=== PATIENT | male | born 1950 | race Caucasian/White ===

== ENCOUNTER 2017-11-07 15:02 | Emergency (ER) | payer OTHER ==
[~2017-11-07] VITALS: Ht 175.3 cm; Wt 87.0 kg
[2017-11-07 16:03] VITALS: BP 103/64; PULSE 94; RESP 18; TEMP 97.7; O2SAT 99
[2017-11-07 17:47] LABS: BASOPHIL % 0.5 % (0.0-2.0); EOSINOPHIL # 0.1 TH/MM3 (0-0.4); EOSINOPHIL % 0.9 % (0.0-4.0); HEMATOCRIT 49.5 % (39.0-51.0); LYMPH % 19.8 % (9.0-44.0); LYMPHOCYTE # 1.7 TH/MM3 (1.0-4.8); MEAN CELL VOLUME 89.6 FL (80.0-100.0); MEAN CORPUSCULAR HEMOGLOBIN 30.7 PG (27.0-34.0); MEAN CORPUSCULAR HGB CONC 34.3 % (32.0-36.0); MONO % 7.2 % (0.0-8.0); MONOCYTE # 0.6 TH/MM3 (0-0.9); NEUT % 71.6 % (16.0-70.0); PLATELET COUNT 227 TH/MM3 (150-450); RED BLOOD COUNT 5.52 MIL/MM3 (4.50-5.90); RED CELL DISTRIBUTION WIDTH 13.1 % (11.6-17.2); WHITE BLOOD COUNT 8.4 TH/MM3 (4.0-11.0)
[2017-11-07 18:10] LABS: ALBUMIN 4.5 GM/DL (3.4-5.0); AST (GOT) 25 U/L (15-37); BICARBONATE 27.5 MEQ/L (21.0-32.0); BLOOD UREA NITROGEN 28 MG/DL (7-18); CALCIUM 10.2 MG/DL (8.5-10.1); CHLORIDE 94 MEQ/L (98-107); CREATININE 1.18 MG/DL (0.60-1.30); GLOMERULAR FILTRATION RATE 62 ML/MIN (>89); GLUCOSE,RANDOM 430 MG/DL (74-106); SODIUM (NA) 132 MEQ/L (136-145)
[2017-11-07 18:15] LABS: ALKALINE PHOSPHATASE 164 U/L (45-117); ALT (GPT) 76 U/L (12-78); TOTAL BILIRUBIN ADULT 0.5 MG/DL (0.2-1.0); TOTAL PROTEIN 8.9 GM/DL (6.4-8.2)
[2017-11-07 20:35] VITALS: BP 132/76; PULSE 80; RESP 15
[2017-11-07] MEDS ORDERED: SODIUM CHLOR 0.9% 1000 ML INJ 1,000 ML IV SCH (20:42)
--- NOTE | 2017-11-07 20:43 | PD ---
HPI Chief Complaint: Diabetic Time Seen by Provider: 20:28 Travel History International Travel<30 days: No Contact w/Intl Traveler<30days: No Traveled to known affect area: No History of Present Illness HPI Patient is a 67-year-old male who was sent over by the [facility] for evaluation of elevated hemoglobin A1c. Patient had routine blood work drawn today for his checkup and was found to have his blood sugar in the 500s and elevated A1c. Patient has no complaints. He denies any chest pain shortness breath abdominal pain nausea vomiting diarrhea constipation. Patient states he only has some mild numbness and tingling his fingers from his chronic neuropathy. Denies any fevers. Symptoms are moderate, associated signs symptoms and context as above, duration unknown. PFSH Past Medical History Cardiovascular Problems: Yes ("HEART VALVE") Diabetes: Yes Patient Takes Glucophage: No Diminished Hearing: Yes Hiatal Hernia: Yes Tetanus Vaccination: Unknown Social History Alcohol Use: No Tobacco Use: No Substance Use: No Allergies-Medications (Allergen,Severity, Reaction): Coded Allergies: Iodinated Contrast- Oral and IV Dye (Verified Allergy, Intermediate, ) SNEEZING Review of Systems Except as stated in HPI: all other systems reviewed are Neg Physical Exam Narrative GENERAL: Well-developed well-nourished no obvious distress SKIN: Focused skin assessment warm/dry. HEAD: Atraumatic. Normocephalic. EYES: Pupils equal and round. No scleral icterus. No injection or drainage. ENT: No nasal bleeding or discharge. Mucous membranes pink and moist. NECK: Trachea midline. No JVD. CARDIOVASCULAR: Regular rate and rhythm. No murmur appreciated. RESPIRATORY: No accessory muscle use. Clear to auscultation. Breath sounds equal bilaterally. GASTROINTESTINAL: Abdomen soft, non-tender, nondistended. Hepatic and splenic margins not palpable. MUSCULOSKELETAL: No obvious deformities. No clubbing. No cyanosis. No edema. NEUROLOGICAL: Awake and alert. No obvious cranial nerve deficits. Motor grossly within normal limits. Normal speech. 5 out of 5 strength in all 4 extrema PSYCHIATRIC: Appropriate mood and affect; insight and judgment normal. Data Data Last Documented VS Vital Signs Date Time Temp Pulse Resp B/P (MAP) Pulse Ox O2 Delivery O2 Flow Rate FiO2 11/07/17 23:42 11/07/17 20:49 16 98 Room Air 11/07/17 20:35 80 98 3/16/18 16:03 97.7 Orders Orders Complete Blood Count With Diff (11/07/17 16:06) Blood Glucose (11/07/17 16:06) Comprehensive Metabolic Panel (11/07/17 16:06) Basic Metabolic Panel (Bmp) (11/07/17 20:42) Complete Blood Count With Diff (11/07/17 20:42) Iv Access Insert/Monitor (11/07/17 20:42) Ecg Monitoring (11/07/17 20:42) Oximetry (11/07/17 20:42) Sodium Chlor 0.9% 1000 Ml Inj (Ns 1000 M (11/07/17 20:42) Sodium Chloride 0.9% Flush (Ns Flush) (11/07/17 20:45) Electrocardiogram (11/07/17 20:42) Insulin Human Regular Inj (Novolin R Inj (11/07/17 20:45) Blood Glucose (11/07/17 22:22) Ed Discharge Order (11/07/17 23:03) Labs Laboratory Tests Test 11/07/17 16:45 11/07/17 20:55 White Blood Count 8.4 TH/MM3 9.6 TH/MM3 Red Blood Count 5.52 MIL/MM3 5.40 MIL/MM3 Hemoglobin 17.0 GM/DL 16.4 GM/DL Hematocrit 49.5 % 48.0 % Mean Corpuscular Volume 89.6 FL 88.8 FL Mean Corpuscular Hemoglobin 30.7 PG 30.3 PG Mean Corpuscular Hemoglobin Concent 34.3 % 34.2 % Red Cell Distribution Width 13.1 % 13.2 % Platelet Count 227 TH/MM3 237 TH/MM3 Mean Platelet Volume 10.0 FL 9.7 FL Neutrophils (%) (Auto) 71.6 % 71.6 % Lymphocytes (%) (Auto) 19.8 % 20.0 % Monocytes (%) (Auto) 7.2 % 7.0 % Eosinophils (%) (Auto) 0.9 % 0.9 % Basophils (%) (Auto) 0.5 % 0.5 % Neutrophils # (Auto) 6.0 TH/MM3 6.8 TH/MM3 Lymphocytes # (Auto) 1.7 TH/MM3 1.9 TH/MM3 Monocytes # (Auto) 0.6 TH/MM3 0.7 TH/MM3 Eosinophils # (Auto) 0.1 TH/MM3 0.1 TH/MM3 Basophils # (Auto) 0.0 TH/MM3 0.0 TH/MM3 CBC Comment DIFF FINAL DIFF FINAL Differential Comment Blood Urea Nitrogen 28 MG/DL 27 MG/DL Creatinine 1.18 MG/DL 1.13 MG/DL Random Glucose 430 MG/DL 381 MG/DL Total Protein 8.9 GM/DL Albumin 4.5 GM/DL Calcium Level 10.2 MG/DL 9.6 MG/DL Alkaline Phosphatase 164 U/L Aspartate Amino Transf (AST/SGOT) 25 U/L Alanine Aminotransferase (ALT/SGPT) 76 U/L Total Bilirubin 0.5 MG/DL Sodium Level 132 MEQ/L 137 MEQ/L Potassium Level 4.6 MEQ/L 4.6 MEQ/L Chloride Level 94 MEQ/L 97 MEQ/L Carbon Dioxide Level 27.5 MEQ/L 29.2 MEQ/L Anion Gap 11 MEQ/L 11 MEQ/L Estimat Glomerular Filtration Rate 62 ML/MIN 65 ML/MIN [facility] Medical Decision Making Medical Screen Exam Complete: Yes Emergency Medical Condition: Yes Differential Diagnosis DKA unlikely, asymptomatic hyperglycemia, uncontrolled diabetes. Narrative Course Patient room to the emergency department, given normal saline and insulin, labs are reassuring, repeat sugar within discharge parameters. 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 Diagnosis Primary Impression: Hyperglycemia due to type 1 diabetes mellitus Additional Instructions: Follow-up with your stationary plant operators on Friday, take your insulin as prescribed, avoid carbohydrates and sugar. Disposition: 01 DISCHARGE HOME Condition: Stable Roscoe Eden MD Nov 07, 2017 20:43
[2017-11-07] MEDS ORDERED: INSULIN HUMAN REGULAR 1,000 UNITS/10 ML VIAL IV PUSH ONE (20:45)
[2017-11-07] MEDS ORDERED: SODIUM CHLORIDE 0.9% FLUSH 10 ML FLUSH IV FLUSH PRN (20:45)
[2017-11-07 20:49] VITALS: RESP 16; O2SAT 98
[2017-11-07 21:24] LABS: AUTOMATED NEUTROPHIL # 6.8 TH/MM3 (1.8-7.7); BASOPHIL % 0.5 % (0.0-2.0); EOSINOPHIL # 0.1 TH/MM3 (0-0.4); EOSINOPHIL % 0.9 % (0.0-4.0); HEMOGLOBIN 16.4 GM/DL (13.0-17.0); LYMPHOCYTE # 1.9 TH/MM3 (1.0-4.8); MEAN CELL VOLUME 88.8 FL (80.0-100.0); MEAN CORPUSCULAR HEMOGLOBIN 30.3 PG (27.0-34.0); MEAN CORPUSCULAR HGB CONC 34.2 % (32.0-36.0); MEAN PLATELET VOLUME 9.7 FL (7.0-11.0); MONOCYTE # 0.7 TH/MM3 (0-0.9); NEUT % 71.6 % (16.0-70.0); PLATELET COUNT 237 TH/MM3 (150-450); RED CELL DISTRIBUTION WIDTH 13.2 % (11.6-17.2); WHITE BLOOD COUNT 9.6 TH/MM3 (4.0-11.0)
[2017-11-07 21:53] LABS: BICARBONATE 29.2 MEQ/L (21.0-32.0); CALCIUM 9.6 MG/DL (8.5-10.1); CREATININE 1.13 MG/DL (0.60-1.30)
--- NOTE | 2017-11-08 16:49 | EKG ---
Date Performed: 11/07/2017 Time Performed: 20:58:55 PTAGE: 67 years EKG: Sinus rhythm POSSIBLE LEFT ATRIAL ENLARGEMENT RIGHT BUNDLE BRANCH BLOCK LEFT ANTERIOR FASCICULAR BLOCK SEPTAL JOHNNIE CARDIAL INFARCTION ABNORMAL ECG NO PREVIOUS TRACING DOCTOR: Josiah Ashraf Interpretating Date/Time 11/08/2017 16:47:56
== END 2017-11-07 23:54 | disposition home or self-care (01) ==
LOC: NEPE 15:02
DX: E10.65 Type 1 diabetes mellitus with hyperglycemia (principal); R94.31 Abnormal electrocardiogram [ECG] [EKG]
CPT/HCPCS: 80053; 85025; 93005; 96374; 99284; J1815; J7030; 80048

== ENCOUNTER 2018-03-05 11:45 | Inpatient (IN) ==
[2018-03-05] MEDS ORDERED: Piperacil/Tazo 4.5 GM Premix 4.5 GM/100 ML BAG IV.SIG ONE (12:00)
[2018-03-05] MEDS ORDERED: Lidocaine PF 1% Inj 5 ML Syringe INFILTRATN ONE (12:00)
[2018-03-05] MEDS ORDERED: Neostigmine Inj 5 MG/5 ML Syringe IV.PUSH ONE (12:00)
[2018-03-05] MEDS ORDERED: Glycopyrrolate Inj 1 MG/5 ML Syringe IV.PUSH ONE (12:00)
[2018-03-05] MEDS ORDERED: Vancomycin Inj 1 GM/200 ML PIGGYBACK IV.SIG ONE (12:00)
--- NOTE | 2018-03-05 12:25 | ED ---
HPI General Chief Complaint: Extremity Injury, Lower Stated Complaint: confusion/Evac Time Seen by Provider: 03/05/18 12:00 Source: patient, family and EMS Mode of arrival: EMS Limitations: altered mental status History of Present Illness HPI Narrative: 67 yo male here for evaluation of possible altered mental status and left foot necrosis. Unclear lenght of time as patient is somewhat confused. Patient has a bruise to his head and allegedly per EVAC and estranged he did not had a bruise on head on friday when his home health nurse saw him. Patient denies any pain at this time. Cannot tell me if he lost consciousness or not. No blood thinners. Cannot tell me how long his toes have been black. He does tell me he has chronic neuropathy and diabetes with insulin. No cardiac history per patient. No chest pain or SOB. No back pain. EVAC called today as apparently and home health nurse saw him today with a bruise to his head an black toes. Again history is limited. Apparently does not live with and cannot give much information about how long this has been going on other than patient did not had a bruise to his head on friday afternoon. Related Data Allergies Allergy/AdvReac Type Severity Reaction Status Date / Time Iodinated Contrast- Oral and Allergy Intermediate Verified 11/07/17 20:25 IV Dye Review of Systems ROS Unobtainable All other systems reviewed negative except as stated in HPI PMFSH History History Provided By: Patient, Family Member and Airborne Electronics Analyst / EMT Social History Social History Second Hand Smoke Exposure: No Smoking Status: Former smoker Tobacco Type: Cigarettes How Often Do You Have a Drink Containing Alcohol: Never Recent Travel in [facility] within the Last 8 Weeks: No Recent Out of Country Travel within the Last 8 Weeks: No Exam Narrative Exam Narrative: GENERAL: Anorexic and not well groomed SKIN: Focused skin assessment warm/dry. HEAD: Atraumatic. Normocephalic. Has a bruise and hematoma noted to the right side of the face. EYES: Pupils equal and round 4 mm reactive to light and accommodation.. No scleral icterus. No injection or drainage. ENT: No nasal bleeding or discharge. Mucous membranes pink and moist. Tongue is midline. No uvula deviation. NECK: Trachea midline. No JVD. CARDIOVASCULAR: Regular rate and rhythm. No murmur appreciated. RESPIRATORY: No accessory muscle use. Clear to auscultation. Breath sounds equal bilaterally. GASTROINTESTINAL: Abdomen soft, non-tender, nondistended. Hepatic and splenic margins not palpable. MUSCULOSKELETAL: No obvious deformities. No clubbing. No cyanosis. No edema. Full range of motion of the upper and lower extremities bilaterally. Patient has normal sensation on the feet bilaterally which appears to be chronic for him. Patient does have significant blackening of the second and third toes are more noticeable on the second toe of the left foot. Blackening of the skin does appear to be more significant especially on the plantar aspect of the foot and goes about one third of the foot. Foul-smelling. Some erythema noted especially on all the other toes and the dorsal aspect of the foot with swelling. Very hard to assess pulses but with Doppler we were able to find pulses very slightly on the dorsalis pedis and in the posterior tibialis (this was done by me and attending Dr Zambrano). NEUROLOGICAL: Awake and alert. No obvious cranial nerve deficits. Motor grossly within normal limits. Normal speech. PSYCHIATRIC: Appropriate mood and affect; insight and judgment normal. Course Initial Documented Vital Signs Pulse Oximetry 98 03/05/18 12:23 Last Documented Vital Signs Pulse Oximetry 98 03/05/18 12:23 Medical Decision Making HUA Attestation HUA supervised visit: Yes Attestation: I, Dr. zambrano, have reviewed the advance practice practitioner's documentation and am in agreement, met with the patient face to face, made the diagnosis, and the medical decision making was done by me. *My assessment and Findings: 67-year-old male with severe infection to left foot. There is dopplerable and palpable posterior tibialis pulses, x-ray shows gas. Given broad-spectrum antibiotics. Discuss with podiatry and will admit to the hospital for further care MDM Narrative Medical decision making narrative: 67-year-old male the presents to the ED for evaluation of altered mental status and foot infection. Patient was properly examined and was found to have signs and symptoms very concerning for necrotic toe. We were able to find something pulses on the foot. Patient apparently has an IV contrast allergy and cannot have CTA. At this time labs and imaging were ordered. Patient does have a bruise to his head and there is some alteration to the patient upon he appears to answer most questions appropriately at time questions. At this time labs and imaging order. Patient will start IV antibiotics including vancomycin and Zosyn. Given fluids. Patient and family were told that patient will require admission for further evaluation and likely amputation of the left foot but this will be at the discretion of the copper plater and surgeon who will take care of him. Labs and imaging showed significant infection with elevated WBCs, ESR, CRP, xray of foot showed subcutaneus air. Likely gangrene. Spoke with Dr Aguirre for podiatry who wants patient NPO and surgery likely this afternoon, admit to medicine. Case discussed with Dr Li from [facility] who agrees to admission to his service. Dr Zambrano my attending was made aware of all findings and evaluated the patient with me and agrees with plan. Family and patient made aware of findings as well and agree to proceed. Differential Diagnosis Differential Diagnosis: Necrotic toe versus peripheral artery disease versus altered mental status versus head injury versus sepsis versus osteomyelitis Medical Records Medical records reviewed: Yes I reviewed the patient's medical records. Lab Data Lab results reviewed: Yes I reviewed the patient's lab results. Lab results narrative: CRP and ESR Elevated CK and troponin negative Result diagrams: 03/05/18 12:15 03/05/18 12:15 Lab Results 03/05/18 03/05/18 03/05/18 Range/Units 12:15 12:15 12:15 WBC 26.6 H (4.0-11.0) th/mm3 RBC 4.72 (4.50-5.90) mil/mm3 Hgb 13.8 (13.0-17.0) gm/dL Hct 41.7 (39.0-51.0) % MCV 88.3 (80.0-100.0) fL MCH 29.3 (27.0-34.0) pg MCHC 33.2 (32.0-36.0) % RDW 12.8 (11.6-17.2) % Plt Count 374 (150-450) th/mm3 MPV 9.2 (7.0-11.0) fL Prelim Diff (Auto) Slide review pending Neut % (Auto) 87.1 H (16.0-70.0) % Lymph % (Auto) 5.5 L (9.0-44.0) % [place] % (Auto) 6.9 (0.0-8.0) % Eos % (Auto) 0.0 (0.0-4.0) % Baso % (Auto) 0.5 (0.0-2.0) % Neut # (Auto) 23.2 H (1.8-7.7) th/mm3 Lymph # (Auto) 1.5 (1.0-4.8) th/mm3 [place] # (Auto) 1.8 H (0.0-0.9) th/mm3 Eos # (Auto) 0.0 (0.0-0.4) th/mm3 Baso # (Auto) 0.1 (0.0-0.2) th/mm3 WBC Differential Manual diff final Seg Neuts % (Manual) 82 H (16-70) % Band Neuts % (Manual) 9 H (0-6) % Lymphocytes % (Manual) 4 L (9-44) % Monocytes % (Manual) 4 (0-8) % Myelocytes % (Man) 1 H (0-0) % Abs Neuts (Manual) 24.5 H (1.8-7.7) th/mm3 Differential Comment . Toxic Granulation 1+ H (None) Toxic Vacuolation Present H (None) Platelet Estimate Normal (Normal) Platelet Morphology Normal (Normal) ESR (0-20) mm/hr PT 12.8 H (9.8-11.6) sec INR 1.3 Ratio APTT 23.8 L (24.3-30.1) sec Sodium 132 L (136-145) meq/L Potassium 4.5 (3.5-5.1) meq/L Chloride 97 L (98-107) meq/L Carbon Dioxide 20.4 L (21.0-32.0) meq/L Anion Gap 15 (5-15) meq/L BUN 51 H (7-18) mg/dL Creatinine 1.32 H (0.60-1.30) mg/dL Estimated GFR 54 L (>89) mL/min Random Glucose 331 H (74-106) mg/dL Lactic Acid (0.4-2.0) mmol/L Calcium 9.1 (8.5-10.1) mg/dL Prot Corrected Calcium Magnesium 1.7 (1.5-2.5) mg/dL Total Bilirubin 0.6 (0.2-1.0) mg/dL AST 9 L (15-37) U/L ALT 22 (12-78) U/L Alkaline Phosphatase 107 (45-117) U/L Total Creatine Kinase 88 (39-308) U/L Troponin I Less than 0.02 L (0.02-0.05) ng/mL C-Reactive Protein 16.00 H (0.00-0.30) mg/dL Total Protein 7.3 (6.4-8.2) g/dL Albumin 2.1 L (3.4-5.0) g/dL 03/05/18 03/05/18 03/05/18 Range/Units 12:15 12:15 12:15 WBC (4.0-11.0) th/mm3 RBC (4.50-5.90) mil/mm3 Hgb (13.0-17.0) gm/dL Hct (39.0-51.0) % MCV (80.0-100.0) fL MCH (27.0-34.0) pg MCHC (32.0-36.0) % RDW (11.6-17.2) % Plt Count (150-450) th/mm3 MPV (7.0-11.0) fL Prelim Diff (Auto) Neut % (Auto) (16.0-70.0) % Lymph % (Auto) (9.0-44.0) % [place] % (Auto) (0.0-8.0) % Eos % (Auto) (0.0-4.0) % Baso % (Auto) (0.0-2.0) % Neut # (Auto) (1.8-7.7) th/mm3 Lymph # (Auto) (1.0-4.8) th/mm3 [place] # (Auto) (0.0-0.9) th/mm3 Eos # (Auto) (0.0-0.4) th/mm3 Baso # (Auto) (0.0-0.2) th/mm3 WBC Differential Seg Neuts % (Manual) (16-70) % Band Neuts % (Manual) (0-6) % Lymphocytes % (Manual) (9-44) % Monocytes % (Manual) (0-8) % Myelocytes % (Man) (0-0) % Abs Neuts (Manual) (1.8-7.7) th/mm3 Differential Comment Toxic Granulation (None) Toxic Vacuolation (None) Platelet Estimate (Normal) Platelet Morphology (Normal) ESR (0-20) mm/hr PT (9.8-11.6) sec INR Ratio APTT (24.3-30.1) sec Sodium Cancelled (136-145) meq/L Potassium Cancelled (3.5-5.1) meq/L Chloride Cancelled (98-107) meq/L Carbon Dioxide Cancelled (21.0-32.0) meq/L Anion Gap Cancelled (5-15) meq/L BUN Cancelled (7-18) mg/dL Creatinine Cancelled (0.60-1.30) mg/dL Estimated GFR Cancelled (>89) mL/min Random Glucose Cancelled (74-106) mg/dL Lactic Acid 1.8 (0.4-2.0) mmol/L Calcium Cancelled (8.5-10.1) mg/dL Prot Corrected Calcium Cancelled Magnesium (1.5-2.5) mg/dL Total Bilirubin Cancelled (0.2-1.0) mg/dL AST Cancelled (15-37) U/L ALT Cancelled (12-78) U/L Alkaline Phosphatase Cancelled (45-117) U/L Total Creatine Kinase (39-308) U/L Troponin I (0.02-0.05) ng/mL C-Reactive Protein Cancelled (0.00-0.30) mg/dL Total Protein Cancelled (6.4-8.2) g/dL Albumin Cancelled (3.4-5.0) g/dL 03/05/18 Range/Units 12:15 WBC (4.0-11.0) th/mm3 RBC (4.50-5.90) mil/mm3 Hgb (13.0-17.0) gm/dL Hct (39.0-51.0) % MCV (80.0-100.0) fL MCH (27.0-34.0) pg MCHC (32.0-36.0) % RDW (11.6-17.2) % Plt Count (150-450) th/mm3 MPV (7.0-11.0) fL Prelim Diff (Auto) Neut % (Auto) (16.0-70.0) % Lymph % (Auto) (9.0-44.0) % [place] % (Auto) (0.0-8.0) % Eos % (Auto) (0.0-4.0) % Baso % (Auto) (0.0-2.0) % Neut # (Auto) (1.8-7.7) th/mm3 Lymph # (Auto) (1.0-4.8) th/mm3 [place] # (Auto) (0.0-0.9) th/mm3 Eos # (Auto) (0.0-0.4) th/mm3 Baso # (Auto) (0.0-0.2) th/mm3 WBC Differential Seg Neuts % (Manual) (16-70) % Band Neuts % (Manual) (0-6) % Lymphocytes % (Manual) (9-44) % Monocytes % (Manual) (0-8) % Myelocytes % (Man) (0-0) % Abs Neuts (Manual) (1.8-7.7) th/mm3 Differential Comment Toxic Granulation (None) Toxic Vacuolation (None) Platelet Estimate (Normal) Platelet Morphology (Normal) ESR 81 H (0-20) mm/hr PT (9.8-11.6) sec INR Ratio APTT (24.3-30.1) sec Sodium (136-145) meq/L Potassium (3.5-5.1) meq/L Chloride (98-107) meq/L Carbon Dioxide (21.0-32.0) meq/L Anion Gap (5-15) meq/L BUN (7-18) mg/dL Creatinine (0.60-1.30) mg/dL Estimated GFR (>89) mL/min Random Glucose (74-106) mg/dL Lactic Acid (0.4-2.0) mmol/L Calcium (8.5-10.1) mg/dL Prot Corrected Calcium Magnesium (1.5-2.5) mg/dL Total Bilirubin (0.2-1.0) mg/dL AST (15-37) U/L ALT (12-78) U/L Alkaline Phosphatase (45-117) U/L Total Creatine Kinase (39-308) U/L Troponin I (0.02-0.05) ng/mL C-Reactive Protein (0.00-0.30) mg/dL Total Protein (6.4-8.2) g/dL Albumin (3.4-5.0) g/dL Imaging Data Attestation: I personally reviewed and interpreted this imaging study as follows : Radiologist's impression: ITS Impressions Foot X-Ray 03/05/18 12:00 CONCLUSION: 1. Abnormal subcutaneous emphysema is seen in the soft tissues along the ball of foot, between the first, second and third toes and along the plantar fascia. This suggests some degree of infection/inflammatory process. 2. No evidence of any bony erosion or bony destruction to suggest osteomyelitis at this time. Head CT 03/05/18 12:00 CONCLUSION: 1. No focal or acute intracranial hemorrhage. 2. Subcutaneous Soft tissue swelling along the right forehead region. 3. Chronic appearing white matter changes bilaterally slightly greater on the right than the left. Recommend MRI of the brain for further evaluation if clinically indicated. Chest X-Ray 03/05/18 12:01 CONCLUSION: No acute intrathoracic disease. ECG Data EKG Prior to Arrival: No Discharge Plan Discharge Disposition Patient Disposition: 30 Still Patient Discharge Condition Condition: Fair Discharge Details Diagnosis: Gangrene of left foot, Altered mental status, Acute kidney injury, Diabetes, Head injury, acute Physicians Team ED Provider: Mary Grace Zambrano ED Midlevel Provider: Smith Hernández Primary Care Provider: Primary Care Gloria Schroeder Attending Provider: Monica Li Status ED Status: Admitted Patient
[2018-03-05] MEDS ORDERED: Vancomycin Inj 1,000 MG in Sodium Chlor 0.9% Inj 250 ML IV.SIG ONE (12:30)
[2018-03-05 12:33] LABS: Baso # (Auto) 0.1 th/mm3 (0.0-0.2); Baso % (Auto) 0.5 % (0.0-2.0); Hematocrit 41.7 % (39.0-51.0); Hemoglobin 13.8 gm/dL (13.0-17.0); Lymph # (Auto) 1.5 th/mm3 (1.0-4.8); Lymph % (Auto) 5.5 % (9.0-44.0); Mean Corpuscular HGB Conc 33.2 % (32.0-36.0); Mean Corpuscular Hemoglobin 29.3 pg (27.0-34.0); Mean Corpuscular Volume 88.3 fL (80.0-100.0); Mean Platelet Volume 9.2 fL (7.0-11.0); Mono # (Auto) 1.8 th/mm3 (0.0-0.9); Mono % (Auto) 6.9 % (0.0-8.0); Neut # (Auto) 23.2 th/mm3 (1.8-7.7); Neut % (Auto) 87.1 % (16.0-70.0); Platelet Count 374 th/mm3 (150-450); Red Blood Count 4.72 mil/mm3 (4.50-5.90); Red Cell Distribution Width 12.8 % (11.6-17.2); White Blood Count 26.6 th/mm3 (4.0-11.0)
--- NOTE | 2018-03-05 12:38 | XR ---
EXAM DATE: 03/05/2018 12:35 PM EDT AGE/SEX: 67 years / Male INDICATIONS: Fever, infection in left foot. CLINICAL DATA: This is the patient's initial encounter. Patient reports that signs and symptoms have been present for 1 week and indicates a pain score of 2/10. MEDICAL/SURGICAL HISTORY: None. None. COMPARISON: No prior exams available for comparison. FINDINGS: A single AP view of the chest demonstrates the lungs to be symmetrically aerated without evidence of mass, infiltrate or effusion. The cardiomediastinal contours are unremarkable. Osseous structures a re intact. CONCLUSION: No acute intrathoracic disease. Electronically signed by: Robert Valente MD 03/05/2018 12:37 PM EDT
--- NOTE | 2018-03-05 12:41 | CT ---
EXAM DATE: 03/05/2018 12:37 PM EDT AGE/SEX: 67 years / Male INDICATIONS: Trauma, fall a few days ago. Altered mental status. CLINICAL DATA: This is the patient's initial encounter. Patient reports that signs and symptoms have been present for 3 days and indicates a pain score of 4/10. MEDICAL/SURGICAL HISTORY: None. None. RADIATION DOSE: 35.79 CTDI (mGy) COMPARISON: No prior exams available for comparison. TECHNIQUE: CT of the head without contrast. Using automated exposure control and adjustment of the mA and/or kV according to patient size, radiation dose was kept as low as reasonably achievable to ob tain optimal diagnostic quality images. DICOM format image data is available electronically for revi ew and comparison. FINDINGS: Cerebrum: The ventricles are normal for age. No evidence of midline shift, mass lesion, hemorrhage or acute infarction. There is chronic appearing white matter changes bilaterally slightly greater on the right than the left. There are no prior studies for comparison. No extraaxial fluid collections are seen. Posterior Fossa: The cerebellum and brainstem are intact. The 4th ventricle is midline. The cerebe llopontine angle is unremarkable. Extracranial: The visualized portion of the orbits is intact. There is subcutaneous soft tissue swel ling of the scalp along the right forehead. Skull: The calvaria is intact. No evidence of skull fracture. CONCLUSION: 1. No focal or acute intracranial hemorrhage. 2. Subcutaneous Soft tissue swelling along the right forehead region. 3. Chronic appearing white matter changes bilaterally slightly greater on the right than the left. R ecommend MRI of the brain for further evaluation if clinically indicated. Electronically signed by: Robert Valente MD 03/05/2018 12:40 PM EDT
--- NOTE | 2018-03-05 12:45 | XR ---
EXAM DATE: 03/05/2018 12:38 PM EDT AGE/SEX: 67 years / Male INDICATIONS: Fever, infection left foot. Second digit is black, bottom of foot is black in the firs t digit area. Complains of pain. CLINICAL DATA: This is the patient's initial encounter. Patient reports that signs and symptoms have been present for 1 week and indicates a pain score of 8/10. MEDICAL/SURGICAL HISTORY: None. None. COMPARISON: No prior exams available for comparison. FINDINGS: The bony structures are grossly intact. No acute fracture or joint dislocation is demonstrated. There are some degenerative changes involving the first metatarsal-phalangeal joint with hallux valgus ang ulation. There is no evidence of any cortical erosion or bony destruction. No definite foreign bodies are demonstrated. However, there is abnormal subcutaneous emphysema in the soft tissues along the ba ll of the foot as well as along the plantar fascia. The subcutaneous emphysema is also seen between t he first, second and third toes. CONCLUSION: 1. Abnormal subcutaneous emphysema is seen in the soft tissues along the ball of foot, between the f irst, second and third toes and along the plantar fascia. This suggests some degree of infection/infl ammatory process. 2. No evidence of any bony erosion or bony destruction to suggest osteomyelitis at this time. Electronically signed by: Robert Valente MD 03/05/2018 12:44 PM EDT
[2018-03-05] MEDS: Sod Chloride 0.9% Inj 1,000 ML IV.SIG SCH ×3 (12:47→13:57)
[2018-03-05] MEDS ORDERED: Clindamycin 600 mg/NS Premix 600 MG/50 ML PIGGYBACK IV.SIG ONE (12:48)
[2018-03-05 12:53] LABS: Activated Partial Thrombo Time 23.8 sec (24.3-30.1); INR 1.3 Ratio; Prothrombin Time 12.8 sec (9.8-11.6)
[2018-03-05 12:55] LABS: Albumin 2.1 g/dL (3.4-5.0); Anion Gap 15 meq/L (5-15); Blood Urea Nitrogen 51 mg/dL (7-18); Calcium 9.1 mg/dL (8.5-10.1); Carbon Dioxide 20.4 meq/L (21.0-32.0); Chloride 97 meq/L (98-107); Glucose,Random 331 mg/dL (74-106); Magnesium 1.7 mg/dL (1.5-2.5); Potassium 4.5 meq/L (3.5-5.1); Sodium 132 meq/L (136-145)
[2018-03-05 12:56] LABS: Aspartate Aminotransferase 9 U/L (15-37); Glomerular Filtration Rate 54 mL/min (>89)
[2018-03-05 12:58] LABS: Alanine Aminotransferase 22 U/L (12-78); Alkaline Phosphatase 107 U/L (45-117); Total Protein 7.3 g/dL (6.4-8.2)
[2018-03-05 13:02] LABS: Creatine Kinase 88 U/L (39-308)
[2018-03-05 13:19] LABS: Lymphocytes 4 % (9-44); Monocytes 4 % (0-8); Myelocytes 1 % (0-0)
[2018-03-05 13:20] LABS: Platelet Estimate Normal (Normal); Platelet Morphology Normal (Normal); Toxic Granulation 1+; Toxic Vacuolation Present
[2018-03-05] MEDS ORDERED: Acetaminophen 325 MG Tablet PO PRN (13:46)
[2018-03-05] MEDS ORDERED: Bisacodyl 10 MG Supp RECTAL PRN (13:46)
[2018-03-05] MEDS: Sod Chloride 0.9% Inj 1,000 ML IV.CONT SCH (15:00)
[2018-03-05] MEDS ORDERED: Dextrose 50% in Water 50 ML Vial IV.PUSH PRN (15:33)
--- NOTE | 2018-03-05 15:34 | P.HP ---
History of Present Illness Primary Care Physician: No Primary Care Physician Chief Complaint: confusion, left foot gangrenous lesion. History of Present Illness: Mr. Coelho is a 67-year-old with a history of habitus mellitus who was brought to the hospital due to confusion as well as left foot necrotic lesion. Patient lives by himself and usually gets a nurses aide visit 3 times a week. Home health nurse noted a bump on the right side of his head. Patient was also found to be confused. When patient's and home health nurse tried to get him out of bed, they noticed necrotic lesion on his left foot. Patient did not have any fever, chills. His diabetes is not well controlled. At the time of this interview, patient denies any chest pain, shortness of breath, fever or chills. He does not feel much pain from his left foot. He appears to be coherent at this point. Inpatient Certification: I certify that the inpatient services were ordered in accordance with Medicare regulations governing the order. This includes certification that hospital inpatient services are reasonable and necessary and in the case of services not specified as inpatient-only under 42 CFR 419.22(n), that they are appropriately provided as inpatient services in accordance to with the 2-midnight benchmark under 43 CFR 412.3(e) Estimated Total Length of Stay (Days): 3 Plans for Post Hospital Care: SNF Review of Systems All other systems reviewed negative except as stated in HPI Constitutional: Reports lack of energy PMFSH - History History Provided By: Patient, Family Member, Restaurant Area Manager / EMT - Tobacco History Second Hand Smoke Exposure: No Tobacco Use In Past 30 Days: No Smoking Status: Former smoker Tobacco Type: Cigarettes - Alcohol History How Often Do You Have a Drink Containing Alcohol: Never - Travel History Recent Travel in the [place] Within the Last 8 Weeks: No Recent Travel Out of the Country Within the Last 8 Weeks: No - Immunization History Tetanus Immunization: >5 Years Medications and Allergies Active Medications: Active Medications Acetaminophen (Tylenol) 650 mg PO Q4H PRN PRN Reason: Temp > 100.4 Al Hydroxide/Mg Hydroxide (Milk Of Magnesia Liq) 30 ml PO Q12H PRN PRN Reason: Mild Constipation Bisacodyl (Dulcolax Supp) 10 mg RECTAL DAILY PRN PRN Reason: SEVERE CONSITIPATION Sodium Chloride (Ns Inj) 1,000 mls @ 0 mls/hr IV.SIG .Q0M [facility] Last Admin: 03/05/18 13:50 Dose: 1,000 mls/hr Sodium Chloride (Ns Inj) 1,000 mls @ 0 mls/hr IV.SIG .Q0M [facility] Last Admin: 03/05/18 13:57 Dose: 1,000 mls/hr Sodium Chloride (Ns Inj) 1,000 mls @ 100 mls/hr IV.CONT .Q10H [facility] Last Admin: 03/05/18 15:00 Dose: 100 mls/hr Lactulose (Lactulose Liq) 30 ml PO DAILY PRN PRN Reason: SEVERE CONSITIPATION Sennosides (Senokot) 17.2 mg PO Q12H PRN PRN Reason: Moderate Constipation Temazepam (Restoril) 15 mg PO HS PRN PRN Reason: INSOMNIA Allergies Allergy/AdvReac Type Severity Reaction Status Date / Time Iodinated Contrast- Oral and Allergy Intermediate Verified 11/07/17 20:25 IV Dye Home Medications Medication Instructions Recorded Confirmed Type aspirin 81 mg PO DAILY 03/05/18 03/05/18 History atorvastatin 80 mg PO HS 03/05/18 03/05/18 History cholecalciferol (vitamin D3) 2,000 unit PO DAILY 03/05/18 03/05/18 History folic acid 1 mg PO DAILY 03/05/18 03/05/18 History gabapentin 600 mg PO TID 03/05/18 03/05/18 History insulin regular hum U-500 conc 85 unit SUB-Q TID 03/05/18 03/05/18 History lisinopril 2.5 mg PO DAILY 03/05/18 03/05/18 History metformin 1,000 mg PO BID 03/05/18 03/05/18 History sertraline 50 mg PO DAILY 03/05/18 03/05/18 History vitamin B complex 1,000 units PO DAILY 03/05/18 03/05/18 History Exam Vital signs: Vital Signs 03/05/18 12:23 03/05/18 13:59 Pulse Rate 94 H Respiratory Rate 18 Blood Pressure 184/88 H Pulse Oximetry 98 96 Intake & Output 03/04/18 03/05/18 03/05/18 18:59 06:59 18:59 Intake Total 1000 / 1000 Balance 1000 / 1000 Weight 68.039 kg Intake: IV 1000 / 1000 NS Inj 1,000 ML @ Wide Open IV. 1000 / 1000 SIG .Q0M [facility] Rx#:[id number] Narrative: GENERAL: This is a well-nourished, well-developed patient, in no apparent distress. SKIN: No rashes, ecchymoses or lesions. Warm and dry. HEAD: Atraumatic. Normocephalic. No temporal or scalp tenderness. EYES: Pupils equal round and reactive. No injection or drainage. ENT: Nose without bleeding, purulent drainage or septal hematoma. Airway patent. NECK: Trachea midline. No lymphadenopathy. Supple, nontender, no meningeal signs. CARDIOVASCULAR: Regular rate and rhythm without murmurs, gallops, or rubs. No JVD. RESPIRATORY: Clear to auscultation. Breath sounds equal bilaterally. No wheezes , rales, or rhonchi. GASTROINTESTINAL: Abdomen soft, non-tender, nondistended. No guarding. MUSCULOSKELETAL: Extremities without clubbing, cyanosis, or edema. Left foot has necrotic lesion surrounding digits 2 and 3. NEUROLOGICAL: Awake and alert. Cranial nerves II through XII intact. No focal neurological deficits. Normal speech. Results - Labs CBC & Chem 7: 03/05/18 12:15 03/05/18 12:15 Labs: Laboratory Results - last 24 hr 03/05/18 03/05/18 03/05/18 12:15 12:15 12:15 WBC 26.6 H RBC 4.72 Hgb 13.8 Hct 41.7 MCV 88.3 MCH 29.3 MCHC 33.2 RDW 12.8 Plt Count 374 MPV 9.2 Prelim Diff (Auto) Slide review pending Neut % (Auto) 87.1 H Lymph % (Auto) 5.5 L [place] % (Auto) 6.9 Eos % (Auto) 0.0 Baso % (Auto) 0.5 Neut # (Auto) 23.2 H Lymph # (Auto) 1.5 [place] # (Auto) 1.8 H Eos # (Auto) 0.0 Baso # (Auto) 0.1 WBC Differential Manual diff final Seg Neuts % (Manual) 82 H Band Neuts % (Manual) 9 H Lymphocytes % (Manual) 4 L Monocytes % (Manual) 4 Myelocytes % (Man) 1 H Abs Neuts (Manual) 24.5 H Differential Comment . Toxic Granulation 1+ H Toxic Vacuolation Present H Platelet Estimate Normal Platelet Morphology Normal ESR PT 12.8 H INR 1.3 APTT 23.8 L Sodium 132 L Potassium 4.5 Chloride 97 L Carbon Dioxide 20.4 L Anion Gap 15 BUN 51 H Creatinine 1.32 H Estimated GFR 54 L Random Glucose 331 H Lactic Acid Calcium 9.1 Prot Corrected Calcium Magnesium 1.7 Total Bilirubin 0.6 AST 9 L ALT 22 Alkaline Phosphatase 107 Total Creatine Kinase 88 Troponin I Less than 0.02 L C-Reactive Protein 16.00 H Total Protein 7.3 Albumin 2.1 L 03/05/18 03/05/18 03/05/18 12:15 12:15 12:15 WBC RBC Hgb Hct MCV MCH MCHC RDW Plt Count MPV Prelim Diff (Auto) Neut % (Auto) Lymph % (Auto) [place] % (Auto) Eos % (Auto) Baso % (Auto) Neut # (Auto) Lymph # (Auto) [place] # (Auto) Eos # (Auto) Baso # (Auto) WBC Differential Seg Neuts % (Manual) Band Neuts % (Manual) Lymphocytes % (Manual) Monocytes % (Manual) Myelocytes % (Man) Abs Neuts (Manual) Differential Comment Toxic Granulation Toxic Vacuolation Platelet Estimate Platelet Morphology ESR PT INR APTT Sodium Cancelled Potassium Cancelled Chloride Cancelled Carbon Dioxide Cancelled Anion Gap Cancelled BUN Cancelled Creatinine Cancelled Estimated GFR Cancelled Random Glucose Cancelled Lactic Acid 1.8 Calcium Cancelled Prot Corrected Calcium Cancelled Magnesium Total Bilirubin Cancelled AST Cancelled ALT Cancelled Alkaline Phosphatase Cancelled Total Creatine Kinase Troponin I C-Reactive Protein Cancelled Total Protein Cancelled Albumin Cancelled 03/05/18 12:15 WBC RBC Hgb Hct MCV MCH MCHC RDW Plt Count MPV Prelim Diff (Auto) Neut % (Auto) Lymph % (Auto) [place] % (Auto) Eos % (Auto) Baso % (Auto) Neut # (Auto) Lymph # (Auto) [place] # (Auto) Eos # (Auto) Baso # (Auto) WBC Differential Seg Neuts % (Manual) Band Neuts % (Manual) Lymphocytes % (Manual) Monocytes % (Manual) Myelocytes % (Man) Abs Neuts (Manual) Differential Comment Toxic Granulation Toxic Vacuolation Platelet Estimate Platelet Morphology ESR 81 H PT INR APTT Sodium Potassium Chloride Carbon Dioxide Anion Gap BUN Creatinine Estimated GFR Random Glucose Lactic Acid Calcium Prot Corrected Calcium Magnesium Total Bilirubin AST ALT Alkaline Phosphatase Total Creatine Kinase Troponin I C-Reactive Protein Total Protein Albumin - Imaging Impressions Foot X-Ray 03/05/18 12:00 CONCLUSION: 1. Abnormal subcutaneous emphysema is seen in the soft tissues along the ball of foot, between the first, second and third toes and along the plantar fascia. This suggests some degree of infection/inflammatory process. 2. No evidence of any bony erosion or bony destruction to suggest osteomyelitis at this time. Head CT 03/05/18 12:00 CONCLUSION: 1. No focal or acute intracranial hemorrhage. 2. Subcutaneous Soft tissue swelling along the right forehead region. 3. Chronic appearing white matter changes bilaterally slightly greater on the right than the left. Recommend MRI of the brain for further evaluation if clinically indicated. Chest X-Ray 03/05/18 12:01 CONCLUSION: No acute intrathoracic disease. Caprini VTE Risk Assessment Caprini VTE Risk Assessment: Moderate/High Risk (score >= 2) Caprini Risk Assessment Model: Point Value = 1 Point Value = 2 Point Value = 3 Point Value = 5 Age 41-60 Minor surgery BMI > 25 kg/m2 Swollen legs Varicose veins or History of unexplained or recurrent spontaneous Oral contraceptives or hormone replacement Sepsis (< 1 month) Serious lung disease, including pneumonia (< 1 month) Abnormal pulmonary function Acute myocardial infarction Congestive heart failure (< 1 month) History of inflammatory bowel disease Medical patient at bed rest Age 61-74 Arthroscopic surgery Major open surgery (> 45 min) Laparoscopic surgery (> 45 min) Malignancy Confined to bed (> 72 hours) Immobilizing plaster cast Central venous access Age >= 75 History of VTE Family history of VTE Factor V Leiden Prothrombin [id number] Lupus anticoagulant Anticardiolipin antibodies Elevated serum homocysteine Heparin-induced thrombocytopenia Other congenital or acquired thrombophilia Stroke (< 1 month) Elective arthroplasty Hip, pelvis, or leg fracture Acute spinal cord injury (< 1 month) Prophylaxis Regimen: Total Risk Factor Score Risk Level Prophylaxis Regimen 0-1 Low Early ambulation 2 Moderate Order ONE of the following: *Sequential Compression Device (SCD) *Heparin 5000 units SQ BID 3-4 Higher Order ONE of the following medications: *Heparin 5000 units SQ TID *Enoxaparin/Lovenox 40 mg SQ daily (WT < 150 kg, CrCl > 30 mL/min) *Enoxaparin/Lovenox 30 mg SQ daily (WT < 150 kg, CrCl > 10-29 mL/min) *Enoxaparin/Lovenox 30 mg SQ BID (WT < 150 kg, CrCl > 30 mL/min) AND/OR *Sequential Compression Device (SCD) 5 or more Highest Order ONE of the following medications: *Heparin 5000 units SQ TID (Preferred with Epidurals) *Enoxaparin/Lovenox 40 mg SQ daily (WT < 150 kg, CrCl > 30 mL/min) *Enoxaparin/Lovenox 30 mg SQ daily (WT < 150 kg, CrCl > 10-29 mL/min) *Enoxaparin/Lovenox 30 mg SQ BID (WT < 150 kg, CrCl > 30 mL/min) AND *Sequential Compression Device (SCD) Assessment and Plan - Plan Mr. Coelho is a 67-year-old with a history of diabetes mellitus who presents to the emergency department due to left foot necrotic lesion as well as confusion. Left foot necrotic diabetic ulcer -Podiatry consulted. Podiatry plans to perform surgery today. -Per podiatry recommendations, will consult vascular surgery. -Patient would likely need SNF placement postsurgery. Diabetes mellitus -Uncontrolled at home on metformin and regular insulin. -We will start patient on Levemir 12 units nightly as well as medium scale corrective scale insulin -Continue Lipitor. Hypertension - Start Nifedipine 30mg Qday. Will hold using Lisinopril due to MALIKA. - Clonidine PRN. MALIKA - Creatinine baseline around 1.1. On admission, Cr was 1.32. Will continue to monitor. Continue NS @100cc/hour. Full code. SCDs for now.
[2018-03-05 16:14] LABS: Bacteria,Urine Moderate /hpf; Bilirubin,Urine Negative (Negative); Clarity,Urine Cloudy (Clear); Color,Urine Yellow (Yellw/Straw); Glucose,Urine (UA) 500 or Greater mg/dL (Negative); Leukocyte Esterase,Urine Negative (Negative); Mucus,Urine Few /lpf (Occasional); Nitrite,Urine Negative (Negative); Squamous Epithelial Cell,Urine 2 /hpf (0-5); Uric Acid Crystals,Urine Rare /hpf
--- NOTE | 2018-03-05 16:42 | P.CONVS ---
History of Present Illness Service: Vascular surgery Consult date: 03/05/18 Reason for Consult: PAD, L LE foot infection Primary Care Provider: No Primary Care Physician Chief Complaint: confusion, left foot gangrenous lesion History of Present Illness: 67 yo male who is overall poor historian but notes that his LEFT foot has been infected/feeling bad for some time. Denies malaise and fevers. Did have a fall a few days ago with cephalohematoma. According to him, he does ambulate. Review of Systems unobtainable due to mental condition PMFSH - History History Provided By: Patient, Family Member, Sqe / EMT - Tobacco History Second Hand Smoke Exposure: No Tobacco Use In Past 30 Days: No Smoking Status: Former smoker Tobacco Type: Cigarettes - Alcohol History How Often Do You Have a Drink Containing Alcohol: Never - Travel History Recent Travel in the [facility] Within the Last 8 Weeks: No Recent Travel Out of the Country Within the Last 8 Weeks: No - Immunization History Tetanus Immunization: >5 Years Medications and Allergies Active Medications: Active Medications Acetaminophen (Tylenol) 650 mg PO Q4H PRN PRN Reason: Temp > 100.4 Al Hydroxide/Mg Hydroxide (Milk Of Eduin Liq) 30 ml PO Q12H PRN PRN Reason: Mild Constipation Atorvastatin Calcium (Lipitor) 80 mg PO HS [facility] Bisacodyl (Dulcolax Supp) 10 mg RECTAL DAILY PRN PRN Reason: SEVERE CONSITIPATION Dextrose (D50w Vial) 50 ml IV.PUSH UNSCH PRN PRN Reason: PER HYPOGLYCEMIA PROTOCOL Folic Acid (Folic Acid) 1 mg PO DAILY [facility] Gabapentin (Neurontin) 600 mg PO TID [facility] Glucagon (Glucagon Inj) 1 mg OTHER PRN PRN PRN Reason: for Hypoglycemia Protocol Sodium Chloride (Ns Inj) 1,000 mls @ 0 mls/hr IV.SIG .Q0M [facility] Last Admin: 03/05/18 13:50 Dose: 1,000 mls/hr Sodium Chloride (Ns Inj) 1,000 mls @ 0 mls/hr IV.SIG .Q0M [facility] Last Admin: 03/05/18 13:57 Dose: 1,000 mls/hr Sodium Chloride (Ns Inj) 1,000 mls @ 100 mls/hr IV.CONT .Q10H [facility] Last Admin: 03/05/18 15:00 Dose: 100 mls/hr Insulin Aspart (Novolog Insulin Suppl Scale Inj) 0 unit SQ ACHS [facility]; Protocol Insulin Aspart (Novolog Inj) 5 units SQ TIDAC [facility] Insulin Detemir (Levemir Inj) 12 unit SQ HS [facility] Lactulose (Lactulose Liq) 30 ml PO DAILY PRN PRN Reason: SEVERE CONSITIPATION Sennosides (Senokot) 17.2 mg PO Q12H PRN PRN Reason: Moderate Constipation Sertraline HCl (Zoloft) 50 mg PO DAILY [facility] Temazepam (Restoril) 15 mg PO HS PRN PRN Reason: INSOMNIA Allergies Allergy/AdvReac Type Severity Reaction Status Date / Time Iodinated Contrast- Oral and Allergy Intermediate Verified 11/07/17 20:25 IV Dye Home Medications Medication Instructions Recorded Confirmed Type aspirin 81 mg PO DAILY 03/05/18 03/05/18 History atorvastatin 80 mg PO HS 03/05/18 03/05/18 History cholecalciferol (vitamin D3) 2,000 unit PO DAILY 03/05/18 03/05/18 History folic acid 1 mg PO DAILY 03/05/18 03/05/18 History gabapentin 600 mg PO TID 03/05/18 03/05/18 History insulin regular hum U-500 conc 85 unit SUB-Q TID 03/05/18 03/05/18 History lisinopril 2.5 mg PO DAILY 03/05/18 03/05/18 History metformin 1,000 mg PO BID 03/05/18 03/05/18 History sertraline 50 mg PO DAILY 03/05/18 03/05/18 History vitamin B complex 1,000 units PO DAILY 03/05/18 03/05/18 History Physical Exam Vital Signs / I&O: Vital Signs 03/05/18 12:23 03/05/18 13:59 03/05/18 15:48 Pulse Rate 94 H 88 Respiratory Rate 18 Blood Pressure 184/88 H 173/79 H Pulse Oximetry 98 96 96 Intake & Output 03/04/18 03/05/18 03/05/18 18:59 06:59 18:59 Intake Total 1000 / 1000 Balance 1000 / 1000 Weight 68.039 kg Intake: IV 1000 / 1000 NS Inj 1,000 ML @ Wide Open IV. 1000 / 1000 SIG .Q0M [facility] Rx#:[id number] Neuro: conversant, HAG[place] HEENT: R supraorbital cephalohematoma anicteric sclera Neck: no JVD Heart: reg rate Lungs: clear B Vascular: LLE with palpable femoral and popliteal pulses no pedal pulses appreciated Extremities: significant gangrene with odor and erythema 2nd and 3rd toes Laboratory Results - last 24 hr 03/05/18 03/05/18 03/05/18 12:15 12:15 12:15 WBC 26.6 H RBC 4.72 Hgb 13.8 Hct 41.7 MCV 88.3 MCH 29.3 MCHC 33.2 RDW 12.8 Plt Count 374 MPV 9.2 Prelim Diff (Auto) Slide review pending Neut % (Auto) 87.1 H Lymph % (Auto) 5.5 L [place] % (Auto) 6.9 Eos % (Auto) 0.0 Baso % (Auto) 0.5 Neut # (Auto) 23.2 H Lymph # (Auto) 1.5 [place] # (Auto) 1.8 H Eos # (Auto) 0.0 Baso # (Auto) 0.1 WBC Differential Manual diff final Seg Neuts % (Manual) 82 H Band Neuts % (Manual) 9 H Lymphocytes % (Manual) 4 L Monocytes % (Manual) 4 Myelocytes % (Man) 1 H Abs Neuts (Manual) 24.5 H Differential Comment . Toxic Granulation 1+ H Toxic Vacuolation Present H Platelet Estimate Normal Platelet Morphology Normal ESR PT 12.8 H INR 1.3 APTT 23.8 L Sodium 132 L Potassium 4.5 Chloride 97 L Carbon Dioxide 20.4 L Anion Gap 15 BUN 51 H Creatinine 1.32 H Estimated GFR 54 L Random Glucose 331 H Lactic Acid Calcium 9.1 Prot Corrected Calcium Magnesium 1.7 Total Bilirubin 0.6 AST 9 L ALT 22 Alkaline Phosphatase 107 Total Creatine Kinase 88 Troponin I Less than 0.02 L C-Reactive Protein 16.00 H Total Protein 7.3 Albumin 2.1 L Urine Color Urine Clarity Urine pH Ur Specific [place] Urine Protein Urine Glucose (UA) Urine Ketones Urine Occult Blood Urine Nitrate Urine Bilirubin Urine Urobilinogen Ur Leukocyte Esterase Urine RBC Urine WBC Ur Squamous Epith Cells Uric Acid Crystals Urine Bacteria Urine Mucus Micro UA Comment Urine Culture Comments 03/05/18 03/05/18 03/05/18 12:15 12:15 12:15 WBC RBC Hgb Hct MCV MCH MCHC RDW Plt Count MPV Prelim Diff (Auto) Neut % (Auto) Lymph % (Auto) [place] % (Auto) Eos % (Auto) Baso % (Auto) Neut # (Auto) Lymph # (Auto) [place] # (Auto) Eos # (Auto) Baso # (Auto) WBC Differential Seg Neuts % (Manual) Band Neuts % (Manual) Lymphocytes % (Manual) Monocytes % (Manual) Myelocytes % (Man) Abs Neuts (Manual) Differential Comment Toxic Granulation Toxic Vacuolation Platelet Estimate Platelet Morphology ESR PT INR APTT Sodium Cancelled Potassium Cancelled Chloride Cancelled Carbon Dioxide Cancelled Anion Gap Cancelled BUN Cancelled Creatinine Cancelled Estimated GFR Cancelled Random Glucose Cancelled Lactic Acid 1.8 Calcium Cancelled Prot Corrected Calcium Cancelled Magnesium Total Bilirubin Cancelled AST Cancelled ALT Cancelled Alkaline Phosphatase Cancelled Total Creatine Kinase Troponin I C-Reactive Protein Cancelled Total Protein Cancelled Albumin Cancelled Urine Color Urine Clarity Urine pH Ur Specific [place] Urine Protein Urine Glucose (UA) Urine Ketones Urine Occult Blood Urine Nitrate Urine Bilirubin Urine Urobilinogen Ur Leukocyte Esterase Urine RBC Urine WBC Ur Squamous Epith Cells Uric Acid Crystals Urine Bacteria Urine Mucus Micro UA Comment Urine Culture Comments 03/05/18 03/05/18 12:15 15:15 WBC RBC Hgb Hct MCV MCH MCHC RDW Plt Count MPV Prelim Diff (Auto) Neut % (Auto) Lymph % (Auto) [place] % (Auto) Eos % (Auto) Baso % (Auto) Neut # (Auto) Lymph # (Auto) [place] # (Auto) Eos # (Auto) Baso # (Auto) WBC Differential Seg Neuts % (Manual) Band Neuts % (Manual) Lymphocytes % (Manual) Monocytes % (Manual) Myelocytes % (Man) Abs Neuts (Manual) Differential Comment Toxic Granulation Toxic Vacuolation Platelet Estimate Platelet Morphology ESR 81 H PT INR APTT Sodium Potassium Chloride Carbon Dioxide Anion Gap BUN Creatinine Estimated GFR Random Glucose Lactic Acid Calcium Prot Corrected Calcium Magnesium Total Bilirubin AST ALT Alkaline Phosphatase Total Creatine Kinase Troponin I C-Reactive Protein Total Protein Albumin Urine Color Yellow Urine Clarity Cloudy H Urine pH 5.0 Ur Specific [place] 1.020 Urine Protein Negative Urine Glucose (UA) 500 or greater Urine Ketones 20 Urine Occult Blood Small H Urine Nitrate Negative Urine Bilirubin Negative Urine Urobilinogen 2.0 H Ur Leukocyte Esterase Negative Urine RBC 1 Urine WBC 3 Ur Squamous Epith Cells 2 Uric Acid Crystals Rare H Urine Bacteria Moderate H Urine Mucus Few H Micro UA Comment Culture indicated Urine Culture Comments Culture indicated Impressions Foot X-Ray 03/05/18 12:00 CONCLUSION: 1. Abnormal subcutaneous emphysema is seen in the soft tissues along the ball of foot, between the first, second and third toes and along the plantar fascia. This suggests some degree of infection/inflammatory process. 2. No evidence of any bony erosion or bony destruction to suggest osteomyelitis at this time. Head CT 03/05/18 12:00 CONCLUSION: 1. No focal or acute intracranial hemorrhage. 2. Subcutaneous Soft tissue swelling along the right forehead region. 3. Chronic appearing white matter changes bilaterally slightly greater on the right than the left. Recommend MRI of the brain for further evaluation if clinically indicated. Chest X-Ray 03/05/18 12:01 CONCLUSION: No acute intrathoracic disease. Assessment and Plan - Assessment (1) Diabetes Code(s): E11.9 - Type 2 diabetes mellitus without complications Status: Acute - Plan 67 yo male with diabetic foot infection 1. To OR with podiatry for amputation/debridement/drainage 2. Needs ABIs post-operatively - by exam, likely infrageniculate disease, but likely to need more perfusion to heal wound 3. aggressive broad spectrum antibiotics 4. Check A1c Will follow closely Roscoe Tobias MD FACS RPVI supervisor alteration workroom [facility] [phone]
[2018-03-05] MEDS ORDERED: Insulin NovoLOG Aspart Correctional Sugar Inj SQ SCH (17:00)
[2018-03-05] MEDS: Insulin NovoLOG Aspart Correctional Sugar Inj SQ SCH ×3 (17:52→23:28)
[2018-03-05] MEDS: Gabapentin 300 MG Capsule PO SCH (18:19)
[2018-03-05] MEDS ORDERED: Bupivacaine PF 0.25% Inj 30 ML Vial ONE (18:29)
[2018-03-05] MEDS ORDERED: fentaNYL Citrate Inj 250 MCG/5 ML Ampul ONE (19:32)
--- NOTE | 2018-03-05 20:42 | P.BOP ---
- Preoperative Diagnosis (1) Gangrene of left foot - Postoperative Diagnosis (1) Gangrene of left foot Date of procedure: 03/05/18 Procedure: Left foot incision drainage debridement amputation 2 3 digits Anesthesia: GETA Surgeon: Jose Enrique Woodson DPM Estimated blood loss (mL): 30 (mL) Tourniquet time (min): 0 Pathology: none sent (deep cx and digits) Condition: stable Disposition: floor
--- NOTE | 2018-03-05 20:57 | MB ---
cc: Jose Enrique Aguirre DPMEvelioJose Enriquewinter Martinez DPM DATE: 03/05/2018 REASON FOR CONSULTATION: Left foot gangrenous changes. HISTORY OF PRESENT ILLNESS: This is a 67-year-old male who was brought to the emergency room due to confusion and a necrotic foot. The patient lives by himself. He has a nurse that visits a few times a week. The home health nurse noticed that he had a bump on his head and also found him to be confused and they noticed a necrotic foot. Currently I am seeing the patient bedside. He is a poor historian. He is alert. He is pleasant, but not really giving us much information. Apparently, the does not live with the . The patient denies any obvious incident or injury. He is not having significant pain. PAST MEDICAL HISTORY: Positive former smoker, diabetes. ALLERGIES: NONE LISTED INPATIENT MEDICATIONS: He is receiving clindamycin, Zosyn and vancomycin. Please see complete med list in chart. PHYSICAL EXAMINATION: This is an alert and oriented male seen at bedside exhibiting nonlabored respirations. He has poor recall. Left lower extremity is examined. There is a necrotic second and third digit along with the plantar aspect of the forefoot extending to the plantar aspect of the hallux. There is putrid odor. There is ischemic rubor presentation mainly at the distal forefoot. Pulses are not palpable. The extremity appears warm proximal to the ankle. Right lower extremity has superficial abrasions; however, no significant ulcer or infection. Sensation is decreased to light touch, but intact to deep pressure. The patient has mild muscle wasting below the knee. There is no instability upon range of motion of digits, forefoot, hindfoot or ankle. Palpable soft tissue emphysema is noted. LABORATORY DATA: White blood cell 26, hemoglobin and hematocrit 13 and 41, platelet count 374. Coagulation profile: PT 12.8, INR 1.3. Chem-7: Sodium 132, potassium 4.5, chloride 97, CO2 of 20.4, BUN is 51, creatinine 1.32, estimated GFR is 54. Random glucose 331. Lactic acid 1.8. C-reactive protein 16. IMAGING STUDIES: Foot x-ray: Abnormal subcutaneous emphysema seen in the soft tissue along the ball of the foot between the first, second and third digits suggest infection. No evidence of bony erosive process at this time. ASSESSMENT AND PLAN: Left foot gas gangrene, peripheral vascular disease, emergent partial amputation and debridement of the foot is indicated at this point. Overall, there is a poor prognosis. Requesting vascular evaluation and hopeful intervention to salvage the limb; however, the severity of the infection may warrant [id number] amputation in the near future. We will attempt limb salvage. No guarantee is given or implied regarding the outcome. Risks and benefits explained in great detail to the patient and the patient's and we left for surgery. ISAURA Del Rio/ , 08:36 PM , 08:56 PM
--- NOTE | 2018-03-05 21:01 | MP ---
cc: Jose Enrique Aguirre DPM Jose Enrique Aguirre DPM DATE OF OPERATION: 03/05/2018 PREOPERATIVE DIAGNOSIS: Gangrene, gas, left foot with deep abscess. POSTOPERATIVE DIAGNOSIS: Gangrene, gas, left foot with deep abscess. PROCEDURE PERFORMED: Left foot incision, drainage, debridement with amputation of digits 2 and 3. COMPLICATIONS: None. TOURNIQUET: None. PATHOLOGY: Deep culture and digit sent for pathological analysis. INTRAOPERATIVE FINDINGS: Minimal bleeding at the surgery site. Foul putrid odor. DISPOSITION: Return to floor. Await vascular evaluation. High likelihood of needing partial foot amputation versus [id number] amputation given the extent of the infection. INJECTABLES: None. IMPLANTABLES: None. JUSTIFICATION OF PROCEDURE: A 67-year-old male evaluated by the ED. There was gas gangrene, early signs of sepsis. We will move forward with an emergent incision, drainage, debridement and amputation of all nonviable black necrotic digits. Risks and benefits explained. No guarantee is given or implied. High likelihood of need for more surgery if not [id number] amputation. PROCEDURE IN DETAIL: Under mild sedation, the patient was brought into the operating room, placed on the operating table in supine position. Following the induction of general anesthesia, the left lower extremity was then scrubbed, prepped and draped in the usual aseptic fashion. The foot was elevated and examined. There was noted to be a necrotic black fluctuant gas gangrenous type findings of the second and third digit and the plantar aspect of the foot coursing up to just below the second metatarsal heads. Sharp excisional debridement took place of the necrotic bulla of the dorsum foot and plantar foot. There were noted to be gas bubbles within the tissue. This was incised down to the level of the extensor and flexor tendons, in which there was some tracking proximally plantarly and dorsally. This was explored. A pulse lavage then took place. Sharp disarticulation of the digits took place. The wound was then packed open. Bulky bandage applied. The patient tolerated the procedure, questionable capillary fill time remained at the right hallux with now intact capillary fill time to the fourth and fifth digit. The patient was transferred from the operating room to the post anesthesia care unit with all vital signs stable. We will monitor the wound closely over the next few days. Await vascular recommendations. ISAURA Del Rio , 08:42 PM , 09:00 PM
[2018-03-05] MEDS: Insulin Detemir Inj 1,000 UNIT/10 ML Vial SQ SCH (23:28)
[2018-03-06] MEDS: Insulin NovoLOG Aspart Correctional Sugar Inj SQ SCH ×3 (06:17→17:55)
[2018-03-06] MEDS: Folic Acid 1 MG Tablet PO SCH (08:30)
[2018-03-06] MEDS: Gabapentin 300 MG Capsule PO SCH ×4 (08:30→17:54)
[2018-03-06] MEDS: Sertraline 50 MG Tablet PO SCH (08:30)
[2018-03-06] MEDS: Sod Chloride 0.9% Inj 1,000 ML IV.SIG SCH (08:31)
--- NOTE | 2018-03-06 11:47 | ECHRPT ---
EXAM DATE: 03/06/2018 11:40 AM EDT AGE/SEX: 67 years / Male INDICATIONS: foot infection CLINICAL DATA: This is the patient's initial encounter. Patient reports that signs and symptoms have been present for 1 week and indicates a pain score of 9/10. MEDICAL/SURGICAL HISTORY: . diabetes mellitus, hypertension, left foot diabetic ulcer . COMPARISON: No prior exams available for comparison. TECHNIQUE: Four-cuff ankle and brachial pressures were obtained. Pulse cuff waveform tracings of the ankles were recorded, and ankle-brachial indices were calculated. PRESSURES (mmHg): Brachial (arm) : RIGHT: 136, LEFT: IV SITE Ankle : RIGHT: 125, LEFT: 122 CAROLINE : RIGHT: 0.92, LEFT: 0.90 RIGHT: , LEFT: FINDINGS: Pulsed-Cuff Waveform: Pulse wave tracings report. CAROLINE compared to the right brachial is 0.9 on the r ight and 0.9 on the left. TBI cannot be obtained. CONCLUSION: 1. Normal TBI. Tracings would suggest worse pressures were calculated. Electronically signed by: Donn Quevedo MD 03/06/2018 11:46 AM EDT
--- NOTE | 2018-03-06 14:33 | P.PN ---
Subjective Interval history: "hungry" patient awake and alert known diabetic on in[place] states good hypoglycemica awareness by hsitory Physical Exam Vital signs: Vital Signs 03/05/18 15:48 03/05/18 21:00 03/05/18 21:15 Temperature Pulse Rate 88 73 79 Respiratory Rate 14 16 Blood Pressure 173/79 H 121/66 156/74 H Pulse Oximetry 96 97 94 L 03/05/18 21:30 03/05/18 21:45 03/05/18 22:00 Temperature 97.9 F Pulse Rate 76 77 79 Respiratory Rate 16 16 16 Blood Pressure 172/84 H 178/87 H 179/89 H Pulse Oximetry 92 L 94 L 95 03/05/18 22:30 03/05/18 23:00 03/06/18 00:00 Temperature 97.5 F L Pulse Rate 83 81 88 Respiratory Rate 16 Blood Pressure 164/96 H Pulse Oximetry 95 03/06/18 04:00 03/06/18 08:00 03/06/18 12:00 Temperature 97.5 F L 98.8 F 98.6 F Pulse Rate 88 85 73 Respiratory Rate 16 17 18 Blood Pressure 160/79 H 156/71 H 147/70 H Pulse Oximetry 93 L 93 L 94 L Intake & Output 03/05/18 03/06/18 03/06/18 18:59 06:59 18:59 Intake Total 1999 1090 / 1090 Output Total 1000 / 1000 Balance 1999 90 / 90 Weight 68.039 kg 78.4 kg Intake: IV 1999 NS Inj 1,000 ML @ Wide Open IV. 1999 SIG .Q0M [facility] Rx#:[id number] Oral 240 / 240 Anesthesia Amount 850 / 850 Output: Urine 950 / 950 Estimated Blood Loss 50 / 50 Other: Date of Last Bowel Movement 03/05/18 # Bowel Movements 2 Weight On Admission 76.1 kg Narrative: awake and alert faint/fading bruis on the right temporal area and slight right supraorbirtal bluish discoloration (per patient fell about 2 weeks ago) anciteric pupils equally reactive to light regular rhythm abdomen soft, nontender LE- left foot- post op dressing in place no bilateral calf tenderness gait deferred- per patient baseline uses a walker Results - Labs CBC & Chem 7: 03/05/18 12:15 03/06/18 14:40 Laboratory Results - last 24 hr 03/05/18 03/05/18 03/05/18 15:15 17:02 20:39 POC Glucose 286 H 136 H Urine Color Yellow Urine Clarity Cloudy H Urine pH 5.0 Ur Specific Alden 1.020 Urine Protein Negative Urine Glucose (UA) 500 or greater Urine Ketones 20 Urine Occult Blood Small H Urine Nitrate Negative Urine Bilirubin Negative Urine Urobilinogen 2.0 H Ur Leukocyte Esterase Negative Urine RBC 1 Urine WBC 3 Ur Squamous Epith Cells 2 Uric Acid Crystals Rare H Urine Bacteria Moderate H Urine Mucus Few H Micro UA Comment Culture indicated Urine Culture Comments Culture indicated 03/05/18 03/06/18 03/06/18 23:24 06:06 11:56 POC Glucose 188 H 243 H 89 Urine Color Urine Clarity Urine pH Ur Specific Alden Urine Protein Urine Glucose (UA) Urine Ketones Urine Occult Blood Urine Nitrate Urine Bilirubin Urine Urobilinogen Ur Leukocyte Esterase Urine RBC Urine WBC Ur Squamous Epith Cells Uric Acid Crystals Urine Bacteria Urine Mucus Micro UA Comment Urine Culture Comments Microbiology 03/05/18 12:15 Blood - Peripheral Aerobic Blood Culture - Preliminary No growth in 1 day 03/05/18 12:15 Blood - Peripheral Anaerobic Blood Culture - Preliminary gram positive cocci 03/05/18 12:20 Blood - Peripheral Aerobic Blood Culture - Preliminary No growth in 1 day 03/05/18 12:20 Blood - Peripheral Anaerobic Blood Culture - Preliminary gram positive cocci 03/05/18 20:10 Abscess - Foot Fungal Smear - Final No fungal elements seen 03/05/18 20:10 Abscess - Foot Gram Stain - Final - Imaging Impressions Extremity Arterial Study 03/05/18 00:00 CONCLUSION: 1. Normal TBI. Tracings would suggest worse pressures were calculated. - Procedures 03/05 Left foot incision drainage debridement amputation 2 3 digits Assessment and Plan - Plan Mr. Coelho is a 67-year-old with a history of diabetes mellitus who presents to the emergency department due to left foot necrotic lesion as well as confusion. Gram Positive Sepsis secondary to DFI - Left foot necrotic diabetic ulcer S/P I and D S/P amputation of 2nd,3rd digits 03/05 r/o underlying OM - podiatry ff, CRP elevated - start IV Vancomycin now- consult pharmacy - ff c and S and biopsy - will get ID service involve early, may need longer treatment- possible OM - CRP elevated - will ff operative c and S and pathology Diabetes mellitus uncontrolled Neuropathy ff blood sugars. check A1C- pending start ADA diet started on Levemir 12 units nightly as well as medium scale corrective scale insulin continue on Gabapentin HYperlipidemia -Continue Lipitor. Hypertension - Started on Nifedipine 30mg Qday. Will hold using Lisinopril due to MALIKA. - Clonidine PRN. MALIKA - Creatinine baseline around 1.1. On admission, Cr was 1.32. Will continue to monitor. Continue NS @100cc/hour. ff BMP Lovenox 30 mg SQ daily
[2018-03-06 15:33] LABS: Alanine Aminotransferase 22 U/L (12-78); Alkaline Phosphatase 116 U/L (45-117); Anion Gap 8 meq/L (5-15); Aspartate Aminotransferase 11 U/L (15-37); Blood Urea Nitrogen 23 mg/dL (7-18); Calcium 7.9 mg/dL (8.5-10.1); Carbon Dioxide 24.8 meq/L (21.0-32.0); Chloride 107 meq/L (98-107); Glomerular Filtration Rate Greater Than 89 mL/min (>89); Glucose,Random 92 mg/dL (74-106); Potassium 3.6 meq/L (3.5-5.1); Sodium 140 meq/L (136-145); Total Protein 6.8 g/dL (6.4-8.2)
[2018-03-06] MEDS ORDERED: Vancomycin Inj 1 GM/200 ML PIGGYBACK IV.SIG SCH (16:00)
[2018-03-06] MEDS ORDERED: Vancomycin Consult Pharmacy 1 EACH OTHER SCH (16:00)
[2018-03-06] MEDS: Vancomycin Inj 1,250 MG in Sodium Chlor 0.9% Inj 250 ML IV.SIG SCH (16:44)
--- NOTE | 2018-03-06 17:12 | P.PNPOD ---
Subjective Interval history: No events overnight seen bedside with patient appears to have some confusion and poor mentation but this appears to be his baseline over the last couple months Physical Exam Vital signs: Vital Signs 03/05/18 21:00 03/05/18 21:15 03/05/18 21:30 Temperature Pulse Rate 73 79 76 Respiratory Rate 14 16 16 Blood Pressure 121/66 156/74 H 172/84 H Pulse Oximetry 97 94 L 92 L 03/05/18 21:45 03/05/18 22:00 03/05/18 22:30 Temperature 97.9 F 97.5 F L Pulse Rate 77 79 83 Respiratory Rate 16 16 16 Blood Pressure 178/87 H 179/89 H 164/96 H Pulse Oximetry 94 L 95 95 03/05/18 23:00 03/06/18 00:00 03/06/18 04:00 Temperature 97.5 F L Pulse Rate 81 88 88 Respiratory Rate 16 Blood Pressure 160/79 H Pulse Oximetry 93 L 03/06/18 08:00 03/06/18 12:00 03/06/18 16:00 Temperature 98.8 F 98.6 F 97.4 F L Pulse Rate 85 73 72 Respiratory Rate 17 18 17 Blood Pressure 156/71 H 147/70 H 150/69 H Pulse Oximetry 93 L 94 L 93 L Intake & Output 03/05/18 03/06/18 03/06/18 18:59 06:59 18:59 Intake Total 1999 1090 / 1090 Output Total 1000 / 1000 Balance 1999 90 / 90 Weight 68.039 kg 78.4 kg Intake: IV 1999 NS Inj 1,000 ML @ Wide Open IV. 1999 SIG .Q0M [facility] Rx#:[id number] Oral 240 / 240 Anesthesia Amount 850 / 850 Output: Urine 950 / 950 Estimated Blood Loss 50 / 50 Other: Date of Last Bowel Movement 03/05/18 # Bowel Movements 2 Weight On Admission 76.1 kg Narrative: Left lower extremity examined-minimal strikethrough minimal bleeding noted on bandage, exposed second third metatarsal down to tendons and deep muscle and fascia of the dorsum and plantar foot, mild odor noted, no further progression of ischemia however amputation margins have a dusky purple hue, foot has decreased sensation and decreased temperature. Medications and Allergies Active Medications: Active Medications Acetaminophen (Tylenol) 650 mg PO Q4H PRN PRN Reason: Temp > 100.4 Al Hydroxide/Mg Hydroxide (Milk Of Magnesia Liq) 30 ml PO Q12H PRN PRN Reason: Mild Constipation Atorvastatin Calcium (Lipitor) 80 mg PO [facility] Last Admin: 03/05/18 23:24 Dose: 80 mg Bisacodyl (Dulcolax Supp) 10 mg RECTAL DAILY PRN PRN Reason: SEVERE CONSITIPATION Dextrose (D50w Vial) 50 ml IV.PUSH UNSCH PRN PRN Reason: PER HYPOGLYCEMIA PROTOCOL Enoxaparin Sodium (Lovenox Inj) 30 mg SQ DAILY [facility] Folic Acid (Folic Acid) 1 mg PO DAILY [facility] Last Admin: 03/06/18 08:30 Dose: 1 mg Gabapentin (Neurontin) 600 mg PO TID [facility] Last Admin: 03/06/18 13:01 Dose: 600 mg Glucagon (Glucagon Inj) 1 mg OTHER PRN PRN PRN Reason: for Hypoglycemia Protocol Sodium Chloride (Ns Inj) 1,000 mls @ 0 mls/hr IV.SIG .Q0M [facility] Last Admin: 03/06/18 08:31 Dose: 1,000 mls/hr Sodium Chloride (Ns Inj) 1,000 mls @ 0 mls/hr IV.SIG .Q0M [facility] Last Admin: 03/05/18 13:57 Dose: 1,000 mls/hr Sodium Chloride (Ns Inj) 1,000 mls @ 100 mls/hr IV.CONT .Q10H [facility] Last Admin: 03/05/18 15:00 Dose: 100 mls/hr Pharmacy Profile Note (Vancomycin Consult Pharmacy) mls @ 0 mls/hr OTHER UNSCH [facility] Vancomycin HCl 1,250 mg/ (Sodium Chloride) 262.5 mls @ 250 mls/hr IV.SIG Q18H [facility] Last Admin: 03/06/18 16:44 Dose: 250 mls/hr Insulin Aspart (Novolog Inj) 5 units SQ TIDAC [facility] Last Admin: 03/06/18 16:45 Dose: 5 units Insulin Aspart (Novolog Insulin Suppl Scale Inj) 0 unit SQ Q6HR [facility]; Protocol Last Admin: 03/06/18 12:07 Dose: Not Given Insulin Detemir (Levemir Inj) 12 unit SQ [facility] Last Admin: 03/05/18 23:28 Dose: 12 unit Lactulose (Lactulose Liq) 30 ml PO DAILY PRN PRN Reason: SEVERE CONSITIPATION Miscellaneous Information ([facility]) 1 each OTHER UNSCH PRN PRN Reason: SEE LABEL COMMENTS Stop: 03/06/18 20:34 Miscellaneous Information ([facility] [place] [facility] Ordered Lab Info) 0 each OTHER ONCE ONE Stop: 03/09/18 16:01 Sennosides (Senokot) 17.2 mg PO Q12H PRN PRN Reason: Moderate Constipation Sertraline HCl (Zoloft) 50 mg PO DAILY [facility] Last Admin: 03/06/18 08:30 Dose: 50 mg Temazepam (Restoril) 15 mg PO HS PRN PRN Reason: INSOMNIA Allergies Allergy/AdvReac Type Severity Reaction Status Date / Time Iodinated Contrast- Oral and Allergy Intermediate Verified 11/07/17 20:25 IV Dye Home Medications Medication Instructions Recorded Confirmed Type aspirin 81 mg PO DAILY 03/05/18 03/05/18 History atorvastatin 80 mg PO HS 03/05/18 03/05/18 History cholecalciferol (vitamin D3) 2,000 unit PO DAILY 03/05/18 03/05/18 History folic acid 1 mg PO DAILY 03/05/18 03/05/18 History gabapentin 600 mg PO TID 03/05/18 03/05/18 History insulin regular hum U-500 conc 85 unit SUB-Q TID 03/05/18 03/05/18 History lisinopril 2.5 mg PO DAILY 03/05/18 03/05/18 History metformin 1,000 mg PO BID 03/05/18 03/05/18 History sertraline 50 mg PO DAILY 03/05/18 03/05/18 History vitamin B complex 1,000 units PO DAILY 03/05/18 03/05/18 History Results - Labs CBC & Chem 7: 03/05/18 12:15 03/06/18 14:40 Laboratory Results - last 24 hr 03/05/18 03/05/18 03/06/18 20:39 23:24 06:06 Sodium Potassium Chloride Carbon Dioxide Anion Gap BUN Creatinine Estimated GFR POC Glucose 136 H 188 H 243 H Random Glucose Calcium Total Bilirubin AST ALT Alkaline Phosphatase Total Protein Albumin 03/06/18 03/06/18 03/06/18 11:56 14:40 16:08 Sodium 140 Potassium 3.6 D Chloride 107 D Carbon Dioxide 24.8 Anion Gap 8 BUN 23 H Creatinine 0.73 Estimated GFR Greater than 89 POC Glucose 89 167 H Random Glucose 92 D Calcium 7.9 L D Total Bilirubin 0.6 AST 11 L ALT 22 Alkaline Phosphatase 116 Total Protein 6.8 Albumin 2.0 L Microbiology 03/05/18 20:10 Abscess - Foot Acid Fast Bacilli Smear - Final No acid fast bacilli seen 03/05/18 12:15 Blood - Peripheral Aerobic Blood Culture - Preliminary No growth in 1 day 03/05/18 12:15 Blood - Peripheral Anaerobic Blood Culture - Preliminary gram positive cocci 03/05/18 12:20 Blood - Peripheral Aerobic Blood Culture - Preliminary No growth in 1 day 03/05/18 12:20 Blood - Peripheral Anaerobic Blood Culture - Preliminary gram positive cocci 03/05/18 20:10 Abscess - Foot Fungal Smear - Final No fungal elements seen 03/05/18 20:10 Abscess - Foot Gram Stain - Final - Imaging Impressions Extremity Arterial Study 03/05/18 00:00 CONCLUSION: 1. Normal TBI. Tracings would suggest worse pressures were calculated. - Procedures 03/05 Left foot incision drainage debridement amputation 2 3 digits Assessment and Plan - Assessment (1) Gangrene of left foot Code(s): I96 - Gangrene, not elsewhere classified Status: Acute - Plan Bandage changed, limb is stable at this point in time however given the poor circulation low chance of healing. Spoke with vascular, may try to intervene before attempting a proximal transmetatarsal amputation. High chance of patient eventually needing below the knee amputation, continue antibiotics, will advise and continue to follow. No further surgery planned at this point on my and until blood flow improves. Procedures: Status post left foot incision drainage debridement amputation of second and third digit March 05 Dr. Aguirre
--- NOTE | 2018-03-06 17:58 | ECG ---
Date Performed: 03/05/2018 Time Performed: 13:47:49 PTAGE: 67 years EKG: Sinus rhythm RIGHT BUNDLE BRANCH BLOCK LEFT ANTERIOR FASCICULAR BLOCK ABNORMAL ECG PREVIOUS TRACING : 11/07/2017 20.58 DOCTOR: Nabor Haas Interpretating Date/Time 03/06/2018 17:57:47
--- NOTE | 2018-03-06 19:05 | MB ---
cc: Jacobo Burgos MD, Franklyn F MD DATE: 03/06/2018 REQUESTING PHYSICIAN: Dr. Thapa REASON FOR CONSULTATION: Gram-positive sepsis, diabetic foot infection with gangrene. Left foot is status post amputation. HISTORY OF PRESENT ILLNESS: This is a 67-year-old white male who presented to the Emergency Department with altered mental status. He was also noted to have left foot necrosis. The patient is cared for at home by home visiting nurses who noticed that his foot was appearing black at the toes. He has a history of neuropathy. The patient is post-surgical resection of toes 2 and 3 on the left foot. The patient has a bruise on the left side of the forehead. He tells me that he fell from his commode and hit his head. He is confused. He does not know exactly what day it is today and he thinks he is in [facility], but tells me he is in [place]. He is, however, calm. I cannot get any meaningful information from him otherwise. The patient was taken to surgery and underwent amputation of digits 2 and 3 and debridement of the wound. He still has some purpuric change at the left great toe. The wound culture is pending. Blood culture has gram-positive cocci in both sets. His white blood cell count yesterday was 26.6. He has been afebrile. PAST MEDICAL HISTORY: Hypercholesterolemia, diabetes mellitus, neuropathy. ALLERGIES: NO KNOWN DRUG ALLERGIES. MEDICATIONS: 1. Lipitor. 2. Folic acid. 3. Neurontin. 4. Insulin. 5. Zoloft. 6. Restoril. 7. Vancomycin. SOCIAL HISTORY: Former smoker. No current tobacco use. No alcohol use. No illicit drugs. FAMILY HISTORY: Noncontributory. REVIEW OF SYSTEMS: Difficult to obtain. All systems reviewed with the patient are negative. However, he is confused. PHYSICAL EXAMINATION: GENERAL: This is a well-developed male who is in no acute distress. VITAL SIGNS: Temperature 97.4, BP 150/69, respirations 18, heart rate 72. HEENT: The head has a bruise at the right forehead with ecchymotic changes. There is also mild ecchymosis at the corner of the right eyelid at the temporal aspect. Pupils reactive to light. No icterus. Oropharynx moist mucosa without lesions. NECK: Supple without adenopathy. LUNGS: Clear breath sounds. HEART: Regular S1, S2. No murmurs heard. ABDOMEN: Bowel sounds present. Soft, decreased bowel sounds. RECTAL: Not performed. EXTREMITIES: Left foot is post-surgical debridement. There is a crater from the surgery at the base of the foot beyond where toes 2 and 3 were resected and it wraps onto the dorsal aspect between toes 4 and 1. There is purpuric discoloration at the dorsal aspect of the great toe. Mild dusky purpuric change is located at the base of the toes in that location where 2 and 3 were resected. The remaining extremities have no clubbing, cyanosis or edema. NEUROLOGIC: Unable to fully assess, but grossly nonfocal. PSYCHIATRIC: The patient is calm and cooperative. LABORATORY DATA: WBC 26.6, platelets 374, hemoglobin 13.8, creatinine 0.73, BUN 23, sodium 140. AST 11, ALT 22. Blood culture gram-positive cocci. Wound culture from the left foot is pending. The Gram stain shows rare gram negative himanshu. IMPRESSION: 1. Gangrene of the left foot. The patient is status post incision and debridement and resection of toes 2 and 3. Gram stain of the wound has gram-negative himanshu. Culture pending. 2. Bacteremia. Positive blood cultures due to gram-positive cocci. 3. Altered mental status, likely secondary to infection. 4. Leukocytosis. 5. Diabetes mellitus. RECOMMENDATIONS: 1. Continue the vancomycin. 2. Add piperacillin/tazobactam to cover gram-negative rods. 3. Follow the wound culture 4. Follow identity of the positive bacteria in the blood. 5. Monitor clinical response. Thank you for this consultation. The patient's progress will be monitored and further recommendations will be given upon followup. MD LIZZIE Zamudio/ , 06:32 PM , 07:04 PM TOMASA
[2018-03-06 19:13] LABS: Hemoglobin A1c 8.8 % (4.3-6.0)
[2018-03-06] MEDS: Piperacil/Tazo 4.5 GM Premix 4.5 GM/100 ML BAG IV.SIG SCH (19:33)
[2018-03-06] MEDS: Sod Chloride 0.9% Inj 1,000 ML IV.CONT SCH ×2 (21:55→21:56)
[2018-03-06] MEDS: Insulin Detemir Inj 1,000 UNIT/10 ML Vial SQ SCH (21:59)
[2018-03-07] MEDS: Insulin NovoLOG Aspart Correctional Sugar Inj SQ SCH ×5 (00:09→21:26)
[2018-03-07] MEDS: Sod Chloride 0.9% Inj 1,000 ML IV.CONT SCH ×3 (00:10→21:27)
[2018-03-07] MEDS: Piperacil/Tazo 4.5 GM Premix 4.5 GM/100 ML BAG IV.SIG SCH ×4 (02:22→21:23)
[2018-03-07 07:15] LABS: Baso % (Auto) 0.2 % (0.0-2.0); Eos # (Auto) 0.1 th/mm3 (0.0-0.4); Eos % (Auto) 0.4 % (0.0-4.0); Hematocrit 39.2 % (39.0-51.0); Hemoglobin 13.2 gm/dL (13.0-17.0); Lymph # (Auto) 1.7 th/mm3 (1.0-4.8); Mean Corpuscular HGB Conc 33.6 % (32.0-36.0); Mean Corpuscular Volume 89.3 fL (80.0-100.0); Mean Platelet Volume 8.8 fL (7.0-11.0); Mono # (Auto) 1.4 th/mm3 (0.0-0.9); Mono % (Auto) 7.9 % (0.0-8.0); Neut # (Auto) 14.2 th/mm3 (1.8-7.7); Neut % (Auto) 81.5 % (16.0-70.0); Platelet Count 343 th/mm3 (150-450); Red Blood Count 4.39 mil/mm3 (4.50-5.90); Red Cell Distribution Width 13.2 % (11.6-17.2); White Blood Count 17.5 th/mm3 (4.0-11.0)
[2018-03-07 07:52] LABS: Chol/HDL Ratio 5.86 Ratio; HDL Cholesterol 21.5 mg/dL (40.0-60.0)
[2018-03-07] MEDS: Gabapentin 300 MG Capsule PO SCH ×3 (09:16→18:21)
[2018-03-07] MEDS: Sertraline 50 MG Tablet PO SCH (09:16)
[2018-03-07] MEDS: Folic Acid 1 MG Tablet PO SCH (09:16)
[2018-03-07] MEDS: Enoxaparin Inj 30 MG/0.3 ML Syringe SQ SCH (09:17)
--- NOTE | 2018-03-07 10:32 | P.PNVS ---
Subjective Subjective/Hospital Course: Pt s/p foot debridement with little bleeding according to Dr. Aguirre. Although marginal limb salvage candidate, I think he needs revascularization to allow any chance of avoiding a BKA Objective Vital Signs / I&O: Vital Signs 03/06/18 12:00 03/06/18 16:00 03/06/18 17:50 Temperature 98.6 F 97.4 F L Pulse Rate 73 72 Respiratory Rate 18 17 Blood Pressure 147/70 H 150/69 H Pulse Oximetry 94 L 93 L 93 L 03/06/18 20:00 03/06/18 21:11 03/06/18 23:45 Temperature 98.4 F Pulse Rate 97 H 79 81 Respiratory Rate 18 Blood Pressure 178/84 H Pulse Oximetry 93 L 03/07/18 00:00 03/07/18 04:00 03/07/18 04:04 Temperature 98.4 F 98.4 F Pulse Rate 87 73 72 Respiratory Rate 18 18 Blood Pressure 181/84 H 140/77 Pulse Oximetry 94 L 96 03/07/18 08:00 Temperature 98.5 F Pulse Rate 78 Respiratory Rate 20 Blood Pressure 199/91 H Pulse Oximetry 93 L Intake & Output 03/06/18 03/07/18 03/07/18 18:59 06:59 18:59 Intake Total 360 / 360 200 / 200 Output Total 800 / 800 300 / 300 Balance -440 / -440 -100 / -100 Weight 77.9 kg Intake: IV 200 / 200 Zosyn 4.5 GM Premix 4.5 gm In 200 / 200 100 ml @ 200 mls/hr IV.SIG Q6H [facility] Rx#:[id number] Oral 360 / 360 0 / 0 Output: Urine 800 / 800 300 / 300 Other: # Voids 3 # Bowel Movements 0 0 Physical Exam: palpable popliteal pulse, slightly diminished Foor wrapped per podiatry no odor Laboratory Results - last 24 hr 03/05/18 03/06/18 03/06/18 12:15 11:56 14:40 WBC RBC Hgb Hct MCV MCH MCHC RDW Plt Count MPV Neut % (Auto) Lymph % (Auto) [place] % (Auto) Eos % (Auto) Baso % (Auto) Neut # (Auto) Lymph # (Auto) [place] # (Auto) Eos # (Auto) Baso # (Auto) WBC Differential Differential Comment Sodium 140 Potassium 3.6 D Chloride 107 D Carbon Dioxide 24.8 Anion Gap 8 BUN 23 H Creatinine 0.73 Estimated GFR Greater than 89 POC Glucose 89 Random Glucose 92 D Hemoglobin A1c 8.8 H Calcium 7.9 L D Total Bilirubin 0.6 AST 11 L ALT 22 Alkaline Phosphatase 116 Total Protein 6.8 Albumin 2.0 L Triglycerides Cholesterol LDL Cholesterol, Calc HDL Cholesterol Cholesterol/HDL Ratio 03/06/18 03/06/18 03/07/18 16:08 21:57 00:07 WBC RBC Hgb Hct MCV MCH MCHC RDW Plt Count MPV Neut % (Auto) Lymph % (Auto) [place] % (Auto) Eos % (Auto) Baso % (Auto) Neut # (Auto) Lymph # (Auto) [place] # (Auto) Eos # (Auto) Baso # (Auto) WBC Differential Differential Comment Sodium Potassium Chloride Carbon Dioxide Anion Gap BUN Creatinine Estimated GFR POC Glucose 167 H 222 H 195 H Random Glucose Hemoglobin A1c Calcium Total Bilirubin AST ALT Alkaline Phosphatase Total Protein Albumin Triglycerides Cholesterol LDL Cholesterol, Calc HDL Cholesterol Cholesterol/HDL Ratio 03/07/18 03/07/18 03/07/18 06:20 06:20 09:14 WBC 17.5 H RBC 4.39 L Hgb 13.2 Hct 39.2 MCV 89.3 MCH 30.0 MCHC 33.6 RDW 13.2 Plt Count 343 MPV 8.8 Neut % (Auto) 81.5 H Lymph % (Auto) 10.0 [place] % (Auto) 7.9 Eos % (Auto) 0.4 Baso % (Auto) 0.2 Neut # (Auto) 14.2 H Lymph # (Auto) 1.7 [place] # (Auto) 1.4 H Eos # (Auto) 0.1 Baso # (Auto) 0.0 WBC Differential . Differential Comment Auto diff final Sodium Potassium Chloride Carbon Dioxide Anion Gap BUN Creatinine Estimated GFR POC Glucose 103 Random Glucose Hemoglobin A1c Calcium Total Bilirubin AST ALT Alkaline Phosphatase Total Protein Albumin Triglycerides 89 Cholesterol 126 LDL Cholesterol, Calc 87 HDL Cholesterol 21.5 L Cholesterol/HDL Ratio 5.86 Microbiology 03/05/18 12:20 Aerobic Blood Culture - Final Blood - Peripheral Staphylococcus coag negative Anaerobic Blood Culture - Final Staphylococcus coag negative 03/05/18 12:15 Aerobic Blood Culture - Final Blood - Peripheral Staphylococcus coag negative Anaerobic Blood Culture - Final Staphylococcus coag negative 03/05/18 20:10 Acid Fast Bacilli Smear - Final Abscess - Foot No acid fast bacilli seen 03/05/18 20:10 Fungal Smear - Final Abscess - Foot No fungal elements seen 03/05/18 20:10 Gram Stain - Final Abscess - Foot Impressions Extremity Arterial Study 03/05/18 00:00 CONCLUSION: 1. Normal TBI. Tracings would suggest worse pressures were calculated. Foot X-Ray 03/05/18 12:00 CONCLUSION: 1. Abnormal subcutaneous emphysema is seen in the soft tissues along the ball of foot, between the first, second and third toes and along the plantar fascia. This suggests some degree of infection/inflammatory process. 2. No evidence of any bony erosion or bony destruction to suggest osteomyelitis at this time. Head CT 03/05/18 12:00 CONCLUSION: 1. No focal or acute intracranial hemorrhage. 2. Subcutaneous Soft tissue swelling along the right forehead region. 3. Chronic appearing white matter changes bilaterally slightly greater on the right than the left. Recommend MRI of the brain for further evaluation if clinically indicated. Chest X-Ray 03/05/18 12:01 CONCLUSION: No acute intrathoracic disease. Assessment and Plan - Assessment (1) Diabetes Code(s): E11.9 - Type 2 diabetes mellitus without complications Status: Acute - Plan 67 yo male with diabetic foot infection s/p debridement and drainage 1. Will schedule angiogram Fri/ 2. Discussed with the patient the clinical need for more perfusion; even if angio successful at improving perfusion to foot, he may end up with BKA 3. Medical management of comorbidities per primary service Roscoe Tobias MD FACS RPVI head filter tank tender helper [facility] - Heart and Vascular Surgery at [facility] [phone]
--- NOTE | 2018-03-07 10:44 | P.PN ---
Subjective Interval history: T max 98.4 minimal pain taking po well, no nausea or vomiting Physical Exam Vital signs: Vital Signs 03/06/18 12:00 03/06/18 16:00 03/06/18 17:50 Temperature 98.6 F 97.4 F L Pulse Rate 73 72 Respiratory Rate 18 17 Blood Pressure 147/70 H 150/69 H Pulse Oximetry 94 L 93 L 93 L 03/06/18 20:00 03/06/18 21:11 03/06/18 23:45 Temperature 98.4 F Pulse Rate 97 H 79 81 Respiratory Rate 18 Blood Pressure 178/84 H Pulse Oximetry 93 L 03/07/18 00:00 03/07/18 04:00 03/07/18 04:04 Temperature 98.4 F 98.4 F Pulse Rate 87 73 72 Respiratory Rate 18 18 Blood Pressure 181/84 H 140/77 Pulse Oximetry 94 L 96 03/07/18 08:00 Temperature 98.5 F Pulse Rate 78 Respiratory Rate 20 Blood Pressure 199/91 H Pulse Oximetry 93 L Intake & Output 03/06/18 03/07/18 03/07/18 18:59 06:59 18:59 Intake Total 360 / 360 200 / 200 Output Total 800 / 800 300 / 300 Balance -440 / -440 -100 / -100 Weight 77.9 kg Intake: IV 200 / 200 Zosyn 4.5 GM Premix 4.5 gm In 200 / 200 100 ml @ 200 mls/hr IV.SIG Q6H [facility] Rx#:[id number] Oral 360 / 360 0 / 0 Output: Urine 800 / 800 300 / 300 Other: # Voids 3 # Bowel Movements 0 0 Narrative: awake and alert faint/fading bruis on the right temporal area and slight right supraorbirtal bluish discoloration (per patient fell about 2 weeks ago) anicteric pupils equally reactive to light regular rhythm abdomen soft, nontender LE- s/p amputation 2,3 digit, bone exposed some foul odor, some pus from site , slightly tender no bilateral calf tenderness gait deferred- per patient baseline uses a walker Results - Labs CBC & Chem 7: 03/07/18 06:20 03/06/18 14:40 Laboratory Results - last 24 hr 03/05/18 03/06/18 03/06/18 12:15 11:56 14:40 WBC RBC Hgb Hct MCV MCH MCHC RDW Plt Count MPV Neut % (Auto) Lymph % (Auto) [place] % (Auto) Eos % (Auto) Baso % (Auto) Neut # (Auto) Lymph # (Auto) [place] # (Auto) Eos # (Auto) Baso # (Auto) WBC Differential Differential Comment Sodium 140 Potassium 3.6 D Chloride 107 D Carbon Dioxide 24.8 Anion Gap 8 BUN 23 H Creatinine 0.73 Estimated GFR Greater than 89 POC Glucose 89 Random Glucose 92 D Hemoglobin A1c 8.8 H Calcium 7.9 L D Total Bilirubin 0.6 AST 11 L ALT 22 Alkaline Phosphatase 116 Total Protein 6.8 Albumin 2.0 L Triglycerides Cholesterol LDL Cholesterol, Calc HDL Cholesterol Cholesterol/HDL Ratio 03/06/18 03/06/18 03/07/18 16:08 21:57 00:07 WBC RBC Hgb Hct MCV MCH MCHC RDW Plt Count MPV Neut % (Auto) Lymph % (Auto) [place] % (Auto) Eos % (Auto) Baso % (Auto) Neut # (Auto) Lymph # (Auto) [place] # (Auto) Eos # (Auto) Baso # (Auto) WBC Differential Differential Comment Sodium Potassium Chloride Carbon Dioxide Anion Gap BUN Creatinine Estimated GFR POC Glucose 167 H 222 H 195 H Random Glucose Hemoglobin A1c Calcium Total Bilirubin AST ALT Alkaline Phosphatase Total Protein Albumin Triglycerides Cholesterol LDL Cholesterol, Calc HDL Cholesterol Cholesterol/HDL Ratio 03/07/18 03/07/18 03/07/18 06:20 06:20 09:14 WBC 17.5 H RBC 4.39 L Hgb 13.2 Hct 39.2 MCV 89.3 MCH 30.0 MCHC 33.6 RDW 13.2 Plt Count 343 MPV 8.8 Neut % (Auto) 81.5 H Lymph % (Auto) 10.0 [place] % (Auto) 7.9 Eos % (Auto) 0.4 Baso % (Auto) 0.2 Neut # (Auto) 14.2 H Lymph # (Auto) 1.7 [place] # (Auto) 1.4 H Eos # (Auto) 0.1 Baso # (Auto) 0.0 WBC Differential . Differential Comment Auto diff final Sodium Potassium Chloride Carbon Dioxide Anion Gap BUN Creatinine Estimated GFR POC Glucose 103 Random Glucose Hemoglobin A1c Calcium Total Bilirubin AST ALT Alkaline Phosphatase Total Protein Albumin Triglycerides 89 Cholesterol 126 LDL Cholesterol, Calc 87 HDL Cholesterol 21.5 L Cholesterol/HDL Ratio 5.86 Microbiology 03/05/18 12:20 Blood - Peripheral Aerobic Blood Culture - Final Staphylococcus coag negative 03/05/18 12:20 Blood - Peripheral Anaerobic Blood Culture - Final Staphylococcus coag negative 03/05/18 12:15 Blood - Peripheral Aerobic Blood Culture - Final Staphylococcus coag negative 03/05/18 12:15 Blood - Peripheral Anaerobic Blood Culture - Final Staphylococcus coag negative 03/05/18 20:10 Abscess - Foot Acid Fast Bacilli Smear - Final No acid fast bacilli seen 03/05/18 20:10 Abscess - Foot Fungal Smear - Final No fungal elements seen 03/05/18 20:10 Abscess - Foot Gram Stain - Final - Imaging Impressions Extremity Arterial Study 03/05/18 00:00 CONCLUSION: 1. Normal TBI. Tracings would suggest worse pressures were calculated. - Procedures 03/05 Left foot incision drainage debridement amputation 2 3 digits Assessment and Plan - Plan Mr. Coelho is a 67-year-old with a history of diabetes mellitus who presents to the emergency department due to left foot necrotic lesion as well as confusion. 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 WBC trednding down - ff cultures and final biopsy on IV Vanco and zosyn - ff c and S and biopsy - Vascular surgery consulted and ff- plan for angiogram next week - will likely need amputation- TMA vs BKA depending on angio results Diabetes mellitus uncontrolled Neuropathy ff blood sugars. check A1C- 8.8 start ADA diet started on Levemir 12 units nightly as well as medium scale corrective scale insulin continue on Gabapentin HYperlipidemia -Continue Lipitor. Hypertension - Started on Nifedipine 30mg Qday. Will hold using Lisinopril due to MALIKA. - Clonidine PRN. MALIKA - Improved Creatinine baseline around 1.1. On admission, Cr was 1.32. creatinine down Will continue to monitor. urine microalbumin negative decrease IVF rate ff BMP Lovenox 30 mg SQ daily
[2018-03-07] MEDS: Vancomycin Inj 1,250 MG in Sodium Chlor 0.9% Inj 250 ML IV.SIG SCH (10:46)
--- NOTE | 2018-03-07 10:56 | P.PNPOD ---
Subjective Interval history: No events overnight, the patient understands severity the infection, he wishes for limb salvage efforts. Physical Exam Vital signs: Vital Signs 03/06/18 12:00 03/06/18 16:00 03/06/18 17:50 Temperature 98.6 F 97.4 F L Pulse Rate 73 72 Respiratory Rate 18 17 Blood Pressure 147/70 H 150/69 H Pulse Oximetry 94 L 93 L 93 L 03/06/18 20:00 03/06/18 21:11 03/06/18 23:45 Temperature 98.4 F Pulse Rate 97 H 79 81 Respiratory Rate 18 Blood Pressure 178/84 H Pulse Oximetry 93 L 03/07/18 00:00 03/07/18 04:00 03/07/18 04:04 Temperature 98.4 F 98.4 F Pulse Rate 87 73 72 Respiratory Rate 18 18 Blood Pressure 181/84 H 140/77 Pulse Oximetry 94 L 96 03/07/18 08:00 Temperature 98.5 F Pulse Rate 78 Respiratory Rate 20 Blood Pressure 199/91 H Pulse Oximetry 93 L Intake & Output 03/06/18 03/07/18 03/07/18 18:59 06:59 18:59 Intake Total 622.5 / 622.5 200 / 200 1100 / 1100 Output Total 800 / 800 300 / 300 Balance -177.5 / -177.5 -100 / -100 1100 / 1100 Weight 77.9 kg Intake: IV 262.5 / 262.5 200 / 200 1100 / 1100 NS Inj 1,000 ML @ 100 mls/hr IV 1000 / 1000 .CONT .Q10H [facility] Rx#:[id number] Zosyn 4.5 GM Premix 4.5 gm In 200 / 200 100 / 100 100 ml @ 200 mls/hr IV.SIG Q6H [facility] Rx#:[id number] Vancomycin Inj 1,250 MG In NS 262.5 / 262.5 Inj 250 ML @ 250 mls/hr IV.SIG Q18H [facility] Rx#:[id number] Oral 360 / 360 0 / 0 Output: Urine 800 / 800 300 / 300 Other: # Voids 3 # Bowel Movements 0 0 Narrative: Left lower extremity examined-minimal strikethrough minimal bleeding noted on bandage, exposed second third metatarsal down to tendons and deep muscle and fascia of the dorsum and plantar foot, mild odor noted, now mild progression of ischemia dorsum foot however amputation margins have a dusky purple hue, foot has decreased sensation and decreased temperature. Medications and Allergies Active Medications: Active Medications Acetaminophen (Tylenol) 650 mg PO Q4H PRN PRN Reason: Temp > 100.4 Al Hydroxide/Mg Hydroxide (Milk Of [place] Liq) 30 ml PO Q12H PRN PRN Reason: Mild Constipation Atorvastatin Calcium (Lipitor) 80 mg PO HS [facility] Last Admin: 03/06/18 22:00 Dose: 80 mg Bisacodyl (Dulcolax Supp) 10 mg RECTAL DAILY PRN PRN Reason: SEVERE CONSITIPATION Dextrose (D50w Vial) 50 ml IV.PUSH UNSCH PRN PRN Reason: PER HYPOGLYCEMIA PROTOCOL Enoxaparin Sodium (Lovenox Inj) 30 mg SQ DAILY [facility] Last Admin: 03/07/18 09:17 Dose: 30 mg Folic Acid (Folic Acid) 1 mg PO DAILY [facility] Last Admin: 03/07/18 09:16 Dose: 1 mg Gabapentin (Neurontin) 600 mg PO TID [facility] Last Admin: 03/07/18 09:16 Dose: 600 mg Glucagon (Glucagon Inj) 1 mg OTHER PRN PRN PRN Reason: for Hypoglycemia Protocol Sodium Chloride (Ns Inj) 1,000 mls @ 0 mls/hr IV.SIG .Q0M [facility] Last Admin: 03/05/18 13:57 Dose: 1,000 mls/hr Sodium Chloride (Ns Inj) 1,000 mls @ 50 mls/hr IV.CONT .Q20H [facility] Last Admin: 03/07/18 10:46 Dose: 100 mls/hr Pharmacy Profile Note (Vancomycin Consult Pharmacy) mls @ 0 mls/hr OTHER [facility] Vancomycin HCl 1,250 mg/ (Sodium Chloride) 262.5 mls @ 250 mls/hr IV.SIG Q18H [facility] Last Admin: 03/07/18 10:46 Dose: 250 mls/hr Piperacillin/Tazobactam/Dextrose (Zosyn 4.5 Gm Premix) 4.5 gm in 100 mls @ 200 mls/hr IV.SIG Q6H [facility] Last Infusion: 03/07/18 09:45 Dose: Infused Insulin Aspart (Novolog Inj) 5 units SQ TIDAC [facility] Last Admin: 03/07/18 09:14 Dose: Not Given Insulin Aspart (Novolog Insulin Suppl Scale Inj) 0 unit SQ [facility]; Protocol Last Admin: 03/07/18 09:15 Dose: Not Given Insulin Detemir (Levemir Inj) 12 unit SQ [facility] Last Admin: 03/06/18 21:59 Dose: 12 unit Lactulose (Lactulose Liq) 30 ml PO DAILY PRN PRN Reason: SEVERE CONSITIPATION Miscellaneous Information ([facility] Ordered Lab Info) 0 each OTHER ONCE ONE Stop: 03/09/18 16:01 Potassium Chloride (K-Dur) 20 meq PO ONCE ONE Stop: 03/07/18 10:50 Sennosides (Senokot) 17.2 mg PO Q12H PRN PRN Reason: Moderate Constipation Sertraline HCl (Zoloft) 50 mg PO DAILY [facility] Last Admin: 03/07/18 09:16 Dose: 50 mg Temazepam (Restoril) 15 mg PO HS PRN PRN Reason: INSOMNIA Allergies Allergy/AdvReac Type Severity Reaction Status Date / Time Iodinated Contrast- Oral and Allergy Intermediate Verified 11/07/17 20:25 IV Dye Home Medications Medication Instructions Recorded Confirmed Type aspirin 81 mg PO DAILY 03/05/18 03/05/18 History atorvastatin 80 mg PO HS 03/05/18 03/05/18 History cholecalciferol (vitamin D3) 2,000 unit PO DAILY 03/05/18 03/05/18 History folic acid 1 mg PO DAILY 03/05/18 03/05/18 History gabapentin 600 mg PO TID 03/05/18 03/05/18 History insulin regular hum U-500 conc 85 unit SUB-Q TID 03/05/18 03/05/18 History lisinopril 2.5 mg PO DAILY 03/05/18 03/05/18 History metformin 1,000 mg PO BID 03/05/18 03/05/18 History sertraline 50 mg PO DAILY 03/05/18 03/05/18 History vitamin B complex 1,000 units PO DAILY 03/05/18 03/05/18 History Results - Labs CBC & Chem 7: 03/07/18 06:20 03/06/18 14:40 Laboratory Results - last 24 hr 03/05/18 03/06/18 03/06/18 12:15 11:56 14:40 WBC RBC Hgb Hct MCV MCH MCHC RDW Plt Count MPV Neut % (Auto) Lymph % (Auto) [place] % (Auto) Eos % (Auto) Baso % (Auto) Neut # (Auto) Lymph # (Auto) [place] # (Auto) Eos # (Auto) Baso # (Auto) WBC Differential Differential Comment Sodium 140 Potassium 3.6 D Chloride 107 D Carbon Dioxide 24.8 Anion Gap 8 BUN 23 H Creatinine 0.73 Estimated GFR Greater than 89 POC Glucose 89 Random Glucose 92 D Hemoglobin A1c 8.8 H Calcium 7.9 L D Total Bilirubin 0.6 AST 11 L ALT 22 Alkaline Phosphatase 116 Total Protein 6.8 Albumin 2.0 L Triglycerides Cholesterol LDL Cholesterol, Calc HDL Cholesterol Cholesterol/HDL Ratio 03/06/18 03/06/18 03/07/18 16:08 21:57 00:07 WBC RBC Hgb Hct MCV MCH MCHC RDW Plt Count MPV Neut % (Auto) Lymph % (Auto) [place] % (Auto) Eos % (Auto) Baso % (Auto) Neut # (Auto) Lymph # (Auto) [place] # (Auto) Eos # (Auto) Baso # (Auto) WBC Differential Differential Comment Sodium Potassium Chloride Carbon Dioxide Anion Gap BUN Creatinine Estimated GFR POC Glucose 167 H 222 H 195 H Random Glucose Hemoglobin A1c Calcium Total Bilirubin AST ALT Alkaline Phosphatase Total Protein Albumin Triglycerides Cholesterol LDL Cholesterol, Calc HDL Cholesterol Cholesterol/HDL Ratio 03/07/18 03/07/18 03/07/18 06:20 06:20 09:14 WBC 17.5 H RBC 4.39 L Hgb 13.2 Hct 39.2 MCV 89.3 MCH 30.0 MCHC 33.6 RDW 13.2 Plt Count 343 MPV 8.8 Neut % (Auto) 81.5 H Lymph % (Auto) 10.0 [place] % (Auto) 7.9 Eos % (Auto) 0.4 Baso % (Auto) 0.2 Neut # (Auto) 14.2 H Lymph # (Auto) 1.7 [place] # (Auto) 1.4 H Eos # (Auto) 0.1 Baso # (Auto) 0.0 WBC Differential . Differential Comment Auto diff final Sodium Potassium Chloride Carbon Dioxide Anion Gap BUN Creatinine Estimated GFR POC Glucose 103 Random Glucose Hemoglobin A1c Calcium Total Bilirubin AST ALT Alkaline Phosphatase Total Protein Albumin Triglycerides 89 Cholesterol 126 LDL Cholesterol, Calc 87 HDL Cholesterol 21.5 L Cholesterol/HDL Ratio 5.86 Microbiology 03/05/18 12:20 Blood - Peripheral Aerobic Blood Culture - Final Staphylococcus coag negative 03/05/18 12:20 Blood - Peripheral Anaerobic Blood Culture - Final Staphylococcus coag negative 03/05/18 12:15 Blood - Peripheral Aerobic Blood Culture - Final Staphylococcus coag negative 03/05/18 12:15 Blood - Peripheral Anaerobic Blood Culture - Final Staphylococcus coag negative 03/05/18 20:10 Abscess - Foot Acid Fast Bacilli Smear - Final No acid fast bacilli seen 03/05/18 20:10 Abscess - Foot Fungal Smear - Final No fungal elements seen 03/05/18 20:10 Abscess - Foot Gram Stain - Final - Imaging Impressions Extremity Arterial Study 03/05/18 00:00 CONCLUSION: 1. Normal TBI. Tracings would suggest worse pressures were calculated. - Procedures 03/05 Left foot incision drainage debridement amputation 2 3 digits Assessment and Plan - Assessment (1) Gangrene of left foot Code(s): I96 - Gangrene, not elsewhere classified Status: Acute - Plan Unchanged plan from previous, await vascular intervention before attempt at proximal amputation of foot versus below the knee amputation. Nursing orders to change bandage will follow-up in 2-3 days Procedures: Status post left foot incision drainage debridement amputation of second and third digit March 05 Dr. Aguirre
[2018-03-07] MEDS: Insulin Detemir Inj 1,000 UNIT/10 ML Vial SQ SCH (21:25)
[2018-03-08] MEDS: Piperacil/Tazo 4.5 GM Premix 4.5 GM/100 ML BAG IV.SIG SCH ×4 (02:42→20:50)
[2018-03-08] MEDS: Vancomycin Inj 1,250 MG in Sodium Chlor 0.9% Inj 250 ML IV.SIG SCH ×2 (04:53→22:17)
[2018-03-08 07:06] LABS: Baso # (Auto) 0.1 th/mm3 (0.0-0.2); Baso % (Auto) 0.5 % (0.0-2.0); Eos # (Auto) 0.1 th/mm3 (0.0-0.4); Eos % (Auto) 0.8 % (0.0-4.0); Hematocrit 41.2 % (39.0-51.0); Hemoglobin 13.5 gm/dL (13.0-17.0); Lymph # (Auto) 1.7 th/mm3 (1.0-4.8); Lymph % (Auto) 10.7 % (9.0-44.0); Mean Corpuscular HGB Conc 32.7 % (32.0-36.0); Mean Corpuscular Hemoglobin 29.1 pg (27.0-34.0); Mean Platelet Volume 8.9 fL (7.0-11.0); Mono # (Auto) 1.3 th/mm3 (0.0-0.9); Mono % (Auto) 8.2 % (0.0-8.0); Neut # (Auto) 12.3 th/mm3 (1.8-7.7); Neut % (Auto) 79.8 % (16.0-70.0); Platelet Count 323 th/mm3 (150-450); Red Blood Count 4.64 mil/mm3 (4.50-5.90); White Blood Count 15.4 th/mm3 (4.0-11.0)
[2018-03-08 07:25] LABS: Anion Gap 9 meq/L (5-15); Blood Urea Nitrogen 13 mg/dL (7-18); Carbon Dioxide 25.6 meq/L (21.0-32.0); Chloride 101 meq/L (98-107); Glomerular Filtration Rate Greater Than 89 mL/min (>89); Glucose,Random 170 mg/dL (74-106); Potassium 3.6 meq/L (3.5-5.1); Sodium 136 meq/L (136-145)
[2018-03-08] MEDS: Folic Acid 1 MG Tablet PO SCH (08:32)
[2018-03-08] MEDS: Sertraline 50 MG Tablet PO SCH (08:32)
[2018-03-08] MEDS: Gabapentin 300 MG Capsule PO SCH ×3 (08:32→17:14)
[2018-03-08] MEDS: Insulin NovoLOG Aspart Correctional Sugar Inj SQ SCH ×4 (08:32→22:18)
[2018-03-08] MEDS: Enoxaparin Inj 30 MG/0.3 ML Syringe SQ SCH (08:32)
[2018-03-08] MEDS ORDERED: Sod Chloride 0.9% Inj 1,000 ML IV.SIG ONE (11:08)
--- NOTE | 2018-03-08 11:25 | P.PN ---
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 after a BM- soft stools, no blood patient became weak and unable to bear weight fully and slowly lowered down to the floor- no syncope patient compalins of generalized weakness on exam-soft stool, browmn, non blood check orthostatic- supine was- 179/89 sitting up- 135/79 standing- patient unable to bear weight long,enough- states very weakness even with us 3 of us holding him up Physical Exam Vital signs: Vital Signs 03/07/18 12:00 03/07/18 16:00 03/07/18 20:00 Temperature 98.4 F 98.6 F 98.7 F Pulse Rate 92 H 68 85 Respiratory Rate 20 20 18 Blood Pressure 168/75 H 178/74 H 158/76 H Pulse Oximetry 95 96 95 03/07/18 22:45 03/08/18 00:00 03/08/18 02:54 Temperature 99.2 F Pulse Rate 75 80 77 Respiratory Rate 18 Blood Pressure 179/91 H Pulse Oximetry 95 03/08/18 03:45 03/08/18 04:00 03/08/18 08:00 Temperature 98.4 F Pulse Rate 77 78 69 Respiratory Rate 18 Blood Pressure 175/87 H Pulse Oximetry 95 Intake & Output 03/07/18 03/08/18 03/08/18 18:59 06:59 18:59 Intake Total 2182.5 / 2182.5 1440 / 1440 100 / 100 Output Total 0 / 0 300 / 300 Balance 2182.5 / 2182.5 1140 / 1140 100 / 100 Weight 76.3 kg Intake: IV 1462.5 / 1462.5 1200 / 1200 100 / 100 NS Inj 1,000 ML @ 50 mls/hr IV. 1000 / 1000 1000 / 1000 CONT .Q20H [facility] Rx#:[id number] Zosyn 4.5 GM Premix 4.5 gm In 200 / 200 200 / 200 100 / 100 100 ml @ 200 mls/hr IV.SIG Q6H [facility] Rx#:[id number] Vancomycin Inj 1,250 MG In NS 262.5 / 262.5 Inj 250 ML @ 250 mls/hr IV.SIG Q18H [facility] Rx#:[id number] Oral 720 / 720 240 / 240 Output: Urine 300 / 300 Stool 0 / 0 Other: # Voids 1 1 # Incontinent Bowel Movements 0 Narrative: awake and alert, geenralized weakness, + orthostatics BP supine 176/79 sitiing 139/76 faint/fading bruis on the right temporal area and slight right supraorbirtal bluish discoloration (per patient fell about 2 weeks ago) anicteric pupils equally reactive to light regular rhythm abdomen soft, nontender LE- s/p amputation - post op dressing in place no bilateral calf tenderness gait deferred- per patient baseline uses a walker Results - Labs CBC & Chem 7: 03/08/18 06:24 03/08/18 06:24 Laboratory Results - last 24 hr 03/07/18 03/07/18 03/07/18 13:47 18:22 20:27 WBC RBC Hgb Hct MCV MCH MCHC RDW Plt Count MPV Neut % (Auto) Lymph % (Auto) [place] % (Auto) Eos % (Auto) Baso % (Auto) Neut # (Auto) Lymph # (Auto) [place] # (Auto) Eos # (Auto) Baso # (Auto) WBC Differential Differential Comment Sodium Potassium Chloride Carbon Dioxide Anion Gap BUN Creatinine Estimated GFR POC Glucose 156 H 174 H 200 H Random Glucose Calcium 03/08/18 03/08/18 03/08/18 06:24 06:24 08:32 WBC 15.4 H RBC 4.64 Hgb 13.5 Hct 41.2 MCV 89.0 MCH 29.1 MCHC 32.7 RDW 13.0 Plt Count 323 MPV 8.9 Neut % (Auto) 79.8 H Lymph % (Auto) 10.7 [place] % (Auto) 8.2 H Eos % (Auto) 0.8 Baso % (Auto) 0.5 Neut # (Auto) 12.3 H Lymph # (Auto) 1.7 [place] # (Auto) 1.3 H Eos # (Auto) 0.1 Baso # (Auto) 0.1 WBC Differential . Differential Comment Auto diff final Sodium 136 Potassium 3.6 Chloride 101 Carbon Dioxide 25.6 Anion Gap 9 BUN 13 Creatinine 0.76 Estimated GFR Greater than 89 POC Glucose 150 H Random Glucose 170 H Calcium 8.0 L 03/08/18 11:00 WBC RBC Hgb Hct MCV MCH MCHC RDW Plt Count MPV Neut % (Auto) Lymph % (Auto) [place] % (Auto) Eos % (Auto) Baso % (Auto) Neut # (Auto) Lymph # (Auto) [place] # (Auto) Eos # (Auto) Baso # (Auto) WBC Differential Differential Comment Sodium Potassium Chloride Carbon Dioxide Anion Gap BUN Creatinine Estimated GFR POC Glucose 132 H Random Glucose Calcium Microbiology 03/06/18 14:40 Blood - Peripheral Aerobic Blood Culture - Preliminary No growth in 2 days 03/06/18 14:40 Blood - Peripheral Anaerobic Blood Culture - Preliminary No growth in 2 days 03/06/18 14:35 Blood - Peripheral Aerobic Blood Culture - Preliminary No growth in 2 days 03/06/18 14:35 Blood - Peripheral Anaerobic Blood Culture - Preliminary No growth in 2 days 03/05/18 20:10 Abscess - Foot Gram Stain - Final 03/05/18 20:10 Abscess - Foot Wound Culture - Preliminary Escherichia coli Beta Strep not A,B or D 03/05/18 12:20 Blood - Peripheral Aerobic Blood Culture - Final Staphylococcus coag negative 03/05/18 12:20 Blood - Peripheral Anaerobic Blood Culture - Final Staphylococcus coag negative 03/05/18 12:15 Blood - Peripheral Aerobic Blood Culture - Final Staphylococcus coag negative 03/05/18 12:15 Blood - Peripheral Anaerobic Blood Culture - Final Staphylococcus coag negative - Procedures 03/05 Left foot incision drainage debridement amputation 2 3 digits Assessment and Plan - Plan Mr. Coelho is a 67-year-old with a history of diabetes mellitus who presents to the emergency department due to left foot necrotic lesion as well as confusion. 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 WBC trednding down - ff cultures and final biopsy on IV Vanco and zosyn - ff c and S and biopsy - Vascular surgery consulted and ff- plan for angiogram next week - will likely need amputation- TMA vs BKA depending on angio results Diabetes mellitus uncontrolled A1C 8.8 Neuropathy ff blood sugars. check A1C- 8.8. BS now 139 start ADA diet started on Levemir 12 units nightly as well as medium scale corrective scale insulin continue on Gabapentin HYperlipidemia -Continue Lipitor. History of Hypertension Near syncopal episode - with orthostatic hypotension likely from DM autonomic dysfucntion - -DC Nifedipine 30mg Qday. - Lisinopril was held due to MALIKA. - nursing instructions to check vuital signs on a sitting up position stat BS 132 MALIKA - Improved renal inidces Orthostatic hypotension 03/08- likely with autonomic dysfunction start IVF- 1 L bolus now then start 70 cc/hr Creatinine baseline around 1.1. On admission, Cr was 1.32. creatinine down Will continue to monitor. urine microalbumin negative ff BMP Out of bed with supervision- discussed with patient Instruct nurse to check BP- sitting up not supine PT consult - caution with autonomic dysfunction PT- in bed today then reevaluate in am- out of bed Lovenox 30 mg SQ daily
--- NOTE | 2018-03-08 12:31 | P.PNPOD ---
Subjective Interval history: Patient admits some dizziness upon standing no acute distress understands plan and progress regarding left foot Physical Exam Vital signs: Vital Signs 03/07/18 16:00 03/07/18 20:00 03/07/18 22:45 Temperature 98.6 F 98.7 F Pulse Rate 68 85 75 Respiratory Rate 20 18 Blood Pressure 178/74 H 158/76 H Pulse Oximetry 96 95 03/08/18 00:00 03/08/18 02:54 03/08/18 03:45 Temperature 99.2 F Pulse Rate 80 77 77 Respiratory Rate 18 Blood Pressure 179/91 H Pulse Oximetry 95 03/08/18 04:00 03/08/18 08:00 Temperature 98.4 F 97.7 F Pulse Rate 78 91 H Respiratory Rate 18 20 Blood Pressure 175/87 H 165/75 H Pulse Oximetry 95 91 L Intake & Output 03/07/18 03/08/18 03/08/18 18:59 06:59 18:59 Intake Total 2182.5 / 2182.5 1440 / 1440 1000 / 1000 Output Total 0 / 0 300 / 300 Balance 2182.5 / 2182.5 1140 / 1140 1000 / 1000 Weight 76.3 kg Intake: IV 1462.5 / 1462.5 1200 / 1200 1000 / 1000 NS Inj 1,000 ML @ 50 mls/hr IV. 1000 / 1000 1000 / 1000 900 / 900 CONT .Q20H [facility] Rx#:[id number] Zosyn 4.5 GM Premix 4.5 gm In 200 / 200 200 / 200 100 / 100 100 ml @ 200 mls/hr IV.SIG Q6H [facility] Rx#:[id number] Vancomycin Inj 1,250 MG In NS 262.5 / 262.5 Inj 250 ML @ 250 mls/hr IV.SIG Q18H [facility] Rx#:[id number] Oral 720 / 720 240 / 240 Output: Urine 300 / 300 Stool 0 / 0 Other: # Voids 1 1 # Incontinent Bowel Movements 0 Narrative: Left lower extremity examined-minimal strikethrough minimal bleeding noted on bandage, exposed second third metatarsal down to tendons and deep muscle and fascia of the dorsum and plantar foot, mild odor noted, now mild progression of ischemia dorsum foot however amputation margins have a dusky purple hue, foot has decreased sensation and decreased temperature. Unchanged Medications and Allergies Active Medications: Active Medications Acetaminophen (Tylenol) 650 mg PO Q4H PRN PRN Reason: Temp > 100.4 Al Hydroxide/Mg Hydroxide (Milk Of [place]man[place] Liq) 30 ml PO Q12H PRN PRN Reason: Mild Constipation Atorvastatin Calcium (Lipitor) 80 mg PO HS [facility] Last Admin: 03/07/18 21:23 Dose: 80 mg Bisacodyl (Dulcolax Supp) 10 mg RECTAL DAILY PRN PRN Reason: SEVERE CONSITIPATION Dextrose (D50w Vial) 50 ml IV.PUSH UNSCH PRN PRN Reason: PER HYPOGLYCEMIA PROTOCOL Enoxaparin Sodium (Lovenox Inj) 30 mg SQ DAILY [facility] Last Admin: 03/08/18 08:32 Dose: 30 mg Folic Acid (Folic Acid) 1 mg PO DAILY [facility] Last Admin: 03/08/18 08:32 Dose: 1 mg Gabapentin (Neurontin) 600 mg PO TID [facility] Last Admin: 03/08/18 12:10 Dose: 600 mg Glucagon (Glucagon Inj) 1 mg OTHER PRN PRN PRN Reason: for Hypoglycemia Protocol Sodium Chloride (Ns Inj) 1,000 mls @ 0 mls/hr IV.SIG .Q0M [facility] Last Admin: 03/05/18 13:57 Dose: 1,000 mls/hr Sodium Chloride (Ns Inj) 1,000 mls @ 50 mls/hr IV.CONT .Q20H [facility] Last Infusion: 03/08/18 12:15 Dose: Infused Pharmacy Profile Note (Vancomycin Consult Pharmacy) mls @ 0 mls/hr OTHER UNSCH [facility] Vancomycin HCl 1,250 mg/ (Sodium Chloride) 262.5 mls @ 250 mls/hr IV.SIG Q18H [facility] Last Admin: 03/08/18 04:53 Dose: 250 mls/hr Piperacillin/Tazobactam/Dextrose (Zosyn 4.5 Gm Premix) 4.5 gm in 100 mls @ 200 mls/hr IV.SIG Q6H [facility] Last Infusion: 03/08/18 09:16 Dose: Infused Insulin Aspart (Novolog Inj) 5 units SQ TIDAC [facility] Last Admin: 03/08/18 12:11 Dose: 5 units Insulin Aspart (Novolog Insulin Suppl Scale Inj) 0 unit SQ ACHS [facility]; Protocol Last Admin: 03/08/18 11:01 Dose: Not Given Insulin Detemir (Levemir Inj) 12 unit SQ HS [facility] Last Admin: 03/07/18 21:25 Dose: 12 unit Lactulose (Lactulose Liq) 30 ml PO DAILY PRN PRN Reason: SEVERE CONSITIPATION Miscellaneous Information ([facility] Ordered Lab Info) 0 each OTHER ONCE ONE Stop: 03/09/18 00:46 Sennosides (Senokot) 17.2 mg PO Q12H PRN PRN Reason: Moderate Constipation Sertraline HCl (Zoloft) 50 mg PO DAILY [facility] Last Admin: 03/08/18 08:32 Dose: 50 mg Temazepam (Restoril) 15 mg PO HS PRN PRN Reason: INSOMNIA Allergies Allergy/AdvReac Type Severity Reaction Status Date / Time Iodinated Contrast- Oral and Allergy Intermediate Verified 11/07/17 20:25 IV Dye Home Medications Medication Instructions Recorded Confirmed Type aspirin 81 mg PO DAILY 03/05/18 03/05/18 History atorvastatin 80 mg PO HS 03/05/18 03/05/18 History cholecalciferol (vitamin D3) 2,000 unit PO DAILY 03/05/18 03/05/18 History folic acid 1 mg PO DAILY 03/05/18 03/05/18 History gabapentin 600 mg PO TID 03/05/18 03/05/18 History insulin regular hum U-500 conc 85 unit SUB-Q TID 03/05/18 03/05/18 History lisinopril 2.5 mg PO DAILY 03/05/18 03/05/18 History metformin 1,000 mg PO BID 03/05/18 03/05/18 History sertraline 50 mg PO DAILY 03/05/18 03/05/18 History vitamin B complex 1,000 units PO DAILY 03/05/18 03/05/18 History Results - Labs CBC & Chem 7: 03/08/18 06:24 03/08/18 06:24 Laboratory Results - last 24 hr 03/07/18 03/07/18 03/07/18 13:47 18:22 20:27 WBC RBC Hgb Hct MCV MCH MCHC RDW Plt Count MPV Neut % (Auto) Lymph % (Auto) [place] % (Auto) Eos % (Auto) Baso % (Auto) Neut # (Auto) Lymph # (Auto) [place] # (Auto) Eos # (Auto) Baso # (Auto) WBC Differential Differential Comment Sodium Potassium Chloride Carbon Dioxide Anion Gap BUN Creatinine Estimated GFR POC Glucose 156 H 174 H 200 H Random Glucose Calcium 03/08/18 03/08/18 03/08/18 06:24 06:24 08:32 WBC 15.4 H RBC 4.64 Hgb 13.5 Hct 41.2 MCV 89.0 MCH 29.1 MCHC 32.7 RDW 13.0 Plt Count 323 MPV 8.9 Neut % (Auto) 79.8 H Lymph % (Auto) 10.7 [place] % (Auto) 8.2 H Eos % (Auto) 0.8 Baso % (Auto) 0.5 Neut # (Auto) 12.3 H Lymph # (Auto) 1.7 [place] # (Auto) 1.3 H Eos # (Auto) 0.1 Baso # (Auto) 0.1 WBC Differential . Differential Comment Auto diff final Sodium 136 Potassium 3.6 Chloride 101 Carbon Dioxide 25.6 Anion Gap 9 BUN 13 Creatinine 0.76 Estimated GFR Greater than 89 POC Glucose 150 H Random Glucose 170 H Calcium 8.0 L 03/08/18 11:00 WBC RBC Hgb Hct MCV MCH MCHC RDW Plt Count MPV Neut % (Auto) Lymph % (Auto) [place] % (Auto) Eos % (Auto) Baso % (Auto) Neut # (Auto) Lymph # (Auto) [place] # (Auto) Eos # (Auto) Baso # (Auto) WBC Differential Differential Comment Sodium Potassium Chloride Carbon Dioxide Anion Gap BUN Creatinine Estimated GFR POC Glucose 132 H Random Glucose Calcium Microbiology 03/06/18 14:40 Blood - Peripheral Aerobic Blood Culture - Preliminary No growth in 2 days 03/06/18 14:40 Blood - Peripheral Anaerobic Blood Culture - Preliminary No growth in 2 days 03/06/18 14:35 Blood - Peripheral Aerobic Blood Culture - Preliminary No growth in 2 days 03/06/18 14:35 Blood - Peripheral Anaerobic Blood Culture - Preliminary No growth in 2 days 03/05/18 20:10 Abscess - Foot Gram Stain - Final 03/05/18 20:10 Abscess - Foot Wound Culture - Preliminary Escherichia coli Beta Strep not A,B or D 03/05/18 12:20 Blood - Peripheral Aerobic Blood Culture - Final Staphylococcus coag negative 03/05/18 12:20 Blood - Peripheral Anaerobic Blood Culture - Final Staphylococcus coag negative 03/05/18 12:15 Blood - Peripheral Aerobic Blood Culture - Final Staphylococcus coag negative 03/05/18 12:15 Blood - Peripheral Anaerobic Blood Culture - Final Staphylococcus coag negative - Procedures 03/05 Left foot incision drainage debridement amputation 2 3 digits Assessment and Plan - Assessment (1) Gangrene of left foot Code(s): I96 - Gangrene, not elsewhere classified Status: Acute - Plan Unchanged plan from previous, await vascular intervention before attempt at proximal amputation of foot versus below the knee amputation. Nursing orders to change bandage will follow-up in 2-3 days Procedures: Status post left foot incision drainage debridement amputation of second and third digit March 05 Dr. Aguirre
[2018-03-08] MEDS: Sod Chloride 0.9% Inj 1,000 ML IV.CONT SCH (17:16)
[2018-03-08] MEDS: Insulin Detemir Inj 1,000 UNIT/10 ML Vial SQ SCH (20:50)
[2018-03-09] MEDS ORDERED: Pharmacy Ordered Lab Info OTHER ONE ×2 (00:45→16:45)
[2018-03-09] MEDS: Piperacil/Tazo 4.5 GM Premix 4.5 GM/100 ML BAG IV.SIG SCH ×4 (01:53→21:39)
[2018-03-09] MEDS: Folic Acid 1 MG Tablet PO SCH (09:19)
[2018-03-09] MEDS: Sertraline 50 MG Tablet PO SCH (09:19)
[2018-03-09] MEDS: Enoxaparin Inj 30 MG/0.3 ML Syringe SQ SCH (09:19)
[2018-03-09] MEDS: Gabapentin 300 MG Capsule PO SCH ×3 (09:19→18:30)
[2018-03-09] MEDS: Insulin NovoLOG Aspart Correctional Sugar Inj SQ SCH ×4 (09:20→21:45)
--- NOTE | 2018-03-09 12:14 | P.PNIM ---
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 after a BM- soft stools, no blood patient became weak and unable to bear weight fully and slowly lowered down to the floor- no syncope patient compalins of generalized weakness on exam-soft stool, browmn, non blood check orthostatic- supine was- 179/89 sitting up- 135/79 standing- patient unable to bear weight long,enough- states very weakness even with us 3 of us holding him up 03-09 PATIENT IS SCHEDULED FOR ANGIOGRAM TOMORROW DW RN AND PT CONTINUE CURRENT TREATMENTS AND ANTIBIOTICS WAS SEEN BY VASCULAR AND PODIATRY TEAMS Physical Exam Vital signs: Vital Signs 03/08/18 16:00 03/08/18 20:00 03/09/18 00:00 Temperature 98.1 F 99.2 F 98.7 F Pulse Rate 88 78 86 Respiratory Rate 20 18 18 Blood Pressure 186/88 H 188/88 H 188/95 H Pulse Oximetry 94 L 94 L 94 L 03/09/18 03:55 03/09/18 04:00 03/09/18 08:00 Temperature 99.1 F 98.3 F Pulse Rate 71 74 65 Respiratory Rate 18 19 Blood Pressure 165/79 H 179/80 H Pulse Oximetry 94 L 94 L Intake & Output 03/08/18 03/09/18 03/09/18 18:59 06:59 18:59 Intake Total 2842.5 / 2842.5 440 / 440 Output Total 300 / 300 Balance 2842.5 / 2842.5 140 / 140 Weight 75.2 kg Intake: IV 2362.5 / 2362.5 200 / 200 NS Inj 1,000 ML @ 50 mls/hr IV. 900 / 900 CONT .Q20H [facility] Rx#:[id number] Zosyn 4.5 GM Premix 4.5 gm In 200 / 200 200 / 200 100 ml @ 200 mls/hr IV.SIG Q6H [facility] Rx#:[id number] NS Inj 1,000 ML @ Wide Open IV. 1000 / 1000 SIG BOLUS ONE Rx#:[id number] Vancomycin Inj 1,250 MG In NS 262.5 / 262.5 Inj 250 ML @ 250 mls/hr IV.SIG Q18H [facility] Rx#:[id number] Oral 480 / 480 240 / 240 Output: Urine 300 / 300 Other: # Voids 1 3 # Bowel Movements 3 # Incontinent Bowel Movements 4 Narrative: GENERAL: AWAKE AND ALERT AND ORIENTED X3 TALKATIVE AND COOPERATIVE SKIN: Warm and dry. BL LE DRESSED HEAD: Atraumatic. Normocephalic. EYES: Pupils equal and round. No scleral icterus. No injection or drainage. ENT: No nasal bleeding or discharge. Mucous membranes pink and moist. NECK: Trachea midline. No JVD. CARDIOVASCULAR: Regular rate and rhythm. S1, S2 NO S3 OR S4 RESPIRATORY: No accessory muscle use. Clear to auscultation. Breath sounds equal bilaterally. GASTROINTESTINAL: Abdomen soft, non-tender, nondistended. Hepatic and splenic margins not palpable. MUSCULOSKELETAL: Extremities without clubbing, cyanosis, or edema. No obvious deformities. NEUROLOGICAL: Awake and alert. No obvious cranial nerve deficits. Motor grossly within normal limits. 4 out of 5 muscle strength in the arms and legs. Normal speech. PSYCHIATRIC: Appropriate mood and affect; insight and judgment normal. Results - Labs CBC & Chem 7: 03/08/18 06:24 03/08/18 06:24 Laboratory Results - last 24 hr 03/08/18 03/08/18 03/09/18 17:14 21:32 08:15 POC Glucose 152 H 124 H 116 H 03/09/18 11:16 POC Glucose 115 H Microbiology 03/06/18 14:40 Blood - Peripheral Aerobic Blood Culture - Preliminary No growth in 3 days 03/06/18 14:40 Blood - Peripheral Anaerobic Blood Culture - Preliminary No growth in 3 days 03/06/18 14:35 Blood - Peripheral Aerobic Blood Culture - Preliminary No growth in 3 days 03/06/18 14:35 Blood - Peripheral Anaerobic Blood Culture - Preliminary No growth in 3 days 03/05/18 20:10 Abscess - Foot Gram Stain - Final 03/05/18 20:10 Abscess - Foot Wound Culture - Preliminary Escherichia coli Beta Strep not A,B or D 03/05/18 12:20 Blood - Peripheral Aerobic Blood Culture - Final Staphylococcus coag negative 03/05/18 12:20 Blood - Peripheral Anaerobic Blood Culture - Final Staphylococcus coag negative 03/05/18 12:15 Blood - Peripheral Aerobic Blood Culture - Final Staphylococcus coag negative 03/05/18 12:15 Blood - Peripheral Anaerobic Blood Culture - Final Staphylococcus coag negative - Procedures 03/05 Left foot incision drainage debridement amputation 2 3 digits Assessment and Plan - Plan Mr. Coelho is a 67-year-old with a history of diabetes mellitus who presents to the emergency department due to left foot necrotic lesion as well as confusion. 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 WBC trending down - ff cultures and final biopsy on IV Vanco and Zosyn - ff c and S and biopsy - Vascular surgery consulted and ff- plan for angiogram next week - will likely need amputation- TMA vs BKA depending on angio results Diabetes mellitus uncontrolled A1C 8.8 Neuropathy ff blood sugars. check A1C- 8.8. BS now 139 start ADA diet started on Levemir 12 units nightly as well as medium scale corrective scale insulin continue on Gabapentin HYperlipidemia -Continue Lipitor. History of Hypertension Near syncopal episode - with orthostatic hypotension likely from DM autonomic dysfunction - -DC Nifedipine 30mg Qday. - Lisinopril was held due to MALIKA. - nursing instructions to check vital signs on a sitting up position stat BS 132 MALIKA - Improved renal indices Orthostatic hypotension 03/08- likely with autonomic dysfunction start IVF- 1 L bolus now then start 70 cc/hr Creatinine baseline around 1.1. On admission, Cr was 1.32. creatinine down Will continue to monitor. urine microalbumin negative ff BMP Out of bed with supervision- discussed with patient Instruct nurse to check BP- sitting up not supine PT consult - caution with autonomic dysfunction PT- in bed today then reevaluate in am- out of bed FOR ANGIOGRAM OF LE TOMORROW DW RN AND PT Lovenox 30 mg SQ daily Code Status: FULL CODE Discussed Condition With: RN AND PT AND CM Discharge Planning: CLEARANCE FROM PODIATRY AND VASCULAR
--- NOTE | 2018-03-09 12:15 | P.PNVS ---
- Pre-operative Note Planned Procedure: LEFT lower extremity angiogram Interval History: 67/M with a hx of LEFT foot wound w/ tissue loss for an unknown duration of time Pt denied fever or chills Labs: WBC 15.4 th/mm3 (4.0-11.0) H 03/08/18 06:24 RBC 4.64 mil/mm3 (4.50-5.90) 03/08/18 06:24 Hgb 13.5 gm/dL (13.0-17.0) 03/08/18 06:24 Hct 41.2 % (39.0-51.0) 03/08/18 06:24 MCV 89.0 fL (80.0-100.0) 03/08/18 06:24 MCH 29.1 pg (27.0-34.0) 03/08/18 06:24 MCHC 32.7 % (32.0-36.0) 03/08/18 06:24 RDW 13.0 % (11.6-17.2) 03/08/18 06:24 Plt Count 323 th/mm3 (150-450) 03/08/18 06:24 MPV 8.9 fL (7.0-11.0) 03/08/18 06:24 INR 1.3 Ratio 03/05/18 12:15 Sodium 136 meq/L (136-145) 03/08/18 06:24 Potassium 3.6 meq/L (3.5-5.1) 03/08/18 06:24 Chloride 101 meq/L (98-107) 03/08/18 06:24 Carbon Dioxide 25.6 meq/L (21.0-32.0) 03/08/18 06:24 Anion Gap 9 meq/L (5-15) 03/08/18 06:24 BUN 13 mg/dL (7-18) 03/08/18 06:24 Random Glucose 170 mg/dL (74-106) H 03/08/18 06:24 Calcium 8.0 mg/dL (8.5-10.1) L 03/08/18 06:24 Imaging: ITS Impressions Extremity Arterial Study 03/05/18 00:00 CONCLUSION: 1. Normal TBI. Tracings would suggest worse pressures were calculated. Foot X-Ray 03/05/18 12:00 CONCLUSION: 1. Abnormal subcutaneous emphysema is seen in the soft tissues along the ball of foot, between the first, second and third toes and along the plantar fascia. This suggests some degree of infection/inflammatory process. 2. No evidence of any bony erosion or bony destruction to suggest osteomyelitis at this time. Head CT 03/05/18 12:00 CONCLUSION: 1. No focal or acute intracranial hemorrhage. 2. Subcutaneous Soft tissue swelling along the right forehead region. 3. Chronic appearing white matter changes bilaterally slightly greater on the right than the left. Recommend MRI of the brain for further evaluation if clinically indicated. Chest X-Ray 03/05/18 12:01 CONCLUSION: No acute intrathoracic disease. Orders: NPO after midnight Post-operative Destination: Pt admitted and may return to prior location Operative site marked: Yes Consent: Informed consent has been obtained from Paresh Coelho. I have explained the procedure in detail and discussed the risks, benefits, and potential complications. All questions have been answered.
[2018-03-09] MEDS: Vancomycin Inj 1,250 MG in Sodium Chlor 0.9% Inj 250 ML IV.SIG SCH (18:27)
[2018-03-09] MEDS: Insulin Detemir Inj 1,000 UNIT/10 ML Vial SQ SCH (21:42)
[2018-03-09] MEDS: Sod Chloride 0.9% Inj 1,000 ML IV.CONT SCH (21:44)
[2018-03-10] MEDS: Piperacil/Tazo 4.5 GM Premix 4.5 GM/100 ML BAG IV.SIG SCH ×4 (04:32→20:21)
[2018-03-10] MEDS: Sod Chloride 0.9% Inj 1,000 ML IV.CONT SCH (04:34)
[2018-03-10] MEDS: Vancomycin Inj 1,250 MG in Sodium Chlor 0.9% Inj 250 ML IV.SIG SCH ×2 (05:10→18:46)
[2018-03-10] MEDS ORDERED: Metoprolol Tartrate 25 MG Tablet PO SCH (07:30)
[2018-03-10] MEDS ORDERED: Chlorhexidine Gluconate 2% 1 Pack (2 Cloths) TOPICAL SCH (07:30)
[2018-03-10] MEDS ORDERED: Sodium Chlor 0.9% Inj 500 ML IV.SIG SCH (08:00)
[2018-03-10 08:30] LABS: Baso # (Auto) 0.1 th/mm3 (0.0-0.2); Baso % (Auto) 0.6 % (0.0-2.0); Eos # (Auto) 0.1 th/mm3 (0.0-0.4); Hematocrit 42.2 % (39.0-51.0); Hemoglobin 13.8 gm/dL (13.0-17.0); Lymph # (Auto) 1.4 th/mm3 (1.0-4.8); Mean Corpuscular HGB Conc 32.7 % (32.0-36.0); Mean Corpuscular Hemoglobin 29.2 pg (27.0-34.0); Mean Corpuscular Volume 89.4 fL (80.0-100.0); Mean Platelet Volume 8.8 fL (7.0-11.0); Mono # (Auto) 1.1 th/mm3 (0.0-0.9); Mono % (Auto) 8.4 % (0.0-8.0); Neut # (Auto) 10.2 th/mm3 (1.8-7.7); Platelet Count 367 th/mm3 (150-450); Red Blood Count 4.72 mil/mm3 (4.50-5.90); White Blood Count 12.9 th/mm3 (4.0-11.0)
[2018-03-10 08:34] LABS: INR 1.3 Ratio; Prothrombin Time 12.7 sec (9.8-11.6)
[2018-03-10 08:50] LABS: Albumin 1.6 g/dL (3.4-5.0); Anion Gap 10 meq/L (5-15); Aspartate Aminotransferase 21 U/L (15-37); Blood Urea Nitrogen 14 mg/dL (7-18); Calcium 8.4 mg/dL (8.5-10.1); Carbon Dioxide 26.9 meq/L (21.0-32.0); Chloride 103 meq/L (98-107); Glomerular Filtration Rate 81 mL/min (>89); Glucose,Random 215 mg/dL (74-106); Magnesium 1.6 mg/dL (1.5-2.5); Potassium 3.6 meq/L (3.5-5.1); Sodium 140 meq/L (136-145)
[2018-03-10 08:51] LABS: Alanine Aminotransferase 27 U/L (12-78)
[2018-03-10 08:52] LABS: Chol/HDL Ratio 5.15 Ratio; Free T4 (Free Thyroxine) 1.29 ng/dL (0.76-1.46)
[2018-03-10 09:02] LABS: Alkaline Phosphatase 106 U/L (45-117); Phosphorus 2.5 mg/dL (2.5-4.9); Thyroid Stimulating Hormone 0.622 uIU/mL (0.358-3.740); Total Protein 6.6 g/dL (6.4-8.2)
[2018-03-10] MEDS: Lisinopril 5 MG Tablet PO SCH (09:34)
[2018-03-10] MEDS: Gabapentin 300 MG Capsule PO SCH ×3 (09:34→18:46)
[2018-03-10] MEDS: Folic Acid 1 MG Tablet PO SCH (09:34)
[2018-03-10] MEDS: Sertraline 50 MG Tablet PO SCH (09:34)
[2018-03-10] MEDS: Enoxaparin Inj 30 MG/0.3 ML Syringe SQ SCH (09:35)
[2018-03-10] MEDS: Insulin NovoLOG Aspart Correctional Sugar Inj SQ SCH ×4 (09:36→22:50)
[2018-03-10] MEDS ORDERED: Iohexol 300 MG/ML 50 ML Vial (for Rad Diag) IVCONTRAST ONE ×2 (12:00→17:37)
--- NOTE | 2018-03-10 12:12 | P.PNIM ---
Subjective Interval history: 03-08 RESEARCH ARCHAEOLOGIST got patient up to shower to clean him up after a BM- soft stools, no blood patient became weak and unable to bear weight fully and slowly lowered down to the floor- no syncope patient compalins of generalized weakness on exam-soft stool, browmn, non blood check orthostatic- supine was- 179/89 sitting up- 135/79 standing- patient unable to bear weight long,enough- states very weakness even with us 3 of us holding him up 03-09 PATIENT IS SCHEDULED FOR ANGIOGRAM TOMORROW NOHEMI RN AND PT CONTINUE CURRENT TREATMENTS AND ANTIBIOTICS WAS SEEN BY VASCULAR AND PODIATRY TEAMS 03-10 TO HAVE ANGIOGRAM TODAY DEPENDING ON RESULTS DETERMINES WHAT SURGERIES WILL NEED TO BE DONE NOHEMI RN AND PT AND FAMILY AND AM LABS Physical Exam Vital signs: Vital Signs 03/09/18 15:53 03/09/18 16:00 03/09/18 20:00 Temperature 97.9 F 98.2 F Pulse Rate 82 72 86 Respiratory Rate 20 18 Blood Pressure 178/84 H 146/68 H Pulse Oximetry 96 93 L 03/10/18 00:00 03/10/18 04:00 03/10/18 07:56 Temperature 98.0 F 99.2 F Pulse Rate 88 82 67 Respiratory Rate 20 Blood Pressure 103/74 165/85 H Pulse Oximetry 20 L 94 L 03/10/18 08:00 03/10/18 11:14 Temperature 98.4 F Pulse Rate 66 68 Respiratory Rate 16 Blood Pressure 183/93 H 197/88 H Pulse Oximetry 94 L Intake & Output 03/09/18 03/10/18 03/10/18 18:59 06:59 18:59 Intake Total 1580 / 1580 1582.5 / 1582.5 Output Total 1000 / 1000 Balance 580 / 580 1582.5 / 1582.5 Intake: IV 1200 / 1200 1462.5 / 1462.5 NS Inj 1,000 ML @ 50 mls/hr IV. 1000 / 1000 1000 / 1000 CONT .Q20H [facility] Rx#:[id number] Zosyn 4.5 GM Premix 4.5 gm In 200 / 200 200 / 200 100 ml @ 200 mls/hr IV.SIG Q6H [facility] Rx#:[id number] Vancomycin Inj 1,250 MG In NS 262.5 / 262.5 Inj 250 ML @ 250 mls/hr IV.SIG Q18H [facility] Rx#:[id number] Oral 380 / 380 120 / 120 Output: Urine 1000 / 1000 Other: # Incontinent Voids 1 # Urine Diapers 1 Date of Last Bowel Movement 03/09/18 # Bowel Movements 3 Narrative: GENERAL: AWAKE AND ALERT AND ORIENTED X3 TALKATIVE AND COOPERATIVE SKIN: Warm and dry. BL LE DRESSED HEAD: Atraumatic. Normocephalic. EYES: Pupils equal and round. No scleral icterus. No injection or drainage. ENT: No nasal bleeding or discharge. Mucous membranes pink and moist. NECK: Trachea midline. No JVD. CARDIOVASCULAR: Regular rate and rhythm. S1, S2 NO S3 OR S4 RESPIRATORY: No accessory muscle use. Clear to auscultation. Breath sounds equal bilaterally. GASTROINTESTINAL: Abdomen soft, non-tender, nondistended. Hepatic and splenic margins not palpable. MUSCULOSKELETAL: Extremities without clubbing, cyanosis, or edema. No obvious deformities. NEUROLOGICAL: Awake and alert. No obvious cranial nerve deficits. Motor grossly within normal limits. 4 out of 5 muscle strength in the arms and legs. Normal speech. PSYCHIATRIC: Appropriate mood and affect; insight and judgment normal. Results - Labs CBC & Chem 7: 03/10/18 07:33 03/10/18 07:33 Laboratory Results - last 24 hr 03/09/18 03/09/18 03/09/18 17:10 17:17 20:43 WBC RBC Hgb Hct MCV MCH MCHC RDW Plt Count MPV Neut % (Auto) Lymph % (Auto) [place] % (Auto) Eos % (Auto) Baso % (Auto) Neut # (Auto) Lymph # (Auto) [place] # (Auto) Eos # (Auto) Baso # (Auto) WBC Differential Differential Comment PT INR Sodium Potassium Chloride Carbon Dioxide Anion Gap BUN Creatinine Estimated GFR POC Glucose 162 H 171 H Random Glucose Calcium Phosphorus Magnesium Total Bilirubin AST ALT Alkaline Phosphatase Total Protein Albumin Triglycerides Cholesterol LDL Cholesterol, Calc HDL Cholesterol Cholesterol/HDL Ratio TSH Free T4 Vancomycin Trough 8.4 03/10/18 03/10/18 03/10/18 07:33 07:33 07:33 WBC 12.9 H RBC 4.72 Hgb 13.8 Hct 42.2 MCV 89.4 MCH 29.2 MCHC 32.7 RDW 13.0 Plt Count 367 MPV 8.8 Neut % (Auto) 79.0 H Lymph % (Auto) 11.0 [place] % (Auto) 8.4 H Eos % (Auto) 1.0 Baso % (Auto) 0.6 Neut # (Auto) 10.2 H Lymph # (Auto) 1.4 [place] # (Auto) 1.1 H Eos # (Auto) 0.1 Baso # (Auto) 0.1 WBC Differential . Differential Comment Auto diff final PT 12.7 H INR 1.3 Sodium Potassium Chloride Carbon Dioxide Anion Gap BUN Creatinine Estimated GFR POC Glucose Random Glucose Calcium Phosphorus Magnesium Total Bilirubin AST ALT Alkaline Phosphatase Total Protein Albumin Triglycerides 110 Cholesterol 98 L LDL Cholesterol, Calc 57 HDL Cholesterol 19.0 L Cholesterol/HDL Ratio 5.15 TSH Free T4 1.29 Vancomycin Trough 03/10/18 03/10/18 03/10/18 07:33 07:36 11:30 WBC RBC Hgb Hct MCV MCH MCHC RDW Plt Count MPV Neut % (Auto) Lymph % (Auto) [place] % (Auto) Eos % (Auto) Baso % (Auto) Neut # (Auto) Lymph # (Auto) [place] # (Auto) Eos # (Auto) Baso # (Auto) WBC Differential Differential Comment PT INR Sodium 140 Potassium 3.6 Chloride 103 Carbon Dioxide 26.9 Anion Gap 10 BUN 14 Creatinine 0.93 Estimated GFR 81 L POC Glucose 197 H 220 H Random Glucose 215 H Calcium 8.4 L Phosphorus 2.5 Magnesium 1.6 Total Bilirubin 0.4 AST 21 ALT 27 Alkaline Phosphatase 106 Total Protein 6.6 Albumin 1.6 L Triglycerides Cholesterol LDL Cholesterol, Calc HDL Cholesterol Cholesterol/HDL Ratio TSH 0.622 Free T4 Vancomycin Trough Microbiology 03/05/18 20:10 Abscess - Foot Gram Stain - Final 03/05/18 20:10 Abscess - Foot Wound Culture - Final Escherichia coli Beta Strep not A,B or D Stenotrophomonas maltophilia 03/06/18 14:40 Blood - Peripheral Aerobic Blood Culture - Preliminary No growth in 4 days 03/06/18 14:40 Blood - Peripheral Anaerobic Blood Culture - Preliminary No growth in 4 days 03/06/18 14:35 Blood - Peripheral Aerobic Blood Culture - Preliminary No growth in 4 days 03/06/18 14:35 Blood - Peripheral Anaerobic Blood Culture - Preliminary No growth in 4 days - Procedures 03/05 Left foot incision drainage debridement amputation 2 3 digits Assessment and Plan - Plan Mr. Coelho is a 67-year-old with a history of diabetes mellitus who presents to the emergency department due to left foot necrotic lesion as well as confusion. 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 WBC trending down - ff cultures and final biopsy on IV Vanco and Zosyn - ff c and S and biopsy - Vascular surgery consulted and ff- plan for angiogram next week - will likely need amputation- TMA vs BKA depending on angio results Diabetes mellitus uncontrolled A1C 8.8 Neuropathy ff blood sugars. check A1C- 8.8. BS now 139 start ADA diet started on Levemir 12 units nightly as well as medium scale corrective scale insulin continue on Gabapentin HYperlipidemia -Continue Lipitor. History of Hypertension Near syncopal episode - with orthostatic hypotension likely from DM autonomic dysfunction - -DC Nifedipine 30mg Qday. - Lisinopril was held due to MALIKA. - nursing instructions to check vital signs on a sitting up position stat BS 132 MALIKA - Improved renal indices Orthostatic hypotension 03/08- likely with autonomic dysfunction start IVF- 1 L bolus now then start 70 cc/hr Creatinine baseline around 1.1. On admission, Cr was 1.32. creatinine down Will continue to monitor. urine microalbumin negative ff BMP Out of bed with supervision- discussed with patient Instruct nurse to check BP- sitting up not supine PT consult - caution with autonomic dysfunction PT- in bed today then reevaluate in am- out of bed FOR ANGIOGRAM OF LE TODAY 7-17 DW RN AND PT Lovenox 30 mg SQ daily Code Status: FULL CODE Discussed Condition With: RN AND PT AND FAMILY AND CM Discharge Planning: CLEARANCE FROM PODIATRY AND VASCULAR
[2018-03-10 13:25] LABS: Hemoglobin A1c 8.2 % (4.3-6.0)
[2018-03-10] MEDS ORDERED: Heparin 10,000 UNITS/10 ML Vial (for IV use) ONE (15:44)
[2018-03-10] MEDS ORDERED: Heparin/NS PF Inj 500 ML ONE (15:45)
--- NOTE | 2018-03-10 16:39 | OTSOAPIP ---
TIME SESSION COMPLETED: 1430 TREATMENT TIME: 0 MINS. CHART REVIEWED. PATIENT NOT AVAILABLE DUE TO HAVING A SURGICAL PROCEDURE PLAN: WILL SEE NEXT TREATMENT DAY Therapist: Andrew Spain Signature on file
--- NOTE | 2018-03-10 17:23 | P.OP ---
Date of procedure: 03/10/18 Procedure: Aortogram w/ L LE angiogram R TOOL ROOM LATHE OPERATOR angioseal Surgeon: Roscoe Tobias MD Estimated blood loss (mL): 5 IV fluids (mL): 800 Pathology: none sent Operation and Findings: Patent vessels to L popliteal artery Occluded trifurcation and reconstitution of distal PT and dorsal AT Needs either SFA-PT or BKA. Will review foot wound with pt/family and decide likely tomorrow when pt alert and recovered from procedure today.
[2018-03-10] MEDS ORDERED: *Enalaprilat Inj 1.25 MG/ML Vial IV.PUSH ONE ×2 (17:49→18:11)
--- NOTE | 2018-03-10 18:07 | MP ---
cc: Roscoe Tobias MD DATE OF OPERATION: 03/10/2018 PREOPERATIVE DIAGNOSIS: Left lower extremity tissue loss and peripheral vascular disease. POSTOPERATIVE DIAGNOSIS: Left lower extremity tissue loss and peripheral vascular disease. PROCEDURE PERFORMED: 1. Aortogram with left lower extremity angiogram. 2. Right common femoral artery Angio-Seal. ATTENDING SURGEON: Roscoe Tobias MD ANESTHESIA: LMA. INDICATIONS FOR PROCEDURE: Mr. Coelho is a 67-year-old gentleman with extensive left lower extremity tissue loss. He is a marginal limb salvage candidate from a defunctional orthopedic and bariatric procedure. He also has no palpable pulses. Taken to the operating room for angiographic evaluation treatment. DESCRIPTION OF PROCEDURE: After informed consent was obtained from the patient, he was taken to the operating room and placed supine on the operating table. An appropriate timeout was taken to ensure the patient's identity, the operative site and planned procedure. The administration of antibiotics was not necessary, as the patient is on systemic and therapeutic antibiotics and these will be continued postoperatively for ongoing therapy for his diabetic foot infection. Everyone in the room agreed with time out and we proceeded. Of note, no prior catheterization available for my review. He was placed under LMA anesthesia and the bilateral groins were prepped and draped. A 21-gauge micropuncture needle was used to access the right common femoral artery. This was exchanged using Seldinger technique for micropuncture sheath, through which a 0.35 Glidewire was introduced and the micropuncture sheath were exchanged for a 5-[place] sheath. A VCF catheter was placed over the wire and through the sheath and the aortogram and pelvic arteriogram was obtained. The Glidewire was reintroduced and navigated down to the left common femoral artery. The VCF catheter was advanced over this. A left lower extremity arteriogram was obtained. The patient was systemically heparinized with 3000 units of IV heparin. A 0.035 Adam wire was advanced down to the popliteal artery and the VCF catheter and a 5-[place] sheath were removed, and a 6-[place] 55 cm Jonny sheath was then introduced. A CXI catheter was placed over the wire and the wire was exchanged for a RECRUITING MANAGER wire. Multiple attempts were made to recanalize the distal popliteal artery and the wire traversed down the anterior tibial artery, but we could not reenter the anterior tibial artery and the lumen at the level of dorsalis pedis. The wire, catheter and sheath were removed and the groin was closed with Angio-Seal. There were no complications. I was present and scrubbed for the entire procedure. INTERPRETATION OF IMAGES: The patient has a patent infrarenal aorta, common iliac arteries, hypogastric arteries and external iliac arteries bilaterally. The left common femoral and profunda are patent. The SFA is patent. The popliteal artery occludes in the P2 mid popliteal segment. The tibial trifurcation is occluded. Perigeniculate collaterals give rise to the posterior tibial artery in the distal calf, which is a dominant vessel to the foot. The anterior tibial artery is patent very distally. MD CARLA Olivas/DEMETRIO , 05:26 PM , 06:06 PM
[2018-03-10] MEDS ORDERED: *Labetalol HCl Inj 100 MG/20 ML Vial PERIprocedural Use ONLY IV.PUSH ONE (18:17)
[2018-03-10] MEDS: Vitamin B Complex/Vitamin C Tablet PO SCH (18:57)
[2018-03-10] MEDS: Insulin Detemir Inj 1,000 UNIT/10 ML Vial SQ SCH (22:49)
[2018-03-11] MEDS: Piperacil/Tazo 4.5 GM Premix 4.5 GM/100 ML BAG IV.SIG SCH ×4 (01:08→21:20)
[2018-03-11] MEDS: Sod Chloride 0.9% Inj 1,000 ML IV.CONT SCH ×2 (01:08→21:23)
[2018-03-11] MEDS ORDERED: Pharmacy Ordered Lab Info OTHER ONE (05:45)
[2018-03-11] MEDS: Vancomycin Inj 1,250 MG in Sodium Chlor 0.9% Inj 250 ML IV.SIG SCH (06:15)
[2018-03-11 07:05] LABS: Baso % (Auto) 0.2 % (0.0-2.0); Hemoglobin 13.2 gm/dL (13.0-17.0); Lymph # (Auto) 1.2 th/mm3 (1.0-4.8); Lymph % (Auto) 7.8 % (9.0-44.0); Mean Corpuscular Hemoglobin 29.4 pg (27.0-34.0); Mean Corpuscular Volume 89.3 fL (80.0-100.0); Mean Platelet Volume 9.1 fL (7.0-11.0); Mono # (Auto) 1.1 th/mm3 (0.0-0.9); Mono % (Auto) 7.3 % (0.0-8.0); Neut # (Auto) 12.7 th/mm3 (1.8-7.7); Neut % (Auto) 84.7 % (16.0-70.0); Platelet Count 386 th/mm3 (150-450); Red Blood Count 4.48 mil/mm3 (4.50-5.90); Red Cell Distribution Width 12.9 % (11.6-17.2)
[2018-03-11 07:32] LABS: Albumin 1.7 g/dL (3.4-5.0); Anion Gap 13 meq/L (5-15); Aspartate Aminotransferase 15 U/L (15-37); Blood Urea Nitrogen 16 mg/dL (7-18); Calcium 8.7 mg/dL (8.5-10.1); Chloride 104 meq/L (98-107); Glomerular Filtration Rate 74 mL/min (>89); Glucose,Random 280 mg/dL (74-106); Magnesium 1.6 mg/dL (1.5-2.5); Potassium 3.5 meq/L (3.5-5.1); Sodium 141 meq/L (136-145)
[2018-03-11 07:34] LABS: Alanine Aminotransferase 24 U/L (12-78)
[2018-03-11 07:36] LABS: Alkaline Phosphatase 96 U/L (45-117); Phosphorus 2.3 mg/dL (2.5-4.9); Total Protein 6.6 g/dL (6.4-8.2)
[2018-03-11] MEDS: Gabapentin 300 MG Capsule PO SCH ×3 (08:39→18:36)
[2018-03-11] MEDS: Vitamin B Complex/Vitamin C Tablet PO SCH (08:39)
[2018-03-11] MEDS: Folic Acid 1 MG Tablet PO SCH (08:40)
[2018-03-11] MEDS: Lisinopril 5 MG Tablet PO SCH (08:40)
[2018-03-11] MEDS: Sertraline 50 MG Tablet PO SCH (08:40)
[2018-03-11] MEDS: Enoxaparin Inj 30 MG/0.3 ML Syringe SQ SCH (08:40)
[2018-03-11] MEDS: Insulin NovoLOG Aspart Correctional Sugar Inj SQ SCH ×4 (08:41→21:21)
--- NOTE | 2018-03-11 12:12 | P.PNVS ---
Subjective Subjective/Hospital Course: Pt s/p foot debridement with little bleeding according to Dr. Aguirre. Angio yest with poor revasc options discussed with pt and his today Objective Vital Signs / I&O: Vital Signs 03/10/18 15:46 03/10/18 17:28 03/10/18 17:45 Temperature 97.4 F L Pulse Rate 74 66 66 Respiratory Rate 15 15 Blood Pressure 160/76 H 181/83 H Pulse Oximetry 94 L 95 03/10/18 18:00 03/10/18 18:15 03/10/18 18:26 Temperature Pulse Rate 67 71 82 Respiratory Rate 15 15 15 Blood Pressure 196/107 H 190/98 H 175/81 H Pulse Oximetry 95 95 95 03/10/18 18:29 03/10/18 20:00 03/11/18 00:00 Temperature 97.5 F L 97.9 F Pulse Rate 72 92 H 97 H Respiratory Rate 18 18 Blood Pressure 137/68 146/72 H Pulse Oximetry 94 L 98 97 03/11/18 04:00 03/11/18 08:00 Temperature 97.7 F 98.3 F Pulse Rate 88 75 Respiratory Rate 18 16 Blood Pressure 154/61 H 189/86 H Pulse Oximetry 95 95 Intake & Output 03/10/18 03/11/18 03/11/18 18:59 06:59 18:59 Intake Total 700 / 700 1942.5 / 1942.5 Output Total 1480 / 1480 1200 / 1200 Balance -780 / -780 742.5 / 742.5 Weight 76.2 kg Intake: IV 400 / 400 1462.5 / 1462.5 NS Inj 1,000 ML @ 50 mls/hr IV. 1000 / 1000 CONT .Q20H [facility] Rx#:[id number] LR 1000 mL Inj 1,000 ML @ 30 300 / 300 mls/hr IV.SIG .Q24H [facility] Rx#: [id number] Zosyn 4.5 GM Premix 4.5 gm In 100 / 100 200 / 200 100 ml @ 200 mls/hr IV.SIG Q6H [facility] Rx#:[id number] Vancomycin Inj 1,250 MG In NS 262.5 / 262.5 Inj 250 ML @ 250 mls/hr IV.SIG Q12H [facility] Rx#:[id number] Oral 0 / 0 480 / 480 Anesthesia Amount 300 / 300 Output: Urine 1475 / 1475 1200 / 1200 Estimated Blood Loss 5 / 5 Other: # Bowel Movements 3 # Incontinent Bowel Movements 2 Physical Exam: L foot profoundly ischemic no pulses Laboratory Results - last 24 hr 03/10/18 03/10/18 03/10/18 07:33 18:45 21:34 WBC RBC Hgb Hct MCV MCH MCHC RDW Plt Count MPV Neut % (Auto) Lymph % (Auto) [place] % (Auto) Eos % (Auto) Baso % (Auto) Neut # (Auto) Lymph # (Auto) [place] # (Auto) Eos # (Auto) Baso # (Auto) WBC Differential Differential Comment Sodium Potassium Chloride Carbon Dioxide Anion Gap BUN Creatinine Estimated GFR POC Glucose 214 H 335 H Random Glucose Hemoglobin A1c 8.2 H Calcium Phosphorus Magnesium Total Bilirubin AST ALT Alkaline Phosphatase Total Protein Albumin Vancomycin Trough 03/11/18 03/11/18 03/11/18 05:53 05:53 05:53 WBC 15.0 H RBC 4.48 L Hgb 13.2 Hct 40.0 MCV 89.3 MCH 29.4 MCHC 33.0 RDW 12.9 Plt Count 386 MPV 9.1 Neut % (Auto) 84.7 H Lymph % (Auto) 7.8 L [place] % (Auto) 7.3 Eos % (Auto) 0.0 Baso % (Auto) 0.2 Neut # (Auto) 12.7 H Lymph # (Auto) 1.2 [place] # (Auto) 1.1 H Eos # (Auto) 0.0 Baso # (Auto) 0.0 WBC Differential . Differential Comment Auto diff final Sodium 141 Potassium 3.5 Chloride 104 Carbon Dioxide 24.0 Anion Gap 13 BUN 16 Creatinine 1.01 Estimated GFR 74 L POC Glucose Random Glucose 280 H Hemoglobin A1c Calcium 8.7 Phosphorus 2.3 L Magnesium 1.6 Total Bilirubin 0.3 AST 15 ALT 24 Alkaline Phosphatase 96 Total Protein 6.6 Albumin 1.7 L Vancomycin Trough 17.6 H 03/11/18 08:31 WBC RBC Hgb Hct MCV MCH MCHC RDW Plt Count MPV Neut % (Auto) Lymph % (Auto) [place] % (Auto) Eos % (Auto) Baso % (Auto) Neut # (Auto) Lymph # (Auto) [place] # (Auto) Eos # (Auto) Baso # (Auto) WBC Differential Differential Comment Sodium Potassium Chloride Carbon Dioxide Anion Gap BUN Creatinine Estimated GFR POC Glucose 263 H Random Glucose Hemoglobin A1c Calcium Phosphorus Magnesium Total Bilirubin AST ALT Alkaline Phosphatase Total Protein Albumin Vancomycin Trough Microbiology 03/06/18 14:40 Aerobic Blood Culture - Final Blood - Peripheral No growth in 5 days Anaerobic Blood Culture - Final No growth in 5 days 03/06/18 14:35 Aerobic Blood Culture - Final Blood - Peripheral No growth in 5 days Anaerobic Blood Culture - Final No growth in 5 days 03/05/18 20:10 Gram Stain - Final Abscess - Foot Wound Culture - Final Escherichia coli Beta Strep not A,B or D Stenotrophomonas maltophilia Assessment and Plan - Assessment (1) Diabetes Code(s): E11.9 - Type 2 diabetes mellitus without complications Status: Acute - Plan 67 yo male with diabetic foot infection s/p debridement and drainage Profound ischemia. I think even with a successful tibial bypass, the foot has little chance of salvage. I recommended BKA. Pt and his agree as does Dr. gAuirre. Consulted and discussed with Dr. Ansari for 2nd opinion and to perform surgery as I will be out of town March 11. Roscoe Tobias MD FACS [employer] storage administrator [facility] - Heart and Vascular Surgery at [facility] [phone]
[2018-03-11] MEDS: Sod Chloride 0.9% Inj 1,000 ML IV.SIG SCH (13:02)
--- NOTE | 2018-03-11 14:15 | P.PNIM ---
Subjective Interval history: 03-08 GUEST SERVICES ASSISTANT got patient up to shower to clean him up after a BM- soft stools, no blood patient became weak and unable to bear weight fully and slowly lowered down to the floor- no syncope patient compalins of generalized weakness on exam-soft stool, browmn, non blood check orthostatic- supine was- 179/89 sitting up- 135/79 standing- patient unable to bear weight long,enough- states very weakness even with us 3 of us holding him up 03-09 PATIENT IS SCHEDULED FOR ANGIOGRAM TOMORROW NOHEMI RN AND PT CONTINUE CURRENT TREATMENTS AND ANTIBIOTICS WAS SEEN BY VASCULAR AND PODIATRY TEAMS 03-10 TO HAVE ANGIOGRAM TODAY DEPENDING ON RESULTS DETERMINES WHAT SURGERIES WILL NEED TO BE DONE NOHEMI RN AND PT AND FAMILY AND CM AM LABS 03-11 HAD ANGIOGRAM SHOW LEFT FOOT POOR CIRCULATION NEEDS LEFT BKA NOHEMI RN AND PT AND CM AND FAMILY AM LABS Physical Exam Vital signs: Vital Signs 03/10/18 15:46 03/10/18 17:28 03/10/18 17:45 Temperature 97.4 F L Pulse Rate 74 66 66 Respiratory Rate 15 15 Blood Pressure 160/76 H 181/83 H Pulse Oximetry 94 L 95 03/10/18 18:00 03/10/18 18:15 03/10/18 18:26 Temperature Pulse Rate 67 71 82 Respiratory Rate 15 15 15 Blood Pressure 196/107 H 190/98 H 175/81 H Pulse Oximetry 95 95 95 03/10/18 18:29 03/10/18 20:00 03/11/18 00:00 Temperature 97.5 F L 97.9 F Pulse Rate 72 92 H 97 H Respiratory Rate 18 18 Blood Pressure 137/68 146/72 H Pulse Oximetry 94 L 98 97 03/11/18 04:00 03/11/18 08:00 03/11/18 12:00 Temperature 97.7 F 98.3 F 97.6 F Pulse Rate 88 75 74 Respiratory Rate 18 16 14 Blood Pressure 154/61 H 189/86 H 161/81 H Pulse Oximetry 95 95 94 L Intake & Output 03/10/18 03/11/18 03/11/18 18:59 06:59 18:59 Intake Total 700 / 700 1942.5 / 1942.5 100 / 100 Output Total 1480 / 1480 1200 / 1200 Balance -780 / -780 742.5 / 742.5 100 / 100 Weight 76.2 kg Intake: IV 400 / 400 1462.5 / 1462.5 100 / 100 NS Inj 1,000 ML @ 50 mls/hr IV. 1000 / 1000 CONT .Q20H [facility] Rx#:[id number] LR 1000 mL Inj 1,000 ML @ 30 300 / 300 mls/hr IV.SIG .Q24H [facility] Rx#: [id number] Zosyn 4.5 GM Premix 4.5 gm In 100 / 100 200 / 200 100 / 100 100 ml @ 200 mls/hr IV.SIG Q6H [facility] Rx#:[id number] Vancomycin Inj 1,250 MG In NS 262.5 / 262.5 Inj 250 ML @ 250 mls/hr IV.SIG Q12H [facility] Rx#:[id number] Oral 0 / 0 480 / 480 Anesthesia Amount 300 / 300 Output: Urine 1475 / 1475 1200 / 1200 Estimated Blood Loss 5 / 5 Other: # Bowel Movements 3 # Incontinent Bowel Movements 2 Narrative: GENERAL: AWAKE AND ALERT AND ORIENTED X3 TALKATIVE AND COOPERATIVE SKIN: Warm and dry. BL LE DRESSED HEAD: Atraumatic. Normocephalic. EYES: Pupils equal and round. No scleral icterus. No injection or drainage. ENT: No nasal bleeding or discharge. Mucous membranes pink and moist. NECK: Trachea midline. No JVD. CARDIOVASCULAR: Regular rate and rhythm. S1, S2 NO S3 OR S4 RESPIRATORY: No accessory muscle use. Clear to auscultation. Breath sounds equal bilaterally. GASTROINTESTINAL: Abdomen soft, non-tender, nondistended. Hepatic and splenic margins not palpable. MUSCULOSKELETAL: Extremities without clubbing, cyanosis, or edema. No obvious deformities. NEUROLOGICAL: Awake and alert. No obvious cranial nerve deficits. Motor grossly within normal limits. 4 out of 5 muscle strength in the arms and legs. Normal speech. PSYCHIATRIC: Appropriate mood and affect; insight and judgment normal. Results - Labs CBC & Chem 7: 03/11/18 05:53 03/11/18 05:53 Laboratory Results - last 24 hr 03/10/18 03/10/18 03/11/18 18:45 21:34 05:53 WBC RBC Hgb Hct MCV MCH MCHC RDW Plt Count MPV Neut % (Auto) Lymph % (Auto) [place] % (Auto) Eos % (Auto) Baso % (Auto) Neut # (Auto) Lymph # (Auto) [place] # (Auto) Eos # (Auto) Baso # (Auto) WBC Differential Differential Comment Sodium Potassium Chloride Carbon Dioxide Anion Gap BUN Creatinine Estimated GFR POC Glucose 214 H 335 H Random Glucose Calcium Phosphorus Magnesium Total Bilirubin AST ALT Alkaline Phosphatase Total Protein Albumin Vancomycin Trough 17.6 H 03/11/18 03/11/18 03/11/18 05:53 05:53 08:31 WBC 15.0 H RBC 4.48 L Hgb 13.2 Hct 40.0 MCV 89.3 MCH 29.4 MCHC 33.0 RDW 12.9 Plt Count 386 MPV 9.1 Neut % (Auto) 84.7 H Lymph % (Auto) 7.8 L [place] % (Auto) 7.3 Eos % (Auto) 0.0 Baso % (Auto) 0.2 Neut # (Auto) 12.7 H Lymph # (Auto) 1.2 [place] # (Auto) 1.1 H Eos # (Auto) 0.0 Baso # (Auto) 0.0 WBC Differential . Differential Comment Auto diff final Sodium 141 Potassium 3.5 Chloride 104 Carbon Dioxide 24.0 Anion Gap 13 BUN 16 Creatinine 1.01 Estimated GFR 74 L POC Glucose 263 H Random Glucose 280 H Calcium 8.7 Phosphorus 2.3 L Magnesium 1.6 Total Bilirubin 0.3 AST 15 ALT 24 Alkaline Phosphatase 96 Total Protein 6.6 Albumin 1.7 L Vancomycin Trough 03/11/18 12:25 WBC RBC Hgb Hct MCV MCH MCHC RDW Plt Count MPV Neut % (Auto) Lymph % (Auto) [place] % (Auto) Eos % (Auto) Baso % (Auto) Neut # (Auto) Lymph # (Auto) [place] # (Auto) Eos # (Auto) Baso # (Auto) WBC Differential Differential Comment Sodium Potassium Chloride Carbon Dioxide Anion Gap BUN Creatinine Estimated GFR POC Glucose 209 H Random Glucose Calcium Phosphorus Magnesium Total Bilirubin AST ALT Alkaline Phosphatase Total Protein Albumin Vancomycin Trough Microbiology 03/06/18 14:40 Blood - Peripheral Aerobic Blood Culture - Final No growth in 5 days 03/06/18 14:40 Blood - Peripheral Anaerobic Blood Culture - Final No growth in 5 days 03/06/18 14:35 Blood - Peripheral Aerobic Blood Culture - Final No growth in 5 days 03/06/18 14:35 Blood - Peripheral Anaerobic Blood Culture - Final No growth in 5 days 03/05/18 20:10 Abscess - Foot Gram Stain - Final 03/05/18 20:10 Abscess - Foot Wound Culture - Final Escherichia coli Beta Strep not A,B or D Stenotrophomonas maltophilia - Imaging Extremity Arterial Study 03/05/18 00:00 CONCLUSION: 1. Normal TBI. Tracings would suggest worse pressures were calculated. Foot X-Ray 03/05/18 12:00 CONCLUSION: 1. Abnormal subcutaneous emphysema is seen in the soft tissues along the ball of foot, between the first, second and third toes and along the plantar fascia. This suggests some degree of infection/inflammatory process. 2. No evidence of any bony erosion or bony destruction to suggest osteomyelitis at this time. Head CT 03/05/18 12:00 CONCLUSION: 1. No focal or acute intracranial hemorrhage. 2. Subcutaneous Soft tissue swelling along the right forehead region. 3. Chronic appearing white matter changes bilaterally slightly greater on the right than the left. Recommend MRI of the brain for further evaluation if clinically indicated. Chest X-Ray 03/05/18 12:01 CONCLUSION: No acute intrathoracic disease. - Procedures 03/05 Left foot incision drainage debridement amputation 2 3 digits ---03/10/2018 PREOPERATIVE DIAGNOSIS: Left lower extremity tissue loss and peripheral vascular disease. POSTOPERATIVE DIAGNOSIS: Left lower extremity tissue loss and peripheral vascular disease. PROCEDURE PERFORMED: 1. Aortogram with left lower extremity angiogram. 2. Right common femoral artery Angio-Seal. ATTENDING SURGEON: Roscoe Tobias MD ANESTHESIA: LMA. INDICATIONS FOR PROCEDURE: Mr. Coelho is a 67-year-old gentleman with extensive left lower extremity tissue loss. He is a marginal limb salvage candidate from a defunctional orthopedic and bariatric procedure. He also has no palpable pulses. Taken to the operating room for angiographic evaluation treatment. DESCRIPTION OF PROCEDURE: After informed consent was obtained from the patient, he was taken to the operating room and placed supine on the operating table. An appropriate timeout was taken to ensure the patient's identity, the operative site and planned procedure. The administration of antibiotics was not necessary, as the patient is on systemic and therapeutic antibiotics and these will be continued postoperatively for ongoing therapy for his diabetic foot infection. Everyone in the room agreed with time out and we proceeded. Of note, no prior catheterization available for my review. He was placed under LMA anesthesia and the bilateral groins were prepped and draped. A 21-gauge micropuncture needle was used to access the right common femoral artery. This was exchanged using Seldinger technique for micropuncture sheath, through which a 0.35 Glidewire was introduced and the micropuncture sheath were exchanged for a 5-T[place] sheath. A VCF catheter was placed over the wire and through the sheath and the aortogram and pelvic arteriogram was obtained. The Glidewire was reintroduced and navigated down to the left common femoral artery. The VCF catheter was advanced over this. A left lower extremity arteriogram was obtained. The patient was systemically heparinized with 3000 units of IV heparin. A 0.035 Adam wire was advanced down to the popliteal artery and the VCF catheter and a 5-Tanzanian sheath were removed, and a 6-Tanzanian 55 cm Jonny sheath was then introduced. A CXI catheter was placed over the wire and the wire was exchanged for a [employer] HE[employer] TECHNICIAN wire. Multiple attempts were made to recanalize the distal popliteal artery and the wire traversed down the anterior tibial artery, but we could not reenter the anterior tibial artery and the lumen at the level of dorsalis pedis. The wire, catheter and sheath were removed and the groin was closed with Angio-Seal. There were no complications. I was present and scrubbed for the entire procedure. INTERPRETATION OF IMAGES: The patient has a patent infrarenal aorta, common iliac arteries, hypogastric arteries and external iliac arteries bilaterally. The left common femoral and profunda are patent. The SFA is patent. The popliteal artery occludes in the P2 mid popliteal segment. The tibial trifurcation is occluded. Perigeniculate collaterals give rise to the posterior tibial artery in the distal calf, which is a dominant vessel to the foot. The anterior tibial artery is patent very distally. Roscoe Tobias MD Assessment and Plan - Plan Mr. Coelho is a 67-year-old with a history of diabetes mellitus who presents to the emergency department due to left foot necrotic lesion as well as confusion. 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 WBC trending down - ff cultures and final biopsy on IV Vanco and Zosyn - ff c and S and biopsy - Vascular surgery consulted and ff- plan for angiogram next week - will likely need amputation- TMA vs BKA depending on angio results -VASCULAR THINKS NEEDS LEFT BKA DUE TO VERY POOR FLOW Diabetes mellitus uncontrolled A1C 8.8 Neuropathy ff blood sugars. check A1C- 8.8. BS now 139 start ADA diet started on Levemir 12 units nightly as well as medium scale corrective scale insulin continue on Gabapentin HYperlipidemia -Continue Lipitor. History of Hypertension Near syncopal episode - with orthostatic hypotension likely from DM autonomic dysfunction - -DC Nifedipine 30mg Qday. - Lisinopril was held due to MALIKA. - nursing instructions to check vital signs on a sitting up position stat BS 132 MALIKA - Improved renal indices Orthostatic hypotension 03/08- likely with autonomic dysfunction start IVF- 1 L bolus now then start 70 cc/hr Creatinine baseline around 1.1. On admission, Cr was 1.32. creatinine down Will continue to monitor. urine microalbumin negative ff BMP Out of bed with supervision- discussed with patient Instruct nurse to check BP- sitting up not supine PT consult - caution with autonomic dysfunction PT- in bed today then reevaluate in am- out of bed FOR ANGIOGRAM OF LE TODAY 7-17 POOR FLOW TO LEFT LE- NEEDS LEFT BKA DW RN AND PT Lovenox 30 mg SQ daily Code Status: FULL CODE Discussed Condition With: RN AND PT AND CM AND FAMILY Discharge Planning: CLEARANCE FROM PODIATRY AND VASCULAR
--- NOTE | 2018-03-11 16:34 | P.PNID ---
Subjective Remarks: Patient is in no acute distress. He appears lethargic. No fever. Denies chills. Consult requested for gram-positive sepsis, diabetic left foot infection with gangrene. This is a 67-year-old white male who presented to the Emergency Department with altered mental status. He was also noted to have left foot necrosis. The patient is cared for at home by home visiting nurses who noticed that his foot was appearing black at the toes. He has a history of neuropathy. The patient is post-surgical resection of toes 2 and 3 on the left foot. Past Medical History: Hypercholesterolemia, diabetes mellitus, neuropathy. Allergies/Adverse Reactions: Allergies Iodinated Contrast- Oral and IV Dye Allergy (Intermediate, Verified 11/07/17 20: 25) SNEEZING Objective Vital Signs 03/10/18 17:28 03/10/18 17:45 03/10/18 18:00 Temperature 97.4 F L Pulse Rate 66 66 67 Respiratory Rate 15 15 15 Blood Pressure 160/76 H 181/83 H 196/107 H Pulse Oximetry 94 L 95 95 03/10/18 18:15 03/10/18 18:26 03/10/18 18:29 Temperature Pulse Rate 71 82 72 Respiratory Rate 15 15 Blood Pressure 190/98 H 175/81 H Pulse Oximetry 95 95 94 L 03/10/18 20:00 03/11/18 00:00 03/11/18 04:00 Temperature 97.5 F L 97.9 F 97.7 F Pulse Rate 92 H 97 H 88 Respiratory Rate 18 18 18 Blood Pressure 137/68 146/72 H 154/61 H Pulse Oximetry 98 97 95 03/11/18 08:00 03/11/18 12:00 Temperature 98.3 F 97.6 F Pulse Rate 75 74 Respiratory Rate 16 14 Blood Pressure 189/86 H 161/81 H Pulse Oximetry 95 94 L Intake & Output 03/10/18 03/11/18 03/11/18 18:59 06:59 18:59 Intake Total 700 / 700 1942.5 / 1942.5 100 / 100 Output Total 1480 / 1480 1200 / 1200 Balance -780 / -780 742.5 / 742.5 100 / 100 Weight 76.2 kg Intake: IV 400 / 400 1462.5 / 1462.5 100 / 100 NS Inj 1,000 ML @ 50 mls/hr IV. 1000 / 1000 CONT .Q20H [facility] Rx#:[id number] LR 1000 mL Inj 1,000 ML @ 30 300 / 300 mls/hr IV.SIG .Q24H [facility] Rx#: [id number] Zosyn 4.5 GM Premix 4.5 gm In 100 / 100 200 / 200 100 / 100 100 ml @ 200 mls/hr IV.SIG Q6H [facility] Rx#:[id number] Vancomycin Inj 1,250 MG In NS 262.5 / 262.5 Inj 250 ML @ 250 mls/hr IV.SIG Q12H [facility] Rx#:[id number] Oral 0 / 0 480 / 480 Anesthesia Amount 300 / 300 Output: Urine 1475 / 1475 1200 / 1200 Estimated Blood Loss Other: # Bowel Movements 3 # Incontinent Bowel Movements 2 03/06/18 14:40 Blood - Peripheral Aerobic Blood Culture - Final No growth in 5 days 03/06/18 14:40 Blood - Peripheral Anaerobic Blood Culture - Final No growth in 5 days 03/06/18 14:35 Blood - Peripheral Aerobic Blood Culture - Final No growth in 5 days 03/06/18 14:35 Blood - Peripheral Anaerobic Blood Culture - Final No growth in 5 days 03/05/18 20:10 Abscess - Foot Gram Stain - Final 03/05/18 20:10 Abscess - Foot Wound Culture - Final Escherichia coli Beta Strep not A,B or D Stenotrophomonas maltophilia 03/05/18 12:20 Blood - Peripheral Aerobic Blood Culture - Final Staphylococcus coag negative 03/05/18 12:20 Blood - Peripheral Anaerobic Blood Culture - Final Staphylococcus coag negative 03/05/18 12:15 Blood - Peripheral Aerobic Blood Culture - Final Staphylococcus coag negative 03/05/18 12:15 Blood - Peripheral Anaerobic Blood Culture - Final Staphylococcus coag negative Lab - Hematology Results 03/10/18 03/11/18 07:33 05:53 WBC 12.9 H 15.0 H RBC 4.72 4.48 L Hgb 13.8 13.2 Hct 42.2 40.0 MCV 89.4 89.3 MCH 29.2 29.4 MCHC 32.7 33.0 RDW 13.0 12.9 Plt Count 367 386 MPV 8.8 9.1 Neut % (Auto) 79.0 H 84.7 H Lymph % (Auto) 11.0 7.8 L [place] % (Auto) 8.4 H 7.3 Eos % (Auto) 1.0 0.0 Baso % (Auto) 0.6 0.2 Neut # (Auto) 10.2 H 12.7 H Lymph # (Auto) 1.4 1.2 [place] # (Auto) 1.1 H 1.1 H Eos # (Auto) 0.1 0.0 Baso # (Auto) 0.1 0.0 WBC Differential . . Differential Comment Auto diff final Auto diff final Lab - Chemistry Results 03/09/18 03/09/18 03/10/18 17:17 20:43 07:33 Sodium Potassium Chloride Carbon Dioxide Anion Gap BUN Creatinine Estimated GFR POC Glucose 162 H 171 H Random Glucose Hemoglobin A1c 8.2 H Calcium Phosphorus Magnesium Total Bilirubin AST ALT Alkaline Phosphatase Total Protein Albumin Triglycerides Cholesterol LDL Cholesterol, Calc HDL Cholesterol Cholesterol/HDL Ratio TSH Free T4 03/10/18 03/10/18 03/10/18 07:33 07:33 07:36 Sodium 140 Potassium 3.6 Chloride 103 Carbon Dioxide 26.9 Anion Gap 10 BUN 14 Creatinine 0.93 Estimated GFR 81 L POC Glucose 197 H Random Glucose 215 H Hemoglobin A1c Calcium 8.4 L Phosphorus 2.5 Magnesium 1.6 Total Bilirubin 0.4 AST 21 ALT 27 Alkaline Phosphatase 106 Total Protein 6.6 Albumin 1.6 L Triglycerides 110 Cholesterol 98 L LDL Cholesterol, Calc 57 HDL Cholesterol 19.0 L Cholesterol/HDL Ratio 5.15 TSH 0.622 Free T4 1.29 03/10/18 03/10/18 03/10/18 11:30 18:45 21:34 Sodium Potassium Chloride Carbon Dioxide Anion Gap BUN Creatinine Estimated GFR POC Glucose 220 H 214 H 335 H Random Glucose Hemoglobin A1c Calcium Phosphorus Magnesium Total Bilirubin AST ALT Alkaline Phosphatase Total Protein Albumin Triglycerides Cholesterol LDL Cholesterol, Calc HDL Cholesterol Cholesterol/HDL Ratio TSH Free T4 03/11/18 03/11/18 03/11/18 05:53 08:31 12:25 Sodium 141 Potassium 3.5 Chloride 104 Carbon Dioxide 24.0 Anion Gap 13 BUN 16 Creatinine 1.01 Estimated GFR 74 L POC Glucose 263 H 209 H Random Glucose 280 H Hemoglobin A1c Calcium 8.7 Phosphorus 2.3 L Magnesium 1.6 Total Bilirubin 0.3 AST 15 ALT 24 Alkaline Phosphatase 96 Total Protein 6.6 Albumin 1.7 L Triglycerides Cholesterol LDL Cholesterol, Calc HDL Cholesterol Cholesterol/HDL Ratio TSH Free T4 Imaging: ITS Impressions Extremity Arterial Study 03/05/18 00:00 CONCLUSION: 1. Normal TBI. Tracings would suggest worse pressures were calculated. Foot X-Ray 03/05/18 12:00 CONCLUSION: 1. Abnormal subcutaneous emphysema is seen in the soft tissues along the ball of foot, between the first, second and third toes and along the plantar fascia. This suggests some degree of infection/inflammatory process. 2. No evidence of any bony erosion or bony destruction to suggest osteomyelitis at this time. Head CT 03/05/18 12:00 CONCLUSION: 1. No focal or acute intracranial hemorrhage. 2. Subcutaneous Soft tissue swelling along the right forehead region. 3. Chronic appearing white matter changes bilaterally slightly greater on the right than the left. Recommend MRI of the brain for further evaluation if clinically indicated. Chest X-Ray 03/05/18 12:01 CONCLUSION: No acute intrathoracic disease. Physical Exam: GENERAL: Lethargic. No acute distress. HEENT: The head has a bruise at the right forehead with ecchymotic changes. There is also mild ecchymosis at the corner of the right eyelid at the temporal aspect. Pupils reactive to light. No icterus. Oropharynx moist mucosa without lesions. NECK: Supple without adenopathy. LUNGS: Clear decreased breath sounds. HEART: Regular S1, S2. No murmurs heard. ABDOMEN: Bowel sounds present. Soft, decreased bowel sounds. EXTREMITIES: Left foot is post-surgical debridement. There is a crater from the surgery at the base of the foot beyond where toes 2 and 3 were resected and it wraps onto the dorsal aspect between toes 4 and 1. There is purpuric discoloration at the dorsal aspect of the great toe. The great toe is cold. The remaining extremities have no clubbing, cyanosis or edema. NEUROLOGIC: No gross focal finding.. PSYCHIATRIC: calm and cooperative. Assessment and Plan - Plan IMPRESSION: 1. Gangrene of the left foot. The patient is status post incision and debridement and resection of toes 2 and 3. Wound culture has E. coli, stenotrophomonas and beta strep. 2. Bacteremia. Staph coagulase-negative 3. Altered mental status, likely secondary to infection. 4. Leukocytosis. WBC still elevated. Likely related to foot infection. 5. Diabetes mellitus. RECOMMENDATIONS: 1. Continue the vancomycin. 2. Continue piperacillin/tazobactam to cover gram-negative rods. 3. Add Levaquin to cover the stenotrophomonas. 4. Monitor clinical status. 5. Patient we will need some form of amputation at the left lower extremity. Antibiotics alone will not lead to resolution.
[2018-03-11] MEDS: levoFLOXacin 500 MG Tablet PO SCH (18:40)
--- NOTE | 2018-03-11 19:25 | P.PNCA ---
- Note Subjective/Hospital Course: 67-year-old male with gangrene of the left forefoot and no unreconstructable vascular disease from the knee down Patient at this point needs left below-knee amputation and I fully agree with Dr. Tobias We will proceed with amputation tomorrow Thanks J Objective: Vital Signs - 24 hr 03/10/18 20:00 03/11/18 00:00 03/11/18 04:00 Temperature 97.5 F L 97.9 F 97.7 F Pulse Rate 92 H 97 H 88 Respiratory Rate 18 18 18 Blood Pressure 137/68 146/72 H 154/61 H Pulse Oximetry 98 97 95 03/11/18 08:00 03/11/18 12:00 03/11/18 16:00 Temperature 98.3 F 97.6 F 98.3 F Pulse Rate 75 74 79 Respiratory Rate 16 14 12 Blood Pressure 189/86 H 161/81 H 158/90 H Pulse Oximetry 95 94 L 95 Labs: Laboratory Results - last 12 hr 03/11/18 03/11/18 03/11/18 05:53 05:53 08:31 Sodium 141 Potassium 3.5 Chloride 104 Carbon Dioxide 24.0 Anion Gap 13 BUN 16 Creatinine 1.01 Estimated GFR 74 L POC Glucose 263 H Random Glucose 280 H Calcium 8.7 Phosphorus 2.3 L Magnesium 1.6 Total Bilirubin 0.3 AST 15 ALT 24 Alkaline Phosphatase 96 Total Protein 6.6 Albumin 1.7 L Vancomycin Trough 17.6 H 03/11/18 03/11/18 12:25 18:29 Sodium Potassium Chloride Carbon Dioxide Anion Gap BUN Creatinine Estimated GFR POC Glucose 209 H 241 H Random Glucose Calcium Phosphorus Magnesium Total Bilirubin AST ALT Alkaline Phosphatase Total Protein Albumin Vancomycin Trough Result Diagrams: 03/11/18 05:53 03/11/18 05:53
--- NOTE | 2018-03-11 19:40 | MB ---
cc: Amanda Ansari MD, Slobodan MD DATE: 03/11/2018 REASON FOR CONSULTATION: Peripheral vascular disease, nonreconstructable disease of the left leg, gangrene of the foot. HISTORY OF PRESENT ILLNESS: This 67-year-old male who is a poor historian has a noted infection of the left foot and feeling weak. Several days ago he had a fall where he sustained some bruising around the eye. He has been worked up now extensively for his peripheral vascular disease and there are few options left. PAST MEDICAL HISTORY: The patient says that he has hypertension, but does not know much other things. PAST SURGICAL HISTORY: He denies. MEDICATIONS: On the chart. SOCIAL HISTORY: The patient smoked in the past in the 90s, but then stopped. He is diabetic. PHYSICAL EXAMINATION: GENERAL: Reveals a 67-year-old male. HEENT: Normocephalic, trauma to the head consisting of right periorbital hematoma. Pupils equal, reactive. Extraocular muscles are intact. NECK: Bilateral carotid pulses. No bruits. CHEST: Clear, bilateral breath sounds. HEART: Regular rhythm. ABDOMEN: Soft. Active bowel sounds. No rebound, no guarding, no masses. EXTREMITIES: The patient has palpable femoral and popliteal pulses and no distal pulses. On palpation, he has a weak dorsalis pedis on the right. On the left, he has gangrene of the toes and no distal pulses that I can palpate, a very weak posterior tibial on Doppler. NEUROLOGIC: He is grossly intact. IMPRESSION AND RECOMMENDATIONS:: I agree with Dr. Tobias that all the options of reconstruction at this point have been exhausted and there is no other viable option to get this patient back in active life than [id number] amputation. The patient needs left below-knee amputation and prosthesis. Otherwise, he will continue to linger in bed. These things will get worse. Gangrene will eventually envelop the foot and spread as an infection to distant organs. Before this happens, the patient needs to have surgery. I explained to this patient in detail and I fully agree with Dr. Tobias on the same. The patient will be taken to the operating room for knee amputation when he is ready. MD MATTHEW Larson/ , 07:23 PM , 07:38 PM
[2018-03-11] MEDS: Insulin Detemir Inj 1,000 UNIT/10 ML Vial SQ SCH (21:22)
[2018-03-11] MEDS: Vancomycin Inj 1,500 MG in Sodium Chlor 0.9% Inj 500 ML IV.SIG SCH (23:59)
[2018-03-12] MEDS: Piperacil/Tazo 4.5 GM Premix 4.5 GM/100 ML BAG IV.SIG SCH ×4 (01:52→20:45)
[2018-03-12 07:54] LABS: Baso # (Auto) 0.1 th/mm3 (0.0-0.2); Baso % (Auto) 0.8 % (0.0-2.0); Eos # (Auto) 0.1 th/mm3 (0.0-0.4); Eos % (Auto) 1.2 % (0.0-4.0); Hematocrit 40.8 % (39.0-51.0); Hemoglobin 13.4 gm/dL (13.0-17.0); Lymph # (Auto) 1.5 th/mm3 (1.0-4.8); Lymph % (Auto) 12.3 % (9.0-44.0); Mean Corpuscular Hemoglobin 29.5 pg (27.0-34.0); Mean Corpuscular Volume 89.3 fL (80.0-100.0); Mean Platelet Volume 8.6 fL (7.0-11.0); Mono % (Auto) 8.3 % (0.0-8.0); Neut # (Auto) 9.5 th/mm3 (1.8-7.7); Neut % (Auto) 77.4 % (16.0-70.0); Platelet Count 375 th/mm3 (150-450); Red Blood Count 4.57 mil/mm3 (4.50-5.90); Red Cell Distribution Width 13.2 % (11.6-17.2); White Blood Count 12.3 th/mm3 (4.0-11.0)
[2018-03-12 08:21] LABS: Albumin 1.8 g/dL (3.4-5.0); Anion Gap 11 meq/L (5-15); Aspartate Aminotransferase 21 U/L (15-37); Blood Urea Nitrogen 16 mg/dL (7-18); Calcium 8.7 mg/dL (8.5-10.1); Carbon Dioxide 26.3 meq/L (21.0-32.0); Chloride 106 meq/L (98-107); Glomerular Filtration Rate 74 mL/min (>89); Glucose,Random 241 mg/dL (74-106); Magnesium 1.6 mg/dL (1.5-2.5); Potassium 3.6 meq/L (3.5-5.1); Sodium 143 meq/L (136-145)
[2018-03-12 08:22] LABS: Alanine Aminotransferase 34 U/L (12-78); Phosphorus 2.2 mg/dL (2.5-4.9)
[2018-03-12 08:24] LABS: Alkaline Phosphatase 108 U/L (45-117); Total Protein 6.6 g/dL (6.4-8.2)
[2018-03-12] MEDS: Folic Acid 1 MG Tablet PO SCH (09:28)
[2018-03-12] MEDS: Vitamin B Complex/Vitamin C Tablet PO SCH (09:28)
[2018-03-12] MEDS: levoFLOXacin 500 MG Tablet PO SCH (09:28)
[2018-03-12] MEDS: Lisinopril 5 MG Tablet PO SCH (09:28)
[2018-03-12] MEDS: Sertraline 50 MG Tablet PO SCH (09:28)
[2018-03-12] MEDS: Gabapentin 300 MG Capsule PO SCH ×3 (09:29→18:00)
[2018-03-12] MEDS: Insulin NovoLOG Aspart Correctional Sugar Inj SQ SCH ×4 (09:37→20:44)
[2018-03-12] MEDS: Enoxaparin Inj 30 MG/0.3 ML Syringe SQ SCH (09:37)
[2018-03-12] MEDS ORDERED: Bupivacaine PF 0.5% Inj 30 ML Vial ONE (11:03)
[2018-03-12] MEDS ORDERED: Dexamethasone PF Inj 10 MG/ML Vial ONE (11:04)
--- NOTE | 2018-03-12 11:51 | P.PNIM ---
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 up to shower to clean him up after a BM- soft stools, no blood patient became weak and unable to bear weight fully and slowly lowered down to the floor- no syncope patient compalins of generalized weakness on exam-soft stool, browmn, non blood check orthostatic- supine was- 179/89 sitting up- 135/79 standing- patient unable to bear weight long,enough- states very weakness even with us 3 of us holding him up 03-09 PATIENT IS SCHEDULED FOR ANGIOGRAM TOMORROW DW RN AND PT CONTINUE CURRENT TREATMENTS AND ANTIBIOTICS WAS SEEN BY VASCULAR AND PODIATRY TEAMS 03-10 TO HAVE ANGIOGRAM TODAY DEPENDING ON RESULTS DETERMINES WHAT SURGERIES WILL NEED TO BE DONE DW RN AND PT AND FAMILY AND CM AM LABS 03-11 HAD ANGIOGRAM SHOW LEFT FOOT POOR CIRCULATION NEEDS LEFT BKA NOHEMI RN AND PT AND CM AND FAMILY AM LABS 03-12 TO HAVE LEFT BKA TODAY WITH Dr. Ansari We will get a.m. labs We will continue to follow him throughout the admission Discussed with patient and RN and case management Physical Exam Vital signs: Vital Signs 03/11/18 12:00 03/11/18 16:00 03/11/18 20:00 Temperature 97.6 F 98.3 F 98.7 F Pulse Rate 74 79 82 Respiratory Rate 14 12 20 Blood Pressure 161/81 H 158/90 H 152/79 H Pulse Oximetry 94 L 95 03/11/18 20:35 03/12/18 00:00 03/12/18 04:00 Temperature 98.5 F 98.1 F Pulse Rate 75 79 87 Respiratory Rate 16 18 Blood Pressure 195/94 H 160/84 H Pulse Oximetry 93 L 95 03/12/18 08:00 03/12/18 11:21 Temperature 98.5 F Pulse Rate 82 72 Respiratory Rate 20 Blood Pressure 207/94 H Pulse Oximetry 94 L 95 Intake & Output 03/11/18 03/12/18 03/12/18 18:59 06:59 18:59 Intake Total 200 / 200 1440 / 1440 Output Total 450 / 450 500 / 500 Balance -250 / -250 940 / 940 Weight 76.6 kg Intake: IV 200 / 200 1200 / 1200 NS Inj 1,000 ML @ 50 mls/hr IV. 1000 / 1000 CONT .Q20H [facility] Rx#:[id number] Zosyn 4.5 GM Premix 4.5 gm In 200 / 200 200 / 200 100 ml @ 200 mls/hr IV.SIG Q6H [facility] Rx#:[id number] Oral 240 / 240 Output: Urine 450 / 450 500 / 500 Other: Date of Last Bowel Movement 03/12/18 # Bowel Movements 1 Narrative: GENERAL: AWAKE AND ALERT AND ORIENTED X3 TALKATIVE AND COOPERATIVE SKIN: Warm and dry. BL LE DRESSED HEAD: Atraumatic. Normocephalic. EYES: Pupils equal and round. No scleral icterus. No injection or drainage. ENT: No nasal bleeding or discharge. Mucous membranes pink and moist. NECK: Trachea midline. No JVD. CARDIOVASCULAR: Regular rate and rhythm. S1, S2 NO S3 OR S4 RESPIRATORY: No accessory muscle use. Clear to auscultation. Breath sounds equal bilaterally. GASTROINTESTINAL: Abdomen soft, non-tender, nondistended. Hepatic and splenic margins not palpable. MUSCULOSKELETAL: Extremities without clubbing, cyanosis, or edema. No obvious deformities. NEUROLOGICAL: Awake and alert. No obvious cranial nerve deficits. Motor grossly within normal limits. 4 out of 5 muscle strength in the arms and legs. Normal speech. PSYCHIATRIC: Appropriate mood and affect; insight and judgment normal. Results - Labs CBC & Chem 7: 03/12/18 07:03 03/12/18 07:03 Laboratory Results - last 24 hr 03/11/18 03/11/18 03/11/18 12:25 18:29 20:24 WBC RBC Hgb Hct MCV MCH MCHC RDW Plt Count MPV Neut % (Auto) Lymph % (Auto) [place] % (Auto) Eos % (Auto) Baso % (Auto) Neut # (Auto) Lymph # (Auto) [place] # (Auto) Eos # (Auto) Baso # (Auto) WBC Differential Differential Comment Sodium Potassium Chloride Carbon Dioxide Anion Gap BUN Creatinine Estimated GFR POC Glucose 209 H 241 H 249 H Random Glucose Calcium Phosphorus Magnesium Total Bilirubin AST ALT Alkaline Phosphatase Total Protein Albumin 03/12/18 03/12/18 03/12/18 07:03 07:03 08:02 WBC 12.3 H RBC 4.57 Hgb 13.4 Hct 40.8 MCV 89.3 MCH 29.5 MCHC 33.0 RDW 13.2 Plt Count 375 MPV 8.6 Neut % (Auto) 77.4 H Lymph % (Auto) 12.3 [place] % (Auto) 8.3 H Eos % (Auto) 1.2 Baso % (Auto) 0.8 Neut # (Auto) 9.5 H Lymph # (Auto) 1.5 [place] # (Auto) 1.0 H Eos # (Auto) 0.1 Baso # (Auto) 0.1 WBC Differential . Differential Comment Auto diff final Sodium 143 Potassium 3.6 Chloride 106 Carbon Dioxide 26.3 Anion Gap 11 BUN 16 Creatinine 1.01 Estimated GFR 74 L POC Glucose 199 H Random Glucose 241 H Calcium 8.7 Phosphorus 2.2 L Magnesium 1.6 Total Bilirubin 0.3 AST 21 ALT 34 Alkaline Phosphatase 108 Total Protein 6.6 Albumin 1.8 L Microbiology 03/06/18 14:40 Blood - Peripheral Aerobic Blood Culture - Final No growth in 5 days 03/06/18 14:40 Blood - Peripheral Anaerobic Blood Culture - Final No growth in 5 days 03/06/18 14:35 Blood - Peripheral Aerobic Blood Culture - Final No growth in 5 days 03/06/18 14:35 Blood - Peripheral Anaerobic Blood Culture - Final No growth in 5 days - Imaging Extremity Arterial Study 03/05/18 00:00 CONCLUSION: 1. Normal TBI. Tracings would suggest worse pressures were calculated. Foot X-Ray 03/05/18 12:00 CONCLUSION: 1. Abnormal subcutaneous emphysema is seen in the soft tissues along the ball of foot, between the first, second and third toes and along the plantar fascia. This suggests some degree of infection/inflammatory process. 2. No evidence of any bony erosion or bony destruction to suggest osteomyelitis at this time. Head CT 03/05/18 12:00 CONCLUSION: 1. No focal or acute intracranial hemorrhage. 2. Subcutaneous Soft tissue swelling along the right forehead region. 3. Chronic appearing white matter changes bilaterally slightly greater on the right than the left. Recommend MRI of the brain for further evaluation if clinically indicated. Chest X-Ray 03/05/18 12:01 CONCLUSION: No acute intrathoracic disease. - Procedures 03/05 Left foot incision drainage debridement amputation 2 3 digits ---03/10/2018 PREOPERATIVE DIAGNOSIS: Left lower extremity tissue loss and peripheral vascular disease. POSTOPERATIVE DIAGNOSIS: Left lower extremity tissue loss and peripheral vascular disease. PROCEDURE PERFORMED: 1. Aortogram with left lower extremity angiogram. 2. Right common femoral artery Angio-Seal. ATTENDING SURGEON: Roscoe Tobias MD ANESTHESIA: LMA. INDICATIONS FOR PROCEDURE: Mr. Coelho is a 67-year-old gentleman with extensive left lower extremity tissue loss. He is a marginal limb salvage candidate from a defunctional orthopedic and bariatric procedure. He also has no palpable pulses. Taken to the operating room for angiographic evaluation treatment. DESCRIPTION OF PROCEDURE: After informed consent was obtained from the patient, he was taken to the operating room and placed supine on the operating table. An appropriate timeout was taken to ensure the patient's identity, the operative site and planned procedure. The administration of antibiotics was not necessary, as the patient is on systemic and therapeutic antibiotics and these will be continued postoperatively for ongoing therapy for his diabetic foot infection. Everyone in the room agreed with time out and we proceeded. Of note, no prior catheterization available for my review. He was placed under LMA anesthesia and the bilateral groins were prepped and draped. A 21-gauge micropuncture needle was used to access the right common femoral artery. This was exchanged using Seldinger technique for micropuncture sheath, through which a 0.35 Glidewire was introduced and the micropuncture sheath were exchanged for a 5-German sheath. A VCF catheter was placed over the wire and through the sheath and the aortogram and pelvic arteriogram was obtained. The Glidewire was reintroduced and navigated down to the left common femoral artery. The VCF catheter was advanced over this. A left lower extremity arteriogram was obtained. The patient was systemically heparinized with 3000 units of IV heparin. A 0.035 Adam wire was advanced down to the popliteal artery and the VCF catheter and a 5-German sheath were removed, and a 6-German 55 cm Jonny sheath was then introduced. A CXI catheter was placed over the wire and the wire was exchanged for a ROAST MASTER wire. Multiple attempts were made to recanalize the distal popliteal artery and the wire traversed down the anterior tibial artery, but we could not reenter the anterior tibial artery and the lumen at the level of dorsalis pedis. The wire, catheter and sheath were removed and the groin was closed with Angio-Seal. There were no complications. I was present and scrubbed for the entire procedure. INTERPRETATION OF IMAGES: The patient has a patent infrarenal aorta, common iliac arteries, hypogastric arteries and external iliac arteries bilaterally. The left common femoral and profunda are patent. The SFA is patent. The popliteal artery occludes in the P2 mid popliteal segment. The tibial trifurcation is occluded. Perigeniculate collaterals give rise to the posterior tibial artery in the distal calf, which is a dominant vessel to the foot. The anterior tibial artery is patent very distally. Roscoe Tobias MD Assessment and Plan - Plan Mr. Coelho is a 67-year-old with a history of diabetes mellitus who presents to the emergency department due to left foot necrotic lesion as well as confusion. 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 WBC trending down - ff cultures and final biopsy on IV Vanco and Zosyn - ff c and S and biopsy - Vascular surgery consulted and ff- plan for angiogram next week - will likely need amputation- TMA vs BKA depending on angio results -VASCULAR THINKS NEEDS LEFT BKA DUE TO VERY POOR FLOW -Patient is scheduled to have left below the knee amputation with Dr. Ansari today Diabetes mellitus uncontrolled A1C 8.8 Neuropathy ff blood sugars. check A1C- 8.8. BS now 139 start ADA diet started on Levemir 12 units nightly as well as medium scale corrective scale insulin continue on Gabapentin HYperlipidemia -Continue Lipitor. History of Hypertension Near syncopal episode - with orthostatic hypotension likely from DM autonomic dysfunction - -DC Nifedipine 30mg Qday. - Lisinopril was held due to MALIKA. - nursing instructions to check vital signs on a sitting up position stat BS 132 MALIKA - Improved renal indices Orthostatic hypotension 03/08- likely with autonomic dysfunction start IVF- 1 L bolus now then start 70 cc/hr Creatinine baseline around 1.1. On admission, Cr was 1.32. creatinine down Will continue to monitor. urine microalbumin negative ff BMP Out of bed with supervision- discussed with patient Instruct nurse to check BP- sitting up not supine PT consult - caution with autonomic dysfunction PT- in bed today then reevaluate in am- out of bed ANGIOGRAM OF LE -17 POOR FLOW TO LEFT LE- NEEDS LEFT BKA Patient is scheduled to have left below-knee amputation with Dr. Coty SONG RN AND PT Lovenox 30 mg SQ daily Code Status: Full code Discussed Condition With: RN and patient and case management Discharge Planning: CLEARANCE FROM PODIATRY AND VASCULAR Patient is scheduled to have left below the knee amputation with Dr. Ansari today March 12
[2018-03-12] MEDS ORDERED: fentaNYL Citrate Inj 100 MCG/2 ML Ampul ONE (13:33)
[2018-03-12] MEDS ORDERED: Lidocaine PF 1% Inj 5 ML Syringe INFILTRATN ONE (14:49)
[2018-03-12] MEDS ORDERED: Phenylephrine/NS 1000 MCG/10ML Syringe IV.PUSH ONE (14:49)
--- NOTE | 2018-03-12 16:09 | MP ---
cc: Amanda Ansari MD DATE OF OPERATION: 03/12/2018 DATE OF SURGERY: 03/12/2018. PREOPERATIVE DIAGNOSES: Gangrene of the left foot, nonreconstructable peripheral vascular disease of the left leg. POSTOPERATIVE DIAGNOSES: Gangrene of the left foot, nonreconstructable peripheral vascular disease of the left leg. PROCEDURE PERFORMED: Left below-knee amputation. SURGEON: Amanda Ansari MD ANESTHESIA: General. ESTIMATED BLOOD LOSS: 50 mL. DESCRIPTION OF PROCEDURE: The patient was prepped and draped in the usual fashion. An incision made over the tibia, carried down laterally to create a posterior flap. The incision was deepened with cautery. Anterior tibial artery and veins were clamped, divided, and ligated with 2-0 Vicryl. The periosteal elevator was used to elevate the periosteum from the tibia and fibula about an inch and a half above the level of the original skin incision and then both bones were transected with the oscillating saw. A posterior flap was created with a large Raghav amputation knife and specimen removed. Meticulous hemostasis obtained with several [id number] 0 Vicryl for the trifurcation vessels and little tributaries. The tourniquet is released after 2-1/2 minutes. The area irrigated with copious amounts of saline. The posterior flap rotated anteriorly and then the incision closed and stump created by deep fascia to deep fascia with 0 Vicryl, superficial fascia to superficial fascia with 2-0 Vicryl and skin was closed with 2-0 Prolene. Dressing applied. Patient tolerated the procedure well. MD MATTHEW Larson/BENJAMIN , 03:06 PM , 04:08 PM
[2018-03-12] MEDS: Vancomycin Inj 1,500 MG in Sodium Chlor 0.9% Inj 500 ML IV.SIG SCH (18:00)
[2018-03-12] MEDS: Sod Chloride 0.9% Inj 1,000 ML IV.CONT SCH (19:58)
[2018-03-12] MEDS: Insulin Detemir Inj 1,000 UNIT/10 ML Vial SQ SCH (20:42)
[2018-03-13] MEDS: Temazepam 15 MG Capsule PO PRN (00:43)
[2018-03-13] MEDS: Piperacil/Tazo 4.5 GM Premix 4.5 GM/100 ML BAG IV.SIG SCH ×4 (02:35→20:42)
[2018-03-13 08:54] LABS: Baso # (Auto) 0.1 th/mm3 (0.0-0.2); Baso % (Auto) 0.6 % (0.0-2.0); Eos # (Auto) 0.1 th/mm3 (0.0-0.4); Eos % (Auto) 0.5 % (0.0-4.0); Hematocrit 38.8 % (39.0-51.0); Hemoglobin 12.6 gm/dL (13.0-17.0); Lymph # (Auto) 2.4 th/mm3 (1.0-4.8); Lymph % (Auto) 17.9 % (9.0-44.0); Mean Corpuscular HGB Conc 32.6 % (32.0-36.0); Mean Corpuscular Hemoglobin 28.9 pg (27.0-34.0); Mean Corpuscular Volume 88.7 fL (80.0-100.0); Mean Platelet Volume 8.6 fL (7.0-11.0); Mono # (Auto) 1.2 th/mm3 (0.0-0.9); Mono % (Auto) 8.8 % (0.0-8.0); Neut # (Auto) 9.7 th/mm3 (1.8-7.7); Neut % (Auto) 72.2 % (16.0-70.0); Platelet Count 334 th/mm3 (150-450); Red Blood Count 4.37 mil/mm3 (4.50-5.90); Red Cell Distribution Width 13.3 % (11.6-17.2); White Blood Count 13.4 th/mm3 (4.0-11.0)
[2018-03-13 09:07] LABS: Alanine Aminotransferase 30 U/L (12-78)
[2018-03-13 09:10] LABS: Alkaline Phosphatase 95 U/L (45-117); Phosphorus 2.6 mg/dL (2.5-4.9)
[2018-03-13 09:11] LABS: Albumin 1.7 g/dL (3.4-5.0); Anion Gap 11 meq/L (5-15); Aspartate Aminotransferase 29 U/L (15-37); Blood Urea Nitrogen 18 mg/dL (7-18); Calcium 8.5 mg/dL (8.5-10.1); Carbon Dioxide 26.4 meq/L (21.0-32.0); Chloride 103 meq/L (98-107); Glomerular Filtration Rate 75 mL/min (>89); Glucose,Random 230 mg/dL (74-106); Magnesium 1.6 mg/dL (1.5-2.5); Potassium 3.9 meq/L (3.5-5.1); Sodium 140 meq/L (136-145)
[2018-03-13] MEDS: levoFLOXacin 500 MG Tablet PO SCH (09:29)
[2018-03-13] MEDS: Enoxaparin Inj 30 MG/0.3 ML Syringe SQ SCH (09:29)
[2018-03-13] MEDS: Lisinopril 5 MG Tablet PO SCH (09:29)
[2018-03-13] MEDS: Folic Acid 1 MG Tablet PO SCH (09:29)
[2018-03-13] MEDS: Gabapentin 300 MG Capsule PO SCH ×3 (09:29→18:26)
[2018-03-13] MEDS: Sertraline 50 MG Tablet PO SCH (09:29)
[2018-03-13] MEDS: Vitamin B Complex/Vitamin C Tablet PO SCH (09:29)
[2018-03-13] MEDS: Insulin NovoLOG Aspart Correctional Sugar Inj SQ SCH ×4 (09:39→20:13)
--- NOTE | 2018-03-13 10:30 | P.PNIM ---
Subjective Interval history: f/u; left foot infection resting fairly comfortably with no distress. says that pain is fairly controlled at this time. no fever. no new complaints. Physical Exam Vital signs: Vital Signs 03/12/18 11:21 03/12/18 12:00 03/12/18 13:26 Temperature 97.6 F 98.4 F Pulse Rate 72 73 71 Respiratory Rate 20 20 Blood Pressure 197/91 H 162/79 H Pulse Oximetry 95 99 99 03/12/18 13:45 03/12/18 14:00 03/12/18 16:00 Temperature 98.4 F 97.7 F Pulse Rate 71 74 87 Respiratory Rate 20 20 20 Blood Pressure 169/83 H 164/77 H 154/87 H Pulse Oximetry 95 95 99 03/12/18 20:00 03/12/18 20:25 03/13/18 00:00 Temperature 97.9 F 98.7 F Pulse Rate 94 H 91 H 96 H Respiratory Rate 18 18 Blood Pressure 163/74 H 158/76 H Pulse Oximetry 97 96 03/13/18 04:00 Temperature 98.1 F Pulse Rate 80 Respiratory Rate 18 Blood Pressure 176/81 H Pulse Oximetry 95 Intake & Output 03/12/18 03/13/18 03/13/18 18:59 06:59 18:59 Intake Total 1100 / 1100 735 / 735 100 / 100 Output Total 800 / 800 250 / 250 Balance 300 / 300 485 / 485 100 / 100 Intake: IV 1100 / 1100 615 / 615 100 / 100 NS Inj 1,000 ML @ 50 mls/hr IV. 1000 / 1000 CONT .Q20H [facility] Rx#:[id number] Zosyn 4.5 GM Premix 4.5 gm In 100 / 100 100 / 100 100 / 100 100 ml @ 200 mls/hr IV.SIG Q6H [facility] Rx#:[id number] Vancomycin Inj 1,500 MG In NS 515 / 515 Inj 500 ML @ 257.5 mls/hr IV. SIG Q18H [facility] Rx#:[id number] Oral 0 / 0 120 / 120 Output: Urine 800 / 800 250 / 250 Other: # Voids 1 # Bowel Movements 0 1 - Constitutional no acute distress - Routine Respiratory Exam Present: CTA bilaterally - Routine Cardiovascular Exam Present: RRR - Routine Abdominal Exam Present: soft - Routine Extremities Exam Comments: s/p left BKA - Routine Neurological Exam Present: alert, oriented X3 Results - Labs CBC & Chem 7: 03/13/18 08:19 03/13/18 08:19 Laboratory Results - last 24 hr 03/12/18 03/12/18 03/13/18 17:38 20:40 07:22 WBC RBC Hgb Hct MCV MCH MCHC RDW Plt Count MPV Neut % (Auto) Lymph % (Auto) [place] % (Auto) Eos % (Auto) Baso % (Auto) Neut # (Auto) Lymph # (Auto) [place] # (Auto) Eos # (Auto) Baso # (Auto) WBC Differential Differential Comment Sodium Potassium Chloride Carbon Dioxide Anion Gap BUN Creatinine Estimated GFR POC Glucose 291 H 309 H 255 H Random Glucose Calcium Phosphorus Magnesium Total Bilirubin AST ALT Alkaline Phosphatase Total Protein Albumin 03/13/18 03/13/18 08:19 08:19 WBC 13.4 H RBC 4.37 L Hgb 12.6 L Hct 38.8 L MCV 88.7 MCH 28.9 MCHC 32.6 RDW 13.3 Plt Count 334 MPV 8.6 Neut % (Auto) 72.2 H Lymph % (Auto) 17.9 [place] % (Auto) 8.8 H Eos % (Auto) 0.5 Baso % (Auto) 0.6 Neut # (Auto) 9.7 H Lymph # (Auto) 2.4 [place] # (Auto) 1.2 H Eos # (Auto) 0.1 Baso # (Auto) 0.1 WBC Differential . Differential Comment Auto diff final Sodium 140 Potassium 3.9 Chloride 103 Carbon Dioxide 26.4 Anion Gap 11 BUN 18 Creatinine 0.99 Estimated GFR 75 L POC Glucose Random Glucose 230 H Calcium 8.5 Phosphorus 2.6 Magnesium 1.6 Total Bilirubin 0.3 AST 29 ALT 30 Alkaline Phosphatase 95 Total Protein 6.0 L D Albumin 1.7 L - Procedures 03/05 Left foot incision drainage debridement amputation 2 3 digits ---03/10/2018 PREOPERATIVE DIAGNOSIS: Left lower extremity tissue loss and peripheral vascular disease. POSTOPERATIVE DIAGNOSIS: Left lower extremity tissue loss and peripheral vascular disease. PROCEDURE PERFORMED: 1. Aortogram with left lower extremity angiogram. 2. Right common femoral artery Angio-Seal. - left BKA Assessment and Plan - Plan Staph coag sepsis /Left foot necrotic diabetic ulcer S/P I and D S/P amputation of 2nd,3rd digits 03/05 - podiatry ff, CRP elevated . WBC trending down -initially started on antibiotics per ID -s/p angiogram by vascular surgery with poor flow to left lower extremity - s/p left BKA -management per Diabetes mellitus uncontrolled A1C 8.8 Neuropathy ff blood sugars. check A1C- 8.8. BS now 139 started ADA diet started on Levemir 12 units nightly as well as medium scale corrective scale insulin continue on Gabapentin Hyperlipidemia -Continue Lipitor. History of Hypertension Near syncopal episode - with orthostatic hypotension likely from DM autonomic dysfunction - -DC'ed Nifedipine 30mg Qday. - Lisinopril was held due to MALIKA. MALIKA - Improved renal indices Orthostatic hypotension 03/08- likely with autonomic dysfunction Will continue to monitor. PT consult - caution with autonomic dysfunction PT- in bed today then reevaluate in am- out of bed Discharge Planning: when cleared by vascular surgery.
--- NOTE | 2018-03-13 12:30 | P.PNCA ---
- Note Subjective/Hospital Course: 67-year-old male with gangrene of the left forefoot and no unreconstructable vascular disease from the knee down Patient at this point needs left below-knee amputation and I fully agree with Dr. Tobias We will proceed with amputation tomorrow Thanks J 03/13/2018 Patient status post left below-knee amputation Dressing intact and dry We will leave the original dressing on until Friday Pain management adequate and patient tolerating the care well Objective: Vital Signs - 24 hr 03/12/18 13:26 03/12/18 13:45 03/12/18 14:00 Temperature 98.4 F 98.4 F Pulse Rate 71 71 74 Respiratory Rate 20 20 20 Blood Pressure 162/79 H 169/83 H 164/77 H Pulse Oximetry 99 95 95 03/12/18 16:00 03/12/18 20:00 03/12/18 20:25 Temperature 97.7 F 97.9 F Pulse Rate 87 94 H 91 H Respiratory Rate 20 18 Blood Pressure 154/87 H 163/74 H Pulse Oximetry 99 97 03/13/18 00:00 03/13/18 04:00 03/13/18 08:00 Temperature 98.7 F 98.1 F 98.1 F Pulse Rate 96 H 80 72 Respiratory Rate 18 18 20 Blood Pressure 158/76 H 176/81 H 171/85 H Pulse Oximetry 96 95 94 L Labs: Laboratory Results - last 12 hr 03/13/18 03/13/18 03/13/18 07:22 08:19 08:19 WBC 13.4 H RBC 4.37 L Hgb 12.6 L Hct 38.8 L MCV 88.7 MCH 28.9 MCHC 32.6 RDW 13.3 Plt Count 334 MPV 8.6 Neut % (Auto) 72.2 H Lymph % (Auto) 17.9 [place] % (Auto) 8.8 H Eos % (Auto) 0.5 Baso % (Auto) 0.6 Neut # (Auto) 9.7 H Lymph # (Auto) 2.4 [place] # (Auto) 1.2 H Eos # (Auto) 0.1 Baso # (Auto) 0.1 WBC Differential . Differential Comment Auto diff final Sodium 140 Potassium 3.9 Chloride 103 Carbon Dioxide 26.4 Anion Gap 11 BUN 18 Creatinine 0.99 Estimated GFR 75 L POC Glucose 255 H Random Glucose 230 H Calcium 8.5 Phosphorus 2.6 Magnesium 1.6 Total Bilirubin 0.3 AST 29 ALT 30 Alkaline Phosphatase 95 Total Protein 6.0 L D Albumin 1.7 L Result Diagrams: 03/13/18 08:19 03/13/18 08:19
[2018-03-13] MEDS: Vancomycin Inj 1,500 MG in Sodium Chlor 0.9% Inj 500 ML IV.SIG SCH (13:58)
[2018-03-13] MEDS: Sod Chloride 0.9% Inj 1,000 ML IV.SIG SCH (13:58)
[2018-03-13] MEDS: Sod Chloride 0.9% Inj 1,000 ML IV.CONT SCH (14:02)
--- NOTE | 2018-03-13 17:25 | P.PNID ---
Subjective Remarks: Patient is in no acute distress. Awake. Notes that he did not get much sleep last night. No fever. Denies chills. Consult requested for gram-positive sepsis, diabetic left foot infection with gangrene. This is a 67-year-old white male who presented to the Emergency Department with altered mental status. He was also noted to have left foot necrosis. The patient is cared for at home by home visiting nurses who noticed that his foot was appearing black at the toes. Past Medical History: Hypercholesterolemia, diabetes mellitus, neuropathy. Allergies/Adverse Reactions: Allergies Iodinated Contrast- Oral and IV Dye Allergy (Intermediate, Verified 11/07/17 20: 25) SNEEZING Objective Vital Signs 03/12/18 20:00 03/12/18 20:25 03/13/18 00:00 Temperature 97.9 F 98.7 F Pulse Rate 94 H 91 H 96 H Respiratory Rate 18 18 Blood Pressure 163/74 H 158/76 H Pulse Oximetry 97 96 03/13/18 04:00 03/13/18 08:00 03/13/18 12:00 Temperature 98.1 F 98.1 F 98.5 F Pulse Rate 80 72 79 Respiratory Rate 18 20 20 Blood Pressure 176/81 H 171/85 H 171/81 H Pulse Oximetry 95 94 L 91 L Intake & Output 03/12/18 03/13/18 03/13/18 18:59 06:59 18:59 Intake Total 1100 / 1100 735 / 735 1815 / 1815 Output Total 800 / 800 250 / 250 Balance 300 / 300 485 / 485 1815 / 1815 Intake: IV 1100 / 1100 615 / 615 1815 / 1815 NS Inj 1,000 ML @ 50 mls/hr IV. 1000 / 1000 1000 / 1000 CONT .Q20H [facility] Rx#:[id number] Zosyn 4.5 GM Premix 4.5 gm In 100 / 100 100 / 100 300 / 300 100 ml @ 200 mls/hr IV.SIG Q6H [facility] Rx#:[id number] Vancomycin Inj 1,500 MG In NS 515 / 515 515 / 515 Inj 500 ML @ 257.5 mls/hr IV. SIG Q18H [facility] Rx#:[id number] Oral 0 / 0 120 / 120 Output: Urine 800 / 800 250 / 250 Other: # Voids 1 Date of Last Bowel Movement 03/12/18 # Bowel Movements 0 1 03/05/18 20:10 Abscess - Foot Acid Fast Bacilli Smear - Final No acid fast bacilli seen 03/05/18 20:10 Abscess - Foot Mycobacterial Culture - Preliminary No growth in 1 week 03/05/18 20:10 Abscess - Foot Fungal Smear - Final No fungal elements seen 03/05/18 20:10 Abscess - Foot Fungal Culture - Preliminary No growth in 1 week 03/06/18 14:40 Blood - Peripheral Aerobic Blood Culture - Final No growth in 5 days 03/06/18 14:40 Blood - Peripheral Anaerobic Blood Culture - Final No growth in 5 days 03/06/18 14:35 Blood - Peripheral Aerobic Blood Culture - Final No growth in 5 days 03/06/18 14:35 Blood - Peripheral Anaerobic Blood Culture - Final No growth in 5 days Lab - Hematology Results 03/12/18 03/13/18 07:03 08:19 WBC 12.3 H 13.4 H RBC 4.57 4.37 L Hgb 13.4 12.6 L Hct 40.8 38.8 L MCV 89.3 88.7 MCH 29.5 28.9 MCHC 33.0 32.6 RDW 13.2 13.3 Plt Count 375 334 MPV 8.6 8.6 Neut % (Auto) 77.4 H 72.2 H Lymph % (Auto) 12.3 17.9 [place] % (Auto) 8.3 H 8.8 H Eos % (Auto) 1.2 0.5 Baso % (Auto) 0.8 0.6 Neut # (Auto) 9.5 H 9.7 H Lymph # (Auto) 1.5 2.4 [place] # (Auto) 1.0 H 1.2 H Eos # (Auto) 0.1 0.1 Baso # (Auto) 0.1 0.1 WBC Differential . . Differential Comment Auto diff final Auto diff final Lab - Chemistry Results 03/11/18 03/11/18 03/12/18 18:29 20:24 07:03 Sodium 143 Potassium 3.6 Chloride 106 Carbon Dioxide 26.3 Anion Gap 11 BUN 16 Creatinine 1.01 Estimated GFR 74 L POC Glucose 241 H 249 H Random Glucose 241 H Calcium 8.7 Phosphorus 2.2 L Magnesium 1.6 Total Bilirubin 0.3 AST 21 ALT 34 Alkaline Phosphatase 108 Total Protein 6.6 Albumin 1.8 L 03/12/18 03/12/18 03/12/18 08:02 17:38 20:40 Sodium Potassium Chloride Carbon Dioxide Anion Gap BUN Creatinine Estimated GFR POC Glucose 199 H 291 H 309 H Random Glucose Calcium Phosphorus Magnesium Total Bilirubin AST ALT Alkaline Phosphatase Total Protein Albumin 03/13/18 03/13/18 03/13/18 07:22 08:19 12:40 Sodium 140 Potassium 3.9 Chloride 103 Carbon Dioxide 26.4 Anion Gap 11 BUN 18 Creatinine 0.99 Estimated GFR 75 L POC Glucose 255 H 253 H Random Glucose 230 H Calcium 8.5 Phosphorus 2.6 Magnesium 1.6 Total Bilirubin 0.3 AST 29 ALT 30 Alkaline Phosphatase 95 Total Protein 6.0 L D Albumin 1.7 L Imaging: ITS Impressions Extremity Arterial Study 03/05/18 00:00 CONCLUSION: 1. Normal TBI. Tracings would suggest worse pressures were calculated. Foot X-Ray 03/05/18 12:00 CONCLUSION: 1. Abnormal subcutaneous emphysema is seen in the soft tissues along the ball of foot, between the first, second and third toes and along the plantar fascia. This suggests some degree of infection/inflammatory process. 2. No evidence of any bony erosion or bony destruction to suggest osteomyelitis at this time. Head CT 03/05/18 12:00 CONCLUSION: 1. No focal or acute intracranial hemorrhage. 2. Subcutaneous Soft tissue swelling along the right forehead region. 3. Chronic appearing white matter changes bilaterally slightly greater on the right than the left. Recommend MRI of the brain for further evaluation if clinically indicated. Chest X-Ray 03/05/18 12:01 CONCLUSION: No acute intrathoracic disease. Physical Exam: GENERAL: Awake. No acute distress. HEENT: The head has a bruise at the right forehead with ecchymotic changes. There is also mild ecchymosis at the corner of the right eyelid at the temporal aspect. Pupils reactive to light. No icterus. Oropharynx moist mucosa without lesions. NECK: Supple without adenopathy. LUNGS: Clear decreased breath sounds. HEART: Regular S1, S2. No murmurs heard. ABDOMEN: Bowel sounds present. Soft, decreased bowel sounds. EXTREMITIES: Left AKA wound. NEUROLOGIC: No gross focal finding. PSYCHIATRIC: calm and cooperative. Assessment and Plan - Plan IMPRESSION: 1. Gangrene of the left foot. The patient is status post incision and debridement and resection of toes 2 and 3. Wound culture has E. coli, stenotrophomonas and beta strep. 2. Bacteremia. Staph coagulase-negative 3. Altered mental status, likely secondary to infection. 4. Leukocytosis. related to foot infection. 5. Diabetes mellitus. RECOMMENDATIONS: 1. Continue the vancomycin until 03/16 stop order placed. . 2. Continue piperacillin/tazobactam until 03/14 stop order placed. 3. Continue Levaquin until 03/14 stop order placed. Please call if further ID input is needed.
[2018-03-13] MEDS: Insulin Detemir Inj 1,000 UNIT/10 ML Vial SQ SCH (20:42)
[2018-03-14] MEDS: Piperacil/Tazo 4.5 GM Premix 4.5 GM/100 ML BAG IV.SIG SCH ×2 (01:22→08:21)
[2018-03-14] MEDS: Temazepam 15 MG Capsule PO PRN (01:26)
[2018-03-14] MEDS: Vancomycin Inj 1,500 MG in Sodium Chlor 0.9% Inj 500 ML IV.SIG SCH ×2 (05:43→23:38)
[2018-03-14] MEDS ORDERED: Pharmacy Ordered Lab Info OTHER ONE (05:45)
[2018-03-14] MEDS: Gabapentin 300 MG Capsule PO SCH ×3 (09:36→18:41)
[2018-03-14] MEDS: Lisinopril 5 MG Tablet PO SCH (09:36)
[2018-03-14] MEDS: Folic Acid 1 MG Tablet PO SCH (09:36)
[2018-03-14] MEDS: levoFLOXacin 500 MG Tablet PO SCH (09:37)
[2018-03-14] MEDS: Vitamin B Complex/Vitamin C Tablet PO SCH (09:37)
[2018-03-14] MEDS: Sertraline 50 MG Tablet PO SCH (09:37)
[2018-03-14] MEDS: Enoxaparin Inj 30 MG/0.3 ML Syringe SQ SCH (09:39)
[2018-03-14] MEDS: Insulin NovoLOG Aspart Correctional Sugar Inj SQ SCH ×4 (09:39→21:01)
--- NOTE | 2018-03-14 10:48 | P.PNIM ---
Subjective Interval history: f/u; s/p left BKA in no acute distress. but uncomfortable with pain to the left lower extremity. BP trend noted. no fever. d/w the RN. Physical Exam Vital signs: Vital Signs 03/13/18 12:00 03/13/18 16:00 03/13/18 20:00 Temperature 98.5 F 99.3 F 98.6 F Pulse Rate 79 76 90 Respiratory Rate 20 20 20 Blood Pressure 171/81 H 148/78 H 149/71 H Pulse Oximetry 91 L 95 95 03/14/18 00:00 03/14/18 03:43 03/14/18 04:00 Temperature 99.1 F 99.2 F Pulse Rate 78 84 74 Respiratory Rate 19 20 Blood Pressure 161/68 H 174/76 H Pulse Oximetry 93 L 92 L 03/14/18 08:00 Temperature 98.2 F Pulse Rate 62 Respiratory Rate 20 Blood Pressure 201/86 H Pulse Oximetry 92 L Intake & Output 03/13/18 03/14/18 03/14/18 18:59 06:59 18:59 Intake Total 2775 / 2775 422 / 422 100 / 100 Output Total 525 / 525 250 / 250 Balance 2250 / 2250 172 / 172 100 / 100 Weight 78.4 kg Intake: IV 1815 / 1815 200 / 200 100 / 100 NS Inj 1,000 ML @ 50 mls/hr IV. 1000 / 1000 CONT .Q20H [facility] Rx#:[id number] Zosyn 4.5 GM Premix 4.5 gm In 300 / 300 200 / 200 100 ml @ 200 mls/hr IV.SIG Q6H [facility] Rx#:[id number] Vancomycin Inj 1,500 MG In NS 515 / 515 100 / 100 Inj 500 ML @ 257.5 mls/hr IV. SIG Q18H [facility] Rx#:[id number] Oral 960 / 960 222 / 222 Output: Urine 525 / 525 250 / 250 Other: # Voids 1 Date of Last Bowel Movement 03/12/18 # Bowel Movements 1 1 - Constitutional no acute distress - Routine Respiratory Exam Present: CTA bilaterally - Routine Cardiovascular Exam Present: RRR - Routine Abdominal Exam Present: soft - Routine Extremities Exam Comments: s/p left BKA. - Routine Neurological Exam Present: alert, oriented X3 Results - Labs CBC & Chem 7: 03/13/18 08:19 03/14/18 05:30 Laboratory Results - last 24 hr 03/13/18 03/13/18 03/13/18 12:40 18:02 20:05 Creatinine Estimated GFR POC Glucose 253 H 159 H 143 H Vancomycin Trough 03/14/18 03/14/18 05:30 08:26 Creatinine 0.98 Estimated GFR 76 L POC Glucose 211 H Vancomycin Trough 14.0 H Microbiology 03/05/18 20:10 Abscess - Foot Acid Fast Bacilli Smear - Final No acid fast bacilli seen 03/05/18 20:10 Abscess - Foot Mycobacterial Culture - Preliminary No growth in 1 week 03/05/18 20:10 Abscess - Foot Fungal Smear - Final No fungal elements seen 03/05/18 20:10 Abscess - Foot Fungal Culture - Preliminary No growth in 1 week - Procedures 03/05 Left foot incision drainage debridement amputation 2 3 digits ---03/10/2018 PREOPERATIVE DIAGNOSIS: Left lower extremity tissue loss and peripheral vascular disease. POSTOPERATIVE DIAGNOSIS: Left lower extremity tissue loss and peripheral vascular disease. PROCEDURE PERFORMED: 1. Aortogram with left lower extremity angiogram. 2. Right common femoral artery Angio-Seal. - left BKA Assessment and Plan - Plan Staph coag sepsis /Left foot necrotic diabetic ulcer S/P I and D S/P amputation of 2nd,3rd digits 03/05 - evaluated by podiatry. -initially started on antibiotics per ID- Vanco will be continued till 03/16 per ID. -s/p angiogram by vascular surgery with poor flow to left lower extremity - s/p left BKA -management per Diabetes mellitus uncontrolled A1C 8.8 Neuropathy ff blood sugars. check A1C- 8.8. started ADA diet started on Levemir 12 units nightly as well as medium scale corrective scale insulin continue on Gabapentin Hyperlipidemia -Continue Lipitor. History of Hypertension - not well controlled- partly due to the pain. Near syncopal episode - with orthostatic hypotension likely from DM autonomic dysfunction - - extra dose of lisinopril today- continue to monitor and adjust the regimen as needed. MALIKA - Improved renal indices Orthostatic hypotension 03/08- likely with autonomic dysfunction Will continue to monitor. PT consult - caution with autonomic dysfunction Discharge Planning: hopefully early this week-when cleared by vascular surgery.
[2018-03-14] MEDS ORDERED: Lisinopril 5 MG Tablet PO ONE (12:00)
[2018-03-14] MEDS: Sod Chloride 0.9% Inj 1,000 ML IV.CONT SCH (20:59)
[2018-03-14] MEDS: Insulin Detemir Inj 1,000 UNIT/10 ML Vial SQ SCH (21:02)
[2018-03-14] MEDS: Zolpidem Tartrate 5 MG Tablet PO PRN (21:49)
[2018-03-15] MEDS: Folic Acid 1 MG Tablet PO SCH (09:06)
[2018-03-15] MEDS: Gabapentin 300 MG Capsule PO SCH ×3 (09:06→18:40)
[2018-03-15] MEDS: Vitamin B Complex/Vitamin C Tablet PO SCH (09:06)
[2018-03-15] MEDS: Enoxaparin Inj 30 MG/0.3 ML Syringe SQ SCH (09:07)
[2018-03-15] MEDS: Lisinopril 5 MG Tablet PO SCH (09:07)
--- NOTE | 2018-03-15 10:26 | P.PNIM ---
Subjective Interval history: f/u; left BKA in no acute distress. pain is better controlled. no fever. no new complaints. Physical Exam Vital signs: Vital Signs 03/14/18 12:00 03/14/18 16:00 03/14/18 20:00 Temperature 97.5 F L 97.8 F 98.5 F Pulse Rate 74 80 75 Respiratory Rate 20 20 18 Blood Pressure 163/78 H 167/79 H 162/83 H Pulse Oximetry 90 L 95 94 L 03/15/18 00:00 03/15/18 04:00 03/15/18 08:00 Temperature 97.4 F L 99 F 98.2 F Pulse Rate 78 68 69 Respiratory Rate 16 18 20 Blood Pressure 161/87 H 141/87 H 155/72 H Pulse Oximetry 97 93 L 97 Intake & Output 03/14/18 03/15/18 03/15/18 18:59 06:59 18:59 Intake Total 1100 / 1100 1270 / 1270 Output Total 750 / 750 Balance 1100 / 1100 520 / 520 Weight 77.3 kg Intake: IV 1100 / 1100 1030 / 1030 NS Inj 1,000 ML @ 50 mls/hr IV. 1000 / 1000 CONT .Q20H [facility] Rx#:[id number] Zosyn 4.5 GM Premix 4.5 gm In 100 / 100 100 ml @ 200 mls/hr IV.SIG Q6H [facility] Rx#:[id number] Vancomycin Inj 1,500 MG In NS 100 / 100 930 / 930 Inj 500 ML @ 257.5 mls/hr IV. SIG Q18H [facility] Rx#:[id number] Oral 240 / 240 Output: Urine 750 / 750 Other: # Incontinent Voids 2 # Incontinent Bowel Movements 1 - Constitutional no acute distress - Routine Respiratory Exam Present: CTA bilaterally - Routine Cardiovascular Exam Present: RRR - Routine Abdominal Exam Present: soft - Routine Extremities Exam Comments: s/p left BKA. - Routine Neurological Exam Present: alert, oriented X3 Results - Labs CBC & Chem 7: 03/13/18 08:19 03/14/18 05:30 Laboratory Results - last 24 hr 03/14/18 03/14/18 03/14/18 12:29 16:47 19:52 POC Glucose 212 H 136 H 181 H 03/15/18 09:13 POC Glucose 135 H - Procedures 7/12 Left foot incision drainage debridement amputation 2 3 digits ---03/10/2018 PREOPERATIVE DIAGNOSIS: Left lower extremity tissue loss and peripheral vascular disease. POSTOPERATIVE DIAGNOSIS: Left lower extremity tissue loss and peripheral vascular disease. PROCEDURE PERFORMED: 1. Aortogram with left lower extremity angiogram. 2. Right common femoral artery Angio-Seal. - left BKA Assessment and Plan - Plan Staph coag sepsis /Left foot necrotic diabetic ulcer S/P I and D S/P amputation of 2nd,3rd digits 03/05 - evaluated by podiatry. -initially started on antibiotics per ID- Vanco will be continued till 03/16 per ID. -s/p angiogram by vascular surgery with poor flow to left lower extremity - s/p left BKA - continue with pain control. -management per Diabetes mellitus uncontrolled A1C 8.8 Neuropathy ff blood sugars. check A1C- 8.8. started ADA diet started on Levemir 12 units nightly as well as medium scale corrective scale insulin continue on Gabapentin Hyperlipidemia -Continue Lipitor. History of Hypertension - overall bettr today- partly due to the pain. Near syncopal episode - with orthostatic hypotension likely from DM autonomic dysfunction - - extra dose of lisinopril today- continue to monitor and adjust the regimen as needed. MALIKA - Improved renal indices Orthostatic hypotension 03/08- likely with autonomic dysfunction Will continue to monitor. PT consulted - caution with autonomic dysfunction Discharge Planning: hopefully early this week-when cleared by vascular surgery.
[2018-03-15] MEDS ORDERED: Lisinopril 5 MG Tablet PO ONE (11:00)
[2018-03-15] MEDS: Insulin NovoLOG Aspart Correctional Sugar Inj SQ SCH ×4 (11:11→21:48)
[2018-03-15] MEDS: Sertraline 50 MG Tablet PO SCH (11:11)
--- NOTE | 2018-03-15 13:01 | P.PNCA ---
- Note Subjective/Hospital Course: 67-year-old male with gangrene of the left forefoot and no unreconstructable vascular disease from the knee down Patient at this point needs left below-knee amputation and I fully agree with Dr. Tobias We will proceed with amputation tomorrow Thanks Bradley 03/13/2018 Patient status post left below-knee amputation Dressing intact and dry We will leave the original dressing on until Friday Pain management adequate and patient tolerating the care well 03/15/2018 Incision clean and dry Change dressings daily Patient can be discharged from my point any time with follow-up in my office in about 3 weeks Objective: Vital Signs - 24 hr 03/14/18 16:00 03/14/18 20:00 03/15/18 00:00 Temperature 97.8 F 98.5 F 97.4 F L Pulse Rate 80 75 78 Respiratory Rate 20 18 16 Blood Pressure 167/79 H 162/83 H 161/87 H Pulse Oximetry 95 94 L 97 03/15/18 04:00 03/15/18 08:00 03/15/18 12:00 Temperature 99 F 98.2 F 98 F Pulse Rate 68 69 71 Respiratory Rate 18 20 20 Blood Pressure 141/87 H 155/72 H 172/78 H Pulse Oximetry 93 L 97 95 Labs: Laboratory Results - last 12 hr 03/15/18 03/15/18 03/15/18 08:52 09:13 11:13 POC Glucose 109 135 H 153 H Result Diagrams: 03/13/18 08:19 03/14/18 05:30
[2018-03-15] MEDS: Vancomycin Inj 1,500 MG in Sodium Chlor 0.9% Inj 500 ML IV.SIG SCH (17:07)
[2018-03-15] MEDS: Insulin Detemir Inj 1,000 UNIT/10 ML Vial SQ SCH (20:13)
[2018-03-15] MEDS: Zolpidem Tartrate 5 MG Tablet PO PRN (20:13)
[2018-03-15] MEDS: Sod Chloride 0.9% Inj 1,000 ML IV.CONT SCH (21:50)
[2018-03-16 05:57] LABS: Glomerular Filtration Rate Greater Than 89 mL/min (>89)
[2018-03-16] MEDS: Lisinopril 5 MG Tablet PO SCH (09:29)
[2018-03-16] MEDS: Folic Acid 1 MG Tablet PO SCH (09:29)
[2018-03-16] MEDS: Gabapentin 300 MG Capsule PO SCH ×3 (09:29→17:32)
[2018-03-16] MEDS: Enoxaparin Inj 30 MG/0.3 ML Syringe SQ SCH (09:29)
[2018-03-16] MEDS: Vitamin B Complex/Vitamin C Tablet PO SCH (09:30)
[2018-03-16] MEDS: Sertraline 50 MG Tablet PO SCH (09:31)
[2018-03-16] MEDS: Insulin NovoLOG Aspart Correctional Sugar Inj SQ SCH ×4 (09:37→20:12)
--- NOTE | 2018-03-16 10:27 | P.PNCA ---
- Note Subjective/Hospital Course: 67-year-old male with gangrene of the left forefoot and no unreconstructable vascular disease from the knee down Patient at this point needs left below-knee amputation and I fully agree with Dr. Tobias We will proceed with amputation tomorrow Thanks Bradley 03/13/2018 Patient status post left below-knee amputation Dressing intact and dry We will leave the original dressing on until Friday Pain management adequate and patient tolerating the care well 03/15/2018 Incision clean and dry Change dressings daily Patient can be discharged from my point any time with follow-up in my office in about 3 weeks 03/16/2018 Incision is clean and dry would leave open to air Patient can be discharged from my point any time Follow-up with my office in 2-3 weeks Objective: Vital Signs - 24 hr 03/15/18 12:00 03/15/18 16:00 03/15/18 20:00 Temperature 98 F 98.3 F 98.0 F Pulse Rate 68 70 68 Respiratory Rate 20 20 18 Blood Pressure 172/78 H 141/81 H 188/86 H Pulse Oximetry 95 90 L 90 L 03/15/18 20:42 03/16/18 00:00 03/16/18 04:00 Temperature 98.4 F 98.7 F Pulse Rate 63 66 Respiratory Rate 18 16 16 Blood Pressure 176/78 H 130/72 Pulse Oximetry 92 L 95 03/16/18 08:57 Temperature 97.4 F L Pulse Rate 104 H Respiratory Rate 16 Blood Pressure 155/96 H Pulse Oximetry 100 Labs: Laboratory Results - last 12 hr 03/16/18 03/16/18 05:25 08:31 Creatinine 0.65 Estimated GFR Greater than 89 POC Glucose 81 Result Diagrams: 03/13/18 08:19 03/16/18 05:25
--- NOTE | 2018-03-16 10:46 | P.PNIM ---
Subjective Interval history: in no acute distress. but complaining of pain to the left lower extremity. no fever. no other new complaints. Physical Exam Vital signs: Vital Signs 03/15/18 12:00 03/15/18 16:00 03/15/18 20:00 Temperature 98 F 98.3 F 98.0 F Pulse Rate 68 70 68 Respiratory Rate 20 20 18 Blood Pressure 172/78 H 141/81 H 188/86 H Pulse Oximetry 95 90 L 90 L 03/15/18 20:42 03/16/18 00:00 03/16/18 04:00 Temperature 98.4 F 98.7 F Pulse Rate 63 66 Respiratory Rate 18 16 16 Blood Pressure 176/78 H 130/72 Pulse Oximetry 92 L 95 03/16/18 08:57 Temperature 97.4 F L Pulse Rate 104 H Respiratory Rate 16 Blood Pressure 155/96 H Pulse Oximetry 100 Intake & Output 03/15/18 03/16/18 03/16/18 18:59 06:59 18:59 Intake Total 1600 / 1600 875 / 875 Output Total 2 / 2 Balance 1598 / 1598 875 / 875 Weight 79.1 kg Intake: IV 1000 / 1000 515 / 515 NS Inj 1,000 ML @ 50 mls/hr IV. 1000 / 1000 CONT .Q20H [facility] Rx#:[id number] Vancomycin Inj 1,500 MG In NS 515 / 515 Inj 500 ML @ 257.5 mls/hr IV. SIG Q18H [facility] Rx#:[id number] Oral 600 / 600 360 / 360 Output: Urine 2 / 2 Other: # Incontinent Voids 1 - Constitutional no acute distress - Routine Respiratory Exam Present: CTA bilaterally - Routine Cardiovascular Exam Present: RRR - Routine Abdominal Exam Present: soft - Routine Extremities Exam Comments: s/p left BKA. - Routine Neurological Exam Present: alert, oriented X3 Results - Labs CBC & Chem 7: 03/13/18 08:19 03/16/18 05:25 Laboratory Results - last 24 hr 03/15/18 03/15/18 03/15/18 08:52 11:13 17:12 Creatinine Estimated GFR POC Glucose 109 153 H 204 H 03/15/18 03/16/18 03/16/18 19:46 05:25 08:31 Creatinine 0.65 Estimated GFR Greater than 89 POC Glucose 185 H 81 - Procedures 03/05 Left foot incision drainage debridement amputation 2 3 digits ---03/10/2018 PREOPERATIVE DIAGNOSIS: Left lower extremity tissue loss and peripheral vascular disease. POSTOPERATIVE DIAGNOSIS: Left lower extremity tissue loss and peripheral vascular disease. PROCEDURE PERFORMED: 1. Aortogram with left lower extremity angiogram. 2. Right common femoral artery Angio-Seal. - left BKA Assessment and Plan - Plan Staph coag sepsis /Left foot necrotic diabetic ulcer S/P I and D S/P amputation of 2nd,3rd digits 03/05 - evaluated by podiatry. -initially started on antibiotics per ID- Vanco will be continued till 03/16 per ID. -s/p angiogram by vascular surgery with poor flow to left lower extremity - s/p left BKA - continue with pain control. -cleared by vascular surgery for discharge. Diabetes mellitus uncontrolled A1C 8.8 Neuropathy ff blood sugars. check A1C- 8.8. started ADA diet started on Levemir 12 units nightly as well as medium scale corrective scale insulin continue on Gabapentin Hyperlipidemia -Continue Lipitor. History of Hypertension - overall better today- partly due to the pain. Near syncopal episode - with orthostatic hypotension likely from DM autonomic dysfunction - - continue to monitor and adjust the regimen as needed. MALIKA - Improved renal indices Orthostatic hypotension 03/08- likely with autonomic dysfunction Will continue to monitor. PT consulted - caution with autonomic dysfunction Discharge Planning: dc today. home vs rehab. left a message for case management. see med list. f/u; pcp and vascular surgery. d/w the patient.
--- NOTE | 2018-03-16 10:55 | P.DS ---
Date of admission: 03/05/18 13:50 Primary care physician: No Primary Care Physician Brief History from admission: Mr. Coelho is a 67-year-old with a history of habitus mellitus who was brought to the hospital due to confusion as well as left foot necrotic lesion. Patient lives by himself and usually gets a nurses aide visit 3 times a week. Home health nurse noted a bump on the right side of his head. Patient was also found to be confused. When patient's and home health nurse tried to get him out of bed, they noticed necrotic lesion on his left foot. Patient did not have any fever, chills. His diabetes is not well controlled. At the time of this interview, patient denies any chest pain, shortness of breath, fever or chills. He does not feel much pain from his left foot. He appears to be coherent at this point. DS: Medications - Discharge Medications Prescriptions: hydrocodone-acetaminophen [Stoddard] 1 tab PO Q4H PRN #10 tab PRN Reason: Acute Pain insulin aspart U-100 [Novolog U-100 Insulin aspart] 5 units SUB-Q TIDAC 30 Days ml insulin detemir U-100 [Levemir U-100 Insulin] 12 unit SUB-Q HS 30 Days #3.6 ml DS: Summary Hospital Course: patient was admitted with Staph coag sepsis /Left foot necrotic diabetic ulcer - he underwent I and D and amputation of 2nd,3rd digits. he had angiogram which showed poor flow to left lower extremity. therefore he underwent left BKA. he was initially treated with IV antibiotics and completed the course of antibiotic during this hospitalization. he will have a f/u by vascular surgery as outpatient. - Time Spent with Patient Total time spent providing and/or coordinating discharge services: - Quality: VTE Deep Vein Thrombosis/Pulmonary Embolism Present on Admission: No Exam Vital signs: Vital Signs 03/15/18 12:00 03/15/18 16:00 03/15/18 20:00 Temperature 98 F 98.3 F 98.0 F Pulse Rate 68 70 68 Respiratory Rate 20 20 18 Blood Pressure 172/78 H 141/81 H 188/86 H Pulse Oximetry 95 90 L 90 L 03/15/18 20:42 03/16/18 00:00 03/16/18 04:00 Temperature 98.4 F 98.7 F Pulse Rate 63 66 Respiratory Rate 18 16 16 Blood Pressure 176/78 H 130/72 Pulse Oximetry 92 L 95 03/16/18 08:57 Temperature 97.4 F L Pulse Rate 104 H Respiratory Rate 16 Blood Pressure 155/96 H Pulse Oximetry 100 Intake & Output 03/15/18 03/16/18 03/16/18 18:59 06:59 18:59 Intake Total 1600 / 1600 875 / 875 Output Total 2 / 2 Balance 1598 / 1598 875 / 875 Weight 79.1 kg Intake: IV 1000 / 1000 515 / 515 NS Inj 1,000 ML @ 50 mls/hr IV. 1000 / 1000 CONT .Q20H [facility] Rx#:[id number] Vancomycin Inj 1,500 MG In NS 515 / 515 Inj 500 ML @ 257.5 mls/hr IV. SIG Q18H [facility] Rx#:[id number] Oral 600 / 600 360 / 360 Output: Urine 2 / 2 Other: # Incontinent Voids 1 Results Procedures completed during hospitalization: 03/05 Left foot incision drainage debridement amputation 2 3 digits ---03/10/2018 PREOPERATIVE DIAGNOSIS: Left lower extremity tissue loss and peripheral vascular disease. POSTOPERATIVE DIAGNOSIS: Left lower extremity tissue loss and peripheral vascular disease. PROCEDURE PERFORMED: 1. Aortogram with left lower extremity angiogram. 2. Right common femoral artery Angio-Seal. - left BKA Completed studies during hospitalization: Pending at discharge 03/05/18 08:19 Surgical [PTH] Routine Labs on day of discharge: Labs from last 24 hours 03/16/18 03/16/18 03/15/18 08:31 05:25 19:46 Creatinine 0.65 Estimated GFR Greater than 89 POC Glucose 81 185 H 03/15/18 03/15/18 03/15/18 17:12 11:13 08:52 Creatinine Estimated GFR POC Glucose 204 H 153 H 109 Preliminary micro results at discharge 03/05/18 20:10 Mycobacterial Culture - Preliminary Abscess - Foot No growth in 1 week 03/05/18 20:10 Fungal Culture - Preliminary Abscess - Foot No growth in 1 week - Impressions ITS Impressions Extremity Arterial Study 03/05/18 00:00 CONCLUSION: 1. Normal TBI. Tracings would suggest worse pressures were calculated. Foot X-Ray 03/05/18 12:00 CONCLUSION: 1. Abnormal subcutaneous emphysema is seen in the soft tissues along the ball of foot, between the first, second and third toes and along the plantar fascia. This suggests some degree of infection/inflammatory process. 2. No evidence of any bony erosion or bony destruction to suggest osteomyelitis at this time. Head CT 03/05/18 12:00 CONCLUSION: 1. No focal or acute intracranial hemorrhage. 2. Subcutaneous Soft tissue swelling along the right forehead region. 3. Chronic appearing white matter changes bilaterally slightly greater on the right than the left. Recommend MRI of the brain for further evaluation if clinically indicated. Chest X-Ray 03/05/18 12:01 CONCLUSION: No acute intrathoracic disease. Discharge Plan - Discharge Condition Condition: Fair - Physicians Team Primary Care Provider: Primary Care Elda,Gloria Attending Provider: Richie West Other Providers: Jose Enrique Woodson DPM ; Roscoe Tobias MD ; Jacobo Burgos MD ; Amanda Ansari MD
[2018-03-16] MEDS ORDERED: HYDROmorphone PF Inj 2 MG/ML Vial IV.PUSH ONE (12:15)
[2018-03-16] MEDS: Sod Chloride 0.9% Inj 1,000 ML IV.SIG SCH (20:10)
[2018-03-16] MEDS: Insulin Detemir Inj 1,000 UNIT/10 ML Vial SQ SCH (20:13)
[2018-03-16] MEDS: Sod Chloride 0.9% Inj 1,000 ML IV.CONT SCH (20:16)
[2018-03-17] MEDS: Insulin NovoLOG Aspart Correctional Sugar Inj SQ SCH ×4 (08:41→21:22)
--- NOTE | 2018-03-17 09:33 | P.PNIM ---
Subjective Interval history: in no acute distress. pain seems to be better controlled. no new complaints. Physical Exam Vital signs: Vital Signs 03/16/18 12:00 03/16/18 12:28 03/16/18 16:00 Temperature 99.6 F Pulse Rate 80 87 77 Respiratory Rate 20 Blood Pressure 113/59 L Pulse Oximetry 94 L 94 L 93 L 03/16/18 16:12 03/16/18 20:00 03/16/18 23:50 Temperature 98.9 F 98.2 F Pulse Rate 86 81 78 Respiratory Rate 18 18 Blood Pressure 138/66 149/71 H Pulse Oximetry 93 L 93 L 03/17/18 00:00 03/17/18 04:00 Temperature 99.3 F 98.3 F Pulse Rate 81 75 Respiratory Rate 18 18 Blood Pressure 166/79 H 168/77 H Pulse Oximetry 92 L 94 L Intake & Output 03/16/18 03/17/18 03/17/18 18:59 06:59 18:59 Intake Total 1480 / 1480 120 / 120 Output Total 125 / 125 Balance 1480 / 1480 -5 / -5 Weight 78.7 kg Intake: IV 1000 / 1000 NS Inj 1,000 ML @ 50 mls/hr IV. 1000 / 1000 CONT .Q20H MARIBEL Rx#:[id number] Oral 480 / 480 120 / 120 Output: Urine 125 / 125 Other: # Voids 1 2 # Bowel Movements 1 - Routine Respiratory Exam Present: CTA bilaterally - Routine Cardiovascular Exam Present: RRR - Routine Abdominal Exam Present: soft - Routine Extremities Exam Comments: s/p left BKA - Routine Neurological Exam Present: alert, oriented X3 Results - Labs CBC & Chem 7: 03/13/18 08:19 03/16/18 05:25 Laboratory Results - last 24 hr 03/16/18 03/16/18 03/16/18 11:57 16:45 19:29 POC Glucose 127 H 158 H 159 H 03/17/18 08:39 POC Glucose 128 H - Procedures 03/05 Left foot incision drainage debridement amputation 2 3 digits ---03/10/2018 PREOPERATIVE DIAGNOSIS: Left lower extremity tissue loss and peripheral vascular disease. POSTOPERATIVE DIAGNOSIS: Left lower extremity tissue loss and peripheral vascular disease. PROCEDURE PERFORMED: 1. Aortogram with left lower extremity angiogram. 2. Right common femoral artery Angio-Seal. - left BKA Assessment and Plan - Plan Staph coag sepsis /Left foot necrotic diabetic ulcer S/P I and D S/P amputation of 2nd,3rd digits 03/05 - evaluated by podiatry. -completed the course of IV antibiotics-per ID. -s/p angiogram by vascular surgery with poor flow to left lower extremity and later on left BKA - continue with pain control. -cleared by vascular surgery for discharge. Diabetes mellitus uncontrolled A1C 8.8 Neuropathy ff blood sugars. check A1C- 8.8. started ADA diet started on Levemir 12 units nightly as well as medium scale corrective scale insulin continue on Gabapentin Hyperlipidemia -Continue Lipitor. History of Hypertension - overall better today- partly due to the pain. Near syncopal episode - with orthostatic hypotension likely from DM autonomic dysfunction - - continue to monitor and adjust the regimen as needed. MALIKA - Improved renal indices Orthostatic hypotension 03/08- likely with autonomic dysfunction Will continue to monitor. PT consulted - caution with autonomic dysfunction Discharge Planning: awaiting dc planning to rehab. d/w the case management again today. see med list. f/u; pcp and vascular surgery. d/w the patient.
[2018-03-17] MEDS: Gabapentin 300 MG Capsule PO SCH ×3 (10:03→18:28)
[2018-03-17] MEDS: Vitamin B Complex/Vitamin C Tablet PO SCH (10:04)
[2018-03-17] MEDS: Folic Acid 1 MG Tablet PO SCH (10:04)
[2018-03-17] MEDS: Sertraline 50 MG Tablet PO SCH (10:04)
[2018-03-17] MEDS: Lisinopril 5 MG Tablet PO SCH (10:04)
[2018-03-17] MEDS: Enoxaparin Inj 30 MG/0.3 ML Syringe SQ SCH (10:05)
[2018-03-17] MEDS: Sod Chloride 0.9% Inj 1,000 ML IV.SIG SCH (15:33)
[2018-03-17] MEDS: Insulin Detemir Inj 1,000 UNIT/10 ML Vial SQ SCH (21:21)
[2018-03-18] MEDS: Insulin NovoLOG Aspart Correctional Sugar Inj SQ SCH ×4 (08:02→20:53)
[2018-03-18] MEDS: Enoxaparin Inj 30 MG/0.3 ML Syringe SQ SCH (08:15)
[2018-03-18] MEDS: Folic Acid 1 MG Tablet PO SCH (08:15)
[2018-03-18] MEDS: Lisinopril 5 MG Tablet PO SCH (08:15)
[2018-03-18] MEDS: Vitamin B Complex/Vitamin C Tablet PO SCH (08:15)
[2018-03-18] MEDS: Gabapentin 300 MG Capsule PO SCH ×3 (08:16→17:18)
[2018-03-18] MEDS: Sertraline 50 MG Tablet PO SCH (08:16)
--- NOTE | 2018-03-18 09:44 | P.PNIM ---
Subjective Interval history: in no acute distress. pain is better controlled. no new complaints. BP trend noted. Physical Exam Vital signs: Vital Signs 03/17/18 12:00 03/17/18 16:00 03/17/18 19:50 Temperature 98.1 F 97.8 F Pulse Rate 76 76 81 Respiratory Rate 16 16 Blood Pressure 173/90 H 181/84 H Pulse Oximetry 93 L 94 L 03/17/18 20:00 03/18/18 00:00 03/18/18 03:44 Temperature 98.9 F 98.6 F Pulse Rate 73 79 70 Respiratory Rate 18 18 Blood Pressure 166/82 H 186/89 H Pulse Oximetry 92 L 93 L 03/18/18 04:00 03/18/18 08:00 Temperature 98.2 F 98.3 F Pulse Rate 75 62 Respiratory Rate 18 17 Blood Pressure 182/85 H 199/83 H Pulse Oximetry 93 L 93 L Intake & Output 03/17/18 03/18/18 03/18/18 18:59 06:59 18:59 Intake Total 720 / 720 222 / 222 Output Total 1200 / 1200 200 / 200 Balance -480 / -480 Weight 78.5 kg Intake: Oral 720 / 720 222 / 222 Output: Urine 1200 / 1200 200 / 200 Other: # Voids 2 Date of Last Bowel Movement 03/12/18 03/17/18 # Bowel Movements 0 2 - Constitutional no acute distress - Routine Respiratory Exam Present: CTA bilaterally - Routine Cardiovascular Exam Present: RRR - Routine Abdominal Exam Present: soft - Routine Extremities Exam Comments: s/p left BKA Results - Labs CBC & Chem 7: 03/13/18 08:19 03/16/18 05:25 Laboratory Results - last 24 hr 03/17/18 03/17/18 03/17/18 12:42 16:45 20:40 POC Glucose 103 162 H 185 H 03/18/18 07:52 POC Glucose 131 H - Procedures 03/05 Left foot incision drainage debridement amputation 2 3 digits ---03/10/2018 PREOPERATIVE DIAGNOSIS: Left lower extremity tissue loss and peripheral vascular disease. POSTOPERATIVE DIAGNOSIS: Left lower extremity tissue loss and peripheral vascular disease. PROCEDURE PERFORMED: 1. Aortogram with left lower extremity angiogram. 2. Right common femoral artery Angio-Seal. - left BKA Assessment and Plan - Plan Staph coag sepsis /Left foot necrotic diabetic ulcer S/P I and D S/P amputation of 2nd,3rd digits 03/05 - evaluated by podiatry. -completed the course of IV antibiotics-per ID. -s/p angiogram by vascular surgery with poor flow to left lower extremity and later on left BKA - continue with pain control. -cleared by vascular surgery for discharge. Diabetes mellitus uncontrolled A1C 8.8 Neuropathy ff blood sugars. check A1C- 8.8. started ADA diet started on Levemir 12 units nightly as well as medium scale corrective scale insulin continue on Gabapentin Hyperlipidemia -Continue Lipitor. Hypertension- not well controlled- increase lisinopril to 10 mg daily- continue to monitor. Near syncopal episode - with orthostatic hypotension likely from DM autonomic dysfunction - MALIKA - Improved renal indices Orthostatic hypotension 03/08- likely with autonomic dysfunction Will continue to monitor. PT consulted - caution with autonomic dysfunction Discharge Planning: dc to rehab this afternoon- when arrangements made and if BP stable. d/w the case management again today. see med list. f/u; pcp and vascular surgery. d/w the patient.
[2018-03-18] MEDS ORDERED: Lisinopril 5 MG Tablet PO ONE (10:30)
[2018-03-18 10:54] LABS: Glomerular Filtration Rate Greater Than 89 mL/min (>89)
[2018-03-18] MEDS: Sod Chloride 0.9% Inj 1,000 ML IV.SIG SCH (12:30)
--- NOTE | 2018-03-18 17:03 | P.PNCV ---
- Note Subjective/Hospital Course: 67-year-old male with gangrene of the left forefoot and no unreconstructable vascular disease from the knee down Patient at this point needs left below-knee amputation and I fully agree with Dr. Tobias We will proceed with amputation tomorrow Thanks Bradley 03/13/2018 Patient status post left below-knee amputation Dressing intact and dry We will leave the original dressing on until Friday Pain management adequate and patient tolerating the care well 03/15/2018 Incision clean and dry Change dressings daily Patient can be discharged from my point any time with follow-up in my office in about 3 weeks 03/16/2018 Incision is clean and dry would leave open to air Patient can be discharged from my point any time Follow-up with my office in 2-3 weeks 03/18/2018 Patient doing well Stump is clean and dry well-perfused Patient can be transferred from my point as noted to [facility] any time Objective: Vital Signs - 24 hr 03/17/18 19:50 03/17/18 20:00 03/18/18 00:00 Temperature 98.9 F 98.6 F Pulse Rate 81 73 79 Respiratory Rate 18 18 Blood Pressure 166/82 H 186/89 H Pulse Oximetry 92 L 93 L 03/18/18 03:44 03/18/18 04:00 03/18/18 08:00 Temperature 98.2 F 98.3 F Pulse Rate 70 75 59 L Respiratory Rate 18 17 Blood Pressure 182/85 H 199/83 H Pulse Oximetry 93 L 93 L 03/18/18 12:00 03/18/18 16:00 Temperature 98.4 F Pulse Rate 66 70 Respiratory Rate 17 Blood Pressure 195/81 H Pulse Oximetry 93 L 93 L Labs: Laboratory Results - last 12 hr 03/18/18 03/18/18 03/18/18 07:52 09:28 12:15 Creatinine 0.63 Estimated GFR Greater than 89 POC Glucose 131 H 140 H Result Diagrams: 03/13/18 08:19 03/18/18 09:28
[2018-03-18] MEDS: Insulin Detemir Inj 1,000 UNIT/10 ML Vial SQ SCH (20:49)
[2018-03-19] MEDS: Sod Chloride 0.9% Inj 1,000 ML IV.CONT SCH (08:02)
[2018-03-19] MEDS ORDERED: Lisinopril 10 MG Tablet PO SCH (09:00)
--- NOTE | 2018-03-19 09:45 | P.PNIM ---
Subjective Interval history: in no acute distress. looks comfortable. pain is controlled. BP is better. Physical Exam Vital signs: Vital Signs 03/18/18 12:00 03/18/18 16:00 03/18/18 20:00 Temperature 98.4 F 98.1 F 98.9 F Pulse Rate 66 69 89 Respiratory Rate 17 17 18 Blood Pressure 195/81 H 179/82 H 167/74 H Pulse Oximetry 93 L 93 L 92 L 03/19/18 00:00 03/19/18 04:00 03/19/18 07:24 Temperature 98.8 F 98.3 F Pulse Rate 86 73 Respiratory Rate 18 18 Blood Pressure 109/68 167/72 H 157/88 H Pulse Oximetry 92 L 92 L Intake & Output 03/18/18 03/19/18 03/19/18 18:59 06:59 18:59 Intake Total 420 / 420 480 / 480 Output Total 700 / 700 600 / 600 Balance -280 / -280 -120 / -120 Weight 78.7 kg Intake: Oral 420 / 420 480 / 480 Output: Urine 700 / 700 600 / 600 Other: # Bowel Movements 0 0 - Constitutional no acute distress - Routine Respiratory Exam Present: CTA bilaterally - Routine Cardiovascular Exam Present: RRR - Routine Abdominal Exam Present: soft - Routine Extremities Exam Comments: s/p left BKA. - Routine Neurological Exam Present: alert, oriented X3 Results - Labs CBC & Chem 7: 03/13/18 08:19 03/18/18 09:28 Laboratory Results - last 24 hr 03/18/18 03/18/18 03/18/18 09:28 12:15 17:03 Creatinine 0.63 Estimated GFR Greater than 89 POC Glucose 140 H 174 H 03/18/18 03/19/18 20:48 08:11 Creatinine Estimated GFR POC Glucose 187 H 119 H - Procedures 03/05 Left foot incision drainage debridement amputation 2 3 digits ---03/10/2018 PREOPERATIVE DIAGNOSIS: Left lower extremity tissue loss and peripheral vascular disease. POSTOPERATIVE DIAGNOSIS: Left lower extremity tissue loss and peripheral vascular disease. PROCEDURE PERFORMED: 1. Aortogram with left lower extremity angiogram. 2. Right common femoral artery Angio-Seal. - left BKA Assessment and Plan - Plan Staph coag sepsis /Left foot necrotic diabetic ulcer S/P I and D S/P amputation of 2nd,3rd digits 03/05 - evaluated by podiatry. -completed the course of IV antibiotics-per ID. -s/p angiogram by vascular surgery with poor flow to left lower extremity and later on left BKA - continue with pain control. -cleared by vascular surgery for discharge. Diabetes mellitus uncontrolled A1C 8.8 Neuropathy ff blood sugars. check A1C- 8.8. started ADA diet started on Levemir 12 units nightly as well as medium scale corrective scale insulin continue on Gabapentin Hyperlipidemia -Continue Lipitor. Hypertension- better controlled- continue lisinopril- will add norvasc. MALIKA - Improved renal indices Discharge Planning: dc to rehab today. see med list. f/u; pcp and vascular surgery. d/w the patient. Evicki was reviewed.
[2018-03-19] MEDS: Vitamin B Complex/Vitamin C Tablet PO SCH (09:53)
[2018-03-19] MEDS: Enoxaparin Inj 30 MG/0.3 ML Syringe SQ SCH (09:53)
[2018-03-19] MEDS: Folic Acid 1 MG Tablet PO SCH (09:55)
[2018-03-19] MEDS: Gabapentin 300 MG Capsule PO SCH (09:55)
[2018-03-19] MEDS: Sertraline 50 MG Tablet PO SCH (09:55)
[2018-03-19] MEDS: Insulin NovoLOG Aspart Correctional Sugar Inj SQ SCH (10:01)
== END 2018-03-19 12:16 ==
LOC: NEPE 11:45 → NEDA 13:50 → HPAC 21:39 → N04 22:26
PROVIDERS: ADMIT Internal Medicine; ATTEND Internal Medicine
PROC: ANGIOLE (2018-03-10 15:54)

== ENCOUNTER 2018-03-30 12:04 | Observation (INO) ==
[2018-03-30] MEDS ORDERED: Naloxone Inj 0.4 MG/ML Vial ONE (12:06)
[2018-03-30] MEDS ORDERED: Naloxone Inj 2 MG/2 ML Vial ONE (12:07)
[2018-03-30] MEDS ORDERED: Naloxone Inj 2 MG/2 ML Vial IV.PUSH ONE (12:11)
[2018-03-30] MEDS ORDERED: Sod Chloride 0.9% Inj 1,000 ML IV.SIG ONE (12:11)
--- NOTE | 2018-03-30 12:17 | ED ---
HPI General Chief Complaint: Altered Mental Status Stated Complaint: Medical Time Seen by Provider: 03/30/18 12:11 Source: patient and EMS Mode of arrival: EMS Limitations: altered mental status History of Present Illness HPI narrative: 67-year-old male patient from nursing care facility presents to the ER today brought in by EMS because apparently he was looking more disoriented, lethargic. Patient had heart rates in the 30s and low blood pressure initially according to EMS, they had tried giving him some doses of atropine, did not improve heart rate a whole lot, did not improve his mental status, GCS 8 according to them. He is not able to give any further history. Related Data Home Medications Medication Instructions Recorded Confirmed aspirin 81 mg PO DAILY 03/05/18 03/30/18 atorvastatin 80 mg PO HS 03/05/18 03/30/18 cholecalciferol (vitamin D3) 2,000 unit PO DAILY 03/05/18 03/30/18 folic acid 1 mg PO DAILY 03/05/18 03/30/18 gabapentin 600 mg PO TID 03/05/18 03/30/18 sertraline 50 mg PO DAILY 03/05/18 03/30/18 vitamin B complex 1,000 units PO DAILY 03/05/18 03/30/18 difluprednate [Durezol] 1 drp OPHTHALMIC (EYE) QID 03/30/18 03/30/18 Previous Rx's Medication Instructions Recorded hydrocodone-acetaminophen [Delmita] 1 tab PO Q4H PRN #10 tab 03/16/18 insulin aspart U-100 [Novolog 5 units SUB-Q TIDAC 30 Days ml 03/16/18 U-100 Insulin aspart] insulin detemir U-100 [Levemir 12 unit SUB-Q HS 30 Days #3.6 ml 03/16/18 U-100 Insulin] lisinopril 10 mg PO DAILY 30 Days #30 tab 03/18/18 amlodipine [Norvasc] 2.5 mg PO DAILY #30 tab 03/19/18 Allergies Allergy/AdvReac Type Severity Reaction Status Date / Time Iodinated Contrast- Oral and Allergy Intermediate Swelling Verified 03/30/18 12: 12 IV Dye Review of Systems ROS Unobtainable unobtainable due to mental status PMFSH History History Provided By: Estate Tax Examiner / EMT Medical History Medical History ACS (acute coronary syndrome) (Acute) Anxiety (Acute) Diabetes (Acute) HBP (high blood pressure) (Acute) Hypercholesterolemia (Acute) Neuropathy (Acute) Surgical History Surgical History Amputation of left lower extremity below knee (Acute) Social History Social History Substance History: No History of Abuse Second Hand Smoke Exposure: No Smoking Status: Never smoker Tobacco Type: Cigarettes How Often Do You Have a Drink Containing Alcohol: Never Recent Travel in [facility] within the Last 8 Weeks: No Recent Out of Country Travel within the Last 8 Weeks: No Exam Narrative Exam Narrative: GENERAL: Well-developed elderly male patient status post left BKA, currently in moderate distress, lethargic, disoriented. SKIN: Focused skin assessment warm/dry. HEAD: Atraumatic. Normocephalic. EYES: Pupils small, round, equal and round. No scleral icterus. No injection or drainage. ENT: No nasal bleeding or discharge. Mucous membranes pink and moist. NECK: Trachea midline. No JVD. CARDIOVASCULAR: Regular rate and rhythm. No murmur appreciated. RESPIRATORY: No accessory muscle use. Clear to auscultation. Breath sounds equal bilaterally. GASTROINTESTINAL: Abdomen soft, non-tender, nondistended. Hepatic and splenic margins not palpable. MUSCULOSKELETAL: No obvious deformities. No clubbing. No cyanosis. No edema. Status post left BKA. NEUROLOGICAL: Lethargic. Not following commands. Slurred speech. PSYCHIATRIC: Lethargic and disoriented, not able to assess Course Initial Documented Vital Signs Temperature 98.5 F 03/30/18 12:10 Pulse Rate 66 03/30/18 12:10 Respiratory Rate 14 03/30/18 12:10 Blood Pressure 108/86 03/30/18 12:10 Pulse Oximetry 95 03/30/18 12:10 Last Documented Vital Signs Temperature 97.8 F 03/30/18 16:00 Pulse Rate 71 03/30/18 16:00 Respiratory Rate 18 03/30/18 16:00 Blood Pressure 130/71 03/30/18 16:00 Pulse Oximetry 98 03/30/18 16:00 Medical Decision Making MDM Narrative Medical decision making narrative: Patient was initially given Narcan in the ER , with some improvement in mentation. However, he is not following commands very well, a CAT scan was done and shows no signs of acute intracranial processes. Family arrives after that and states that the patient is having some weakness in the left arm, and patient does have some weakness on reevaluation at 3:30 PM. His speech is slurred. At this point, I have called Dr. Ayala of neurology and will consult him on the case. However, considering that he had a BKA just 2 weeks ago, I did not believe he would be a TPA candidate in this case. Case was then discussed with Dr. Horton for admission. Differential Diagnosis Differential Diagnosis: Opiate overdose versus overmedication versus sepsis versus dysrhythmias versus acute intracranial processes versus electrolyte abnormalities Lab Data Result diagrams: 03/30/18 12:20 03/30/18 12:20 Lab Results 03/30/18 03/30/18 03/30/18 Range/Units 12:10 12:13 12:20 WBC 7.8 (4.0-11.0) th/mm3 RBC 4.19 L (4.50-5.90) mil/mm3 Hgb 12.1 L (13.0-17.0) gm/dL Hct 37.2 L (39.0-51.0) % MCV 88.9 (80.0-100.0) fL MCH 28.8 (27.0-34.0) pg MCHC 32.4 (32.0-36.0) % RDW 13.7 (11.6-17.2) % Plt Count 303 (150-450) th/mm3 MPV 9.0 (7.0-11.0) fL Neut % (Auto) 62.3 (16.0-70.0) % Lymph % (Auto) 22.9 (9.0-44.0) % Tillman % (Auto) 9.5 H (0.0-8.0) % Eos % (Auto) 4.5 H (0.0-4.0) % Baso % (Auto) 0.8 (0.0-2.0) % Neut # (Auto) 4.8 (1.8-7.7) th/mm3 Lymph # (Auto) 1.8 (1.0-4.8) th/mm3 Tillman # (Auto) 0.7 (0.0-0.9) th/mm3 Eos # (Auto) 0.3 (0.0-0.4) th/mm3 Baso # (Auto) 0.1 (0.0-0.2) th/mm3 WBC Differential . Differential Comment Auto diff final Sodium (136-145) meq/L Potassium (3.5-5.1) meq/L Chloride (98-107) meq/L Carbon Dioxide (21.0-32.0) meq/L Anion Gap (5-15) meq/L BUN (7-18) mg/dL Creatinine (0.60-1.30) mg/dL Estimated GFR (>89) mL/min POC Glucose 186 H (68-110) mg/dl Random Glucose (74-106) mg/dL Calcium (8.5-10.1) mg/dL Total Bilirubin (0.2-1.0) mg/dL AST (15-37) U/L ALT (12-78) U/L Alkaline Phosphatase (45-117) U/L Ammonia 20 (11-32) mcmol/L Troponin I (0.02-0.05) ng/mL Total Protein (6.4-8.2) g/dL Albumin (3.4-5.0) g/dL Urine Color (Yellw/Straw) Urine Clarity (Clear) Urine pH (5.0-8.5) Ur Specific Barre (1.002-1.035) Urine Protein (Neg-Trace) mg/dL Urine Glucose (UA) (Negative) mg/dL Urine Ketones (Negative) mg/dL Urine Occult Blood (Negative) Urine Nitrate (Negative) Urine Bilirubin (Negative) Urine Urobilinogen (Less than 2) mg/dL Ur Leukocyte Esterase (Negative) Urine RBC (0-3) /hpf Urine WBC (0-5) /hpf Amorphous Sediment (None) /hpf Micro UA Comment Urine Culture Comments Urine Opiates Screen (Neg) Ur Barbiturates Screen (Neg) Ur Amphetamines Screen (Neg) U Benzodiazepines Scrn (Neg) Urine Cocaine Screen (Neg) U Cannabinoids Screen (Neg) 03/30/18 03/30/18 03/30/18 Range/Units 12:20 12:30 12:30 WBC (4.0-11.0) th/mm3 RBC (4.50-5.90) mil/mm3 Hgb (13.0-17.0) gm/dL Hct (39.0-51.0) % MCV (80.0-100.0) fL MCH (27.0-34.0) pg MCHC (32.0-36.0) % RDW (11.6-17.2) % Plt Count (150-450) th/mm3 MPV (7.0-11.0) fL Neut % (Auto) (16.0-70.0) % Lymph % (Auto) (9.0-44.0) % Tillman % (Auto) (0.0-8.0) % Eos % (Auto) (0.0-4.0) % Baso % (Auto) (0.0-2.0) % Neut # (Auto) (1.8-7.7) th/mm3 Lymph # (Auto) (1.0-4.8) th/mm3 Tillman # (Auto) (0.0-0.9) th/mm3 Eos # (Auto) (0.0-0.4) th/mm3 Baso # (Auto) (0.0-0.2) th/mm3 WBC Differential Differential Comment Sodium 139 (136-145) meq/L Potassium 4.5 (3.5-5.1) meq/L Chloride 104 (98-107) meq/L Carbon Dioxide 31.0 (21.0-32.0) meq/L Anion Gap 4 L (5-15) meq/L BUN 21 H (7-18) mg/dL Creatinine 1.28 (0.60-1.30) mg/dL Estimated GFR 56 L (>89) mL/min POC Glucose (68-110) mg/dl Random Glucose 192 H (74-106) mg/dL Calcium 8.2 L (8.5-10.1) mg/dL Total Bilirubin 0.2 (0.2-1.0) mg/dL AST 31 (15-37) U/L ALT 59 (12-78) U/L Alkaline Phosphatase 115 (45-117) U/L Ammonia (11-32) mcmol/L Troponin I Less than 0.02 L (0.02-0.05) ng/mL Total Protein 6.2 L (6.4-8.2) g/dL Albumin 2.5 L (3.4-5.0) g/dL Urine Color Yellow (Yellw/Straw) Urine Clarity Clear (Clear) Urine pH 6.0 (5.0-8.5) Ur Specific Barre 1.016 (1.002-1.035) Urine Protein Negative (Neg-Trace) mg/dL Urine Glucose (UA) 100 H (Negative) mg/dL Urine Ketones Negative (Negative) mg/dL Urine Occult Blood Trace (Negative) Urine Nitrate Negative (Negative) Urine Bilirubin Negative (Negative) Urine Urobilinogen 0.2 (Less than 2) mg/dL Ur Leukocyte Esterase Negative (Negative) Urine RBC 0-3 (0-3) /hpf Urine WBC 0-5 (0-5) /hpf Amorphous Sediment Rare H (None) /hpf Micro UA Comment Cath-culture not ind Urine Culture Comments Cath-cult not ind Urine Opiates Screen Neg (Neg) Ur Barbiturates Screen Neg (Neg) Ur Amphetamines Screen Neg (Neg) U Benzodiazepines Scrn Neg (Neg) Urine Cocaine Screen Neg (Neg) U Cannabinoids Screen Neg (Neg) 03/30/18 Range/Units 15:58 WBC (4.0-11.0) th/mm3 RBC (4.50-5.90) mil/mm3 Hgb (13.0-17.0) gm/dL Hct (39.0-51.0) % MCV (80.0-100.0) fL MCH (27.0-34.0) pg MCHC (32.0-36.0) % RDW (11.6-17.2) % Plt Count (150-450) th/mm3 MPV (7.0-11.0) fL Neut % (Auto) (16.0-70.0) % Lymph % (Auto) (9.0-44.0) % Tillman % (Auto) (0.0-8.0) % Eos % (Auto) (0.0-4.0) % Baso % (Auto) (0.0-2.0) % Neut # (Auto) (1.8-7.7) th/mm3 Lymph # (Auto) (1.0-4.8) th/mm3 Tillman # (Auto) (0.0-0.9) th/mm3 Eos # (Auto) (0.0-0.4) th/mm3 Baso # (Auto) (0.0-0.2) th/mm3 WBC Differential Differential Comment Sodium (136-145) meq/L Potassium (3.5-5.1) meq/L Chloride (98-107) meq/L Carbon Dioxide (21.0-32.0) meq/L Anion Gap (5-15) meq/L BUN (7-18) mg/dL Creatinine (0.60-1.30) mg/dL Estimated GFR (>89) mL/min POC Glucose 194 H (68-110) mg/dl Random Glucose (74-106) mg/dL Calcium (8.5-10.1) mg/dL Total Bilirubin (0.2-1.0) mg/dL AST (15-37) U/L ALT (12-78) U/L Alkaline Phosphatase (45-117) U/L Ammonia (11-32) mcmol/L Troponin I (0.02-0.05) ng/mL Total Protein (6.4-8.2) g/dL Albumin (3.4-5.0) g/dL Urine Color (Yellw/Straw) Urine Clarity (Clear) Urine pH (5.0-8.5) Ur Specific Barre (1.002-1.035) Urine Protein (Neg-Trace) mg/dL Urine Glucose (UA) (Negative) mg/dL Urine Ketones (Negative) mg/dL Urine Occult Blood (Negative) Urine Nitrate (Negative) Urine Bilirubin (Negative) Urine Urobilinogen (Less than 2) mg/dL Ur Leukocyte Esterase (Negative) Urine RBC (0-3) /hpf Urine WBC (0-5) /hpf Amorphous Sediment (None) /hpf Micro UA Comment Urine Culture Comments Urine Opiates Screen (Neg) Ur Barbiturates Screen (Neg) Ur Amphetamines Screen (Neg) U Benzodiazepines Scrn (Neg) Urine Cocaine Screen (Neg) U Cannabinoids Screen (Neg) Imaging Data Radiologist's impression: Chest X-Ray 03/30/18 12:11 CONCLUSION: Commentated cardiomegaly with minimal bibasilar parental changes worse in the left. Findings have progressed in the interval Head CT 03/30/18 12:11 CONCLUSION: 1. Moderate motion artifact otherwise negative . Discharge Plan Discharge Disposition Patient Disposition: 30 Still Patient Discharge Condition Condition: Stable Discharge Details Anticipated Discharge Date: 03/30/18 Diagnosis: Acute alteration in mental status, Bradycardia, Weakness Physicians Team ED Provider: Puhong Caraballo Primary Care Provider: Primary Care Gloria Schroeder Attending Provider: Prince Horton Status ED Status: Admitted Patient
--- NOTE | 2018-03-30 12:51 | XR ---
EXAM DATE: 03/30/2018 12:29 PM EDT AGE/SEX: 67 years / Male INDICATIONS: Heart palpitations. CLINICAL DATA: This is the patient's initial encounter. Patient reports that signs and symptoms have been present for 2 days and indicates a pain score of Nonresponsive. MEDICAL/SURGICAL HISTORY: Non-responsive. . Left below the knee amputations. COMPARISON: C, CHEST 1V SINGLE AP, 03/05/2018. . FINDINGS: The lungs are under aerated. Minimal bibasilar parenchymal changes evident worse in the left base. Mi ld compensated cardiomegaly. The portion of the bony skeleton visualized is unremarkable. CONCLUSION: Commentated cardiomegaly with minimal bibasilar parental changes worse in the left. Findings have progressed in the interval Electronically signed by: Donn Quevedo MD 03/30/2018 12:50 PM EDT
[2018-03-30 13:03] LABS: Baso # (Auto) 0.1 th/mm3 (0.0-0.2); Baso % (Auto) 0.8 % (0.0-2.0); Eos # (Auto) 0.3 th/mm3 (0.0-0.4); Eos % (Auto) 4.5 % (0.0-4.0); Hematocrit 37.2 % (39.0-51.0); Hemoglobin 12.1 gm/dL (13.0-17.0); Lymph # (Auto) 1.8 th/mm3 (1.0-4.8); Lymph % (Auto) 22.9 % (9.0-44.0); Mean Corpuscular HGB Conc 32.4 % (32.0-36.0); Mean Corpuscular Hemoglobin 28.8 pg (27.0-34.0); Mean Corpuscular Volume 88.9 fL (80.0-100.0); Mono # (Auto) 0.7 th/mm3 (0.0-0.9); Mono % (Auto) 9.5 % (0.0-8.0); Neut # (Auto) 4.8 th/mm3 (1.8-7.7); Neut % (Auto) 62.3 % (16.0-70.0); Platelet Count 303 th/mm3 (150-450); Red Blood Count 4.19 mil/mm3 (4.50-5.90); Red Cell Distribution Width 13.7 % (11.6-17.2); White Blood Count 7.8 th/mm3 (4.0-11.0)
--- NOTE | 2018-03-30 13:03 | CT ---
EXAM DATE: 03/30/2018 1:00 PM EDT AGE/SEX: 67 years / Male INDICATIONS: Altered mental status. CLINICAL DATA: This is the patient's initial encounter. Patient reports that signs and symptoms have been present for 1 day and indicates a pain score of Nonresponsive. MEDICAL/SURGICAL HISTORY: Diabetes. None. RADIATION DOSE: 36.75 CTDI (mGy) COMPARISON: No prior exams available for comparison. TECHNIQUE: CT of the head without contrast. Using automated exposure control and adjustment of the mA and/or kV according to patient size, radiation dose was kept as low as reasonably achievable to ob tain optimal diagnostic quality images. DICOM format image data is available electronically for revi ew and comparison. Moderate motion artifact FINDINGS: Cerebrum: The ventricles are normal for age. No evidence of midline shift, mass lesion, hemorrhage or acute infarction. No extraaxial fluid collections are seen. Moderate periventricular white matter changes. Posterior Fossa: The cerebellum and brainstem are intact. The 4th ventricle is midline. The cerebe llopontine angle is unremarkable. Extracranial: The visualized portion of the orbits is intact. Skull: The calvaria is intact. No evidence of skull fracture. CONCLUSION: 1. Moderate motion artifact otherwise negative . Electronically signed by: Donn Quevedo MD 03/30/2018 1:02 PM EDT
[2018-03-30 13:23] LABS: Alanine Aminotransferase 59 U/L (12-78); Albumin 2.5 g/dL (3.4-5.0); Anion Gap 4 meq/L (5-15); Aspartate Aminotransferase 31 U/L (15-37); Blood Urea Nitrogen 21 mg/dL (7-18); Calcium 8.2 mg/dL (8.5-10.1); Chloride 104 meq/L (98-107); Glomerular Filtration Rate 56 mL/min (>89); Glucose,Random 192 mg/dL (74-106); Potassium 4.5 meq/L (3.5-5.1); Sodium 139 meq/L (136-145)
[2018-03-30 13:27] LABS: Alkaline Phosphatase 115 U/L (45-117); Total Protein 6.2 g/dL (6.4-8.2)
[2018-03-30 13:31] LABS: Amphetamine Screen,Urine Neg (Neg); Barbiturate Screen,Urine Neg (Neg); Cannabinoid Screen,Urine Neg (Neg); Cocaine Screen,Urine Neg (Neg)
[2018-03-30 13:32] LABS: Opiate Screen,Urine Neg (Neg)
[2018-03-30 13:33] LABS: Bilirubin,Urine Negative (Negative); Clarity,Urine Clear (Clear); Color,Urine Yellow (Yellw/Straw); Glucose,Urine (UA) 100 mg/dL (Negative); Leukocyte Esterase,Urine Negative (Negative); Nitrite,Urine Negative (Negative); Urobilinogen,Urine 0.2 mg/dL (Less than 2)
[2018-03-30 13:36] LABS: Specific Gravity,Urine 1.016 (1.002-1.035)
[2018-03-30 14:01] LABS: RBC,Urine 0-3 /hpf (0-3); WBC,Urine 0-5 /hpf (0-5)
[2018-03-30 14:02] LABS: Amorphous Sediment,Urine Rare /hpf
[2018-03-30] MEDS ORDERED: Dextrose 50% in Water 50 ML Vial IV.PUSH PRN (15:50)
--- NOTE | 2018-03-30 15:50 | P.HPIM ---
History of Present Illness Primary Care Physician: No Primary Care Physician History of Present Illness: Mr. Coelho is a 67 year old male. He is [facility] a [facility] due to altered mental status and lethargy. 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 It is reported that he had a rather abrupt change in his mental status and became lethargic. CT shows no tumor or bleed. Family is at bedside. Patient is confused. He is also having problems identifying common objects and he is not speaking normally. They report that he has been having acute onset of fatigue after doing physical therapy sessions. As an outpatient he had been working this up with a vascular doctor for possible seizure. Past medical history includes neuropathy, hyperlipidemia, diabetes mellitus type 2, and hypertension. Patient cannot provide much history himself. History is obtained from the family. Review of Systems unobtainable due to mental condition, unobtainable due to mental status PMFSH - History History Provided By: Rag Inspector / EMT - Medical History Medical History: Medical History (Last Updated 03/30/18 @ 14:03 by Mary Jo Reeves) ACS (acute coronary syndrome) Anxiety Diabetes HBP (high blood pressure) Hypercholesterolemia Neuropathy - Surgical History Surgical History: Surgical History (Last Updated 03/30/18 @ 13:37 by Mary Jo Reeves) Amputation of left lower extremity below knee - Tobacco History Second Hand Smoke Exposure: No Smoking Status: Never smoker Tobacco Type: Cigarettes - Alcohol History How Often Do You Have a Drink Containing Alcohol: Never - Substance Use History Substance History: No History of Abuse - Travel History Recent Travel in the [facility] Within the Last 8 Weeks: No Recent Travel Out of the Country Within the Last 8 Weeks: No - Immunization History Tetanus Immunization: <5 Years Hx Influenza Vaccine This Season: Yes Medications and Allergies Active Medications: Active Medications Aspirin (Ecotrin) 81 mg PO DAILY [facility] Atorvastatin Calcium (Lipitor) 80 mg PO HS [facility] Folic Acid (Folic Acid) 1 mg PO DAILY [facility] Gabapentin (Neurontin) 600 mg PO TID [facility] Sodium Chloride (1/2 Normal Saline Inj) 1,000 mls @ 75 mls/hr IV.CONT .[id number] [facility] Insulin Aspart (Novolog Insulin Correctional Sugar Inj) 5 unit SQ TIDAC [facility] Insulin Detemir (Levemir Inj) 12 unit SQ HS [facility] Non-Formulary Medication (Cholecalciferol (Vitamin D3) [Cholecalciferol ( Vitamin D3)]) 2,000 unit PO DAILY [facility] Non-Formulary Medication (Difluprednate [Durezol]) 1 drp EACH EYE QID [facility] Non-Formulary Medication (Vitamin B Complex [Vitamin B Complex]) 1,000 units PO DAILY [facility] Ondansetron HCl (Zofran Inj) 4 mg IV.PUSH Q6H PRN PRN Reason: NAUSEA OR VOMITING Sertraline HCl (Zoloft) 50 mg PO DAILY [facility] Sodium Chloride (Ns Flush) 2 ml IV.FLUSH PRN PRN PRN Reason: FLUSH AFTER USING IV ACCESS Last Admin: 03/30/18 12:19 Dose: 2 ml Allergies Allergy/AdvReac Type Severity Reaction Status Date / Time Iodinated Contrast- Oral and Allergy Intermediate Swelling Verified 03/30/18 12: 12 IV Dye Home Medications Medication Instructions Recorded Confirmed Type aspirin 81 mg PO DAILY 03/05/18 03/30/18 History atorvastatin 80 mg PO HS 03/05/18 03/30/18 History cholecalciferol (vitamin D3) 2,000 unit PO DAILY 03/05/18 03/30/18 History folic acid 1 mg PO DAILY 03/05/18 03/30/18 History gabapentin 600 mg PO TID 03/05/18 03/30/18 History sertraline 50 mg PO DAILY 03/05/18 03/30/18 History vitamin B complex 1,000 units PO DAILY 03/05/18 03/30/18 History difluprednate [Durezol] 1 drp OPHTHALMIC (EYE) QID 03/30/18 03/30/18 History Exam Vital signs: Vital Signs 03/30/18 12:10 03/30/18 12:11 03/30/18 12:22 Temperature 98.5 F 97.8 F Pulse Rate 66 65 66 Respiratory Rate 14 17 Blood Pressure 108/86 107/60 Pulse Oximetry 95 96 98 03/30/18 13:19 03/30/18 14:00 03/30/18 15:00 Temperature 97.9 F 98.1 F 97.8 F Pulse Rate 72 70 73 Respiratory Rate 18 18 17 Blood Pressure 131/63 133/64 133/64 Pulse Oximetry 99 98 99 Intake & Output 03/29/18 03/30/1818 18:59 06:59 18:59 Weight 76.204 kg Narrative: GENERAL: NAD, A&Ox1 HEAD: Normocephalic. NECK: Supple, trachea midline. No lymphadenopathy. EYES: No scleral icterus. No injection or drainage. CARDIOVASCULAR: Regular rate and rhythm without murmurs, gallops, or rubs. RESPIRATORY: Breath sounds equal bilaterally. No accessory muscle use. GASTROINTESTINAL: Abdomen soft, non-tender, nondistended. MUSCULOSKELETAL: No cyanosis, or edema. 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 SKIN: Warm and dry. NEURO: Slurred speech. Visual deficit (patient describes floater like elements in his visual field). Results - Labs CBC & Chem 7: 03/30/18 12:20 03/30/18 12:20 Labs: Short CBC 03/30/18 Range/Units 12:20 WBC 7.8 (4.0-11.0) th/mm3 Hgb 12.1 L (13.0-17.0) gm/dL Hct 37.2 L (39.0-51.0) % Plt Count 303 (150-450) th/mm3 BMP 03/30/18 12:20 Sodium 139 Potassium 4.5 Chloride 104 Carbon Dioxide 31.0 BUN 21 H Creatinine 1.28 Calcium 8.2 L Cardiac Enzymes 03/30/18 Range/Units 12:20 Troponin I Less than 0.02 L (0.02-0.05) ng/mL Liver Function 03/30/18 Range/Units 12:20 Total Bilirubin 0.2 (0.2-1.0) mg/dL AST 31 (15-37) U/L ALT 59 (12-78) U/L Alkaline Phosphatase 115 (45-117) U/L Albumin 2.5 L (3.4-5.0) g/dL Urine 03/30/18 Range/Units 12:30 Urine Color Yellow (Yellw/Straw) Urine Clarity Clear (Clear) Urine pH 6.0 (5.0-8.5) Ur Specific [place] 1.016 (1.002-1.035) Urine Protein Negative (Neg-Trace) mg/dL Urine Glucose (UA) 100 H (Negative) mg/dL - Imaging Impressions Chest X-Ray 03/30/18 12:11 CONCLUSION: Commentated cardiomegaly with minimal bibasilar parental changes worse in the left. Findings have progressed in the interval Head CT 03/30/18 12:11 CONCLUSION: 1. Moderate motion artifact otherwise negative . Caprini VTE Risk Assessment Caprini VTE Risk Assessment: No/Low Risk (score <= 1) Caprini Risk Assessment Model: Point Value = 1 Point Value = 2 Point Value = 3 Point Value = 5 Age 41-60 Minor surgery BMI > 25 kg/m2 Swollen legs Varicose veins or History of unexplained or recurrent spontaneous Oral contraceptives or hormone replacement Sepsis (< 1 month) Serious lung disease, including pneumonia (< 1 month) Abnormal pulmonary function Acute myocardial infarction Congestive heart failure (< 1 month) History of inflammatory bowel disease Medical patient at bed rest Age 61-74 Arthroscopic surgery Major open surgery (> 45 min) Laparoscopic surgery (> 45 min) Malignancy Confined to bed (> 72 hours) Immobilizing plaster cast Central venous access Age >= 75 History of VTE Family history of VTE Factor V Leiden Prothrombin [id number] Lupus anticoagulant Anticardiolipin antibodies Elevated serum homocysteine Heparin-induced thrombocytopenia Other congenital or acquired thrombophilia Stroke (< 1 month) Elective arthroplasty Hip, pelvis, or leg fracture Acute spinal cord injury (< 1 month) Prophylaxis Regimen: Total Risk Factor Score Risk Level Prophylaxis Regimen 0-1 Low Early ambulation 2 Moderate Order ONE of the following: *Sequential Compression Device (SCD) *Heparin 5000 units SQ BID 3-4 Higher Order ONE of the following medications: *Heparin 5000 units SQ TID *Enoxaparin/Lovenox 40 mg SQ daily (WT < 150 kg, CrCl > 30 mL/min) *Enoxaparin/Lovenox 30 mg SQ daily (WT < 150 kg, CrCl > 10-29 mL/min) *Enoxaparin/Lovenox 30 mg SQ BID (WT < 150 kg, CrCl > 30 mL/min) AND/OR *Sequential Compression Device (SCD) 5 or more Highest Order ONE of the following medications: *Heparin 5000 units SQ TID (Preferred with Epidurals) *Enoxaparin/Lovenox 40 mg SQ daily (WT < 150 kg, CrCl > 30 mL/min) *Enoxaparin/Lovenox 30 mg SQ daily (WT < 150 kg, CrCl > 10-29 mL/min) *Enoxaparin/Lovenox 30 mg SQ BID (WT < 150 kg, CrCl > 30 mL/min) AND *Sequential Compression Device (SCD) Assessment and Plan - Plan 67-year-old male admitted secondary to altered mental status with neurological deficits TIA versus CVA CT shows no evidence of bleed or tumor MRI brain MRA brain Echocardiogram Neurology consult Aspirin daily Monitor neurological status Given history of seizures, seizure could be an alternative etiology for his symptoms Check ammonia level Obtain EEG to evaluate for possible seizures Swallow evaluation Physical therapy and occupational therapy evaluation Hyperlipidemia Continue statin Hypertension Continue baseline treatment Follow blood pressures Adjust treatments as needed Neuropathy Continue gabapentin Follow clinically Diabetes mellitus type 2 Follow blood sugars Insulin sliding scale Diabetic diet DVT prophylaxis SCDs
[2018-03-30] MEDS ORDERED: Sodium Chloride 0.45 % Inj 1,000 ML IV.CONT SCH (16:00)
[2018-03-30] MEDS ORDERED: Insulin NovoLOG Aspart Correctional Sugar Inj SQ SCH (17:00)
--- NOTE | 2018-03-30 17:53 | MB ---
cc: Chaim Ayala MD DATE: 03/30/2018 HISTORY OF PRESENT ILLNESS: A 67-year-old man with hypertension, insulin-dependent diabetes, and hypercholesterolemia. Episodes of about 2 months where he just goes limp and then gets very sleepy for the rest of the day, and evidently has a similar episode every time he has physical therapy. He had a left below-knee amputation 2 weeks ago and was brought in here for change in mental status, and then as he woke up he felt that he was weaker on the left side, which he had not been prior. REVIEW OF SYSTEMS: According to his , no history of ID, CABG, stent, angioplasty, A-fib, Coumadin; renal, hepatic, or pulmonary disease; thyroid disease, lupus, ulcer, cancer, or stroke. SOCIAL HISTORY: Not a smoker or drinker, lives in a [facility], currently in rehabilitation, but usually lives by himself. FAMILY HISTORY: Positive for cancer. Negative for seizure. Positive stroke. MEDICATIONS: At the [facility], he is on: 1. Zoloft. 2. Durezol. 3. Lisinopril. 4. Insulin. 5. Hydrocodone 1 q.4 hours. 6. Gabapentin 600 t.i.d. 7. Atorvastatin. 8. Insulin. 9. Folic acid. 10. Vitamin D. 11. Norvasc. 12. Aspirin 81 mg. 13. Vitamin B. PHYSICAL EXAMINATION: VITAL SIGNS: Afebrile, 71, 130/71, 90, sinus rhythm. It looks like he initially presented here at noon, or before that. Symptoms started over 6 hours ago, according to the ER doctor. He was brought in by the EMS. Heart rate was in the 30s. He had a low blood pressure. [place] coma scale of 8. He was disoriented, lethargic. He was given some Narcan and seemed to wake up a little bit. NECK: There were no carotid bruits. HEART: Regular rhythm. I did not detect a murmur. NEUROLOGIC: He has spotty vision loss, both eyes, from diabetic retinopathy, according to his . On his exam, he says he spotty sees and not see other areas. It appears he cannot see well out of the left eye, but he can with the right eye. He can count fingers as he searches them out. He could name my glasses. Extraocular movements intact without nystagmus. Face is symmetric with, as far as I can tell, normal sensation. Tongue was midline. He had normal strength in right upper and lower extremities. The left iliopsoas was normal. He has a below-knee amputation there. Left triceps was about a 4+/5, finger extensors were 5-/5; although, he is a little slow moving them compared to the right side. Pinprick was hard to tell if he had any diminished pinprick or not. Initially, I thought in the left hand pinprick might be lower, but not in the arm. LABORATORY DATA: CBC is normal. Urine drug screen negative. UA negative. Basic metabolic profile: Creatinine 1.3. LFTs normal. Troponin negative. Albumin 2.5. CBC was essentially normal. DIAGNOSTIC DATA: A CAT scan of his brain at noon today showed motion artifact, otherwise negative. I reviewed those films. He has got some mild ventriculomegaly and some white matter changes bilaterally. IMPRESSION AND PLAN: Possibly a small stroke. We will check a stat MRI of the brain, MRA of [place] of [place] and neck, and he has outside of the IV TPA window. He has a minimal deficit at this time that would put his NIH stroke scale score, as far as I can tell, at a 4. Also check an echo and an EEG, some additional blood work. MD JAVIER Manning/brent/nirmala , 04:46 PM , 04:56 PM
[2018-03-30] MEDS ORDERED: DUREZOL 0.05% EACH EYE SCH (18:00)
--- NOTE | 2018-03-30 19:02 | MR ---
EXAM DATE: 03/30/2018 6:15 PM EDT AGE/SEX: 67 years / Male INDICATIONS: CVA. Left arm weakness and slurred speech. CLINICAL DATA: This is the patient's initial encounter. Patient reports that signs and symptoms have been present for 1 day and indicates a pain score of 2/10. MEDICAL/SURGICAL HISTORY: Diabetes mellitus type I. Hypertension. . Hernia repair, Amputation of left leg. COMPARISON: No prior exams available for comparison. TECHNIQUE: 3D [id number] MRA was performed. Source images, multiplanar STS MIP, and 3D volum e MIP reconstructions were reviewed. FINDINGS: There is mild motion degradation of the images. There is moderate short segment narrowing of the righ t A1 segment with intact flow distal. The A2 segments are symmetric in appearance. No flow seen in th e anterior communicating artery. The M1 and branch vessels are intact bilaterally. The posterior circ ulation is grossly intact. Flow is seen in the right PCOM and provides most of the flow to the right posterior cerebral artery.. CONCLUSION: 1. No truncated vessels; no aneurysm seen. Electronically signed by: Siva Guerra MD 03/30/2018 7:01 PM EDT
--- NOTE | 2018-03-30 19:22 | MR ---
EXAM DATE: 03/30/2018 7:02 PM EDT AGE/SEX: 67 years / Male INDICATIONS: . CVA, left arm weakness and slurred speech. CLINICAL DATA: This is the patient's initial encounter. Patient reports that signs and symptoms have been present for 1 day and indicates a pain score of 4/10. MEDICAL/SURGICAL HISTORY: Diabetes mellitus type II. Hypertension. . Amputation of left leg, H ernia repair. COMPARISON: No prior exams available for comparison. TECHNIQUE: 10 ml Gadavist (gadobutrol) contrast infused MRA (single exam dose) of the extracranial circulation was performed using a neurovascular coil. Postprocessing was performed, including rotati ng sub-volume maximum intensity projections of each carotid artery, rotating full-volume maximum inte nsity projections of both carotid arteries, sagittal and coronal sliding thin-slab reformations of ea ch carotid artery, and left oblique sliding thin-slab reformation through the aortic arch to include the origin of the arch branch vessels. FINDINGS: Aortic Arch : There is a three-vessel origin of the great vessels from the aorta. No evidence of o stial narrowing. Right Carotid : The common carotid artery is intact. The carotid bulb has a normal configuration wi thout ulceration or narrowing. There is mild eccentric narrowing of the proximal internal carotid art ilana, less than 40% stenosis in this segment that measures 1 cm in length.. The external carotid desiree ry is intact. Left Carotid : The common carotid artery is intact. The carotid bulb has a normal configuration wit hout ulceration or narrowing. The internal carotid artery lumen is smooth without stenosis. The ext ernal carotid artery is intact. Vertebrals : The vertebral arteries have a symmetric diameter. No stenotic lesions are seen. CONCLUSION: 1. Less than 40% stenosis proximal right internal carotid artery. 2. No stenosis of the left carotid. Percent stenosis is calculated using the diameter of the stenotic region over the diameter of the nor mal distal internal carotid artery Electronically signed by: Siva Guerra MD 03/30/2018 7:21 ALF[place]OT
--- NOTE | 2018-03-30 19:25 | MR ---
EXAM DATE: 03/30/2018 6:14 PM EDT AGE/SEX: 67 years / Male INDICATIONS: CVA. Left arm weakness and slurred speech. CLINICAL DATA: This is the patient's initial encounter. Patient reports that signs and symptoms have been present for 1 day and indicates a pain score of 2/10. MEDICAL/SURGICAL HISTORY: Diabetes mellitus type II. Hypertension. . Hernia repair, Amputation of left leg. COMPARISON: [facility] [place] HEAD W/O CONTRAST, 03/30/2018. . TECHNIQUE: Multiplanar, multisequence examination of the brain was performed without and with 10 ml G adavist (gadobutrol) contrast as a single exam dose. FINDINGS: Cerebrum: The ventricles are normal for age. No evidence of midline shift, mass lesion, hemorrhage or acute infarction. No extraaxial fluid collections are seen. The pituitary gland and suprasellar cistern are normal in configuration. White Matter: There is diffuse prominent confluent T2 prolongation in the supratentorial white matte r characteristic of ischemic demyelination. Posterior Fossa: The cerebellum and brainstem are intact. The 4th ventricle is midline. The cerebel lopontine angle is unremarkable. The cerebellar tonsils are normal in position. Diffusion Imaging: No focal areas of restricted diffusion are seen. No evidence of acute infarction . Extracranial: The visualized portions of the orbits and paranasal sinuses are unremarkable. Post Contrast: No abnormal areas of parenchymal or dural enhancement. No evidence of blood-brain ba rrier breakdown. CONCLUSION: 1. No evidence of acute stroke. 2. Prominent supratentorial ischemic demyelination of the white matter. 3. No abnormal areas of enhancement. Electronically signed by: Siva Guerra MD 03/30/2018 7:23 PM EDT
[2018-03-30 19:57] LABS: ABG Base Excess 0.2 mmol/L (-2-2); ABG PCO2 40 mmHg (38-42); ABG PO2 109 mmHg (61-120)
[2018-03-30] MEDS: Insulin NovoLOG Aspart Correctional Sugar Inj SQ SCH (20:44)
[2018-03-30] MEDS: Gabapentin 300 MG Capsule PO SCH (20:46)
[2018-03-30] MEDS: Sod Chloride 0.9% Inj 1,000 ML IV.CONT SCH (20:48)
[2018-03-30] MEDS ORDERED: Gadobutrol PF 10 MMOL/10 ML Vial (for RAD) IV.SIG ONE (21:21)
[2018-03-30] MEDS ORDERED: amLODIPine 5 MG Tablet PO ONE (21:45)
[2018-03-30] MEDS: Insulin Detemir Inj 1,000 UNIT/10 ML Vial SQ SCH (21:47)
[2018-03-31] MEDS: Sod Chloride 0.9% Inj 1,000 ML IV.CONT SCH ×2 (05:50→22:38)
--- NOTE | 2018-03-31 07:30 | P.PNNEU ---
Subjective Subjective Comments: No acute events reported No headache No chest pain No dyspnea Active Medications: Active Medications Amlodipine Besylate (Norvasc) 2.5 mg PO DAILY [facility] Aspirin (Ecotrin) 81 mg PO DAILY [facility] Atorvastatin Calcium (Lipitor) 80 mg PO HS [facility] Last Admin: 03/30/18 20:47 Dose: 80 mg Dextrose (D50w Vial) 50 ml IV.PUSH UNSCH PRN PRN Reason: PER HYPOGLYCEMIA PROTOCOL Folic Acid (Folic Acid) 1 mg PO DAILY [facility] Gabapentin (Neurontin) 600 mg PO TID [facility] Last Admin: 03/30/18 20:46 Dose: 600 mg Glucagon (Glucagon Inj) 1 mg OTHER UNSCH PRN PRN Reason: for Hypoglycemia Protocol Sodium Chloride (Ns Inj) 1,000 mls @ 84 mls/hr IV.CONT .[id number] [facility] Last Admin: 03/31/18 05:50 Dose: Not Given Insulin Aspart (Novolog Insulin Correctional Sugar Inj) 0 unit SQ ACHS [facility]; Protocol Last Admin: 03/30/18 20:44 Dose: Not Given Insulin Aspart (Novolog Inj) 5 units SQ TIDAC [facility] Last Admin: 03/30/18 16:17 Dose: 5 units Insulin Detemir (Levemir Inj) 12 unit SQ HS [facility] Last Admin: 03/30/18 21:47 Dose: Not Given Lisinopril (Prinivil) 10 mg PO DAILY [facility] Miscellaneous (Pill Splitter) 1 each OTHER UNSCH PRN PRN Reason: SEE LABEL COMMENTS Ondansetron HCl (Zofran Inj) 4 mg IV.PUSH Q6H PRN PRN Reason: NAUSEA OR VOMITING Patient Own Medication: Durezol (Difluprednate) 0.05 % Ophthalmic Emulsion 0 each EACH EYE QID [facility] Sertraline HCl (Zoloft) 150 mg PO HS [facility] Sodium Chloride (Ns Flush) 2 ml IV.FLUSH PRN PRN PRN Reason: FLUSH AFTER USING IV ACCESS Last Admin: 03/30/18 12:19 Dose: 2 ml Vitamin B Complex/Vitamin C (Allbee C) 1 tab PO DAILY [facility] Vitamin D (Vitamin D3) 2,000 unit PO DAILY [facility] Allergies/Adverse Reactions: Allergies Allergy/AdvReac Type Severity Reaction Status Date / Time Iodinated Contrast- Oral and Allergy Intermediate Swelling Verified 03/30/18 12: 12 IV Dye Physical Exam Vital signs: Vital Signs 03/30/18 12:10 03/30/18 12:11 03/30/18 12:22 Temperature 98.5 F 97.8 F Pulse Rate 66 65 66 Respiratory Rate 14 17 Blood Pressure 108/86 107/60 Pulse Oximetry 95 96 98 03/30/18 13:19 03/30/18 14:00 03/30/18 15:00 Temperature 97.9 F 98.1 F 97.8 F Pulse Rate 72 70 73 Respiratory Rate 18 18 17 Blood Pressure 131/63 133/64 133/64 Pulse Oximetry 99 98 99 03/30/18 15:39 03/30/18 16:00 03/30/18 17:00 Temperature 97.8 F 97.8 F 97.8 F Pulse Rate 70 71 69 Respiratory Rate 18 18 18 Blood Pressure 128/67 130/71 124/81 Pulse Oximetry 97 98 03/30/18 20:00 03/30/18 21:25 03/31/18 00:00 Temperature 97.6 F Pulse Rate 67 78 75 Respiratory Rate 18 18 Blood Pressure 164/71 H 170/78 H Pulse Oximetry 95 03/31/18 00:40 Temperature 97.7 F Pulse Rate 67 Respiratory Rate 19 Blood Pressure 122/67 Pulse Oximetry 95 Intake & Output 03/30/18 03/31/18 03/31/18 18:59 06:59 18:59 Intake Total 2106 / 2106 Output Total 1200 / 1200 Balance 906 / 906 Weight 175 kg 71 kg Intake: Oral 1350 / 1350 Other 756 / 756 Output: Urine 1200 / 1200 Other: Date of Last Bowel Movement 03/30/18 # Bowel Movements 0 Weight On Admission 175 kg Narrative: sr nl lue adn lle vision may be a little ojeda moves r well and nl speech - Urinary Catheter Management Straight Cath placed during this visit: yes, but has since been removed by the nurse Reason for continuing: Not indwelling catheter Insertion date: 03/30/18 Insertion time: 12:25 Removal date: 03/30/18 Removal time: 12:14 Objective Laboratory Results - last 24 hr 03/30/18 03/30/18 03/30/18 12:10 12:13 12:20 WBC 7.8 RBC 4.19 L Hgb 12.1 L Hct 37.2 L MCV 88.9 MCH 28.8 MCHC 32.4 RDW 13.7 Plt Count 303 MPV 9.0 Neut % (Auto) 62.3 Lymph % (Auto) 22.9 Kimball % (Auto) 9.5 H Eos % (Auto) 4.5 H Baso % (Auto) 0.8 Neut # (Auto) 4.8 Lymph # (Auto) 1.8 Kimball # (Auto) 0.7 Eos # (Auto) 0.3 Baso # (Auto) 0.1 WBC Differential . Differential Comment Auto diff final ESR Puncture Site Patient Temperature O2 Saturation ABG pH ABG pCO2 ABG pO2 ABG HCO3 ABG O2 Content ABG Base Excess ABG Methemoglobin Darshan Test Hemoglobin Carboxyhemoglobin O2 Delivery Device Liter Flow Critical Value Sodium Potassium Chloride Carbon Dioxide Anion Gap BUN Creatinine Estimated GFR POC Glucose 186 H Random Glucose Calcium Total Bilirubin AST ALT Alkaline Phosphatase Ammonia 20 Troponin I Total Protein Albumin TSH Urine Color Urine Clarity Urine pH Ur Specific [place] Urine Protein Urine Glucose (UA) Urine Ketones Urine Occult Blood Urine Nitrate Urine Bilirubin Urine Urobilinogen Ur Leukocyte Esterase Urine RBC Urine WBC Amorphous Sediment Micro UA Comment Urine Culture Comments Urine Opiates Screen Ur Barbiturates Screen Ur Amphetamines Screen U Benzodiazepines Scrn Urine Cocaine Screen U Cannabinoids Screen 03/30/18 03/30/18 03/30/18 12:20 12:30 12:30 WBC RBC Hgb Hct MCV MCH MCHC RDW Plt Count MPV Neut % (Auto) Lymph % (Auto) Kimball % (Auto) Eos % (Auto) Baso % (Auto) Neut # (Auto) Lymph # (Auto) Kimball # (Auto) Eos # (Auto) Baso # (Auto) WBC Differential Differential Comment ESR Puncture Site Patient Temperature O2 Saturation ABG pH ABG pCO2 ABG pO2 ABG HCO3 ABG O2 Content ABG Base Excess ABG Methemoglobin Darshan Test Hemoglobin Carboxyhemoglobin O2 Delivery Device Liter Flow Critical Value Sodium 139 Potassium 4.5 Chloride 104 Carbon Dioxide 31.0 Anion Gap 4 L BUN 21 H Creatinine 1.28 Estimated GFR 56 L POC Glucose Random Glucose 192 H Calcium 8.2 L Total Bilirubin 0.2 AST 31 ALT 59 Alkaline Phosphatase 115 Ammonia Troponin I Less than 0.02 L Total Protein 6.2 L Albumin 2.5 L TSH Urine Color Yellow Urine Clarity Clear Urine pH 6.0 Ur Specific [place] 1.016 Urine Protein Negative Urine Glucose (UA) 100 H Urine Ketones Negative Urine Occult Blood Trace Urine Nitrate Negative Urine Bilirubin Negative Urine Urobilinogen 0.2 Ur Leukocyte Esterase Negative Urine RBC 0-3 Urine WBC 0-5 Amorphous Sediment Rare H Micro UA Comment Cath-culture not ind Urine Culture Comments Cath-cult not ind Urine Opiates Screen Neg Ur Barbiturates Screen Neg Ur Amphetamines Screen Neg U Benzodiazepines Scrn Neg Urine Cocaine Screen Neg U Cannabinoids Screen Neg 03/30/18 03/30/18 03/30/18 15:58 16:50 16:52 WBC RBC Hgb Hct MCV MCH MCHC RDW Plt Count MPV Neut % (Auto) Lymph % (Auto) Kimball % (Auto) Eos % (Auto) Baso % (Auto) Neut # (Auto) Lymph # (Auto) Kimball # (Auto) Eos # (Auto) Baso # (Auto) WBC Differential Differential Comment ESR Puncture Site Patient Temperature O2 Saturation ABG pH ABG pCO2 ABG pO2 ABG HCO3 ABG O2 Content ABG Base Excess ABG Methemoglobin Darshan Test Hemoglobin Carboxyhemoglobin O2 Delivery Device Liter Flow Critical Value Sodium Potassium Chloride Carbon Dioxide Anion Gap BUN Creatinine Estimated GFR POC Glucose 194 H Random Glucose Calcium Total Bilirubin AST ALT Alkaline Phosphatase Ammonia 14 Troponin I Total Protein Albumin TSH 1.440 Urine Color Urine Clarity Urine pH Ur Specific [place] Urine Protein Urine Glucose (UA) Urine Ketones Urine Occult Blood Urine Nitrate Urine Bilirubin Urine Urobilinogen Ur Leukocyte Esterase Urine RBC Urine WBC Amorphous Sediment Micro UA Comment Urine Culture Comments Urine Opiates Screen Ur Barbiturates Screen Ur Amphetamines Screen U Benzodiazepines Scrn Urine Cocaine Screen U Cannabinoids Screen 03/30/18 03/30/18 03/30/18 16:52 19:45 20:36 WBC RBC Hgb Hct MCV MCH MCHC RDW Plt Count MPV Neut % (Auto) Lymph % (Auto) Kimball % (Auto) Eos % (Auto) Baso % (Auto) Neut # (Auto) Lymph # (Auto) Kimball # (Auto) Eos # (Auto) Baso # (Auto) WBC Differential Differential Comment ESR 34 H Puncture Site Right radial Patient Temperature 98.6 O2 Saturation 96 ABG pH 7.40 ABG pCO2 40 ABG pO2 109 ABG HCO3 24 ABG O2 Content 16.1 ABG Base Excess 0.2 ABG Methemoglobin 1.0 Darshan Test Present Hemoglobin 11.8 L Carboxyhemoglobin 1.2 O2 Delivery Device Nasal cannula Liter Flow 2.00 Critical Value No Sodium Potassium Chloride Carbon Dioxide Anion Gap BUN Creatinine Estimated GFR POC Glucose 106 Random Glucose Calcium Total Bilirubin AST ALT Alkaline Phosphatase Ammonia Troponin I Total Protein Albumin TSH Urine Color Urine Clarity Urine pH Ur Specific [place] Urine Protein Urine Glucose (UA) Urine Ketones Urine Occult Blood Urine Nitrate Urine Bilirubin Urine Urobilinogen Ur Leukocyte Esterase Urine RBC Urine WBC Amorphous Sediment Micro UA Comment Urine Culture Comments Urine Opiates Screen Ur Barbiturates Screen Ur Amphetamines Screen U Benzodiazepines Scrn Urine Cocaine Screen U Cannabinoids Screen Review/Management - Review/Management Plan: imp ? some med effect yest mri/a/a neg no cva and fully recovered fu ldl echo eeg and do holter when holter off could dc on plavix and dc asa in three days unless echo shows something major
[2018-03-31] MEDS ORDERED: Sertraline 50 MG Tablet PO SCH ×2 (09:00→21:00)
[2018-03-31 10:02] LABS: Baso # (Auto) 0.1 th/mm3 (0.0-0.2); Eos # (Auto) 0.2 th/mm3 (0.0-0.4); Eos % (Auto) 2.9 % (0.0-4.0); Hemoglobin 13.2 gm/dL (13.0-17.0); Lymph # (Auto) 2.1 th/mm3 (1.0-4.8); Lymph % (Auto) 24.8 % (9.0-44.0); Mean Corpuscular Hemoglobin 29.4 pg (27.0-34.0); Mean Corpuscular Volume 88.9 fL (80.0-100.0); Mean Platelet Volume 8.7 fL (7.0-11.0); Mono # (Auto) 0.7 th/mm3 (0.0-0.9); Mono % (Auto) 8.2 % (0.0-8.0); Neut # (Auto) 5.4 th/mm3 (1.8-7.7); Neut % (Auto) 63.1 % (16.0-70.0); Platelet Count 292 th/mm3 (150-450); Red Cell Distribution Width 14.2 % (11.6-17.2); White Blood Count 8.6 th/mm3 (4.0-11.0)
[2018-03-31] MEDS: Vitamin B Complex/Vitamin C Tablet PO SCH (10:15)
[2018-03-31] MEDS: amLODIPine 5 MG Tablet PO SCH (10:16)
[2018-03-31] MEDS: Gabapentin 300 MG Capsule PO SCH ×3 (10:16→19:11)
[2018-03-31] MEDS: Folic Acid 1 MG Tablet PO SCH (10:17)
[2018-03-31] MEDS: Lisinopril 10 MG Tablet PO SCH (10:17)
[2018-03-31] MEDS: Insulin NovoLOG Aspart Correctional Sugar Inj SQ SCH ×4 (10:18→22:52)
[2018-03-31 10:36] LABS: Alanine Aminotransferase 67 U/L (12-78); Albumin 2.9 g/dL (3.4-5.0); Anion Gap 8 meq/L (5-15); Aspartate Aminotransferase 39 U/L (15-37); Blood Urea Nitrogen 12 mg/dL (7-18); Calcium 8.7 mg/dL (8.5-10.1); Carbon Dioxide 26.3 meq/L (21.0-32.0); Chloride 107 meq/L (98-107); Glomerular Filtration Rate Greater Than 89 mL/min (>89); Glucose,Random 123 mg/dL (74-106); Magnesium 1.4 mg/dL (1.5-2.5); Phosphorus 2.4 mg/dL (2.5-4.9); Potassium 3.9 meq/L (3.5-5.1); Sodium 141 meq/L (136-145)
[2018-03-31 10:38] LABS: Alkaline Phosphatase 121 U/L (45-117)
[2018-03-31 10:47] LABS: Chol/HDL Ratio 3.1 Ratio; T4 (Thyroxine) 6.7 mcg/dL (4.5-12.1)
--- NOTE | 2018-03-31 12:31 | P.PN ---
Physical Exam Vital signs: Vital Signs 03/30/18 13:19 03/30/18 14:00 03/30/18 15:00 Temperature 97.9 F 98.1 F 97.8 F Pulse Rate 72 70 73 Respiratory Rate 18 18 17 Blood Pressure 131/63 133/64 133/64 Pulse Oximetry 99 98 99 03/30/18 15:39 03/30/18 16:00 03/30/18 17:00 Temperature 97.8 F 97.8 F 97.8 F Pulse Rate 70 71 69 Respiratory Rate 18 18 18 Blood Pressure 128/67 130/71 124/81 Pulse Oximetry 97 98 03/30/18 20:00 03/30/18 21:25 03/31/18 00:00 Temperature 97.6 F Pulse Rate 67 78 75 Respiratory Rate 18 18 Blood Pressure 164/71 H 170/78 H Pulse Oximetry 95 03/31/18 00:40 03/31/18 03:00 03/31/18 08:00 Temperature 97.7 F 98 F 97.7 F Pulse Rate 67 82 66 Respiratory Rate 19 19 17 Blood Pressure 122/67 150/75 H 174/84 H Pulse Oximetry 95 99 98 03/31/18 11:11 Temperature Pulse Rate Respiratory Rate Blood Pressure Pulse Oximetry 98 Intake & Output 03/30/18 03/31/18 03/31/18 18:59 06:59 18:59 Intake Total 3106 / 3106 Output Total 1500 / 1500 Balance 1606 / 1606 Weight 175 kg 71 kg Intake: Oral 2350 / 2350 Other 756 / 756 Output: Urine 1500 / 1500 Other: # Voids 3 Date of Last Bowel Movement 03/30/18 03/30/18 # Bowel Movements 0 Weight On Admission 175 kg - Urinary Catheter Management Straight Cath placed during this visit: yes, but has since been removed by the nurse Reason for continuing: Not indwelling catheter Insertion date: 03/30/18 Insertion time: 12:25 Removal date: 03/30/18 Removal time: 12:14 Results - Labs CBC & Chem 7: 03/31/18 09:30 03/31/18 09:30 Laboratory Results - last 24 hr 03/30/18 03/30/18 03/30/18 12:10 12:20 12:20 WBC 7.8 RBC 4.19 L Hgb 12.1 L Hct 37.2 L MCV 88.9 MCH 28.8 MCHC 32.4 RDW 13.7 Plt Count 303 MPV 9.0 Neut % (Auto) 62.3 Lymph % (Auto) 22.9 Tucker % (Auto) 9.5 H Eos % (Auto) 4.5 H Baso % (Auto) 0.8 Neut # (Auto) 4.8 Lymph # (Auto) 1.8 Tucker # (Auto) 0.7 Eos # (Auto) 0.3 Baso # (Auto) 0.1 WBC Differential . Differential Comment Auto diff final ESR Puncture Site Patient Temperature O2 Saturation ABG pH ABG pCO2 ABG pO2 ABG HCO3 ABG O2 Content ABG Base Excess ABG Methemoglobin Darshan Test Hemoglobin Carboxyhemoglobin O2 Delivery Device Liter Flow Critical Value Sodium 139 Potassium 4.5 Chloride 104 Carbon Dioxide 31.0 Anion Gap 4 L BUN 21 H Creatinine 1.28 Estimated GFR 56 L POC Glucose Random Glucose 192 H Calcium 8.2 L Phosphorus Magnesium Total Bilirubin 0.2 AST 31 ALT 59 Alkaline Phosphatase 115 Ammonia 20 Troponin I Less than 0.02 L Total Protein 6.2 L Albumin 2.5 L Triglycerides Cholesterol LDL Cholesterol, Calc HDL Cholesterol Cholesterol/HDL Ratio Vitamin B12 TSH Thyroxine (T4) Urine Color Urine Clarity Urine pH Ur Specific [place] Urine Protein Urine Glucose (UA) Urine Ketones Urine Occult Blood Urine Nitrate Urine Bilirubin Urine Urobilinogen Ur Leukocyte Esterase Urine RBC Urine WBC Amorphous Sediment Micro UA Comment Urine Culture Comments Urine Opiates Screen Ur Barbiturates Screen Ur Amphetamines Screen U Benzodiazepines Scrn Urine Cocaine Screen U Cannabinoids Screen 03/30/18 03/30/18 03/30/18 12:30 12:30 15:58 WBC RBC Hgb Hct MCV MCH MCHC RDW Plt Count MPV Neut % (Auto) Lymph % (Auto) Tucker % (Auto) Eos % (Auto) Baso % (Auto) Neut # (Auto) Lymph # (Auto) Tucker # (Auto) Eos # (Auto) Baso # (Auto) WBC Differential Differential Comment ESR Puncture Site Patient Temperature O2 Saturation ABG pH ABG pCO2 ABG pO2 ABG HCO3 ABG O2 Content ABG Base Excess ABG Methemoglobin Darshan Test Hemoglobin Carboxyhemoglobin O2 Delivery Device Liter Flow Critical Value Sodium Potassium Chloride Carbon Dioxide Anion Gap BUN Creatinine Estimated GFR POC Glucose 194 H Random Glucose Calcium Phosphorus Magnesium Total Bilirubin AST ALT Alkaline Phosphatase Ammonia Troponin I Total Protein Albumin Triglycerides Cholesterol LDL Cholesterol, Calc HDL Cholesterol Cholesterol/HDL Ratio Vitamin B12 TSH Thyroxine (T4) Urine Color Yellow Urine Clarity Clear Urine pH 6.0 Ur Specific [place] 1.016 Urine Protein Negative Urine Glucose (UA) 100 H Urine Ketones Negative Urine Occult Blood Trace Urine Nitrate Negative Urine Bilirubin Negative Urine Urobilinogen 0.2 Ur Leukocyte Esterase Negative Urine RBC 0-3 Urine WBC 0-5 Amorphous Sediment Rare H Micro UA Comment Cath-culture not ind Urine Culture Comments Cath-cult not ind Urine Opiates Screen Neg Ur Barbiturates Screen Neg Ur Amphetamines Screen Neg U Benzodiazepines Scrn Neg Urine Cocaine Screen Neg U Cannabinoids Screen Neg 03/30/18 03/30/18 03/30/18 16:50 16:52 16:52 WBC RBC Hgb Hct MCV MCH MCHC RDW Plt Count MPV Neut % (Auto) Lymph % (Auto) Tucker % (Auto) Eos % (Auto) Baso % (Auto) Neut # (Auto) Lymph # (Auto) Tucker # (Auto) Eos # (Auto) Baso # (Auto) WBC Differential Differential Comment ESR 34 H Puncture Site Patient Temperature O2 Saturation ABG pH ABG pCO2 ABG pO2 ABG HCO3 ABG O2 Content ABG Base Excess ABG Methemoglobin Darshan Test Hemoglobin Carboxyhemoglobin O2 Delivery Device Liter Flow Critical Value Sodium Potassium Chloride Carbon Dioxide Anion Gap BUN Creatinine Estimated GFR POC Glucose Random Glucose Calcium Phosphorus Magnesium Total Bilirubin AST ALT Alkaline Phosphatase Ammonia 14 Troponin I Total Protein Albumin Triglycerides Cholesterol LDL Cholesterol, Calc HDL Cholesterol Cholesterol/HDL Ratio Vitamin B12 TSH 1.440 Thyroxine (T4) Urine Color Urine Clarity Urine pH Ur Specific [place] Urine Protein Urine Glucose (UA) Urine Ketones Urine Occult Blood Urine Nitrate Urine Bilirubin Urine Urobilinogen Ur Leukocyte Esterase Urine RBC Urine WBC Amorphous Sediment Micro UA Comment Urine Culture Comments Urine Opiates Screen Ur Barbiturates Screen Ur Amphetamines Screen U Benzodiazepines Scrn Urine Cocaine Screen U Cannabinoids Screen 03/30/18 03/30/18 03/31/18 19:45 20:36 07:54 WBC RBC Hgb Hct MCV MCH MCHC RDW Plt Count MPV Neut % (Auto) Lymph % (Auto) Tucker % (Auto) Eos % (Auto) Baso % (Auto) Neut # (Auto) Lymph # (Auto) Tucker # (Auto) Eos # (Auto) Baso # (Auto) WBC Differential Differential Comment ESR Puncture Site Right radial Patient Temperature 98.6 O2 Saturation 96 ABG pH 7.40 ABG pCO2 40 ABG pO2 109 ABG HCO3 24 ABG O2 Content 16.1 ABG Base Excess 0.2 ABG Methemoglobin 1.0 Darshan Test Present Hemoglobin 11.8 L Carboxyhemoglobin 1.2 O2 Delivery Device Nasal cannula Liter Flow 2.00 Critical Value No Sodium Potassium Chloride Carbon Dioxide Anion Gap BUN Creatinine Estimated GFR POC Glucose 106 124 H Random Glucose Calcium Phosphorus Magnesium Total Bilirubin AST ALT Alkaline Phosphatase Ammonia Troponin I Total Protein Albumin Triglycerides Cholesterol LDL Cholesterol, Calc HDL Cholesterol Cholesterol/HDL Ratio Vitamin B12 TSH Thyroxine (T4) Urine Color Urine Clarity Urine pH Ur Specific [place] Urine Protein Urine Glucose (UA) Urine Ketones Urine Occult Blood Urine Nitrate Urine Bilirubin Urine Urobilinogen Ur Leukocyte Esterase Urine RBC Urine WBC Amorphous Sediment Micro UA Comment Urine Culture Comments Urine Opiates Screen Ur Barbiturates Screen Ur Amphetamines Screen U Benzodiazepines Scrn Urine Cocaine Screen U Cannabinoids Screen 03/31/18 03/31/18 03/31/18 09:30 09:30 09:30 WBC 8.6 RBC 4.50 Hgb 13.2 Hct 40.0 MCV 88.9 MCH 29.4 MCHC 33.0 RDW 14.2 Plt Count 292 MPV 8.7 Neut % (Auto) 63.1 Lymph % (Auto) 24.8 Tucker % (Auto) 8.2 H Eos % (Auto) 2.9 Baso % (Auto) 1.0 Neut # (Auto) 5.4 Lymph # (Auto) 2.1 Tucker # (Auto) 0.7 Eos # (Auto) 0.2 Baso # (Auto) 0.1 WBC Differential . Differential Comment Auto diff final ESR Puncture Site Patient Temperature O2 Saturation ABG pH ABG pCO2 ABG pO2 ABG HCO3 ABG O2 Content ABG Base Excess ABG Methemoglobin Darshan Test Hemoglobin Carboxyhemoglobin O2 Delivery Device Liter Flow Critical Value Sodium 141 Potassium 3.9 Chloride 107 Carbon Dioxide 26.3 Anion Gap 8 BUN 12 Creatinine 0.73 Estimated GFR Greater than 89 POC Glucose Random Glucose 123 H Calcium 8.7 Phosphorus 2.4 L Magnesium 1.4 L Total Bilirubin 0.4 AST 39 H ALT 67 Alkaline Phosphatase 121 H Ammonia Troponin I Total Protein 7.0 D Albumin 2.9 L Triglycerides 139 Cholesterol 90 L LDL Cholesterol, Calc 33 HDL Cholesterol 29.0 L Cholesterol/HDL Ratio 3.10 Vitamin B12 851 TSH Thyroxine (T4) 6.7 Urine Color Urine Clarity Urine pH Ur Specific [place] Urine Protein Urine Glucose (UA) Urine Ketones Urine Occult Blood Urine Nitrate Urine Bilirubin Urine Urobilinogen Ur Leukocyte Esterase Urine RBC Urine WBC Amorphous Sediment Micro UA Comment Urine Culture Comments Urine Opiates Screen Ur Barbiturates Screen Ur Amphetamines Screen U Benzodiazepines Scrn Urine Cocaine Screen U Cannabinoids Screen 03/31/18 09:30 WBC RBC Hgb Hct MCV MCH MCHC RDW Plt Count MPV Neut % (Auto) Lymph % (Auto) Tucker % (Auto) Eos % (Auto) Baso % (Auto) Neut # (Auto) Lymph # (Auto) Tucker # (Auto) Eos # (Auto) Baso # (Auto) WBC Differential Differential Comment ESR Puncture Site Patient Temperature O2 Saturation ABG pH ABG pCO2 ABG pO2 ABG HCO3 ABG O2 Content ABG Base Excess ABG Methemoglobin Darshan Test Hemoglobin Carboxyhemoglobin O2 Delivery Device Liter Flow Critical Value Sodium Potassium Chloride Carbon Dioxide Anion Gap BUN Creatinine Estimated GFR POC Glucose Random Glucose Calcium Phosphorus Magnesium Total Bilirubin AST ALT Alkaline Phosphatase Ammonia 22 Troponin I Total Protein Albumin Triglycerides Cholesterol LDL Cholesterol, Calc HDL Cholesterol Cholesterol/HDL Ratio Vitamin B12 TSH Thyroxine (T4) Urine Color Urine Clarity Urine pH Ur Specific [place] Urine Protein Urine Glucose (UA) Urine Ketones Urine Occult Blood Urine Nitrate Urine Bilirubin Urine Urobilinogen Ur Leukocyte Esterase Urine RBC Urine WBC Amorphous Sediment Micro UA Comment Urine Culture Comments Urine Opiates Screen Ur Barbiturates Screen Ur Amphetamines Screen U Benzodiazepines Scrn Urine Cocaine Screen U Cannabinoids Screen Microbiology 03/30/18 12:25 Blood - Peripheral Aerobic Blood Culture - Preliminary No growth in 1 day 03/30/18 12:25 Blood - Peripheral Anaerobic Blood Culture - Preliminary No growth in 1 day 03/30/18 12:20 Blood - Peripheral Aerobic Blood Culture - Preliminary No growth in 1 day 03/30/18 12:20 Blood - Peripheral Anaerobic Blood Culture - Preliminary No growth in 1 day - Imaging Impressions Head MRA 03/30/18 00:00 CONCLUSION: 1. No truncated vessels; no aneurysm seen. Chest X-Ray 03/30/18 12:11 CONCLUSION: Commentated cardiomegaly with minimal bibasilar parental changes worse in the left. Findings have progressed in the interval Head CT 03/30/18 12:11 CONCLUSION: 1. Moderate motion artifact otherwise negative . Head MRI 03/30/18 16:43 CONCLUSION: 1. No evidence of acute stroke. 2. Prominent supratentorial ischemic demyelination of the white matter. 3. No abnormal areas of enhancement. Neck MRA 03/30/18 16:43 CONCLUSION: 1. Less than 40% stenosis proximal right internal carotid artery. 2. No stenosis of the left carotid. Percent stenosis is calculated using the diameter of the stenotic region over the diameter of the normal distal internal carotid artery Assessment and Plan - Plan Subjective: This in bed he is more awake and alert today. Does not appear in acute distress. Was slurred speech. No new motor or sensory deficit. Asking for regular food Physical exam: GENERAL: 67 yo male, in NAD, A&Ox3. More awake and alert at his baseline. HEAD: Normocephalic. NECK: Supple, trachea midline. No lymphadenopathy. EYES: No scleral icterus. No injection or drainage. CARDIOVASCULAR: Regular rate and rhythm without murmurs, gallops, or rubs. RESPIRATORY: Breath sounds equal bilaterally. No accessory muscle use. GASTROINTESTINAL: Abdomen soft, non-tender, nondistended. MUSCULOSKELETAL: No cyanosis, or edema. 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 NEURO: Speech improved. Follows commands.Moves arms and legs. Visual deficit ( patient describes floater like elements in his visual field). Assessment and Plan 67-year-old male admitted secondary to altered mental status with neurological deficits TIA versus CVA CT shows no evidence of bleed or tumor MRI brain and MRA brain neg for CVA Echocardiogram pending Neurology consult, appreciate recs Aspirin daily Monitor neurological status Given history of seizures, seizure could be an alternative etiology for his symptoms Check ammonia level Obtain EEG to evaluate for possible seizures Swallow evaluation Physical therapy and occupational therapy evaluation MRI and MRA brain neg no cva and fully recovered at baseline Check lipid panel Holster monitor when holter off could dc on plavix and dc asa in three days unless echo shows something major Hyperlipidemia Continue statin Hypertension Continue baseline treatment Follow blood pressures Adjust treatments as needed Neuropathy Continue gabapentin Follow clinically Diabetes mellitus type 2 Follow blood sugars Insulin sliding scale Diabetic diet DVT prophylaxis SCDs Discussed with the patient, nurse
--- NOTE | 2018-03-31 15:38 | ECHRPT ---
Indication: CVA/TIA CONCLUSIONS Normal left ventricular size. Wall thickness is normal. The left ventricular systolic function is normal with an estimated ejection fraction of 55%. Mitral annular calcification is present. Aortic valve sclerosis is present. BP: / HR: Rhythm: MEASUREMENTS (Male / Female) Normal Values Technical Quality: 2D ECHO LV Diastolic Diameter PLAX 4.4 cm 4.2 - 5.9 / 3.9 - 5.3 cm LV Systolic Diameter PLAX 3.4 cm IVS Diastolic Thickness 1.1 cm 0.6 - 1.0 / 0.6 - 0.9 cm LVPW Diastolic Thickness 0.8 cm 0.6 - 1.0 / 0.6 - 0.9 cm LV Relative Wall Thickness 0.4 RV Internal Dim ED PLAX 2.1 cm LA Systolic Diameter LX 4.0 cm 3.0 - 4.0 / 2.7 - 3.8 cm M-MODE Aortic Root Diameter MM 3.7 cm AV Cusp Separation MM 2.0 cm DOPPLER Mitral E Point Velocity 70.1 cm/s Mitral A Point Velocity 101.0 cm/s Mitral E to A Ratio 0.7 TR Peak Velocity 153.0 cm/s TR Peak Gradient 9.4 mmHg FINDINGS LEFT VENTRICLE Normal left ventricular size. Wall thickness is normal. The left ventricular systolic function is normal with an estimated ejection fraction of 55%. RIGHT VENTRICLE Normal right ventricular size and systolic function. LEFT ATRIUM The left atrial size is normal. RIGHT ATRIUM The right atrial size is normal. ATRIAL SEPTUM Normal atrial septal thickness without atrial level shunting by limited color doppler interrogation. AORTA The aortic root and proximal ascending aorta are normal in size on limited imaging. MITRAL VALVE Mitral annular calcification is present. AORTIC VALVE Aortic valve sclerosis is present. TRICUSPID VALVE Structurally normal tricuspid valve. No tricuspid valve stenosis or regurgitation. PULMONARY VALVE The pulmonary valve is not well visualized. VESSELS The inferior vena cava is normal in size. PERICARDIUM No pericardial effusion. Darling Gonzalez MD, FACC (Electronically Signed) Final Date:31 March 2018 15:37
--- NOTE | 2018-03-31 17:58 | MG ---
cc: Chaim Ayala MD ELECTROENCEPHALOGRAM RECORD NUMBER: [id number]. DESCRIPTION: Normal MRI. Confused, possible left-sided weakness Gabapentin, Lipitor. Diffuse 7 Hz slowing is noted. Recording overall is synchronous and symmetric. No right hemisphere abnormalities are noted. At times, he reaches an 8 Hz bilaterally. Photic stimulation is performed without significant posterior driving. Hyperventilation not performed. IMPRESSION: Mild diffuse theta slowing, consistent with a mild diffuse encephalopathy. Otherwise, a normal electroencephalogram. No right hemisphere abnormalities are seen. MD JAVIER Manning/DEMETRIO , 05:44 PM , 05:48 PM
[2018-03-31] MEDS: Insulin Detemir Inj 1,000 UNIT/10 ML Vial SQ SCH (22:51)
--- NOTE | 2018-03-31 23:46 | ECG ---
Date Performed: 03/30/2018 Time Performed: 12:16:20 PTAGE: 67 years EKG: Sinus rhythm RIGHT BUNDLE BRANCH BLOCK LEFT ANTERIOR FASCICULAR BLOCK ABNORMAL ECG PREVIOUS TRACING : 03/05/2018 13.47 Since the previous tracing, no significant change noted DOCTOR: Jessee Bowen Interpretating Date/Time 03/31/2018 23:44:08
--- NOTE | 2018-04-01 07:25 | P.PNNEU ---
Subjective Subjective Comments: sr Active Medications: Active Medications Amlodipine Besylate (Norvasc) 2.5 mg PO DAILY [facility] Last Admin: 03/31/18 10:16 Dose: 2.5 mg Aspirin (Ecotrin) 81 mg PO DAILY [facility] Last Admin: 03/31/18 10:16 Dose: 81 mg Atorvastatin Calcium (Lipitor) 80 mg PO [facility] Last Admin: 03/31/18 22:39 Dose: 80 mg Clopidogrel Bisulfate (Plavix) 75 mg PO DAILY [facility] Last Admin: 03/31/18 10:16 Dose: 75 mg Dextrose (D50w Vial) 50 ml IV.PUSH UNSCH PRN PRN Reason: PER HYPOGLYCEMIA PROTOCOL Folic Acid (Folic Acid) 1 mg PO DAILY [facility] Last Admin: 03/31/18 10:17 Dose: 1 mg Gabapentin (Neurontin) 600 mg PO TID [facility] Last Admin: 03/31/18 19:11 Dose: 600 mg Glucagon (Glucagon Inj) 1 mg OTHER UNSCH PRN PRN Reason: for Hypoglycemia Protocol Sodium Chloride (Ns Inj) 1,000 mls @ 84 mls/hr IV.CONT .[id number] [facility] Last Admin: 03/31/18 22:38 Dose: Not Given Insulin Aspart (Novolog Insulin Correctional Sugar Inj) 0 unit SQ ACHS [facility]; Protocol Last Admin: 03/31/18 22:52 Dose: 1 unit Insulin Aspart (Novolog Inj) 5 units SQ TIDAC [facility] Last Admin: 03/31/18 19:14 Dose: 5 units Insulin Detemir (Levemir Inj) 12 unit SQ HS [facility] Last Admin: 03/31/18 22:51 Dose: 12 unit Lisinopril (Prinivil) 10 mg PO DAILY [facility] Last Admin: 03/31/18 10:17 Dose: 10 mg Miscellaneous (Pill Splitter) 1 each OTHER UNSCH PRN PRN Reason: SEE LABEL COMMENTS Ondansetron HCl (Zofran Inj) 4 mg IV.PUSH Q6H PRN PRN Reason: NAUSEA OR VOMITING Patient Own Medication: Durezol (Difluprednate) 0.05 % Ophthalmic Emulsion 0 each EACH EYE QID [facility] Sertraline HCl (Zoloft) 150 mg PO [facility] Last Admin: 03/31/18 22:39 Dose: 150 mg Sodium Chloride (Ns Flush) 2 ml IV.FLUSH PRN PRN PRN Reason: FLUSH AFTER USING IV ACCESS Last Admin: 03/30/18 12:19 Dose: 2 ml Vitamin B Complex/Vitamin C (Allbee C) 1 tab PO DAILY [facility] Last Admin: 03/31/18 10:15 Dose: 1 tab Vitamin D (Vitamin D3) 2,000 unit PO DAILY [facility] Last Admin: 03/31/18 10:15 Dose: 2,000 unit Allergies/Adverse Reactions: Allergies Allergy/AdvReac Type Severity Reaction Status Date / Time Iodinated Contrast- Oral and Allergy Intermediate Swelling Verified 03/30/18 12: 12 IV Dye Physical Exam Vital signs: Vital Signs 03/31/18 08:00 03/31/18 11:11 03/31/18 12:00 Temperature 97.7 F 97.4 F L Pulse Rate 66 73 Respiratory Rate 17 18 Blood Pressure 174/84 H 152/74 H Pulse Oximetry 98 98 97 03/31/18 16:00 03/31/18 21:00 03/31/18 22:40 Temperature 98.1 F 97.9 F Pulse Rate 74 90 Respiratory Rate 20 19 Blood Pressure 116/58 L 142/82 H Pulse Oximetry 94 L 96 97 04/01/18 00:00 04/01/18 03:47 Temperature 98 F Pulse Rate 88 69 Respiratory Rate 17 Blood Pressure 135/80 Pulse Oximetry 97 Intake & Output 03/31/18 04/01/18 04/01/18 18:59 06:59 18:59 Intake Total 1400 / 1400 Output Total 300 / 300 Balance 1100 / 1100 Intake: Oral 1400 / 1400 Output: Urine 300 / 300 Other: # Voids 4 Date of Last Bowel Movement 03/30/18 03/30/18 # Bowel Movements 2 Narrative: alert ox3 moving all well nl speech and face - Urinary Catheter Management Straight Cath placed during this visit: yes, but has since been removed by the nurse Reason for continuing: Not indwelling catheter Insertion date: 03/30/18 Insertion time: 12:25 Removal date: 03/30/18 Removal time: 12:14 Objective Laboratory Results - last 24 hr 03/31/18 03/31/18 03/31/18 07:54 09:30 09:30 WBC 8.6 RBC 4.50 Hgb 13.2 Hct 40.0 MCV 88.9 MCH 29.4 MCHC 33.0 RDW 14.2 Plt Count 292 MPV 8.7 Neut % (Auto) 63.1 Lymph % (Auto) 24.8 [place] % (Auto) 8.2 H Eos % (Auto) 2.9 Baso % (Auto) 1.0 Neut # (Auto) 5.4 Lymph # (Auto) 2.1 [place] # (Auto) 0.7 Eos # (Auto) 0.2 Baso # (Auto) 0.1 WBC Differential . Differential Comment Auto diff final Sodium Potassium Chloride Carbon Dioxide Anion Gap BUN Creatinine Estimated GFR POC Glucose 124 H Random Glucose Calcium Phosphorus Magnesium Total Bilirubin AST ALT Alkaline Phosphatase Ammonia Total Protein Albumin Triglycerides 139 Cholesterol 90 L LDL Cholesterol, Calc 33 HDL Cholesterol 29.0 L Cholesterol/HDL Ratio 3.10 Vitamin B12 851 Thyroxine (T4) 6.7 03/31/18 03/31/18 03/31/18 09:30 09:30 12:47 WBC RBC Hgb Hct MCV MCH MCHC RDW Plt Count MPV Neut % (Auto) Lymph % (Auto) [place] % (Auto) Eos % (Auto) Baso % (Auto) Neut # (Auto) Lymph # (Auto) [place] # (Auto) Eos # (Auto) Baso # (Auto) WBC Differential Differential Comment Sodium 141 Potassium 3.9 Chloride 107 Carbon Dioxide 26.3 Anion Gap 8 BUN 12 Creatinine 0.73 Estimated GFR Greater than 89 POC Glucose 216 H Random Glucose 123 H Calcium 8.7 Phosphorus 2.4 L Magnesium 1.4 L Total Bilirubin 0.4 AST 39 H ALT 67 Alkaline Phosphatase 121 H Ammonia 22 Total Protein 7.0 D Albumin 2.9 L Triglycerides Cholesterol LDL Cholesterol, Calc HDL Cholesterol Cholesterol/HDL Ratio Vitamin B12 Thyroxine (T4) 03/31/18 03/31/18 17:55 22:43 WBC RBC Hgb Hct MCV MCH MCHC RDW Plt Count MPV Neut % (Auto) Lymph % (Auto) [place] % (Auto) Eos % (Auto) Baso % (Auto) Neut # (Auto) Lymph # (Auto) [place] # (Auto) Eos # (Auto) Baso # (Auto) WBC Differential Differential Comment Sodium Potassium Chloride Carbon Dioxide Anion Gap BUN Creatinine Estimated GFR POC Glucose 198 H 169 H Random Glucose Calcium Phosphorus Magnesium Total Bilirubin AST ALT Alkaline Phosphatase Ammonia Total Protein Albumin Triglycerides Cholesterol LDL Cholesterol, Calc HDL Cholesterol Cholesterol/HDL Ratio Vitamin B12 Thyroxine (T4) Microbiology 03/30/18 12:25 Aerobic Blood Culture - Preliminary Blood - Peripheral No growth in 1 day Anaerobic Blood Culture - Preliminary No growth in 1 day 03/30/18 12:20 Aerobic Blood Culture - Preliminary Blood - Peripheral No growth in 1 day Anaerobic Blood Culture - Preliminary No growth in 1 day Review/Management - Review/Management Plan: imp ? some med effect yest mri/a/a neg no cva and fully recovered fu ldl echo eeg and do holter when holter off could dc on plavix and dc asa in three days unless echo shows something major 04/01/18 echo and eeg neg ldl nl holter pend on plavix dc asa ok to dc and fu holter
[2018-04-01 08:05] VITALS: O2SAT 96
--- NOTE | 2018-04-01 09:09 | P.DS ---
Date of admission: 03/30/18 16:06 Primary care physician: David Chávez MD Brief History from admission: Mr. Coelho is a 67 year old male. He is sent here from a shelter facility due to altered mental status and lethargy. 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 It is reported that he had a rather abrupt change in his mental status and became lethargic. CT shows no tumor or bleed. Family is at bedside. Patient is confused. He is also having problems identifying common objects and he is not speaking normally. They report that he has been having acute onset of fatigue after doing physical therapy sessions. As an outpatient he had been working this up with a vascular doctor for possible seizure. Past medical history includes neuropathy, hyperlipidemia, diabetes mellitus type 2, and hypertension. Patient cannot provide much history himself. History is obtained from the family. DS: Medications - Discharge Medications Prescriptions: clopidogrel [Plavix] 75 mg PO DAILY #30 tab DS: Summary Hospital Course: GENERAL: 67 yo male, in NAD, A&Ox3. More awake and alert at his baseline. HEAD: Normocephalic. NECK: Supple, trachea midline. No lymphadenopathy. EYES: No scleral icterus. No injection or drainage. CARDIOVASCULAR: Regular rate and rhythm without murmurs, gallops, or rubs. RESPIRATORY: Breath sounds equal bilaterally. No accessory muscle use. GASTROINTESTINAL: Abdomen soft, non-tender, nondistended. MUSCULOSKELETAL: No cyanosis, or edema. 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 NEURO: Speech improved. Follows commands.Moves arms and legs. Visual deficit ( patient describes floater like elements in his visual field). Assessment and Plan 67-year-old male admitted secondary to altered mental status with neurological deficits TIA versus CVA CT shows no evidence of bleed or tumor MRI brain and MRA brain neg for CVA Echocardiogram pending Neurology consult, appreciate recs Aspirin daily Monitor neurological status Given history of seizures, seizure could be an alternative etiology for his symptoms Check ammonia level Obtain EEG to evaluate for possible seizures Swallow evaluation Physical therapy and occupational therapy evaluation Lipid panel reviewed nl Holter monitor when holter off could dc on plavix. dc asa in three days ECHO is normal EEG is normal Hyperlipidemia Continue statin Hypertension Continue baseline treatment Follow blood pressures Adjust treatments as needed Neuropathy Continue gabapentin Follow clinically Diabetes mellitus type 2 Follow blood sugars Insulin sliding scale Diabetic diet DVT prophylaxis SCDs Imprpved cleared bu neuro for DC to follow up as OP with [facility] and consultants - Time Spent with Patient Total time spent providing and/or coordinating discharge services: Greater than 30 minutes - Quality: VTE Deep Vein Thrombosis/Pulmonary Embolism Present on Admission: No Exam Vital signs: Vital Signs 03/31/18 11:11 03/31/18 12:00 03/31/18 16:00 Temperature 97.4 F L 98.1 F Pulse Rate 73 74 Respiratory Rate 18 20 Blood Pressure 152/74 H 116/58 L Pulse Oximetry 98 97 94 L 03/31/18 21:00 03/31/18 22:40 04/01/18 00:00 Temperature 97.9 F 98 F Pulse Rate 90 88 Respiratory Rate 19 17 Blood Pressure 142/82 H 135/80 Pulse Oximetry 96 97 97 04/01/18 03:10 04/01/18 03:47 Temperature 98.1 F Pulse Rate 88 69 Respiratory Rate 18 Blood Pressure 125/66 Pulse Oximetry 96 Intake & Output 03/31/18 04/01/18 04/01/18 18:59 06:59 18:59 Intake Total 2300 / 2300 Output Total 1050 / 1050 Balance 1250 / 1250 Weight 71 kg Intake: Oral 2300 / 2300 Output: Urine 1050 / 1050 Other: # Voids 4 Date of Last Bowel Movement 03/30/18 03/30/18 # Bowel Movements 1 Results Procedures completed during hospitalization: none Labs on day of discharge: Labs from last 24 hours 04/01/18 03/31/18 03/31/18 07:37 22:43 17:55 WBC RBC Hgb Hct MCV MCH MCHC RDW Plt Count MPV Neut % (Auto) Lymph % (Auto) [place] % (Auto) Eos % (Auto) Baso % (Auto) Neut # (Auto) Lymph # (Auto) [place] # (Auto) Eos # (Auto) Baso # (Auto) WBC Differential Differential Comment Sodium Potassium Chloride Carbon Dioxide Anion Gap BUN Creatinine Estimated GFR POC Glucose 252 H 169 H 198 H Random Glucose Calcium Phosphorus Magnesium Total Bilirubin AST ALT Alkaline Phosphatase Ammonia Total Protein Albumin Triglycerides Cholesterol LDL Cholesterol, Calc HDL Cholesterol Cholesterol/HDL Ratio Thiamine Vitamin B12 Methylmalonic Acid Thyroxine (T4) 03/31/18 03/31/18 03/31/18 12:47 09:30 09:30 WBC RBC Hgb Hct MCV MCH MCHC RDW Plt Count MPV Neut % (Auto) Lymph % (Auto) [place] % (Auto) Eos % (Auto) Baso % (Auto) Neut # (Auto) Lymph # (Auto) [place] # (Auto) Eos # (Auto) Baso # (Auto) WBC Differential Differential Comment Sodium 141 Potassium 3.9 Chloride 107 Carbon Dioxide 26.3 Anion Gap 8 BUN 12 Creatinine 0.73 Estimated GFR Greater than 89 POC Glucose 216 H Random Glucose 123 H Calcium 8.7 Phosphorus 2.4 L Magnesium 1.4 L Total Bilirubin 0.4 AST 39 H ALT 67 Alkaline Phosphatase 121 H Ammonia 22 Total Protein 7.0 D Albumin 2.9 L Triglycerides Cholesterol LDL Cholesterol, Calc HDL Cholesterol Cholesterol/HDL Ratio Thiamine Vitamin B12 Methylmalonic Acid Thyroxine (T4) 03/31/18 03/31/18 03/31/18 09:30 09:30 09:30 WBC 8.6 RBC 4.50 Hgb 13.2 Hct 40.0 MCV 88.9 MCH 29.4 MCHC 33.0 RDW 14.2 Plt Count 292 MPV 8.7 Neut % (Auto) 63.1 Lymph % (Auto) 24.8 [place] % (Auto) 8.2 H Eos % (Auto) 2.9 Baso % (Auto) 1.0 Neut # (Auto) 5.4 Lymph # (Auto) 2.1 [place] # (Auto) 0.7 Eos # (Auto) 0.2 Baso # (Auto) 0.1 WBC Differential . Differential Comment Auto diff final Sodium Potassium Chloride Carbon Dioxide Anion Gap BUN Creatinine Estimated GFR POC Glucose Random Glucose Calcium Phosphorus Magnesium Total Bilirubin AST ALT Alkaline Phosphatase Ammonia Total Protein Albumin Triglycerides 139 Cholesterol 90 L LDL Cholesterol, Calc 33 HDL Cholesterol 29.0 L Cholesterol/HDL Ratio 3.10 Thiamine Pending Vitamin B12 851 Methylmalonic Acid Pending Thyroxine (T4) 6.7 Preliminary micro results at discharge 03/30/18 12:25 Aerobic Blood Culture - Preliminary Blood - Peripheral No growth in 1 day Anaerobic Blood Culture - Preliminary No growth in 1 day 03/30/18 12:20 Aerobic Blood Culture - Preliminary Blood - Peripheral No growth in 1 day Anaerobic Blood Culture - Preliminary No growth in 1 day - Impressions ITS Impressions Head MRA 03/30/18 00:00 CONCLUSION: 1. No truncated vessels; no aneurysm seen. Chest X-Ray 03/30/18 12:11 CONCLUSION: Commentated cardiomegaly with minimal bibasilar parental changes worse in the left. Findings have progressed in the interval Head CT 03/30/18 12:11 CONCLUSION: 1. Moderate motion artifact otherwise negative . Head MRI 03/30/18 16:43 CONCLUSION: 1. No evidence of acute stroke. 2. Prominent supratentorial ischemic demyelination of the white matter. 3. No abnormal areas of enhancement. Neck MRA 03/30/18 16:43 CONCLUSION: 1. Less than 40% stenosis proximal right internal carotid artery. 2. No stenosis of the left carotid. Percent stenosis is calculated using the diameter of the stenotic region over the diameter of the normal distal internal carotid artery Discharge Plan - Discharge Disposition Patient Disposition: 03 Discharge to SNF - Discharge Condition Condition: Stable - Discharge Order Discharge Orders: Discharge Order (Routine); Ordered 04/01/18 Ordered By: Malina Martinez - Discharge Details Anticipated Discharge Date: 04/01/18 - Physicians Team Primary Care Provider: David Chávez Attending Provider: Malina Martinez Other Providers: Noemy Crocker
[2018-04-01] MEDS: Gabapentin 300 MG Capsule PO SCH ×3 (09:36→17:25)
[2018-04-01] MEDS: amLODIPine 5 MG Tablet PO SCH (09:36)
[2018-04-01] MEDS: Folic Acid 1 MG Tablet PO SCH (09:37)
[2018-04-01] MEDS: Lisinopril 10 MG Tablet PO SCH (09:37)
[2018-04-01] MEDS: Vitamin B Complex/Vitamin C Tablet PO SCH (09:37)
[2018-04-01] MEDS: Sod Chloride 0.9% Inj 1,000 ML IV.CONT SCH ×2 (09:38→16:53)
[2018-04-01] MEDS: Insulin NovoLOG Aspart Correctional Sugar Inj SQ SCH ×3 (09:38→16:36)
[2018-04-01 10:23] VITALS: RESP 20
[2018-04-01 13:45] VITALS: BP 136/61; PULSE 80; TEMP 98.3
--- NOTE | 2018-04-01 18:22 | P.PN ---
Physical Exam Vital signs: Vital Signs 03/31/18 21:00 03/31/18 22:40 04/01/18 00:00 Temperature 97.9 F 98 F Pulse Rate 90 88 Respiratory Rate 19 17 Blood Pressure 142/82 H 135/80 Pulse Oximetry 96 97 97 04/01/18 03:10 04/01/18 03:47 04/01/18 08:00 Temperature 98.1 F 98.1 F Pulse Rate 88 69 81 Respiratory Rate 18 20 Blood Pressure 125/66 131/66 Pulse Oximetry 96 96 04/01/18 12:00 Temperature 98.3 F Pulse Rate 80 Respiratory Rate 20 Blood Pressure 136/61 Pulse Oximetry 96 Intake & Output 03/31/18 04/01/18 04/01/18 18:59 06:59 18:59 Intake Total 2300 / 2300 Output Total 1050 / 1050 Balance 1250 / 1250 Weight 71 kg Intake: Oral 2300 / 2300 Output: Urine 1050 / 1050 Other: # Voids 4 Date of Last Bowel Movement 03/30/18 03/30/18 04/01/18 # Bowel Movements 1 Narrative: Subjective: more awake and alert today. Does not appear in acute distress. Slurred improved. No new motor or sensory deficit. Physical exam: GENERAL: 67 yo male, in NAD, A&Ox3. More awake and alert at his baseline. HEAD: Normocephalic. NECK: Supple, trachea midline. No lymphadenopathy. EYES: No scleral icterus. No injection or drainage. CARDIOVASCULAR: Regular rate and rhythm without murmurs, gallops, or rubs. RESPIRATORY: Breath sounds equal bilaterally. No accessory muscle use. GASTROINTESTINAL: Abdomen soft, non-tender, nondistended. MUSCULOSKELETAL: No cyanosis, or edema. 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 NEURO: Speech improved. Follows commands.Moves arms and legs. Visual deficit ( patient describes floater like elements in his visual field). Assessment and Plan 67-year-old male admitted secondary to altered mental status with neurological deficits TIA versus CVA CT shows no evidence of bleed or tumor MRI brain and MRA brain neg for CVA Echocardiogram pending Neurology consult, appreciate recs Aspirin daily Monitor neurological status Given history of seizures, seizure could be an alternative etiology for his symptoms Check ammonia level Obtain EEG to evaluate for possible seizures Swallow evaluation Physical therapy and occupational therapy evaluation Lipid panel reviewed nl Holter monitor when holter off could dc on plavix. dc asa in three days ECHO is normal EEG is normal Hyperlipidemia Continue statin Hypertension Continue baseline treatment Follow blood pressures Adjust treatments as needed Neuropathy Continue gabapentin Follow clinically Diabetes mellitus type 2 Follow blood sugars Insulin sliding scale Diabetic diet DVT prophylaxis SCDs Discussed with the patient, nurse - Urinary Catheter Management Straight Cath placed during this visit: yes, but has since been removed by the nurse Reason for continuing: Not indwelling catheter Insertion date: 03/30/18 Insertion time: 12:25 Removal date: 03/30/18 Removal time: 12:14 Results - Labs CBC & Chem 7: 03/31/18 09:30 03/31/18 09:30 Laboratory Results - last 24 hr 03/31/18 04/01/18 04/01/18 22:43 07:37 16:05 POC Glucose 169 H 252 H 246 H Microbiology 03/30/18 12:25 Blood - Peripheral Aerobic Blood Culture - Preliminary No growth in 2 days 03/30/18 12:25 Blood - Peripheral Anaerobic Blood Culture - Preliminary No growth in 2 days 03/30/18 12:20 Blood - Peripheral Aerobic Blood Culture - Preliminary No growth in 2 days 03/30/18 12:20 Blood - Peripheral Anaerobic Blood Culture - Preliminary No growth in 2 days
--- NOTE | 2018-04-02 22:13 | HM ---
Date Performed: 03/31/2018 Time Performed: 14:55:00 HOOKUP DATE: 03/31/18 02:55:00 PM Tue ANALYSIS START TIME: 03/31/2018 3:00:00 PM ANALYSIS END TIME: 04/01/2018 12:34:20 PM PATIENT AGE: 67 PATIENT HEIGHT PATIENT WEIGHT DRUG LIST PATIENT DIAGNOSIS: ams possible TIA TEST NARRATIVE: The patient's average heart rate was 72 BPM. No episodes of tachycardia wer e noted. No episodes of bradycardia were noted. No pauses exceeding 2.0 seconds were noted. 32 ventricular ectopics, which represented < 1% of the total beat count, were noted. The highest iraida tricular ectopic frequency occurred from 04:00 PM to 05:00 PM Tue. During this time 19 VE(s) occurre d. Ventricular ectopics were observed as 32 isolated beat(s) only. No couplets or runs were noted. 10 supraventricular ectopics, which represented < 1% of the total beat count, were noted. The hi ghest supraventricular ectopic frequency occurred from 06:00 PM to 07:00 PM Tue. During this time 3 SVE(s) occurred. No episodes of ST depression (defined as -1.0 mm or more) were noted in channel 1. No episodes of ST depression (defined as -1.0 mm or more) were noted in channel 2. No episodes o f ST depression (defined as -1.0 mm or more) were noted in channel 3. NO DIARY MAINTAINED TEST INTERPRETATION: Sinus rhythm Occasional PACs and PVCs Signed b y : Darling Gonzalez
[2018-04-03 12:27] LABS: Methylmalonic Acid 0.12 nmol/mL (<=0.40)
== END 2018-04-01 18:15 ==
LOC: NEPC 12:04 → N05 12:04 → INTOOBSV 15:39 → NEDA 16:06 → N05 18:27
PROVIDERS: ADMIT Hospitalist; ATTEND Hospitalist

== ENCOUNTER 2018-04-03 14:22 | Observation (INO) ==
[2018-04-03] MEDS ORDERED: Gadobutrol PF 10 MMOL/10 ML Vial (for RAD) IV.SIG ONE (14:23)
[2018-04-03 14:42] LABS: Baso # (Auto) 0.1 th/mm3 (0.0-0.2); Eos # (Auto) 0.3 th/mm3 (0.0-0.4); Eos % (Auto) 2.6 % (0.0-4.0); Hematocrit 38.2 % (39.0-51.0); Hemoglobin 13.5 gm/dL (13.0-17.0); Lymph # (Auto) 2.1 th/mm3 (1.0-4.8); Lymph % (Auto) 21.6 % (9.0-44.0); Mean Corpuscular HGB Conc 35.3 % (32.0-36.0); Mean Corpuscular Hemoglobin 31.2 pg (27.0-34.0); Mean Corpuscular Volume 88.5 fL (80.0-100.0); Mean Platelet Volume 8.8 fL (7.0-11.0); Mono # (Auto) 0.8 th/mm3 (0.0-0.9); Mono % (Auto) 8.5 % (0.0-8.0); Neut # (Auto) 6.4 th/mm3 (1.8-7.7); Neut % (Auto) 66.3 % (16.0-70.0); Platelet Count 264 th/mm3 (150-450); Red Blood Count 4.32 mil/mm3 (4.50-5.90); Red Cell Distribution Width 14.1 % (11.6-17.2); White Blood Count 9.7 th/mm3 (4.0-11.0)
--- NOTE | 2018-04-03 14:44 | CT ---
EXAM DATE: 04/03/2018 2:37 PM EDT AGE/SEX: 67 years / Male INDICATIONS: Stroke alert, Confusion, left sided weakness. CLINICAL DATA: This is the patient's initial encounter. Patient reports that signs and symptoms have been present for 1 day and indicates a pain score of Nonresponsive. MEDICAL/SURGICAL HISTORY: Non-responsive. Non-responsive. RADIATION DOSE: 56.35 CTDI (mGy) COMPARISON: [facility] [place], CT HEAD W/O CONTRAST, 03/30/2018. . TECHNIQUE: CT of the head without contrast. Using automated exposure control and adjustment of the mA and/or kV according to patient size, radiation dose was kept as low as reasonably achievable to ob tain optimal diagnostic quality images. DICOM format image data is available electronically for revi ew and comparison. FINDINGS: Cerebrum: The ventricles are mildly enlarged. Significant hypodensity is evident throughout the cere bral white matter. No evidence of midline shift, mass lesion, hemorrhage or acute infarction. No ext raaxial fluid collections are seen. Posterior Fossa: The cerebellum and brainstem are intact. The 4th ventricle is midline. The cerebe llopontine angle is unremarkable. Extracranial: The visualized portion of the orbits is intact. Skull: The calvaria is intact. No evidence of skull fracture. CONCLUSION: 1. Cerebral white matter disease characteristic of chronic microvascular ischemic changes. 2. Stable evaluation of the brain without evidence of acute infarct, hemorrhage, mass or edema. Report was called by Dr. Bender to Dr. Alvarez at 1440. Electronically signed by: Rigo Bender MD 04/03/2018 2:42 PM EDT
[2018-04-03 14:57] LABS: Activated Partial Thrombo Time 23.4 sec (24.3-30.1); INR 1.1 Ratio; Prothrombin Time 11.2 sec (9.8-11.6)
--- NOTE | 2018-04-03 15:10 | ED ---
HPI General Chief Complaint: Stroke Alert Stated Complaint: Stroke Alert Time Seen by Provider: 04/03/18 14:31 History of Present Illness HPI Narrative: Patient presents to the emergency department as a stroke alert. He is currently in [facility] for rehab and developed left sided weakness approximately 45 minutes prior to ER presentation. According to ER staff patient was recently seen this week for the same type of symptoms. He has no prior history of stroke. Denies headache, chest pain, numbness or tingling, nausea, vomiting, shortness of breath, or fever or chills. Accu-Chek was 250. Related Data Home Medications Medication Instructions Recorded Confirmed aspirin 81 mg PO DAILY 03/05/18 04/03/18 atorvastatin 80 mg PO HS 03/05/18 04/03/18 cholecalciferol (vitamin D3) 2,000 unit PO DAILY 03/05/18 04/03/18 folic acid 1 mg PO DAILY 03/05/18 04/03/18 gabapentin 600 mg PO TID 03/05/18 04/03/18 vitamin B complex 1,000 units PO DAILY 03/05/18 04/03/18 difluprednate [Durezol] 1 drp OPHTHALMIC (EYE) QID 03/30/18 04/03/18 sertraline [Zoloft] 150 mg PO HS 03/30/18 04/03/18 Previous Rx's Medication Instructions Recorded hydrocodone-acetaminophen [[place]] 1 tab PO Q4H PRN #10 tab 03/16/18 insulin aspart U-100 [Novolog 5 units SUB-Q TIDAC 30 Days ml 03/16/18 U-100 Insulin aspart] insulin detemir U-100 [Levemir 12 unit SUB-Q HS 30 Days #3.6 ml 03/16/18 U-100 Insulin] lisinopril 10 mg PO DAILY 30 Days #30 tab 03/18/18 amlodipine [Norvasc] 2.5 mg PO DAILY #30 tab 03/19/18 clopidogrel [Plavix] 75 mg PO DAILY #30 tab 04/01/18 Allergies Allergy/AdvReac Type Severity Reaction Status Date / Time Iodinated Contrast- Oral and Allergy Intermediate Swelling Verified 04/03/18 15: 21 IV Dye Review of Systems ROS: all other systems reviewed are negative [facility] Social History Social History Substance History: No History of Abuse Second Hand Smoke Exposure: No Smoking Status: Former smoker Tobacco Type: Cigarettes How Often Do You Have a Drink Containing Alcohol: Never Recent Travel in [facility] within the Last 8 Weeks: No Recent Out of Country Travel within the Last 8 Weeks: No Immunization History Tetanus Immunization: >5 Years Hx Influenza Vaccine This Season: Yes Exam Narrative Exam Narrative: GENERAL: Awake and alert. SKIN: Focused skin assessment warm/dry. HEAD: Atraumatic. Normocephalic. EYES: Pupils equal and round. No scleral icterus. No injection or drainage. ENT: No nasal bleeding or discharge. Mucous membranes pink and moist. NECK: Trachea midline. No JVD. CARDIOVASCULAR: Regular rate and rhythm. No murmur appreciated. RESPIRATORY: No accessory muscle use. Clear to auscultation. Breath sounds equal bilaterally. GASTROINTESTINAL: Abdomen soft, non-tender, nondistended. Hepatic and splenic margins not palpable. MUSCULOSKELETAL: Left BKA. No clubbing. No cyanosis. No edema. NEUROLOGICAL: Awake and alert. 4 out of 5 strength left upper extremity, remaining extremities 5 out of 5.. Motor grossly within normal limits. Normal speech. Stroke scale score 3, 2 for left arm motor function and 1 for sensory. PSYCHIATRIC: Appropriate mood and affect; insight and judgment normal. Course Initial Documented Vital Signs Temperature 97.9 F 04/03/18 14:22 Pulse Rate 62 04/03/18 14:22 Respiratory Rate 18 04/03/18 14:22 Blood Pressure 134/63 04/03/18 14:22 Pulse Oximetry 99 04/03/18 14:22 Last Documented Vital Signs Temperature 97.7 F 04/03/18 16:20 Pulse Rate 70 04/03/18 16:20 Respiratory Rate 16 04/03/18 16:20 Blood Pressure 148/70 H 04/03/18 16:20 Pulse Oximetry 99 04/03/18 16:20 Medical Decision Making [facility] Narrative Medical decision making narrative: Patient presents to the emergency department as a stroke alert for acute onset of left sided weakness peer patient placed on hospital monitor, continuous pulse ox, and IV access was obtained. Head CT, chest x-ray, EKG, labs ordered. Head CT was reported as no acute findings per radiology. Discussed case with Dr. Hernandez and MR brain and head and neck ordered as patient is allergic to CT contrast dye. pateint NOT a tPA candidate secondary to recent surgery. Labs: CBC wnl; fibrinogen/BUN/glucose increased; u/a-no evidence of infection CXR- No acute process Head CT: No acute process Neck MRA: CONCLUSION: 1. 20% stenosis involving the right ICA origin. The left carotid is patent.2. Patent vertebral arteries bilaterally.3. Bilateral subclavian artery stenoses. Head MRA: CONCLUSION: 1. Mild intracavernous ICA atherosclerotic disease. No acute abnormality. Head MRI: CONCLUSION: 1. No evidence of acute infarct, hemorrhage, mass or edema.2. Advanced cerebral white matter disease characteristic of chronic microvascular ischemic disease. Lab Data Result diagrams: 04/03/18 14:27 04/03/18 14:27 Lab Results 04/03/18 04/03/18 04/03/18 Range/Units 14:24 14:27 14:27 WBC 9.7 (4.0-11.0) th/mm3 RBC 4.32 L (4.50-5.90) mil/mm3 Hgb 13.5 (13.0-17.0) gm/dL POC Hgb (Calc) (13.0-17.0) g/dL Hct 38.2 L (39.0-51.0) % POC Hct (39-51.0) % MCV 88.5 (80.0-100.0) fL MCH 31.2 (27.0-34.0) pg MCHC 35.3 (32.0-36.0) % RDW 14.1 (11.6-17.2) % Plt Count 264 (150-450) th/mm3 MPV 8.8 (7.0-11.0) fL Neut % (Auto) 66.3 (16.0-70.0) % Lymph % (Auto) 21.6 (9.0-44.0) % [facility] % (Auto) 8.5 H (0.0-8.0) % Eos % (Auto) 2.6 (0.0-4.0) % Baso % (Auto) 1.0 (0.0-2.0) % Neut # (Auto) 6.4 (1.8-7.7) th/mm3 Lymph # (Auto) 2.1 (1.0-4.8) th/mm3 [facility] # (Auto) 0.8 (0.0-0.9) th/mm3 Eos # (Auto) 0.3 (0.0-0.4) th/mm3 Baso # (Auto) 0.1 (0.0-0.2) th/mm3 WBC Differential . Differential Comment Auto diff final PT 11.2 (9.8-11.6) sec INR 1.1 Ratio APTT 23.4 L (24.3-30.1) sec Fibrinogen 392 H (227-377) mg/dL POC Sodium (137-144) mmol/L Sodium (136-145) meq/L POC Potassium (3.6-5.0) mmol/L Potassium (3.5-5.1) meq/L POC Chloride (102-111) mmol/L Chloride (98-107) meq/L Carbon Dioxide (21.0-32.0) meq/L Anion Gap (5-15) meq/L POC BUN (5-21) mg/dL BUN (7-18) mg/dL Creatinine (0.60-1.30) mg/dL POC Creatinine (0.6-1.3) mg/dL Estimated GFR (>89) mL/min POC Glucose 239 H (68-110) mg/dl Random Glucose (74-106) mg/dL Calcium (8.5-10.1) mg/dL Total Creatine Kinase (39-308) U/L Troponin I (0.02-0.05) ng/mL Urine Color (Yellw/Straw) Urine Clarity (Clear) Urine pH (5.0-8.5) Ur Specific [place] (1.002-1.035) Urine Protein (Neg-Trace) mg/dL Urine Glucose (UA) (Negative) mg/dL Urine Ketones (Negative) mg/dL Urine Occult Blood (Negative) Urine Nitrate (Negative) Urine Bilirubin (Negative) Urine Urobilinogen (Less than 2) mg/dL Ur Leukocyte Esterase (Negative) Urine WBC (0-5) /hpf Hyaline Casts (0-3) /lpf Urine Mucus (Occasional) /lpf Micro UA Comment Urine Culture Comments Blood Type Blood Type Recheck Antibody Screen 04/03/18 04/03/18 04/03/18 Range/Units 14:27 14:27 15:00 WBC (4.0-11.0) th/mm3 RBC (4.50-5.90) mil/mm3 Hgb (13.0-17.0) gm/dL POC Hgb (Calc) 13.3 (13.0-17.0) g/dL Hct (39.0-51.0) % POC Hct 39.0 (39-51.0) % MCV (80.0-100.0) fL MCH (27.0-34.0) pg MCHC (32.0-36.0) % RDW (11.6-17.2) % Plt Count (150-450) th/mm3 MPV (7.0-11.0) fL Neut % (Auto) (16.0-70.0) % Lymph % (Auto) (9.0-44.0) % [facility] % (Auto) (0.0-8.0) % Eos % (Auto) (0.0-4.0) % Baso % (Auto) (0.0-2.0) % Neut # (Auto) (1.8-7.7) th/mm3 Lymph # (Auto) (1.0-4.8) th/mm3 [facility] # (Auto) (0.0-0.9) th/mm3 Eos # (Auto) (0.0-0.4) th/mm3 Baso # (Auto) (0.0-0.2) th/mm3 WBC Differential Differential Comment PT (9.8-11.6) sec INR Ratio APTT (24.3-30.1) sec Fibrinogen (227-377) mg/dL POC Sodium 140 (137-144) mmol/L Sodium 139 (136-145) meq/L POC Potassium 4.5 (3.6-5.0) mmol/L Potassium 4.4 (3.5-5.1) meq/L POC Chloride 100 L (102-111) mmol/L Chloride 104 (98-107) meq/L Carbon Dioxide 30.0 (21.0-32.0) meq/L Anion Gap 5 (5-15) meq/L POC BUN 20 (5-21) mg/dL BUN 19 H (7-18) mg/dL Creatinine 0.95 (0.60-1.30) mg/dL POC Creatinine 0.9 (0.6-1.3) mg/dL Estimated GFR 79 L (>89) mL/min POC Glucose 245 H (68-110) mg/dl Random Glucose 236 H (74-106) mg/dL Calcium 8.8 (8.5-10.1) mg/dL Total Creatine Kinase 63 (39-308) U/L Troponin I Less than 0.02 L (0.02-0.05) ng/mL Urine Color Yellow (Yellw/Straw) Urine Clarity Hazy H (Clear) Urine pH 5.0 (5.0-8.5) Ur Specific [place] 1.011 (1.002-1.035) Urine Protein Negative (Neg-Trace) mg/dL Urine Glucose (UA) 500 or greater (Negative) mg/dL Urine Ketones Negative (Negative) mg/dL Urine Occult Blood Negative (Negative) Urine Nitrate Negative (Negative) Urine Bilirubin Negative (Negative) Urine Urobilinogen Less than 2 (Less than 2) mg/dL Ur Leukocyte Esterase Negative (Negative) Urine WBC 1 (0-5) /hpf Hyaline Casts 7 (0-3) /lpf Urine Mucus Few H (Occasional) /lpf Micro UA Comment Cath-culture not ind Urine Culture Comments Cath-cult not ind Blood Type O Positive Blood Type Recheck Antibody Screen Negative Imaging Data Radiologist's impression: Chest X-Ray 04/03/18 14:27 CONCLUSION: No evidence of acute cardiopulmonary process. Head CT 04/03/18 14:27 CONCLUSION: 1. Cerebral white matter disease characteristic of chronic microvascular ischemic changes. 2. Stable evaluation of the brain without evidence of acute infarct, hemorrhage , mass or edema. Report was called by Dr. Bender to Dr. Alvarez at 1440. Head MRI 04/03/18 14:42 CONCLUSION: 1. No evidence of acute infarct, hemorrhage, mass or edema. 2. Advanced cerebral white matter disease characteristic of chronic microvascular ischemic disease. Head MRA 04/03/18 14:42 CONCLUSION: 1. Mild intracavernous ICA atherosclerotic disease. No acute abnormality. Neck MRA 04/03/18 14:42 CONCLUSION: 1. 20% stenosis involving the right ICA origin. The left carotid is patent. 2. Patent vertebral arteries bilaterally. 3. Bilateral subclavian artery stenoses. Percent stenosis is calculated using the diameter of the stenotic region over the diameter of the normal distal internal carotid artery ECG Data Attestation: I personally reviewed and interpreted this ECG as follows: (Sinus rhythm, rate 70, left axis deviation, inversion in lead III and V1, Q-wave in lead V3, right bundle branch block,) Discharge Plan Discharge Disposition Patient Disposition: 30 Still Patient Discharge Condition Condition: Stable Discharge Details Diagnosis: Weakness Physicians Team ED Provider: Caitlin Alvarez Primary Care Provider: David Chávez Other Providers: Chaim Odonnell Rxs /Orders / Referrals /Forms Prescriptions: No Action atorvastatin 80 mg Tablet 80 mg PO HS RF: 0 aspirin 81 mg Tablet,Delayed Release (Dr/Ec) 81 mg PO DAILY RF: 0 gabapentin 300 mg Capsule 600 mg PO TID RF: 0 folic acid 1 mg Tablet 1 mg PO DAILY RF: 0 cholecalciferol (vitamin D3) 1,000 unit Tablet,Chewable 2,000 unit PO DAILY RF: 0 vitamin B complex Capsule 1,000 units PO DAILY RF: 0 insulin aspart U-100 [Novolog U-100 Insulin aspart] 100 unit/mL Solution 5 units Sub-Q TIDAC 30 Days RF: 0 insulin detemir U-100 [Levemir U-100 Insulin] 100 unit/mL Solution 12 unit Sub-Q HS 30 Days Qty: 3.6 RF: 0 hydrocodone-acetaminophen [[place]] 7.5-325 mg Tablet 1 tab PO Q4H PRN (Reason: Acute Pain) Qty: 10 RF: 0 lisinopril 10 mg Tablet 10 mg PO DAILY 30 Days Qty: 30 RF: 0 amlodipine [Norvasc] 2.5 mg Tablet 2.5 mg PO DAILY Qty: 30 RF: 0 difluprednate [Durezol] 0.05 % Drops 1 drp OPHTHALMIC (EYE) QID RF: 0 sertraline [Zoloft] 100 mg Tablet 150 mg PO HS RF: 0 clopidogrel [Plavix] 75 mg Tablet 75 mg PO DAILY Qty: 30 RF: 0 Status ED Status: With Doctor
--- NOTE | 2018-04-03 15:26 | XR ---
EXAM DATE: 04/03/2018 3:21 PM EDT AGE/SEX: 67 years / Male INDICATIONS: Stroke alert. CLINICAL DATA: This is the patient's initial encounter. Patient reports that signs and symptoms have been present for 1 day and indicates a pain score of Nonresponsive. MEDICAL/SURGICAL HISTORY: Non-responsive. Non-responsive. COMPARISON: [facility], CHEST 1V SINGLE AP, 03/30/2018. . FINDINGS: Lungs are hypoaerated but otherwise clear. Heart and mediastinal structures are unremarkable. Osseous structures are intact. CONCLUSION: No evidence of acute cardiopulmonary process. Electronically signed by: Rigo Bender MD 04/03/2018 3:25 PM EDT
[2018-04-03 15:29] LABS: Anion Gap 5 meq/L (5-15); Blood Urea Nitrogen 19 mg/dL (7-18); Calcium 8.8 mg/dL (8.5-10.1); Chloride 104 meq/L (98-107); Creatine Kinase 63 U/L (39-308); Glomerular Filtration Rate 79 mL/min (>89); Glucose,Random 236 mg/dL (74-106); Potassium 4.4 meq/L (3.5-5.1); Sodium 139 meq/L (136-145)
[2018-04-03 15:32] LABS: Bilirubin,Urine Negative (Negative); Clarity,Urine Hazy (Clear); Color,Urine Yellow (Yellw/Straw); Glucose,Urine (UA) 500 or Greater mg/dL (Negative); Hyaline Casts,Urine 7 /lpf (0-3); Leukocyte Esterase,Urine Negative (Negative); Mucus,Urine Few /lpf (Occasional); Nitrite,Urine Negative (Negative); Specific Gravity,Urine 1.011 (1.002-1.035)
--- NOTE | 2018-04-03 15:59 | MR ---
EXAM DATE: 04/03/2018 3:54 PM EDT AGE/SEX: 67 years / Male INDICATIONS: CVA. Left sided weakness. CLINICAL DATA: This is the patient's initial encounter. Patient reports that signs and symptoms have been present for 1 day and indicates a pain score of 0/10. MEDICAL/SURGICAL HISTORY: Hypertension. Inguinal hernia repair. Amputation left leg. COMPARISON: [facility], MRA HEAD W/O CONTRAST, 04/03/2018. . TECHNIQUE: Multiplanar, multisequence examination of the brain was performed without and with 10 ml G adavist (gadobutrol) contrast as a single exam dose. FINDINGS: Cerebrum: The ventricles are normal for age. No evidence of midline shift, mass lesion, hemorrhage or acute infarction. No extraaxial fluid collections are seen. The pituitary gland and suprasellar cistern are normal in configuration. White Matter: Advanced signal abnormalities are seen in the white matter. There are periventricular and deep white matter confluent T2 hyperintensities. Posterior Fossa: The cerebellum and brainstem are intact. The 4th ventricle is midline. The cerebel lopontine angle is unremarkable. The cerebellar tonsils are normal in position. Diffusion Imaging: No focal areas of restricted diffusion are seen. No evidence of acute infarction . Extracranial: The visualized portions of the orbits and paranasal sinuses are unremarkable. Post Contrast: No abnormal areas of parenchymal or dural enhancement. No evidence of blood-brain ba rrier breakdown. CONCLUSION: 1. No evidence of acute infarct, hemorrhage, mass or edema. 2. Advanced cerebral white matter disease characteristic of chronic microvascular ischemic disease. Electronically signed by: Rigo Bender MD 04/03/2018 3:57 PM EDT
--- NOTE | 2018-04-03 16:06 | MR ---
EXAM DATE: 04/03/2018 3:53 PM EDT AGE/SEX: 67 years / Male INDICATIONS: Left sided weakness. CLINICAL DATA: This is the patient's initial encounter. Patient reports that signs and symptoms have been present for 1 day and indicates a pain score of 0/10. MEDICAL/SURGICAL HISTORY: Hypertension. Inguinal hernia repair. Amputation left lower leg. COMPARISON: [facility] [place], MR HEAD W & W/O CONTRAST, 04/03/2018.. . TECHNIQUE: 3D [id number] MRA was performed. Source images, multiplanar STS MIP, and 3D volum e MIP reconstructions were reviewed. FINDINGS: There is excellent visualization of the major intracranial arteries out to the second-order branch ve ssels. Variant anatomy with persistent circulation involving the right. Atherosclerotic diseas e is seen involving the intercavernous ICAs bilaterally but more pronounced on the left. No hemodynam ically significant stenosis observed. There is no evidence for aneurysm, vessel truncation or evidenc e for vascular malformation. CONCLUSION: 1. Mild intracavernous ICA atherosclerotic disease. No acute abnormality. Electronically signed by: Siva Orlando MD 04/03/2018 4:05 PM EDT
--- NOTE | 2018-04-03 16:24 | MR ---
EXAM DATE: 04/03/2018 4:08 PM EDT AGE/SEX: 67 years / Male INDICATIONS: Stroke. Left sided weakness. CLINICAL DATA: This is the patient's initial encounter. Patient reports that signs and symptoms have been present for 1 day and indicates a pain score of 0/10. MEDICAL/SURGICAL HISTORY: Hypertension. Inguinal hernia repair. Amputation left leg. COMPARISON: [facility] [place] W CONTRAST, 03/30/2018.. . TECHNIQUE: 10 ml Gadavist (gadobutrol) contrast infused MRA (single exam dose) of the extracranial circulation was performed using a neurovascular coil. Postprocessing was performed, including rotati ng sub-volume maximum intensity projections of each carotid artery, rotating full-volume maximum inte nsity projections of both carotid arteries, sagittal and coronal sliding thin-slab reformations of ea ch carotid artery, and left oblique sliding thin-slab reformation through the aortic arch to include the origin of the arch branch vessels. FINDINGS: Aortic Arch : There is a three-vessel origin of the great vessels from the aorta. Atherosclerotic p laque is seen involving the left subclavian artery. This extends from its origin through the left zeeshan tebral artery origin. Multiple areas of luminal narrowing are observed throughout the left subclavian artery most pronounced just distal to the origin. This is ulcerated and measures 50%. A 40-50% steno sis is seen just distal to the left vertebral artery origin. There is a 50% luminal narrowing involvi ng the origin of the right subclavian artery secondary to a nonulcerated plaque. There is mild postst enotic dilatation observed. Right Carotid : Atherosclerotic plaque is seen involving the proximal ICA. Utilizing NASCET criteria this generates a 20% stenosis. No appreciable ulceration. The more cephalad portion of the extracran ial ICA is patent. The ECA and CCA are patent. Left Carotid : The common carotid artery is intact. The carotid bulb has a normal configuration wit hout ulceration or narrowing. The internal carotid artery lumen is smooth without stenosis. The ext ernal carotid artery is intact. Vertebrals : The vertebral arteries have a symmetric diameter. No stenotic lesions are seen. CONCLUSION: 1. 20% stenosis involving the right ICA origin. The left carotid is patent. 2. Patent vertebral arteries bilaterally. 3. Bilateral subclavian artery stenoses. Percent stenosis is calculated using the diameter of the stenotic region over the diameter of the nor mal distal internal carotid artery Electronically signed by: Siva Orlando MD 04/03/2018 4:23 PM EDT
[2018-04-03] MEDS ORDERED: Bisacodyl 10 MG Supp RECTAL PRN (17:15)
[2018-04-03] MEDS ORDERED: Acetaminophen 325 MG Tablet PO PRN (17:15)
[2018-04-03] MEDS ORDERED: Dextrose 50% in Water 50 ML Vial IV.PUSH PRN (17:21)
[2018-04-03] MEDS: Gabapentin 300 MG Capsule PO SCH (18:16)
[2018-04-03] MEDS: Sod Chloride 0.9% Inj 1,000 ML IV.CONT SCH (18:16)
--- NOTE | 2018-04-03 18:17 | P.HP ---
History of Present Illness Primary Care Physician: David Chávez MD Chief Complaint: ALTERED MENTAL STATUS AND LEFT SIDED WEAKNESS History of Present Illness: Mr. Coelho is a 67-year-old white male with significant past medical history of coronary artery disease, peripheral neuropathy, depression, type 2 diabetes, CAD , peripheral arterial disease status post left below-knee amputation. Patient presented to the emergency room from local [facility] with altered mental status and left-sided weakness that started approximately 45 minutes prior to ER arrival. Patient had a recent admission for same symptoms on April 01, 2018. At that time he was admitted and had extensive workup and was seen by neurology. During that event, he received Narcan and it was thought that his altered mental status was due to narcotic. Patient is unable to provide any information , he is confused and according to family this has been an ongoing problem in the last couple of weeks. endorses that these episodes have happened before and they are usually with physical therapy. Patient was sitting when he suddenly slumped. According to the it was reported to her that he had sudden onset of left-sided weakness and possibly a left facial droop. She was told that blood pressure was low, however no information is found to confirm this. During his prior evaluation, patient had neuro workup that included an echo showing EF of 55%. Holter monitor was done showing sinus rhythm, no episodes of atrial fibrillation. Patient was continued on Plavix and told to continue on aspirin for 3 days and then discontinue. Patient has been compliant with medications. According to nursing report, he did have Vidalia this morning. This time patient was awake alert when he arrived in the emergency room. There was some weakness noted on LUE but that has resolved now. Stroke scale was 3. Patient has been evaluated by Dr. Ayala and yoga coordinator. Imaging studies have been completed and so far are negative. Laboratory workup is essentially unremarkable. Urinalysis does not reveal any evidence of infection. At this time, patient knows he is in the hospital unable to recall name, provides city, year, month. He is not really clear as to what happened but remember that he was at PT around 12 noon. Denies any preceding symptoms such as dizziness, changes in patient's, no paresthesias. Patient is admitted for further evaluation and treatment. - Diagnosis (1) Altered mental status (2) Left-sided weakness (3) PAD (peripheral artery disease) (4) CAD (coronary artery disease) (5) Diabetes (6) Neuropathy (7) Depression Review of Systems All other systems reviewed negative except as stated in HPI (unreliable, pt. confused ) PMFSH - History History Provided By: Patient - Medical History Medical History: Medical History (Last Reviewed 04/03/18 @ 18:12 by VINAYAK Dubon) ACS (acute coronary syndrome) Anxiety Diabetes HBP (high blood pressure) Hypercholesterolemia Neuropathy - Surgical History Surgical History: Surgical History (Last Reviewed 04/03/18 @ 18:12 by VINAYAK Dubon) Amputation of left lower extremity below knee - Tobacco History Second Hand Smoke Exposure: No Tobacco Use In Past 30 Days: No Smoking Status: Former smoker (quit 30 years ago.) Tobacco Type: Cigarettes - Alcohol History How Often Do You Have a Drink Containing Alcohol: Never - Substance Use History Substance History: No History of Abuse - Travel History Recent Travel in the [place] Within the Last 8 Weeks: No Recent Travel Out of the Country Within the Last 8 Weeks: No - Immunization History Tetanus Immunization: >5 Years Hx Influenza Vaccine This Season: Yes Medications and Allergies Active Medications: Active Medications Acetaminophen (Tylenol) 650 mg PO Q4H PRN PRN Reason: Temp > 100.4 Al Hydroxide/Mg Hydroxide (Milk Of Magnesia Liq) 30 ml PO Q12H PRN PRN Reason: Mild Constipation Aspirin (Ecotrin) 81 mg PO DAILY [facility]EL Atorvastatin Calcium (Lipitor) 80 mg PO HS [facility]IBEL Bisacodyl (Dulcolax Supp) 10 mg RECTAL DAILY PRN PRN Reason: SEVERE CONSITIPATION Clopidogrel Bisulfate (Plavix) 75 mg PO DAILY [facility]EL Dextrose (D50w Vial) 50 ml IV.PUSH UNSCH PRN PRN Reason: PER HYPOGLYCEMIA PROTOCOL Enoxaparin Sodium (Lovenox Inj) 40 mg SQ Q24H [facility]EL Folic Acid (Folic Acid) 1 mg PO DAILY [facility]EL Gabapentin (Neurontin) 600 mg PO TID [facility] Glucagon (Glucagon Inj) 1 mg OTHER PRN PRN PRN Reason: for Hypoglycemia Protocol Sodium Chloride (Ns Inj) 1,000 mls @ 100 mls/hr IV.CONT .Q10H [facility]EL Insulin Detemir (Levemir Inj) 12 unit SQ HS MAR[facility]EL Insulin Human Regular (Novolin R Correctional Sugar Inj) 0 units SQ ACHS MARIBEL; Protocol Lactulose (Lactulose Liq) 30 ml PO DAILY PRN PRN Reason: SEVERE CONSITIPATION Lisinopril (Prinivil) 10 mg PO DAILY [facility] Non-Formulary Medication (Amlodipine [Norvasc]) 2.5 mg PO DAILY [facility] Non-Formulary Medication (Difluprednate [Durezol]) 1 drp EACH EYE QID [facility] Non-Formulary Medication (Vitamin B Complex [Vitamin B Complex]) 1,000 units PO DAILY [facility] Ondansetron HCl (Zofran Inj) 4 mg IV.PUSH Q6H PRN PRN Reason: NAUSEA OR VOMITING Senna/Docusate Sodium (Maggie-Colace) 1 tab PO BID [facility] Sennosides (Senokot) 17.2 mg PO Q12H PRN PRN Reason: Moderate Constipation Sertraline HCl (Zoloft) 150 mg PO [facility] Allergies Allergy/AdvReac Type Severity Reaction Status Date / Time Iodinated Contrast- Oral and Allergy Intermediate Swelling Verified 04/03/18 15: 21 IV Dye Home Medications Medication Instructions Recorded Confirmed Type aspirin 81 mg PO DAILY 03/05/18 04/03/18 History atorvastatin 80 mg PO HS 03/05/18 04/03/18 History cholecalciferol (vitamin D3) 2,000 unit PO DAILY 03/05/18 04/03/18 History folic acid 1 mg PO DAILY 03/05/18 04/03/18 History gabapentin 600 mg PO TID 03/05/18 04/03/18 History vitamin B complex 1,000 units PO DAILY 03/05/18 04/03/18 History difluprednate [Durezol] 1 drp OPHTHALMIC (EYE) QID 03/30/18 04/03/18 History sertraline [Zoloft] 150 mg PO HS 03/30/18 04/03/18 History Exam Vital signs: Vital Signs 04/03/18 14:22 04/03/18 14:27 04/03/18 15:20 Temperature 97.9 F 97.8 F Pulse Rate 62 64 67 Respiratory Rate 18 18 Blood Pressure 134/63 129/66 Pulse Oximetry 99 99 99 04/03/18 16:20 Temperature 97.7 F Pulse Rate 70 Respiratory Rate 16 Blood Pressure 148/70 H Pulse Oximetry 99 Intake & Output 04/02/18 04/03/18 04/03/18 18:59 06:59 18:59 Output Total 500 / 500 Balance -500 / -500 Weight 71.6 kg Output: Urine 500 / 500 Other: # Voids 2 Narrative: GENERAL: 67-year-old chronically ill-appearing male. SKIN: Warm and dry. HEAD: Atraumatic. Normocephalic. EYES: Pupils equal and round, 2 mm and pinpoint. No scleral icterus. No injection or drainage. ENT: No nasal bleeding or discharge. Mucous membranes pink and moist. NECK: Trachea midline. No JVD. CARDIOVASCULAR: Regular rate and rhythm. RESPIRATORY: No accessory muscle use. Clear to auscultation. Breath sounds equal bilaterally. GASTROINTESTINAL: Abdomen soft, non-tender, nondistended. Hepatic and splenic margins not palpable. MUSCULOSKELETAL: Left below-knee amputation, there are sutures in place are intact, no evidence of dehiscence. NEUROLOGICAL:Patient is awake, oriented 23. Poor historian. Follow simple commands. Speech is normal. Bilateral upper extremity strength is 3-4 out of 5. Right lower extremity strength 3-4 out of 5. No ataxia with finger to nose PSYCHIATRIC: Appropriate mood and affect; insight and judgment normal. Results - Labs CBC & Chem 7: 04/03/18 14:27 04/03/18 14:27 Labs: Laboratory Results - last 24 hr 04/03/18 04/03/18 04/03/18 14:24 14:27 14:27 WBC 9.7 RBC 4.32 L Hgb 13.5 POC Hgb (Calc) Hct 38.2 L POC Hct MCV 88.5 MCH 31.2 MCHC 35.3 RDW 14.1 Plt Count 264 MPV 8.8 Neut % (Auto) 66.3 Lymph % (Auto) 21.6 [place] % (Auto) 8.5 H Eos % (Auto) 2.6 Baso % (Auto) 1.0 Neut # (Auto) 6.4 Lymph # (Auto) 2.1 [place] # (Auto) 0.8 Eos # (Auto) 0.3 Baso # (Auto) 0.1 WBC Differential . Differential Comment Auto diff final PT 11.2 INR 1.1 APTT 23.4 L Fibrinogen 392 H POC Sodium Sodium POC Potassium Potassium POC Chloride Chloride Carbon Dioxide Anion Gap POC BUN BUN Creatinine POC Creatinine Estimated GFR POC Glucose 239 H Random Glucose Calcium Total Creatine Kinase Troponin I Urine Color Urine Clarity Urine pH Ur Specific [place] Urine Protein Urine Glucose (UA) Urine Ketones Urine Occult Blood Urine Nitrate Urine Bilirubin Urine Urobilinogen Ur Leukocyte Esterase Urine WBC Hyaline Casts Urine Mucus Micro UA Comment Urine Culture Comments Blood Type Blood Type Recheck Antibody Screen 04/03/18 04/03/18 04/03/18 14:27 14:27 15:00 WBC RBC Hgb POC Hgb (Calc) 13.3 Hct POC Hct 39.0 MCV MCH MCHC RDW Plt Count MPV Neut % (Auto) Lymph % (Auto) [place] % (Auto) Eos % (Auto) Baso % (Auto) Neut # (Auto) Lymph # (Auto) [place] # (Auto) Eos # (Auto) Baso # (Auto) WBC Differential Differential Comment PT INR APTT Fibrinogen POC Sodium 140 Sodium 139 POC Potassium 4.5 Potassium 4.4 POC Chloride 100 L Chloride 104 Carbon Dioxide 30.0 Anion Gap 5 POC BUN 20 BUN 19 H Creatinine 0.95 POC Creatinine 0.9 Estimated GFR 79 L POC Glucose 245 H Random Glucose 236 H Calcium 8.8 Total Creatine Kinase 63 Troponin I Less than 0.02 L Urine Color Yellow Urine Clarity Hazy H Urine pH 5.0 Ur Specific [place] 1.011 Urine Protein Negative Urine Glucose (UA) 500 or greater Urine Ketones Negative Urine Occult Blood Negative Urine Nitrate Negative Urine Bilirubin Negative Urine Urobilinogen Less than 2 Ur Leukocyte Esterase Negative Urine WBC 1 Hyaline Casts 7 Urine Mucus Few H Micro UA Comment Cath-culture not ind Urine Culture Comments Cath-cult not ind Blood Type O Positive Blood Type Recheck Antibody Screen Negative - Imaging Impressions Chest X-Ray 04/03/18 14:27 CONCLUSION: No evidence of acute cardiopulmonary process. Head CT 04/03/18 14:27 CONCLUSION: 1. Cerebral white matter disease characteristic of chronic microvascular ischemic changes. 2. Stable evaluation of the brain without evidence of acute infarct, hemorrhage , mass or edema. Report was called by Dr. Bender to Dr. Alvarez at 1440. Head MRI 04/03/18 14:42 CONCLUSION: 1. No evidence of acute infarct, hemorrhage, mass or edema. 2. Advanced cerebral white matter disease characteristic of chronic microvascular ischemic disease. Head MRA 04/03/18 14:42 CONCLUSION: 1. Mild intracavernous ICA atherosclerotic disease. No acute abnormality. Neck MRA 04/03/18 14:42 CONCLUSION: 1. 20% stenosis involving the right ICA origin. The left carotid is patent. 2. Patent vertebral arteries bilaterally. 3. Bilateral subclavian artery stenoses. Percent stenosis is calculated using the diameter of the stenotic region over the diameter of the normal distal internal carotid artery [place] VTE Risk Assessment Mariani VTE Risk Assessment: Moderate/High Risk (score >= 2) Caprini Risk Assessment Model: Point Value = 1 Point Value = 2 Point Value = 3 Point Value = 5 Age 41-60 Minor surgery BMI > 25 kg/m2 Swollen legs Varicose veins or History of unexplained or recurrent spontaneous Oral contraceptives or hormone replacement Sepsis (< 1 month) Serious lung disease, including pneumonia (< 1 month) Abnormal pulmonary function Acute myocardial infarction Congestive heart failure (< 1 month) History of inflammatory bowel disease Medical patient at bed rest Age 61-74 Arthroscopic surgery Major open surgery (> 45 min) Laparoscopic surgery (> 45 min) Malignancy Confined to bed (> 72 hours) Immobilizing plaster cast Central venous access Age >= 75 History of VTE Family history of VTE Factor V Leiden Prothrombin [id number] Lupus anticoagulant Anticardiolipin antibodies Elevated serum homocysteine Heparin-induced thrombocytopenia Other congenital or acquired thrombophilia Stroke (< 1 month) Elective arthroplasty Hip, pelvis, or leg fracture Acute spinal cord injury (< 1 month) Prophylaxis Regimen: Total Risk Factor Score Risk Level Prophylaxis Regimen 0-1 Low Early ambulation 2 Moderate Order ONE of the following: *Sequential Compression Device (SCD) *Heparin 5000 units SQ BID 3-4 Higher Order ONE of the following medications: *Heparin 5000 units SQ TID *Enoxaparin/Lovenox 40 mg SQ daily (WT < 150 kg, CrCl > 30 mL/min) *Enoxaparin/Lovenox 30 mg SQ daily (WT < 150 kg, CrCl > 10-29 mL/min) *Enoxaparin/Lovenox 30 mg SQ BID (WT < 150 kg, CrCl > 30 mL/min) AND/OR *Sequential Compression Device (SCD) 5 or more Highest Order ONE of the following medications: *Heparin 5000 units SQ TID (Preferred with Epidurals) *Enoxaparin/Lovenox 40 mg SQ daily (WT < 150 kg, CrCl > 30 mL/min) *Enoxaparin/Lovenox 30 mg SQ daily (WT < 150 kg, CrCl > 10-29 mL/min) *Enoxaparin/Lovenox 30 mg SQ BID (WT < 150 kg, CrCl > 30 mL/min) AND *Sequential Compression Device (SCD) Assessment and Plan - Assessment (1) Altered mental status Code(s): R41.82 - Altered mental status, unspecified Status: Acute (2) Left-sided weakness Code(s): R53.1 - Weakness Status: Acute (3) PAD (peripheral artery disease) Code(s): I73.9 - Peripheral vascular disease, unspecified Status: Chronic (4) CAD (coronary artery disease) Code(s): I25.10 - Atherosclerotic heart disease of [place] coronary artery without angina pectoris Status: Chronic (5) Diabetes Code(s): E11.9 - Type 2 diabetes mellitus without complications Status: Chronic (6) Neuropathy Code(s): G62.9 - Polyneuropathy, unspecified Status: Chronic (7) Depression Code(s): F32.9 - Major depressive disorder, single episode, unspecified Status : Chronic - Plan This is a 67 white male with hx of PAD, 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 presented to the emergency room with recurrent episode of altered mental status and left-sided weakness. Patient had a similar episode on April 01 and had extensive neuro workup with negative findings. Prior episode was thought to be due to narcotics, he responded after Narcan was given. Altered mental status with left-sided weakness, imaging studies completed revealed no acute findings. Does not appear to be correlated with narcotic use , he did not required Narcan this time. Left-sided weakness appears to have resolved. -Neurochecks every 4 hours -Neurology consultation, case was discussed with Dr. Ayala. He will check a cervical spine MRI. -Continue with aspirin and Plavix -Permissive hypertension for 24 hours -Normal saline at 75 an hour -We will consult PT for evaluation in the morning -Continue statin -No need for 2D echo, EEG, Holter, and carotid ultrasound as patient had recent extensive workup. -We will check orthostatics every shift -Hold narcotics for now PAD, history of gangrene, status post left BKA -Monitor left BKA stump, still has sutures in place. Insulin-dependent diabetes -Accu-Cheks before meals and at bedtime with insulin therapy per sliding scale -1800 ADA diet Hypertension -Continue lisinopril 10 mg p.o. daily Neuropathy -Continue gabapentin 600 mg p.o. 3 times daily Depression -Continue Zoloft 150 mg p.o. nightly Lovenox for DVT prophylaxis Plan of care has been discussed with patient, daughter and , their questions have been answered in detail. Plan of care discussed with RN and Dr. Steinberg. Further management of the patient will be dependent on hospital course (1) Altered mental status Qualifiers: Altered mental status type: transient alteration of awareness Qualified Code( s): R40.4 - Transient alteration of awareness (4) CAD (coronary artery disease) Qualifiers: Coronary Disease-Associated Artery/Lesion type: unspecified vessel or lesion type Associated angina: without angina (5) Diabetes Qualifiers: Diabetes mellitus type: type 2 Diabetes mellitus manager long term care insulin use: unspecified skilled nursing insulin use status Diabetes mellitus complication status : with circulatory complication Diabetes mellitus complication detail: with peripheral angiopathy without gangrene Qualified Code(s): E11.51 - Type 2 diabetes mellitus with diabetic peripheral angiopathy without gangrene (7) Depression Qualifiers: Depression Type: unspecified Qualified Code(s): F32.9 - Major depressive disorder, single episode, unspecified
[2018-04-03] MEDS: Enoxaparin Inj 40 MG/0.4 ML Syringe SQ SCH (19:23)
[2018-04-03] MEDS: Sertraline 100 MG Tablet PO SCH (22:12)
[2018-04-03] MEDS: Senna/Docusate Sodium 8.6/50 MG Tablet PO SCH (22:12)
[2018-04-03] MEDS: Insulin NovoLIN Regular Correctional Sugar Inj SQ SCH (22:13)
[2018-04-03] MEDS: Insulin Detemir Inj 1,000 UNIT/10 ML Vial SQ SCH (22:13)
[2018-04-03] MEDS: DIFLUPREDNATE EACH EYE SCH (22:15)
[2018-04-04 00:55] LABS: Amphetamine Screen,Urine Neg (Neg); Barbiturate Screen,Urine Neg (Neg); Cannabinoid Screen,Urine Neg (Neg); Cocaine Screen,Urine Neg (Neg)
[2018-04-04 01:13] LABS: Opiate Screen,Urine Neg (Neg)
[2018-04-04] MEDS: Sod Chloride 0.9% Inj 1,000 ML IV.CONT SCH (04:19)
[2018-04-04] MEDS: Senna/Docusate Sodium 8.6/50 MG Tablet PO SCH ×2 (08:10→20:36)
[2018-04-04] MEDS: Vitamin B Complex/Vitamin C Tablet PO SCH (08:10)
[2018-04-04] MEDS: Folic Acid 1 MG Tablet PO SCH (08:11)
[2018-04-04] MEDS: Lisinopril 10 MG Tablet PO SCH (08:11)
[2018-04-04] MEDS: Gabapentin 300 MG Capsule PO SCH ×3 (08:11→17:09)
[2018-04-04] MEDS: amLODIPine 5 MG Tablet PO SCH (08:13)
[2018-04-04] MEDS: Insulin NovoLIN Regular Correctional Sugar Inj SQ SCH ×4 (08:13→20:44)
[2018-04-04] MEDS: DIFLUPREDNATE EACH EYE SCH ×4 (08:16→20:37)
--- NOTE | 2018-04-04 08:50 | ECG ---
Date Performed: 04/03/2018 Time Performed: 15:00:58 PTAGE: 67 years EKG: Sinus rhythm POSSIBLE LEFT ATRIAL ENLARGEMENT RIGHT BUNDLE BRANCH BLOCK LEFT ANTERIOR FASCICULAR BLOCK ABNORMAL E CG PREVIOUS TRACING : 03/30/2018 12.16 DOCTOR: Win Barksdale Interpretating Date/Time 04/04/2018 08:48:23
--- NOTE | 2018-04-04 09:40 | P.PNNEU ---
Subjective Subjective Comments: No acute events reported Active Medications: Active Medications Acetaminophen (Tylenol) 650 mg PO Q4H PRN PRN Reason: Temp > 100.4 Al Hydroxide/Mg Hydroxide (Milk Of Magnesia Liq) 30 ml PO Q12H PRN PRN Reason: Mild Constipation Amlodipine Besylate (Norvasc) 2.5 mg PO DAILY [facility] Last Admin: 04/04/18 08:13 Dose: 2.5 mg Aspirin (Ecotrin) 81 mg PO DAILY [facility] Last Admin: 04/04/18 08:00 Dose: 81 mg Atorvastatin Calcium (Lipitor) 80 mg PO HS [facility] Last Admin: 04/03/18 22:12 Dose: 80 mg Bisacodyl (Dulcolax Supp) 10 mg RECTAL DAILY PRN PRN Reason: SEVERE CONSITIPATION Clopidogrel Bisulfate (Plavix) 75 mg PO DAILY [facility] Last Admin: 04/04/18 08:10 Dose: 75 mg Dextrose (D50w Vial) 50 ml IV.PUSH UNSCH PRN PRN Reason: PER HYPOGLYCEMIA PROTOCOL Enoxaparin Sodium (Lovenox Inj) 40 mg SQ Q24H [facility] Last Admin: 04/03/18 19:23 Dose: 40 mg Folic Acid (Folic Acid) 1 mg PO DAILY [facility] Last Admin: 04/04/18 08:11 Dose: 1 mg Gabapentin (Neurontin) 600 mg PO TID [facility] Last Admin: 04/04/18 08:11 Dose: 600 mg Glucagon (Glucagon Inj) 1 mg OTHER PRN PRN PRN Reason: for Hypoglycemia Protocol Sodium Chloride (Ns Inj) 1,000 mls @ 100 mls/hr IV.CONT .Q10H [facility] Last Admin: 04/04/18 04:19 Dose: 100 mls/hr Insulin Detemir (Levemir Inj) 12 unit SQ [facility] Last Admin: 04/03/18 22:13 Dose: 12 unit Insulin Human Regular (Novolin R Correctional Sugar Inj) 0 units SQ [facility]; Protocol Last Admin: 04/04/18 08:13 Dose: Not Given Lactulose (Lactulose Liq) 30 ml PO DAILY PRN PRN Reason: SEVERE CONSITIPATION Lisinopril (Prinivil) 10 mg PO DAILY [facility] Last Admin: 04/04/18 08:11 Dose: 10 mg Ondansetron HCl (Zofran Inj) 4 mg IV.PUSH Q6H PRN PRN Reason: NAUSEA OR VOMITING Patient Own Medication ( Difluprednate [ Durezol] 1 Drp) 0 each EACH EYE QID [facility] Last Admin: 04/04/18 08:16 Dose: Not Given Senna/Docusate Sodium (Maggie-Colace) 1 tab PO BID [facility] Last Admin: 04/04/18 08:10 Dose: 1 tab Sennosides (Senokot) 17.2 mg PO Q12H PRN PRN Reason: Moderate Constipation Sertraline HCl (Zoloft) 150 mg PO [facility] Last Admin: 04/03/18 22:12 Dose: 150 mg Vitamin B Complex/Vitamin C (Allbee C) 1 tab PO DAILY [facility] Last Admin: 04/04/18 08:10 Dose: 1 tab Allergies/Adverse Reactions: Allergies Allergy/AdvReac Type Severity Reaction Status Date / Time Iodinated Contrast- Oral and Allergy Intermediate Swelling Verified 04/03/18 15: 21 IV Dye Physical Exam Vital signs: Vital Signs 04/03/18 14:22 04/03/18 14:27 04/03/18 15:20 Temperature 97.9 F 97.8 F Pulse Rate 62 64 67 Respiratory Rate 18 18 Blood Pressure 134/63 129/66 Pulse Oximetry 99 99 99 04/03/18 16:20 04/03/18 17:15 04/03/18 18:02 Temperature 97.7 F 97.8 F 97.8 F Pulse Rate 70 66 66 Respiratory Rate 16 17 17 Blood Pressure 148/70 H 142/79 H 142/79 H Pulse Oximetry 99 99 99 04/03/18 19:33 04/03/18 20:00 04/03/18 23:44 Temperature 98.2 F 98.2 F Pulse Rate 78 90 83 Respiratory Rate 20 18 18 Blood Pressure 141/62 H 122/66 177/84 H Pulse Oximetry 96 96 95 04/04/18 00:00 04/04/18 03:38 04/04/18 04:00 Temperature 97.6 F Pulse Rate 86 69 72 Respiratory Rate 18 Blood Pressure 170/83 H Pulse Oximetry 97 04/04/18 08:00 04/04/18 08:34 04/04/18 09:25 Temperature 98.0 F Pulse Rate 70 68 Respiratory Rate 16 Blood Pressure 159/75 H 125/74 Pulse Oximetry 100 98 99 Intake & Output 04/03/18 04/04/18 04/04/18 18:59 06:59 18:59 Intake Total 1000 / 1000 Output Total 500 / 500 350 / 350 Balance -500 / -500 1000 / 1000 -350 / -350 Weight 71.6 kg Intake: IV 1000 / 1000 NS Inj 1,000 ML @ 100 mls/hr IV 1000 / 1000 .CONT .Q10H [facility] Rx#:[id number] Output: Urine 500 / 500 350 / 350 Other: # Voids 2 Narrative: lue 5/5 now face sym nl speech Objective Laboratory Results - last 24 hr 04/03/18 04/03/18 04/03/18 05:15 14:24 14:27 WBC 9.7 RBC 4.32 L Hgb 13.5 POC Hgb (Calc) Hct 38.2 L POC Hct MCV 88.5 MCH 31.2 MCHC 35.3 RDW 14.1 Plt Count 264 MPV 8.8 Neut % (Auto) 66.3 Lymph % (Auto) 21.6 [place] % (Auto) 8.5 H Eos % (Auto) 2.6 Baso % (Auto) 1.0 Neut # (Auto) 6.4 Lymph # (Auto) 2.1 [place] # (Auto) 0.8 Eos # (Auto) 0.3 Baso # (Auto) 0.1 WBC Differential . Differential Comment Auto diff final PT INR APTT Fibrinogen POC Sodium Sodium POC Potassium Potassium POC Chloride Chloride Carbon Dioxide Anion Gap POC BUN BUN Creatinine POC Creatinine Estimated GFR POC Glucose 239 H Random Glucose Calcium Total Creatine Kinase Troponin I Urine Color Urine Clarity Urine pH Ur Specific [place] Urine Protein Urine Glucose (UA) Urine Ketones Urine Occult Blood Urine Nitrate Urine Bilirubin Urine Urobilinogen Ur Leukocyte Esterase Urine WBC Hyaline Casts Urine Mucus Micro UA Comment Urine Culture Comments Urine Opiates Screen Neg Ur Barbiturates Screen Neg Ur Amphetamines Screen Neg U Benzodiazepines Scrn Neg Urine Cocaine Screen Neg U Cannabinoids Screen Neg Blood Type Blood Type Recheck Antibody Screen 04/03/18 04/03/18 04/03/18 14:27 14:27 14:27 WBC RBC Hgb POC Hgb (Calc) 13.3 Hct POC Hct 39.0 MCV MCH MCHC RDW Plt Count MPV Neut % (Auto) Lymph % (Auto) [place] % (Auto) Eos % (Auto) Baso % (Auto) Neut # (Auto) Lymph # (Auto) [place] # (Auto) Eos # (Auto) Baso # (Auto) WBC Differential Differential Comment PT 11.2 INR 1.1 APTT 23.4 L Fibrinogen 392 H POC Sodium 140 Sodium 139 POC Potassium 4.5 Potassium 4.4 POC Chloride 100 L Chloride 104 Carbon Dioxide 30.0 Anion Gap 5 POC BUN 20 BUN 19 H Creatinine 0.95 POC Creatinine 0.9 Estimated GFR 79 L POC Glucose 245 H Random Glucose 236 H Calcium 8.8 Total Creatine Kinase 63 Troponin I Less than 0.02 L Urine Color Urine Clarity Urine pH Ur Specific [place] Urine Protein Urine Glucose (UA) Urine Ketones Urine Occult Blood Urine Nitrate Urine Bilirubin Urine Urobilinogen Ur Leukocyte Esterase Urine WBC Hyaline Casts Urine Mucus Micro UA Comment Urine Culture Comments Urine Opiates Screen Ur Barbiturates Screen Ur Amphetamines Screen U Benzodiazepines Scrn Urine Cocaine Screen U Cannabinoids Screen Blood Type O Positive Blood Type Recheck Antibody Screen Negative 04/03/18 04/03/18 04/04/18 15:00 22:02 07:34 WBC RBC Hgb POC Hgb (Calc) Hct POC Hct MCV MCH MCHC RDW Plt Count MPV Neut % (Auto) Lymph % (Auto) [place] % (Auto) Eos % (Auto) Baso % (Auto) Neut # (Auto) Lymph # (Auto) [place] # (Auto) Eos # (Auto) Baso # (Auto) WBC Differential Differential Comment PT INR APTT Fibrinogen POC Sodium Sodium POC Potassium Potassium POC Chloride Chloride Carbon Dioxide Anion Gap POC BUN BUN Creatinine POC Creatinine Estimated GFR POC Glucose 339 H 138 H Random Glucose Calcium Total Creatine Kinase Troponin I Urine Color Yellow Urine Clarity Hazy H Urine pH 5.0 Ur Specific [place] 1.011 Urine Protein Negative Urine Glucose (UA) 500 or greater Urine Ketones Negative Urine Occult Blood Negative Urine Nitrate Negative Urine Bilirubin Negative Urine Urobilinogen Less than 2 Ur Leukocyte Esterase Negative Urine WBC 1 Hyaline Casts 7 Urine Mucus Few H Micro UA Comment Cath-culture not ind Urine Culture Comments Cath-cult not ind Urine Opiates Screen Ur Barbiturates Screen Ur Amphetamines Screen U Benzodiazepines Scrn Urine Cocaine Screen U Cannabinoids Screen Blood Type Blood Type Recheck Antibody Screen Review/Management - Review/Management Plan: imp mri/a/a neg check eeg and mri c spine and if c spine mri neg can dc sr
--- NOTE | 2018-04-04 11:31 | MR ---
EXAM DATE: 04/04/2018 11:12 AM EDT AGE/SEX: 67 years / Male INDICATIONS: . Left upper extremity weakness. CLINICAL DATA: This is the patient's initial encounter. Patient reports that signs and symptoms have been present for 2 days and indicates a pain score of 2/10. MEDICAL/SURGICAL HISTORY: Hypertension. Inguinal hernia repair. BKA left leg COMPARISON: [facility], MRA NECK W CONTRAST, 04/03/2018. . TECHNIQUE: Multiplanar, multisequence MRI examination of the cervical spine was performed without co ntrast. FINDINGS: Vertebrae: Normal vertebral body height. Homogeneous marrow signal. Alignment: Normal. Cord: Normal configuration and signal. Post Fossa: The cerebellar tonsils are normal in position. C2-C3: The thecal sac has a normal configuration. There is no evidence of disc herniation or spinal canal stenosis. The neural foramina are patent bilaterally. C3-C4: Mild broad-based protrusion in conjunction with ligamentum flavum flavum hypertrophy causes m ild canal stenosis. Neural foramen are patent. C4-C5: Small right paracentral protrusion abuts the ventral thecal sac. No significant canal stenosi s. Slight cord flattening. The neural foramina are patent bilaterally. C5-C6: The thecal sac has a normal configuration. There is no evidence of disc herniation or spinal canal stenosis. Uncovertebral spurring on the right causing mild neural foraminal encroachment. Left neural foramen patent. C6-C7: Mild broad-based protrusion abuts the ventral thecal sac without canal stenosis. Mild neural foraminal narrowing left. Right neural foramen patent. C7-T1: No epidural impressions seen. CONCLUSION: 1. Multilevel protrusions as described above. 2. Mild canal stenosis at C3-4 level. 3. Scattered neural foraminal narrowing. Electronically signed by: Nitish Price MD 04/04/2018 11:30 AM EDT
--- NOTE | 2018-04-04 13:05 | P.PN ---
Subjective Interval history: Patient evaluated in the presence of daughter and and other family. Patient more awake, oriented 3 and following commands. According to family, he is much more improved. Patient describing what happened yesterday, indicates that he felt like he was "going out" as he was sitting in chair after doing arm exercises. Denies any pain, no nausea, no vomiting. No acute changes overnight. Physical Exam Vital signs: Vital Signs 04/03/18 14:22 04/03/18 14:27 04/03/18 15:20 Temperature 97.9 F 97.8 F Pulse Rate 62 64 67 Respiratory Rate 18 18 Blood Pressure 134/63 129/66 Pulse Oximetry 99 99 99 04/03/18 16:20 04/03/18 17:15 04/03/18 18:02 Temperature 97.7 F 97.8 F 97.8 F Pulse Rate 70 66 66 Respiratory Rate 16 17 17 Blood Pressure 148/70 H 142/79 H 142/79 H Pulse Oximetry 99 99 99 04/03/18 19:33 04/03/18 20:00 04/03/18 23:44 Temperature 98.2 F 98.2 F Pulse Rate 78 90 83 Respiratory Rate 20 18 18 Blood Pressure 141/62 H 122/66 177/84 H Pulse Oximetry 96 96 95 04/04/18 00:00 04/04/18 03:38 04/04/18 04:00 Temperature 97.6 F Pulse Rate 86 69 72 Respiratory Rate 18 Blood Pressure 170/83 H Pulse Oximetry 97 04/04/18 08:00 04/04/18 08:34 04/04/18 09:25 Temperature 98.0 F Pulse Rate 70 68 Respiratory Rate 16 Blood Pressure 159/75 H 125/74 Pulse Oximetry 100 98 99 Intake & Output 04/03/18 04/04/18 04/04/18 18:59 06:59 18:59 Intake Total 1000 / 1000 990 / 990 Output Total 500 / 500 350 / 350 Balance -500 / -500 1000 / 1000 640 / 640 Weight 71.6 kg Intake: IV 1000 / 1000 990 / 990 NS Inj 1,000 ML @ 100 mls/hr IV 1000 / 1000 990 / 990 .CONT .Q10H [facility] Rx#:[id number] Output: Urine 500 / 500 350 / 350 Other: # Voids 2 Narrative: GENERAL: 67-year-old chronically ill-appearing male. SKIN: Warm and dry. HEAD: Atraumatic. Normocephalic. EYES: Pupils equal and round, 2 mm and pinpoint. No scleral icterus. No injection or drainage. ENT: No nasal bleeding or discharge. Mucous membranes pink and moist. NECK: Trachea midline. No JVD. CARDIOVASCULAR: Regular rate and rhythm. RESPIRATORY: No accessory muscle use. Clear to auscultation. Breath sounds equal bilaterally. GASTROINTESTINAL: Abdomen soft, non-tender, nondistended. Hepatic and splenic margins not palpable. MUSCULOSKELETAL: Left below-knee amputation, there are sutures in place are intact, no evidence of dehiscence. NEUROLOGICAL: Patient more awake today, oriented 3. Following commands, speech is clear. Bilateral upper extremity strength is 4 out of 5. Right lower extremity strength 3-4 out of 5. No ataxia with finger to nose. PSYCHIATRIC: Appropriate mood and affect; insight and judgment normal. Results - Labs CBC & Chem 7: 04/03/18 14:27 04/03/18 14:27 Laboratory Results - last 24 hr 04/03/18 04/03/18 04/03/18 05:15 14:24 14:27 WBC 9.7 RBC 4.32 L Hgb 13.5 POC Hgb (Calc) Hct 38.2 L POC Hct MCV 88.5 MCH 31.2 MCHC 35.3 RDW 14.1 Plt Count 264 MPV 8.8 Neut % (Auto) 66.3 Lymph % (Auto) 21.6 [place] % (Auto) 8.5 H Eos % (Auto) 2.6 Baso % (Auto) 1.0 Neut # (Auto) 6.4 Lymph # (Auto) 2.1 [place] # (Auto) 0.8 Eos # (Auto) 0.3 Baso # (Auto) 0.1 WBC Differential . Differential Comment Auto diff final PT INR APTT Fibrinogen POC Sodium Sodium POC Potassium Potassium POC Chloride Chloride Carbon Dioxide Anion Gap POC BUN BUN Creatinine POC Creatinine Estimated GFR POC Glucose 239 H Random Glucose Calcium Total Creatine Kinase Troponin I Urine Color Urine Clarity Urine pH Ur Specific [place] Urine Protein Urine Glucose (UA) Urine Ketones Urine Occult Blood Urine Nitrate Urine Bilirubin Urine Urobilinogen Ur Leukocyte Esterase Urine WBC Hyaline Casts Urine Mucus Micro UA Comment Urine Culture Comments Urine Opiates Screen Neg Ur Barbiturates Screen Neg Ur Amphetamines Screen Neg U Benzodiazepines Scrn Neg Urine Cocaine Screen Neg U Cannabinoids Screen Neg Blood Type Blood Type Recheck Antibody Screen 04/03/18 04/03/18 04/03/18 14:27 14:27 14:27 WBC RBC Hgb POC Hgb (Calc) 13.3 Hct POC Hct 39.0 MCV MCH MCHC RDW Plt Count MPV Neut % (Auto) Lymph % (Auto) [place] % (Auto) Eos % (Auto) Baso % (Auto) Neut # (Auto) Lymph # (Auto) [place] # (Auto) Eos # (Auto) Baso # (Auto) WBC Differential Differential Comment PT 11.2 INR 1.1 APTT 23.4 L Fibrinogen 392 H POC Sodium 140 Sodium 139 POC Potassium 4.5 Potassium 4.4 POC Chloride 100 L Chloride 104 Carbon Dioxide 30.0 Anion Gap 5 POC BUN 20 BUN 19 H Creatinine 0.95 POC Creatinine 0.9 Estimated GFR 79 L POC Glucose 245 H Random Glucose 236 H Calcium 8.8 Total Creatine Kinase 63 Troponin I Less than 0.02 L Urine Color Urine Clarity Urine pH Ur Specific [place] Urine Protein Urine Glucose (UA) Urine Ketones Urine Occult Blood Urine Nitrate Urine Bilirubin Urine Urobilinogen Ur Leukocyte Esterase Urine WBC Hyaline Casts Urine Mucus Micro UA Comment Urine Culture Comments Urine Opiates Screen Ur Barbiturates Screen Ur Amphetamines Screen U Benzodiazepines Scrn Urine Cocaine Screen U Cannabinoids Screen Blood Type O Positive Blood Type Recheck Antibody Screen Negative 04/03/18 04/03/18 04/04/18 15:00 22:02 07:34 WBC RBC Hgb POC Hgb (Calc) Hct POC Hct MCV MCH MCHC RDW Plt Count MPV Neut % (Auto) Lymph % (Auto) [place] % (Auto) Eos % (Auto) Baso % (Auto) Neut # (Auto) Lymph # (Auto) [place] # (Auto) Eos # (Auto) Baso # (Auto) WBC Differential Differential Comment PT INR APTT Fibrinogen POC Sodium Sodium POC Potassium Potassium POC Chloride Chloride Carbon Dioxide Anion Gap POC BUN BUN Creatinine POC Creatinine Estimated GFR POC Glucose 339 H 138 H Random Glucose Calcium Total Creatine Kinase Troponin I Urine Color Yellow Urine Clarity Hazy H Urine pH 5.0 Ur Specific [place] 1.011 Urine Protein Negative Urine Glucose (UA) 500 or greater Urine Ketones Negative Urine Occult Blood Negative Urine Nitrate Negative Urine Bilirubin Negative Urine Urobilinogen Less than 2 Ur Leukocyte Esterase Negative Urine WBC 1 Hyaline Casts 7 Urine Mucus Few H Micro UA Comment Cath-culture not ind Urine Culture Comments Cath-cult not ind Urine Opiates Screen Ur Barbiturates Screen Ur Amphetamines Screen U Benzodiazepines Scrn Urine Cocaine Screen U Cannabinoids Screen Blood Type Blood Type Recheck Antibody Screen 04/04/18 12:07 WBC RBC Hgb POC Hgb (Calc) Hct POC Hct MCV MCH MCHC RDW Plt Count MPV Neut % (Auto) Lymph % (Auto) [place] % (Auto) Eos % (Auto) Baso % (Auto) Neut # (Auto) Lymph # (Auto) [place] # (Auto) Eos # (Auto) Baso # (Auto) WBC Differential Differential Comment PT INR APTT Fibrinogen POC Sodium Sodium POC Potassium Potassium POC Chloride Chloride Carbon Dioxide Anion Gap POC BUN BUN Creatinine POC Creatinine Estimated GFR POC Glucose 205 H Random Glucose Calcium Total Creatine Kinase Troponin I Urine Color Urine Clarity Urine pH Ur Specific [place] Urine Protein Urine Glucose (UA) Urine Ketones Urine Occult Blood Urine Nitrate Urine Bilirubin Urine Urobilinogen Ur Leukocyte Esterase Urine WBC Hyaline Casts Urine Mucus Micro UA Comment Urine Culture Comments Urine Opiates Screen Ur Barbiturates Screen Ur Amphetamines Screen U Benzodiazepines Scrn Urine Cocaine Screen U Cannabinoids Screen Blood Type Blood Type Recheck Antibody Screen - Imaging Impressions Chest X-Ray 04/03/18 14:27 CONCLUSION: No evidence of acute cardiopulmonary process. Head CT 04/03/18 14:27 CONCLUSION: 1. Cerebral white matter disease characteristic of chronic microvascular ischemic changes. 2. Stable evaluation of the brain without evidence of acute infarct, hemorrhage , mass or edema. Report was called by Dr. Bender to Dr. Alvarez at 1440. Head MRI 04/03/18 14:42 CONCLUSION: 1. No evidence of acute infarct, hemorrhage, mass or edema. 2. Advanced cerebral white matter disease characteristic of chronic microvascular ischemic disease. Head MRA 04/03/18 14:42 CONCLUSION: 1. Mild intracavernous ICA atherosclerotic disease. No acute abnormality. Neck MRA 04/03/18 14:42 CONCLUSION: 1. 20% stenosis involving the right ICA origin. The left carotid is patent. 2. Patent vertebral arteries bilaterally. 3. Bilateral subclavian artery stenoses. Percent stenosis is calculated using the diameter of the stenotic region over the diameter of the normal distal internal carotid artery Cervical Spine MRI 04/04/18 00:00 CONCLUSION: 1. Multilevel protrusions as described above. 2. Mild canal stenosis at C3-4 level. 3. Scattered neural foraminal narrowing. Assessment and Plan - Assessment (1) Altered mental status Code(s): R41.82 - Altered mental status, unspecified Status: Acute (2) Left-sided weakness Code(s): R53.1 - Weakness Status: Acute (3) PAD (peripheral artery disease) Code(s): I73.9 - Peripheral vascular disease, unspecified Status: Chronic (4) CAD (coronary artery disease) Code(s): I25.10 - Atherosclerotic heart disease of [place] coronary artery without angina pectoris Status: Chronic (5) Diabetes Code(s): E11.9 - Type 2 diabetes mellitus without complications Status: Chronic (6) Neuropathy Code(s): G62.9 - Polyneuropathy, unspecified Status: Chronic (7) Depression Code(s): F32.9 - Major depressive disorder, single episode, unspecified Status : Chronic - Plan This is a 67 white male with hx of PAD, 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 presented to the emergency room with recurrent episode of altered mental status and left-sided weakness. Patient had a similar episode on April 01 and had extensive neuro workup with negative findings. Prior episode was thought to be due to narcotics, he responded after Narcan was given. Altered mental status with left-sided weakness, imaging studies completed revealed no acute findings. Does not appear to be correlated with narcotic use , he did not required Narcan this time. Left-sided weakness appears to have resolved. Patient more awake and alert today, etiology unclear as to what is causing symptoms. -Neurochecks every 4 hours -Neurology input appreciated, cervical spine MRI pending. -EEG has been ordered, pending -Continue with aspirin and Plavix -Discontinue IV fluid -PT notes reviewed, patient complained of dizziness. -Continue statin -No need for 2D echo, EEG, Holter, and carotid ultrasound as patient had recent extensive workup. -orthostatics every shift-negative so far. -Continue to hold narcotics for now PAD, history of gangrene, status post left BKA -Monitor left BKA stump, still has sutures in place. Insulin-dependent diabetes -Accu-Cheks before meals and at bedtime with insulin therapy per sliding scale -1800 ADA diet Hypertension -Continue lisinopril 10 mg p.o. daily Neuropathy -Continue gabapentin 600 mg p.o. 3 times daily Depression -Continue Zoloft 150 mg p.o. nightly Lovenox for DVT prophylaxis We will follow up on imaging studies as well as EEG. Possible discharge tomorrow if workup negative. Plan of care discussed with patient, daughter and , their questions have been answered in detail. 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
[2018-04-04] MEDS: Enoxaparin Inj 40 MG/0.4 ML Syringe SQ SCH (20:36)
[2018-04-04] MEDS: Insulin Detemir Inj 1,000 UNIT/10 ML Vial SQ SCH (20:36)
[2018-04-04] MEDS: Sertraline 100 MG Tablet PO SCH (20:37)
--- NOTE | 2018-04-05 07:43 | P.PNNEU ---
Subjective Subjective Comments: sr Active Medications: Active Medications Acetaminophen (Tylenol) 650 mg PO Q4H PRN PRN Reason: Temp > 100.4 Al Hydroxide/Mg Hydroxide (Milk Of Magnesia Liq) 30 ml PO Q12H PRN PRN Reason: Mild Constipation Amlodipine Besylate (Norvasc) 2.5 mg PO DAILY [facility] Last Admin: 04/04/18 08:13 Dose: 2.5 mg Aspirin (Ecotrin) 81 mg PO DAILY [facility] Last Admin: 04/04/18 08:00 Dose: 81 mg Atorvastatin Calcium (Lipitor) 80 mg PO HS [facility] Last Admin: 04/04/18 20:36 Dose: 80 mg Bisacodyl (Dulcolax Supp) 10 mg RECTAL DAILY PRN PRN Reason: SEVERE CONSITIPATION Clopidogrel Bisulfate (Plavix) 75 mg PO DAILY [facility] Last Admin: 04/04/18 08:10 Dose: 75 mg Dextrose (D50w Vial) 50 ml IV.PUSH UNSCH PRN PRN Reason: PER HYPOGLYCEMIA PROTOCOL Enoxaparin Sodium (Lovenox Inj) 40 mg SQ Q24H [facility] Last Admin: 04/04/18 20:36 Dose: 40 mg Folic Acid (Folic Acid) 1 mg PO DAILY [facility] Last Admin: 04/04/18 08:11 Dose: 1 mg Gabapentin (Neurontin) 600 mg PO TID [facility] Last Admin: 04/04/18 17:09 Dose: 600 mg Glucagon (Glucagon Inj) 1 mg OTHER PRN PRN PRN Reason: for Hypoglycemia Protocol Insulin Detemir (Levemir Inj) 12 unit SQ [facility] Last Admin: 04/04/18 20:36 Dose: 12 unit Insulin Human Regular (Novolin R Correctional Sugar Inj) 0 units SQ [facility]; Protocol Last Admin: 04/04/18 20:44 Dose: 3 units Lactulose (Lactulose Liq) 30 ml PO DAILY PRN PRN Reason: SEVERE CONSITIPATION Lisinopril (Prinivil) 10 mg PO DAILY [facility] Last Admin: 04/04/18 08:11 Dose: 10 mg Ondansetron HCl (Zofran Inj) 4 mg IV.PUSH Q6H PRN PRN Reason: NAUSEA OR VOMITING Patient Own Medication ( Difluprednate [ Durezol] 1 Drp) 0 each EACH EYE QID [facility] Last Admin: 04/04/18 20:37 Dose: Not Given Senna/Docusate Sodium (Maggie-Colace) 1 tab PO BID [facility] Last Admin: 04/04/18 20:36 Dose: 1 tab Sennosides (Senokot) 17.2 mg PO Q12H PRN PRN Reason: Moderate Constipation Sertraline HCl (Zoloft) 150 mg PO HS [facility] Last Admin: 04/04/18 20:37 Dose: 150 mg Vitamin B Complex/Vitamin C (Allbee C) 1 tab PO DAILY [facility] Last Admin: 04/04/18 08:10 Dose: 1 tab Allergies/Adverse Reactions: Allergies Allergy/AdvReac Type Severity Reaction Status Date / Time Iodinated Contrast- Oral and Allergy Intermediate Swelling Verified 04/03/18 15: 21 IV Dye Physical Exam Vital signs: Vital Signs 04/04/18 08:00 04/04/18 08:34 04/04/18 09:25 Temperature 98.0 F Pulse Rate 70 68 Respiratory Rate 16 Blood Pressure 159/75 H 125/74 Pulse Oximetry 100 98 99 04/04/18 16:00 04/04/18 19:43 04/04/18 20:00 Temperature 98.5 F Pulse Rate 78 65 64 Respiratory Rate 16 20 Blood Pressure 108/59 L 104/56 L Pulse Oximetry 96 97 97 04/04/18 23:37 04/05/18 00:00 04/05/18 03:55 Temperature 98.1 F 98.2 F Pulse Rate 69 67 68 Respiratory Rate 18 18 Blood Pressure 132/66 160/73 H Pulse Oximetry 95 04/05/18 04:00 Temperature Pulse Rate 67 Respiratory Rate Blood Pressure Pulse Oximetry Intake & Output 04/04/18 04/05/18 04/05/18 18:59 06:59 18:59 Intake Total 990 / 990 360 / 360 Output Total 350 / 350 400 / 400 Balance 640 / 640 -40 / -40 Weight 71.6 kg Intake: IV 990 / 990 NS Inj 1,000 ML @ 100 mls/hr IV 990 / 990 .CONT .Q10H [facility] Rx#:[id number] Oral 360 / 360 Output: Urine 350 / 350 400 / 400 Other: # Voids 3 Date of Last Bowel Movement 04/04/18 04/04/18 # Bowel Movements 1 0 Narrative: face sym 5/5 lue and lle Objective Laboratory Results - last 24 hr 08/11/18 08/11/18 08/11/18 12:07 16:29 20:36 POC Glucose 205 H 210 H 200 H Review/Management - Review/Management Plan: imp mri/a/a neg check eeg and mri c spine and if c spine mri neg can dc sr -- 04/05/18 looks fine mri c spine neg i will look at eeg but he can dc now will sign off
[2018-04-05 07:44] VITALS: RESP 16
--- NOTE | 2018-04-05 08:26 | P.PN ---
Subjective Interval history: pt. awake, oriented x 3, sat up in bed, no dizziness. No reported syncopal episodes. No CP, no sob, no fever. Tele SR. BP up 160s Physical Exam Vital signs: Vital Signs 04/04/18 08:34 04/04/18 09:25 04/04/18 16:00 Temperature 98.5 F Pulse Rate 68 78 Respiratory Rate 16 Blood Pressure 125/74 108/59 L Pulse Oximetry 98 99 96 04/04/18 19:43 04/04/18 20:00 04/04/18 23:37 Temperature 98.1 F Pulse Rate 65 64 69 Respiratory Rate 20 18 Blood Pressure 104/56 L 132/66 Pulse Oximetry 97 97 95 04/05/18 00:00 04/05/18 03:55 04/05/18 04:00 Temperature 98.2 F Pulse Rate 67 68 67 Respiratory Rate 18 Blood Pressure 160/73 H Pulse Oximetry 04/05/18 07:40 Temperature 98.2 F Pulse Rate 63 Respiratory Rate 16 Blood Pressure 172/78 H Pulse Oximetry 98 Intake & Output 04/04/18 04/05/18 04/05/18 18:59 06:59 18:59 Intake Total 990 / 990 360 / 360 Output Total 350 / 350 400 / 400 Balance 640 / 640 -40 / -40 Weight 71.6 kg Intake: IV 990 / 990 NS Inj 1,000 ML @ 100 mls/hr IV 990 / 990 .CONT .Q10H [facility] Rx#:[id number] Oral 360 / 360 Output: Urine 350 / 350 400 / 400 Other: # Voids 3 Date of Last Bowel Movement 04/04/18 04/04/18 # Bowel Movements 1 0 Narrative: GENERAL: 67-year-old chronically ill-appearing male. SKIN: Warm and dry. HEAD: Atraumatic. Normocephalic. EYES: Pupils equal and round, 2 mm and pinpoint. No scleral icterus. No injection or drainage. ENT: No nasal bleeding or discharge. Mucous membranes pink and moist. NECK: Trachea midline. No JVD. CARDIOVASCULAR: Regular rate and rhythm. RESPIRATORY: No accessory muscle use. Clear to auscultation. Breath sounds equal bilaterally. GASTROINTESTINAL: Abdomen soft, non-tender, nondistended. Hepatic and splenic margins not palpable. MUSCULOSKELETAL: Left below-knee amputation, there are sutures in place are intact, no evidence of dehiscence. NEUROLOGICAL: Patient more awake today, oriented 3. Following commands, speech is clear. Bilateral upper extremity strength is 4 out of 5. Right lower extremity strength 3-4 out of 5. No ataxia with finger to nose. PSYCHIATRIC: Appropriate mood and affect; insight and judgment normal. Results - Labs CBC & Chem 7: 04/03/18 14:27 04/03/18 14:27 Laboratory Results - last 24 hr 04/04/18 04/04/18 04/04/18 12:07 16:29 20:36 POC Glucose 205 H 210 H 200 H 04/05/18 08:22 POC Glucose 181 H - Imaging Impressions Cervical Spine MRI 04/04/18 00:00 CONCLUSION: 1. Multilevel protrusions as described above. 2. Mild canal stenosis at C3-4 level. 3. Scattered neural foraminal narrowing. Assessment and Plan - Assessment (1) Altered mental status Code(s): R41.82 - Altered mental status, unspecified Status: Acute (2) Left-sided weakness Code(s): R53.1 - Weakness Status: Acute (3) PAD (peripheral artery disease) Code(s): I73.9 - Peripheral vascular disease, unspecified Status: Chronic (4) CAD (coronary artery disease) Code(s): I25.10 - Atherosclerotic heart disease of hoh coronary artery without angina pectoris Status: Chronic (5) Diabetes Code(s): E11.9 - Type 2 diabetes mellitus without complications Status: Chronic (6) Neuropathy Code(s): G62.9 - Polyneuropathy, unspecified Status: Chronic (7) Depression Code(s): F32.9 - Major depressive disorder, single episode, unspecified Status : Chronic - Plan This is a 67 white male with hx of PAD, 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 presented to the emergency room with recurrent episode of altered mental status and left-sided weakness. Patient had a similar episode on April 01 and had extensive neuro workup with negative findings. Prior episode was thought to be due to narcotics, he responded after Narcan was given. Altered mental status with left-sided weakness, imaging studies completed revealed no acute findings. Does not appear to be correlated with narcotic use , he did not required Narcan this time. Left-sided weakness appears to have resolved. -Neurochecks every 4 hours -Neurology input appreciated, cleared for dc. EEG negative. cervical spine MRI no significant findings. -Continue with aspirin and Plavix -continue with PT at SNF -Continue statin -No need for 2D echo, EEG, Holter, and carotid ultrasound as patient had recent extensive workup. -orthostatics every shift-negative so far. -Continue to hold narcotics for now -Symptoms resolved, no confusion. No etiology identified for episode. PAD, history of gangrene, status post left BKA -Monitor left BKA stump, still has sutures in place. -Needs to f/u with surgeon Insulin-dependent diabetes -Accu-Cheks before meals and at bedtime with insulin therapy per sliding scale -1800 ADA diet Hypertension -Continue lisinopril 10 mg p.o. and Norvasc 2.5 mg po daily -BP up, will have RN recheck before he is dc. Neuropathy -Continue gabapentin 600 mg p.o. 3 times daily Depression -Continue Zoloft 150 mg p.o. nightly Lovenox for DVT prophylaxis CM consult for dc planning Plan to dc today back to SNF Needs to f/u Dr. Ayala as op for further work up if symptoms recur F/U surgeon F/U PCP Diet-diabetic Activity -as tolerated Spoke to pt's on the phone, questions answered in detail. (1) Altered mental status Qualifiers: Altered mental status type: transient alteration of awareness Qualified Code( s): R40.4 - Transient alteration of awareness (4) CAD (coronary artery disease) Qualifiers: Coronary Disease-Associated Artery/Lesion type: unspecified vessel or lesion type Associated angina: without angina (5) Diabetes Qualifiers: Diabetes mellitus type: type 2 Diabetes mellitus halfway insulin use: unspecified halfway insulin use status Diabetes mellitus complication status : with circulatory complication Diabetes mellitus complication detail: with peripheral angiopathy without gangrene Qualified Code(s): E11.51 - Type 2 diabetes mellitus with diabetic peripheral angiopathy without gangrene (7) Depression Qualifiers: Depression Type: unspecified Qualified Code(s): F32.9 - Major depressive disorder, single episode, unspecified
[2018-04-05] MEDS: Insulin NovoLIN Regular Correctional Sugar Inj SQ SCH ×2 (09:00→14:20)
[2018-04-05] MEDS: Folic Acid 1 MG Tablet PO SCH (09:02)
[2018-04-05] MEDS: Gabapentin 300 MG Capsule PO SCH ×2 (09:02→14:17)
[2018-04-05] MEDS: amLODIPine 5 MG Tablet PO SCH (09:03)
[2018-04-05] MEDS: Lisinopril 10 MG Tablet PO SCH (09:03)
[2018-04-05] MEDS: Senna/Docusate Sodium 8.6/50 MG Tablet PO SCH (09:03)
[2018-04-05] MEDS: Vitamin B Complex/Vitamin C Tablet PO SCH (09:03)
[2018-04-05] MEDS: DIFLUPREDNATE EACH EYE SCH ×2 (09:06→14:21)
--- NOTE | 2018-04-05 10:27 | MG ---
cc: Chaim Ayala MD EEG NUMBER: [id number] INDICATIONS: Left-sided weakness. Diabetic. FINDINGS: A symmetric 8 Hz, 60 microvolt posterior rhythm is seen. I do not see any right hemisphere abnormalities. This is a normal-appearing, awake EEG. Hyperventilation is not performed. Photic stimulation is performed without significant posterior driving. IMPRESSION: A normal awake electroencephalogram. No evidence for focal or diffuse abnormality. Specifically, no right hemisphere abnormalities are noted. Chaim Ayala MD DJM/rm , 07:54 AM , 07:59 AM
[2018-04-05 11:33] VITALS: BP 129/70; PULSE 80; TEMP 98; O2SAT 96
--- NOTE | 2018-04-06 09:07 | MB ---
cc: Chaim Ayala MD DATE: 04/03/2018 HISTORY OF PRESENT ILLNESS: I just saw him in the hospital on 03/30/2018. He is a 67-year-old right-handed man, who was just called as a stroke alert. Nevertheless, he has a history of hypertension and insipidus diabetes, hypercholesterolemia. He had an episode 2 months prior to this month where he goes limp, gets very sleepy for the rest of the day, every time he has PT he gets tired. He had a left below-knee amputation about 3 weeks ago and came in for what was thought to be some weakness on the left side and change in mental status. His workup was negative. There was no stroke. At the time of his admission, he was on 81 mg of aspirin prior. Then today, he again was noted to be weak on the left side and a stroke alert was called. The ER felt he was about a 4/5 weakness in the left arm. REVIEW OF SYSTEMS: In the past no history of ID, CABG, stent, angioplasty, A-Fib, Coumadin, renal, hepatic, pulmonary disease, thyroid disease, lupus, ulcer, cancer or stroke. SOCIAL HISTORY: Nonsmoker, drinker, lives in a assisted currently. He usually lives by himself. FAMILY HISTORY: Positive for cancer. Negative for seizure. Positive stroke. MEDICATIONS: 1. Now, he is on Zoloft 150 at bedtime. 2. Vitamin B. 3. Lisinopril. 4. Insulin. 5. Fel[place]. 6. Gabapentin 600 t.i.d. 7. Folic acid. 8. Durezol eyedrops. 9. Plavix 75 since he was last in here. 10. Vitamin D. 11. Atorvastatin. 12. 81 of aspirin. 13. Norvasc. EKG shows sinus rhythm. PHYSICAL EXAMINATION: NECK: No carotid bruits. HEART: Regular rate and rhythm. I did not detect a murmur. NEUROLOGIC: Pupils are equal. Visual manley are full. Extraocular movements intact without nystagmus. Face is symmetric. Tongue was midline. He had normal strength in right upper and right lower extremity and left lower extremity, which is a below-knee amp. Left upper extremity: I asked him to pick his arm up, he said "well that will be a little bit work" and then he was able to lift it up off the bed and his left triceps and finger extensors and normal strength, 5/5. He is awake and alert. Speech is fluent. He is not aphasic. Pinprick appeared to be intact and symmetric throughout. He thought that the left forearm may be a little bit less on the left than the right, but the hands were symmetric, as was the face. Left lower extremity, he said was a little bit less pinprick than the right leg; however, that is the below-knee amp leg. VITAL SIGNS: Also afebrile, 62, 18 134/63. LABORATORY DATA: CBC is normal today. Sedimentation rate was 34 on last admission. Coags have been normal. ABG on the last admission was normal. Basic metabolic profile today is normal. Glucose 245. Calcium normal. LFTs normal. Ammonia level normal. CPK normal on the last admission. Troponin negative today. CRP was 16 on 03/05/2018, LDL cholesterol 29, B12, thiamine, methylmalonic acid, thyroid all normal. Sedimentation rate 34. UA on last admission was negative. Urine drug screen was negative. MRI of the brain, MRA ione of [place] and MRA of the neck on last admission were normal. CT scan of the brain today showed some white matter changes, otherwise negative. Chest x-ray today: Results pending. IMPRESSION: He is back to his baseline now. I think it is unlikely these are transient ischemic attacks. I noted his Holter monitor showed sinus rhythm last time in the hospital and echocardiogram also was normal. He is already on aspirin and Plavix. I do not any evidence to try to push him up to Coumadin. I suspect his MRI will be negative. I notice EEG last time was also normal. If his MRI is negative and a repeat EEG is negative, he could be discharged on the aspirin and Plavix. I suspect it is probably more of a lack of effort than anything on the left side on today's presentation. I would recommend stopping his narcotics. MD JAVIER Manning/jacob/nirmala , 03:34 PM , 03:44 PM
== END 2018-04-05 17:26 ==
LOC: NEPGCP 14:22 → NEDA 14:22 → NEPE 14:22 → NEPGCP 20:01
PROVIDERS: ADMIT Internal Medicine; ATTEND Internal Medicine
DX: I25.10 Atherosclerotic heart disease of native coronary artery without angina pectoris; Z79.4 Long term (current) use of insulin; Z79.02 Long term (current) use of antithrombotics/antiplatelets; Z82.3 Family history of stroke; Z79.899 Other long term (current) drug therapy; R41.82 Altered mental status, unspecified; Z79.82 Long term (current) use of aspirin; I10 Essential (primary) hypertension; E78.00 Pure hypercholesterolemia, unspecified; F41.9 Anxiety disorder, unspecified; Z89.512 Acquired absence of left leg below knee; Z87.891 Personal history of nicotine dependence; F32.9 Major depressive disorder, single episode, unspecified; E11.51 Type 2 diabetes mellitus with diabetic peripheral angiopathy without gangrene; R79.1 Abnormal coagulation profile; R53.1 Weakness; I65.21 Occlusion and stenosis of right carotid artery